=== PATIENT | male | born 1955 | race Caucasian/White ===

== ENCOUNTER 2016-04-07 16:29 | Observation (INO) | payer MEDICARE, OTHER ==
[~2016-04-07] VITALS: Ht 172.7 cm; Wt 78.0 kg
[~2016-04-07 16:29] MED LIST: ASPI1TAB69 PO; BUSP5TAB PO; CARV12.52 PO; FURO1TAB60 PO; LOSA100T PO; METF500T PO; SIMV40TA PO
[2016-04-07 16:32] VITALS: BP 120/88; PULSE 85; RESP 17; TEMP 98.2; O2SAT 98
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
[2016-04-07 19:56] VITALS: BP 135/91; RESP 18; TEMP 98.1; O2SAT 99
[2016-04-07] MEDS ORDERED: SODIUM CHLORIDE 0.9% FLUSH 5 ML FLUSH IVF PRN (20:15)
[2016-04-07] MEDS ORDERED: MORPHINE SULFATE 4 MG/ML INJ IV PUSH ONE (20:15)
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
[2016-04-07 21:33] VITALS: BP 127/73; PULSE 65; RESP 18; O2SAT 97
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
[2016-04-07 22:03] LABS: AUTOMATED NEUTROPHIL # 4.9 TH/MM3 (1.8-7.7); BASOPHIL % 0.5 % (0.0-2.0); EOSINOPHIL # 0.1 TH/MM3 (0-0.4); EOSINOPHIL % 1.4 % (0.0-4.0); HEMATOCRIT 43.4 % (39.0-51.0); HEMO FLAGS DIFF FINAL; LYMPHOCYTE # 1.9 TH/MM3 (1.0-4.8); MEAN CELL VOLUME 90.8 FL (80.0-100.0); MEAN CORPUSCULAR HEMOGLOBIN 31.5 PG (27.0-34.0); MEAN CORPUSCULAR HGB CONC 34.6 % (32.0-36.0); MONO % 6.5 % (0.0-8.0); NEUT % 65.6 % (16.0-70.0); PLATELET COUNT 155 TH/MM3 (150-450); RED BLOOD COUNT 4.78 MIL/MM3 (4.50-5.90); WHITE BLOOD COUNT 7.5 TH/MM3 (4.0-11.0)
[2016-04-07 22:17] LABS: BICARBONATE 27.6 MEQ/L (21.0-32.0); POTASSIUM 3.3 MEQ/L (3.5-5.1)
[2016-04-07 22:18] LABS: APTT (PATIENT) 26.2 SEC (24.3-30.1); INTERNATIONAL NORMALIZED RATIO 1.1 RATIO; PROTHROMBIN TIME - PATIENT 11.7 SEC (9.8-11.6)
[2016-04-07] MEDS ORDERED: POTASSIUM CL 40 MEQ/30 ML LIQ UDC PO ONE (22:30)
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
[2016-04-08] MEDS ORDERED: ACETAMINOPHEN 325 MG TAB PO PRN (01:00)
[2016-04-08] MEDS ORDERED: NALOXONE HCL 0.4 MG/ML AMP IV PRN (01:00)
[2016-04-08] MEDS ORDERED: ONDANSETRON HCL 4 MG/2 ML VIAL IVP PRN (01:00)
[2016-04-08] MEDS ORDERED: SODIUM CHLORIDE 0.9% FLUSH 5 ML FLUSH FLUSH PRN (01:00)
[2016-04-08 01:46] VITALS: BP 117/71; PULSE 61; RESP 18; TEMP 98.2; O2SAT 97
[2016-04-08] MEDS ORDERED: ACETAMINOPHEN/HYDROcodone 325 MG/5 MG TAB PO PRN (04:45)
[2016-04-08] MEDS ORDERED: MORPHINE SULFATE 4 MG/ML INJ IV PUSH PRN (04:45)
[2016-04-08 04:46] VITALS: BP 116/77; PULSE 74; RESP 18; TEMP 98.4; O2SAT 100
[2016-04-08 06:00] VITALS: BP 119/71; PULSE 66; RESP 18; O2SAT 98
[2016-04-08 08:42] VITALS: BP 111/71; PULSE 67; RESP 15; TEMP 97.7; O2SAT 99
[2016-04-08] MEDS ORDERED: FUROSEMIDE 40 MG TAB PO SCH (09:00)
[2016-04-08] MEDS ORDERED: ASPIRIN EC 81 MG TABEC PO SCH (09:00)
[2016-04-08] MEDS: metFORMIN HCL 500 MG TAB PO SCH ×2 (09:00→17:06)
[2016-04-08] MEDS ORDERED: LOSARTAN 50 MG TAB PO SCH (09:00)
[2016-04-08] MEDS ORDERED: CARVEDILOL 12.5 MG TAB PO SCH (09:00)
[2016-04-08] MEDS ORDERED: SODIUM CHLORIDE 0.9% FLUSH 5 ML FLUSH FLUSH SCH (09:00)
[2016-04-08] MEDS ORDERED: busPIRone HCL 5 MG TAB PO SCH (09:00)
[2016-04-08] MEDS ORDERED: DEXTROSE 50% IN WATER 50 ML VIAL(D50) IV PUSH PRN (10:00)
[2016-04-08] MEDS ORDERED: GLUCAGON 1 MG/ML VIAL OTHER PRN (10:00)
[2016-04-08] MEDS ORDERED: MAGNESIUM HYDROXIDE SUSP 30 ML CUP PO PRN (10:00)
[2016-04-08] MEDS ORDERED: NS + KCL 20 MEQ INJ 1,000 ML IV SCH (10:00)
[2016-04-08] MEDS ORDERED: DOCUSATE SODIUM 50 MG/SENNA 8.6 MG TAB PO PRN (10:00)
[2016-04-08] MEDS ORDERED: CALCIUM CARBONATE 500 MG CHEWABLE TAB CHEW PRN (10:00)
[2016-04-08] MEDS ORDERED: DOCUSATE SODIUM 100 MG CAP PO PRN (10:00)
[2016-04-08] MEDS ORDERED: ALUMINUM/MAGNESIUM/SIMETH 30 ML CUP PO PRN (10:00)
[2016-04-08] MEDS: INSULIN ASPART SUPPLEMENTAL SCALE SQ SCH ×2 (11:00→16:47)
[2016-04-08 11:33] LABS: BICARBONATE 29.9 MEQ/L (21.0-32.0); MAGNESIUM 1.7 MG/DL (1.5-2.5); POTASSIUM 3.4 MEQ/L (3.5-5.1)
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
[2016-04-08] MEDS ORDERED: CRUTMIS25 (16:32)
[2016-04-08] MEDS ORDERED: HYDR-3516 PO (16:32)
[2016-04-08] MEDS ORDERED: POTA20TA5 PO (16:32)
[2016-04-08] MEDS ORDERED: POTASSIUM CHLORIDE 10 MEQ CONTROLLED RELEASE TAB PO ONE (17:00)
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
[2016-04-08 17:34] VITALS: BP 122/80; PULSE 65; RESP 18; TEMP 97; O2SAT 96
[2016-04-08] MEDS ORDERED: PRAVASTATIN SOD 40 MG TAB PO SCH (21:00)
--- NOTE | 2016-04-08 22:51 | EKG ---
Date Performed: 04/07/2016 Time Performed: 17:23:42 PTAGE: 60 years EKG: ELECTRONIC VENTRICULAR PACEMAKER ABNORMAL RHYTHM ECG PREVIOUS TRACING : 02/27/2016 02.34 DOCTOR: Erik Urrutia Interpretating Date/Time 04/08/2016 22:46:23
[2016-04-09] MEDS ORDERED: POTASSIUM CHLORIDE 20 MEQ CONTROLLED RELEASE TAB PO SCH (09:00)
== END 2016-04-08 21:12 | disposition short-term general hospital (02) ==
LOC: NEPE 16:29 → NEDA 23:17 → NEDH 04-08 03:39 → NEPFCDU 04-08 14:09
PROVIDERS: ADMIT Internal Medicine; ATTEND Internal Medicine
DX: S82.892A Other fracture of left lower leg, initial encounter for closed fracture (principal); S97.02XA Crushing injury of left ankle, initial encounter; V29.9XXA Motorcycle rider (driver) (passenger) injured in unspecified traffic accident, initial encounter; M25.562 Pain in left knee; M79.672 Pain in left foot; R00.2 Palpitations; E78.00 Pure hypercholesterolemia, unspecified; I50.9 Heart failure, unspecified; I25.10 Atherosclerotic heart disease of native coronary artery without angina pectoris; E11.9 Type 2 diabetes mellitus without complications; I10 Essential (primary) hypertension; I25.2 Old myocardial infarction; F17.200 Nicotine dependence, unspecified, uncomplicated; Z79.84 Long term (current) use of oral hypoglycemic drugs; Z79.899 Other long term (current) drug therapy; M25.472 Effusion, left ankle; E78.5 Hyperlipidemia, unspecified; Z95.0 Presence of cardiac pacemaker; I47.2 Ventricular tachycardia; Z79.82 Long term (current) use of aspirin; E87.6 Hypokalemia; M77.32 Calcaneal spur, left foot; S80.02XA Contusion of left knee, initial encounter
CPT/HCPCS: 29515; 73564; 73590; 73610; 73630; 80048; 82550; 82948; 83735; 85025; 85610; 85730; 93005; 96374; 97162; 99285; G0378; G8987; G8988; J1815; J2270; J3480

== ENCOUNTER 2016-04-16 13:02 | Emergency (ER) | payer MEDICARE ==
[~2016-04-16] VITALS: Ht 172.7 cm; Wt 80.0 kg
[~2016-04-16 13:02] MED LIST changes: +CRUTMIS25; +HYDR-3516 PO; +POTA20TA5 PO
[2016-04-16 13:12] VITALS: BP 154/67; PULSE 75; RESP 16; TEMP 97.7; O2SAT 99
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
[2016-04-16] MEDS ORDERED: CEPH-460 PO (14:20)
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
== END 2016-04-16 14:46 | disposition home or self-care (01) ==
LOC: PHEFT 13:02
DX: S97.02XD Crushing injury of left ankle, subsequent encounter (principal); E78.00 Pure hypercholesterolemia, unspecified; E11.9 Type 2 diabetes mellitus without complications; I10 Essential (primary) hypertension; I25.10 Atherosclerotic heart disease of native coronary artery without angina pectoris; F17.210 Nicotine dependence, cigarettes, uncomplicated; V29.9XXD Motorcycle rider (driver) (passenger) injured in unspecified traffic accident, subsequent encounter
CPT/HCPCS: 29515; 73610

== ENCOUNTER 2016-05-03 06:40 | Observation (INO) | payer MEDICARE ==
[2016-05-03] VITALS (15 sets, daily range): BP systolic 100–147; BP diastolic 62–89; PULSE 62–93; RESP 16–20; TEMP 96.9–98.5; O2SAT 97–100
[~2016-05-03] VITALS: Ht 172.7 cm; Wt 79.6 kg
[~2016-05-03 06:40] MED LIST changes: +CEPH-460 PO
[2016-05-03] MEDS ORDERED: ASPIRIN 325 MG TAB PO ONE (07:15)
[2016-05-03] MEDS ORDERED: SODIUM CHLORIDE 0.9% FLUSH 5 ML FLUSH IVF PRN ×2 (07:15→09:00)
--- NOTE | 2016-05-03 07:22 | PD ---
HPI Chief Complaint: shortness of breath, palpitations Time Seen by Provider: 07:13 Travel History International Travel<30 days: No Contact w/Intl Traveler<30days: No History of Present Illness HPI Patient is a 60-year-old male with history of CHF, cardiomyopathy, hypertension , pacemaker, presents to emergency room with complaints of shortness of breath and palpitations. Patient reports that for the past 3 days, he has been feeling short of breath at rest as well as on exertion. Patient reports that he is concerned that he might be in heart failure. Patient reports that this morning, his shortness of breath has increased, reports that he was taking his pulse and noticed that his pulse with no "high" and then "low." Reports that he is having intermittent palpitations, reports that nothing brings his symptoms on or off, reports that when he has them, they last for a few minutes at a time. Patient denies chest pain at this time, denies fevers or chills, denies cough or congestion. PFSH Past Medical History Blood Disorders: No Heart Rhythm Problems: No Cancer: No Cardiac Catheterization: Yes Cardiovascular Problems: Yes (CAD) High Cholesterol: Yes Chest Pain: Yes Congestive Heart Failure: Yes Coronary Artery Disease: Yes Diabetes: Yes Diminished Hearing: No Endocrine: Yes Genitourinary: No Hypertension: Yes Immune Disorder: No Implanted Vascular Access Dvce: Yes Musculoskeletal: No Neurologic: No Psychiatric: No Reproductive: No Respiratory: No Immunizations Current: Yes Myocardial Infarction: Yes (x1) Radiation Therapy: No Thyroid Disease: No Triglycerides - High: Yes Past Surgical History AICD: Yes ([facility] ) Body Medical Devices: PACEMAKER Coronary Artery Bypass Graft: Yes Oral Surgery: Yes (SINUS) Pacemaker: Yes (pacer and defib - medtronic) Other Surgery: Yes (CYST REMOVED FROM PANCREASE; GALLBLADDER;) Social History Alcohol Use: No Tobacco Use: Yes (1/2 ppd) Substance Use: No Allergies-Medications (Allergen,Severity, Reaction): Coded Allergies: Contrast Media (Verified Allergy, Severe, Swelling, 05/03/16) MRI PRECAUTION (Verified Adverse Reaction, Severe, NON COMPATIBLE MEDTRONIC PACEMAKER 09/24/15 KMD, 05/03/16) VIVA XT AVIATION ENGINEER DEFIB MODEL [id number] IMPLANTED 09/02/13 Reported Meds & Prescriptions Reported Meds & Active Scripts Active Hydrocodone-Acetaminophen 5-325 mg Tab 1 Tab PO Q6HR PRN Losartan (Losartan Potassium) 100 Mg Tab 100 Mg PO DAILY Lasix (Furosemide) 40 Mg Tab 40 Mg PO DAILY Simvastatin 40 Mg Tab 40 Mg PO HS Metformin (Metformin HCl) 500 Mg Tab 500 Mg PO BIDPC With meals Carvedilol 12.5 Mg Tab 12.5 Mg PO BID Reported Aspirin 325 Mg Tab 325 Mg PO DAILY Review of Systems General / Constitutional: No: Fever Eyes: No: Visual changes HENT: No: Headaches Cardiovascular: Positive: Palpitations, No: Chest Pain or Discomfort, Tachycardia, Diaphoresis Respiratory: Positive: Shortness of Breath Gastrointestinal: No: Nausea, Vomiting, Abdominal Pain Genitourinary: No: Dysuria Musculoskeletal: No: Pain Skin: No Rash Neurologic: No: Weakness Psychiatric: No: Depression Endocrine: No: Polydipsia Hematologic/Lymphatic: No: Easy Bruising Physical Exam Narrative GENERAL: nad, nontoxic SKIN: Warm and dry. HEAD: Atraumatic. Normocephalic. EYES: No injection or drainage. ENT: No nasal bleeding or discharge. Mucous membranes pink and moist. NECK: Trachea midline. No JVD. CARDIOVASCULAR: Regular rate and rhythm. No murmur appreciated. RESPIRATORY: No accessory muscle use. Clear to auscultation. Breath sounds equal bilaterally. GASTROINTESTINAL: Abdomen soft, non-tender, nondistended. Hepatic and splenic margins not palpable. MUSCULOSKELETAL: No obvious deformities. No clubbing. No cyanosis. No edema. NEUROLOGICAL: Awake and alert. No obvious cranial nerve deficits. Motor grossly within normal limits. Normal speech. PSYCHIATRIC: Appropriate mood and affect; insight and judgment normal. Data Data Last Documented VS Vital Signs Date Time Temp Pulse Resp B/P Pulse Ox O2 Delivery O2 Flow Rate FiO2 05/03/16 08:00 71 16 108/75 98 Nasal Cannula 2 05/03/16 07:25 98.5 Orders Electrocardiogram (05/03/16 07:13) B-Type Natriuretic Peptide (05/03/16 07:13) Ckmb (Isoenzyme) Profile (05/03/16 07:13) Complete Blood Count With Diff (05/03/16 07:13) Comprehensive Metabolic Panel (05/03/16 07:13) Magnesium (Mg) (05/03/16 07:13) Prothrombin Time / Inr (Pt) (05/03/16 07:13) Act Partial Throm Time (Ptt) (05/03/16 07:13) Troponin I (05/03/16 07:13) Chest, Single Ap (05/03/16 07:13) Ecg Monitoring (05/03/16 07:13) Iv Access Insert/Monitor (05/03/16 07:13) Oximetry (05/03/16 07:13) Aspirin (Aspirin) (05/03/16 07:15) Sodium Chloride 0.9% Flush (Ns Flush) (05/03/16 07:15) Thyroid Stimulating Hormone (05/03/16 07:13) Furosemide Inj (Lasix Inj) (05/03/16 08:00) Nitroglycerin 2% Oint (Nitroglycerin 2% (05/03/16 08:00) Potassium Cl 40 Meq/30 Ml Liq (Kcl 40 Me (05/03/16 08:15) Place In Observation (05/03/16 ) Vital Signs (Adult) Q4H (05/03/16 08:50) Activity Oob Ad Amina (05/03/16 08:50) Travel Ticketing Reviewer / Telemetry (05/03/16 08:50) Intake + Output CARLOS.Q8H (05/03/16 08:50) ^ Restrictions (05/03/16 08:50) Diet 1800 Ada Cons Carb (05/03/16 Breakfast) Troponin I (05/03/16 13:30) Troponin I (05/03/16 19:30) Sodium Chloride 0.9% Flush (Ns Flush) (05/03/16 09:00) Sodium Chloride 0.9% Flush (Ns Flush) (05/03/16 09:00) Furosemide Inj (Lasix Inj) (05/03/16 18:00) Potassium Chloride (Kcl) (05/03/16 09:00) Enoxaparin Inj (Lovenox Inj) (05/03/16 09:00) Aspirin (Aspirin) (05/03/16 09:00) Carvedilol (Coreg) (05/03/16 09:00) Losartan (Cozaar) (05/03/16 09:00) Metformin (Glucophage) (05/03/16 09:00) Pravastatin (Pravachol) (05/03/16 21:00) Acetaminophen (Tylenol) (05/03/16 09:00) Ondansetron Inj (Zofran Inj) (05/03/16 09:00) Docusate Sodium (Colace) (05/03/16 09:00) Magnesium Hydroxide Liq (Milk Of Magnesi (05/03/16 09:00) Temazepam (Restoril) (05/03/16 09:00) Admit Order (Ed Use Only) (05/03/16 09:00) Labs Laboratory Tests Test 05/03/16 07:27 White Blood Count 6.5 TH/MM3 Red Blood Count 4.36 MIL/MM3 Hemoglobin 13.6 GM/DL Hematocrit 40.3 % Mean Corpuscular Volume 92.6 FL Mean Corpuscular Hemoglobin 31.3 PG Mean Corpuscular Hemoglobin 33.8 % Concent Red Cell Distribution Width 13.3 % Platelet Count 176 TH/MM3 Mean Platelet Volume 7.9 FL Neutrophils (%) (Auto) 59.9 % Lymphocytes (%) (Auto) 28.6 % Monocytes (%) (Auto) 7.6 % Eosinophils (%) (Auto) 3.2 % Basophils (%) (Auto) 0.7 % Neutrophils # (Auto) 3.9 TH/MM3 Lymphocytes # (Auto) 1.9 TH/MM3 Monocytes # (Auto) 0.5 TH/MM3 Eosinophils # (Auto) 0.2 TH/MM3 Basophils # (Auto) 0.0 TH/MM3 CBC Comment DIFF FINAL Differential Comment Prothrombin Time 11.6 SEC Prothromb Time International 1.0 RATIO Ratio Activated Partial 26.8 SEC Thromboplast Time Sodium Level 145 MEQ/L Potassium Level 3.0 MEQ/L Chloride Level 105 MEQ/L Carbon Dioxide Level 33.0 MEQ/L Anion Gap 7 MEQ/L Blood Urea Nitrogen 11 MG/DL Creatinine 0.89 MG/DL Estimat Glomerular Filtration 87 ML/MIN Rate Random Glucose 110 MG/DL Calcium Level 8.4 MG/DL Magnesium Level 1.7 MG/DL Total Bilirubin 0.6 MG/DL Aspartate Amino Transf 10 U/L (AST/SGOT) Alanine Aminotransferase 9 U/L (ALT/SGPT) Alkaline Phosphatase 53 U/L Total Creatine Kinase 38 U/L Troponin I 0.13 NG/ML B-Type Natriuretic Peptide 1190 PG/ML Total Protein 7.0 GM/DL Albumin 3.4 GM/DL Thyroid Stimulating Hormone 2.450 uIU/ML 3rd Gen [facility] Medical Decision Making Medical Screen Exam Complete: Yes Emergency Medical Condition: Yes Interpretation(s) EKG at 0657: paced at 80bpm, qt/qtc: 426/461 - ekg similar to previous ekg on Vital Signs Date Time Temp Pulse Resp B/P Pulse Ox O2 Delivery O2 Flow Rate FiO2 05/03/16 06:50 97.6 93 18 120/68 97 Differential Diagnosis ACS, CHF, arrhythmia, pneumonia, hyperthyroidism, PE Narrative Course Patient is a 60-year-old male with history of hypertension, CHF, cardiac myopathy, pacemaker, presents to emergency room with complaints of shortness of breath and palpitations for the past 3 days. Patient reports that he has history of CHF in the past, patient concerned that he "is in CHF." Patient with palpitations, no chest pain at this time. Patient reports that his symptoms are similar to when he was last seen and admitted to the hospital. Vital signs are stable this time. Patient nontoxic on evaluation. Patient was placed on a central office inspector upon arrival to emergency room. EKG as well as labs and x-ray chest ordered for further evaluation of symptoms. Patient with no chest pain at this time. Patient is a smoker, reports that he has smoked for over 40 years and continues to smoke Patient reevaluated, patient is feeling much better at this time after IV lasix given to her. CBC wbc: 6.5 hgb: 13.6 hct: 40.3 platelets: 176 BMP sodium 145 chloride 105 potassium 3.0 bun11 cr 0.89 Top 0.13 BNP: 1190 chest xray: cardiomegaly with interstitial edema I reviewed all labs and studies with patient in detail. Will obvious for CHF exacerbation as well as NSTEMI. Patient reports that he does not have a pulling unit operator or primary care doctor in this area. Patient reports that he last saw cardiologists over a year ago in [place]. Diagnosis Primary Impression: CHF exacerbation Qualified Code: I50.9 - Acute on chronic congestive heart failure, unspecified congestive heart failure type Additional Impression: NSTEMI (non-ST elevated myocardial infarction) Admitting Information Admitting Physician Requests: Observation Marina Almazan DO May 03, 2016 07:22
--- NOTE | 2016-05-03 07:35 | RADHPO ---
EXAM DATE/TIME: 05/03/2016 07:19 [place] COMPARISON: No previous studies available for comparison. INDICATIONS : Short of breath. Heart palpatations. MEDICAL HISTORY : Myocardial infarction. Congestive heart failure. Hypercholesterolemia. Coronary artery disease. Hyper tension. Diabetes SURGICAL HISTORY : Pacemaker.Cholecystectomy. Sinus/oral surgery. Cardiac catheterization.Pancreatic cyst removed. ENCOUNTER: Initial ACUITY: 1 day PAIN SCORE: 0/10 LOCATION: chest FINDINGS: A single view of the chest demonstrates cardiomegaly with interstitial edema. Increased pulmonary vas cularity. Left-sided defibrillator with intact leads. There may be a tiny left-sided pleural effusion . The cardiomediastinal contours are unremarkable. Osseous structures are intact. CONCLUSION: Cardiomegaly with interstitial edema, consistent with CHF. Victor Manuel Gordon MD on May 03, 2016 at 7:33 Board Certified Radiologist. This report was verified electronically.
[2016-05-03 07:41] LABS: AUTOMATED NEUTROPHIL # 3.9 TH/MM3 (1.8-7.7); BASOPHIL % 0.7 % (0.0-2.0); EOSINOPHIL # 0.2 TH/MM3 (0-0.4); EOSINOPHIL % 3.2 % (0.0-4.0); HEMATOCRIT 40.3 % (39.0-51.0); HEMO FLAGS DIFF FINAL; LYMPH % 28.6 % (9.0-44.0); LYMPHOCYTE # 1.9 TH/MM3 (1.0-4.8); MEAN CELL VOLUME 92.6 FL (80.0-100.0); MEAN CORPUSCULAR HEMOGLOBIN 31.3 PG (27.0-34.0); MEAN CORPUSCULAR HGB CONC 33.8 % (32.0-36.0); MONO % 7.6 % (0.0-8.0); NEUT % 59.9 % (16.0-70.0); PLATELET COUNT 176 TH/MM3 (150-450); RED BLOOD COUNT 4.36 MIL/MM3 (4.50-5.90); RED CELL DISTRIBUTION WIDTH 13.3 % (11.6-17.2); WHITE BLOOD COUNT 6.5 TH/MM3 (4.0-11.0)
[2016-05-03] MEDS ORDERED: ASPI325T PO (07:45)
[2016-05-03 07:49] LABS: CHLORIDE 105 MEQ/L (98-107); SODIUM (NA) 145 MEQ/L (136-145)
[2016-05-03 07:53] LABS: ANION GAP 7 MEQ/L (5-15); APTT (PATIENT) 26.8 SEC (24.3-30.1); BLOOD UREA NITROGEN 11 MG/DL (7-18); MAGNESIUM 1.7 MG/DL (1.5-2.5); PROTHROMBIN TIME - PATIENT 11.6 SEC (9.8-11.6)
[2016-05-03 07:56] LABS: ALT (GPT) 9 U/L (12-78); AST (GOT) 10 U/L (15-37); GLOMERULAR FILTRATION RATE 87 ML/MIN (>89)
[2016-05-03 07:58] LABS: TOTAL BILIRUBIN ADULT 0.6 MG/DL (0.2-1.0)
[2016-05-03 07:59] LABS: ALKALINE PHOSPHATASE 53 U/L (45-117)
[2016-05-03] MEDS ORDERED: FUROSEMIDE 40 MG/4 ML VIAL IV PUSH ONE (08:00)
[2016-05-03] MEDS ORDERED: NITROGLYCERIN 2% OINT 1 GM PACKET TOP ONE (08:00)
[2016-05-03 08:14] LABS: CREATINE KINASE 38 U/L (39-308)
[2016-05-03] MEDS ORDERED: POTASSIUM CL 40 MEQ/30 ML LIQ UDC PO ONE (08:15)
[2016-05-03] MEDS ORDERED: ONDANSETRON HCL 4 MG/2 ML VIAL IV PRN (09:00)
[2016-05-03] MEDS: ASPIRIN 325 MG TAB PO SCH (09:00)
[2016-05-03] MEDS ORDERED: TEMAZEPAM 15 MG CAP PO PRN (09:00)
[2016-05-03] MEDS ORDERED: MAGNESIUM HYDROXIDE SUSP 30 ML CUP PO PRN (09:00)
[2016-05-03] MEDS ORDERED: ACETAMINOPHEN 325 MG TAB PO PRN (09:00)
[2016-05-03] MEDS ORDERED: DOCUSATE SODIUM 100 MG CAP PO PRN (09:00)
[2016-05-03] MEDS: POTASSIUM CHLORIDE 20 MEQ CONTROLLED RELEASE TAB PO SCH ×2 (09:24→21:52)
[2016-05-03] MEDS: metFORMIN HCL 500 MG TAB PO SCH ×2 (09:35→18:38)
[2016-05-03] MEDS: CARVEDILOL 12.5 MG TAB PO SCH ×2 (09:36→21:52)
[2016-05-03] MEDS: LOSARTAN 50 MG TAB PO SCH (09:36)
[2016-05-03] MEDS: SODIUM CHLORIDE 0.9% FLUSH 5 ML FLUSH IVF SCH ×2 (09:37→21:52)
[2016-05-03] MEDS: ENOXAPARIN SODIUM 40 MG/0.4 ML SYRINGE SQ SCH (11:02)
--- NOTE | 2016-05-03 16:54 | HHI.HP ---
[facility] Primary Care Physician No Primary Care Physician Admission Diagnosis CHF exacerbation Diagnoses: Travel History International Travel<30 Days: No Contact w/Intl Traveler <30 Da: No Traveled to Known Affected Are: No History of Present Illness This is a 60-year-old male with past medical history of ischemic cardiomyopathy with ejection fraction of 20%, history of AICD and pacer, history of nonsustained V. tach, type 2 diabetes who presents to the hospital with a 2 day history of worsening shortness of breath and cough. He denies pedal edema other than his left ankle which he recently had an injury. Symptoms are similar to previous CHF exacerbations. He states that he has been taking his Lasix. The patient does not have a PCP and recently got his medications filled at an urgent care. The patient states that he has been unable to get established with a PCP since moving to [place] within the past year. This is the patient's second admission for CHF exacerbation within the past several months. The patient states his insurance has changed and he has been difficulty finding a PCP. He states that the office that he is in contact with have pushes appointment out to August. He is unable to tell me the name of that doctor. The patient previously received his care in [place]. The patient denies any recent chest pain or chest pressure. He specifically denies heart palpitations. When I asked him if he fluid restricts he answers "yes, I drink only 1 glass of water a day." Review of Systems Constitutional: DENIES: Fever, Chills Ears, nose, mouth, throat: DENIES: Throat pain, Hoarseness Respiratory: COMPLAINS OF: Cough, Sputum production, Shortness of breath Cardiovascular: COMPLAINS OF: Dyspnea on Exertion, DENIES: Chest pain, Palpitations, Lower Extremity Edema Gastrointestinal: DENIES: Abdominal pain, Nausea, Vomiting Genitourinary: DENIES: Hematuria, Dysuria Musculoskeletal: DENIES: Back pain, Neck pain Integumentary: DENIES: Pruritus, Rash Hematologic/lymphatic: DENIES: Bruising, Lymphadenopathy Neurologic: DENIES: Abnormal gait, Headache Psychiatric: DENIES: Anxiety, Confusion Past Family Social History Past Medical History Ischemic cardiomyopathy with EF 20% based on recent 2-D echocardiogram in March 2015 Type 2 diabetes Coronary artery disease with history of KS Hypertension Hyperlipidemia History of pancreatic pseudocyst resection Past Surgical History Pancreatic pseudocyst resection AICD Left ankle lateral malleolus avulsion fracture in March 2016 which is being managed conservatively Reported Medications Allergies Coded Allergies Type Severity Reaction Last Updated Verified Contrast Media Allergy Severe Swelling 05/03/16 Yes MRI PRECAUTION Adverse Reaction Severe NON COMPATIBLE MEDTRONIC PACEMAKER KMD 05/03/16 Yes Active Scripts Medications Dose Route/Sig Days Date Category Dose Instructions Aspirin 325 Mg Tab 325 Mg PO DAILY 05/03/16 Reported Hydrocodone-Acetaminophen 5-325 mg Tab 1 Tab PO Q6HR PRN 04/08/16 Rx Losartan (Losartan Potassium) 100 Mg Tab 100 Mg PO DAILY 02/28/16 Rx Lasix (Furosemide) 40 Mg Tab 40 Mg PO DAILY 02/28/16 Rx Simvastatin 40 Mg Tab 40 Mg PO HS 02/28/16 Rx Metformin (Metformin HCl) 500 Mg Tab 500 Mg PO BIDPC 02/28/16 Rx With meals Carvedilol 12.5 Mg Tab 12.5 Mg PO BID 02/28/16 Rx Allergies: Coded Allergies: Contrast Media (Verified Allergy, Severe, Swelling, 05/03/16) MRI PRECAUTION (Verified Adverse Reaction, Severe, NON COMPATIBLE MEDTRONIC PACEMAKER 09/24/15 KMD, 05/03/16) VIVA XT GEAR SETTER DEFIB MODEL [id number] IMPLANTED 09/02/13 Family History Negative for coronary artery disease Social History 40 pack year history tobacco, denies alcohol use Physical Exam Vital Signs Vital Signs Date Time Temp Pulse Resp B/P Pulse Ox O2 Delivery O2 Flow Rate FiO2 05/03/16 15:10 72 16 99 Room Air 2 05/03/16 13:00 64 16 100 Room Air 2 05/03/16 13:00 70 16 104/65 98 Nasal Cannula 2 05/03/16 12:00 62 16 107/72 100 Room Air 05/03/16 11:00 67 16 100 Nasal Cannula 2 05/03/16 11:00 80 16 112/73 99 Nasal Cannula 05/03/16 10:00 74 16 111/70 99 Nasal Cannula 2 05/03/16 09:15 68 16 97 Nasal Cannula 2 05/03/16 09:00 92 16 111/70 98 Nasal Cannula 2 05/03/16 08:00 71 16 108/75 98 Nasal Cannula 2 05/03/16 07:25 98.5 81 16 113/81 05/03/16 07:15 16 98 Nasal Cannula 2 05/03/16 06:55 80 18 97 Room Air 05/03/16 06:50 97.6 93 18 120/68 97 Physical Exam GENERAL: Well-nourished, well-developed lean male patient. SKIN: Warm and dry. HEAD: Normocephalic. EYES: No scleral icterus. No injection or drainage. NECK: Supple, trachea midline. No JVD or lymphadenopathy. CARDIOVASCULAR: Regular rate and rhythm without murmurs, gallops, or rubs. RESPIRATORY: Breath sounds equal bilaterally. Some crackles in the left base. No accessory muscle use. GASTROINTESTINAL: Abdomen soft, non-tender, nondistended. EXTREMITIES: Trace edema in the left ankle. NEUROLOGICAL: Awake, alert, and oriented x 3. Non-focal. Laboratory Laboratory Tests Test 05/03/16 05/03/16 07:27 13:35 White Blood Count 6.5 Red Blood Count 4.36 Hemoglobin 13.6 Hematocrit 40.3 Mean Corpuscular Volume 92.6 Mean Corpuscular Hemoglobin 31.3 Mean Corpuscular Hemoglobin 33.8 Concent Red Cell Distribution Width 13.3 Platelet Count 176 Mean Platelet Volume 7.9 Neutrophils (%) (Auto) 59.9 Lymphocytes (%) (Auto) 28.6 Monocytes (%) (Auto) 7.6 Eosinophils (%) (Auto) 3.2 Basophils (%) (Auto) 0.7 Neutrophils # (Auto) 3.9 Lymphocytes # (Auto) 1.9 Monocytes # (Auto) 0.5 Eosinophils # (Auto) 0.2 Basophils # (Auto) 0.0 CBC Comment DIFF FINAL Differential Comment Prothrombin Time 11.6 Prothromb Time International 1.0 Ratio Activated Partial 26.8 Thromboplast Time Sodium Level 145 Potassium Level 3.0 Chloride Level 105 Carbon Dioxide Level 33.0 Anion Gap 7 Blood Urea Nitrogen 11 Creatinine 0.89 Estimat Glomerular Filtration 87 Rate Random Glucose 110 Calcium Level 8.4 Magnesium Level 1.7 Total Bilirubin 0.6 Aspartate Amino Transf 10 (AST/SGOT) Alanine Aminotransferase 9 (ALT/SGPT) Alkaline Phosphatase 53 Total Creatine Kinase 38 Troponin I 0.13 0.12 B-Type Natriuretic Peptide 1190 Total Protein 7.0 Albumin 3.4 Thyroid Stimulating Hormone 2.450 3rd Gen Result Diagram: 05/03/1672605/03/16726 Imaging Last Impressions Chest X-Ray 05/03/16712 Signed Impressions: Service Date/Time: Tuesday, May 03, 2016 07:19 - CONCLUSION: Cardiomegaly with interstitial edema, consistent with CHF. Victor Manuel Gordon MD Assessment and Plan Problem List: (1) CHF exacerbation ICD Code: I50.9 Status: Acute Assessment and Plan Acute systolic congestive heart failure exacerbation, mild. The patient is already feeling better after receiving Lasix IV in the emergency department he is on room air. He does have a history of ischemic cardiomyopathy with EF 20% based on recent 2-D echocardiogram in March 2015. The patient unfortunately does not have a primary care physician and says he has been having trouble getting an appointment. He had to get his medications filled at a local urgent care. I will ask case management to assist with getting PCP. We'll continue with Lasix IV overnight. He is already appropriately on Coreg, losartan. Cannot start an JOSE inhibitor as his blood pressure is borderline low. We'll likely increase his home Lasix dose at discharge. Hypokalemia. Replete. Type 2 diabetes - continue metformin. Coronary artery disease with history of KS - continue aspirin, pravastatin. Hypertension - blood pressure running low. DVT prophylaxis with Lovenox. Problem Qualifiers (1) CHF exacerbation: Qualified Code: I50.23 - Acute on chronic systolic congestive heart failure Isabelle Beckham MD May 03, 2016 16:54
--- NOTE | 2016-05-03 18:07 | EKG ---
Date Performed: 05/03/2016 Time Performed: 06:57:08 PTAGE: 60 years EKG: Normal Sinus rhythm . Left axis deviation LBBB with ventircular premature complex Cannot exclude a possibility of using p otoniel beats as opposed to LBBB, but no pacer spikes are clearly seen. Abnormal ECG PREVIOUS TRACING : 04/07/2016 17.23 DOCTOR: Eliazar Monson Interpretating Date/Time 05/03/2016 18:05:09
[2016-05-03] MEDS: FUROSEMIDE 40 MG/4 ML VIAL IVP SCH (18:25)
[2016-05-03] MEDS ORDERED: PRAVASTATIN SOD 80 MG TAB PO SCH (21:00)
[2016-05-04] VITALS: BP 113/83; PULSE 76; RESP 20; TEMP 96.6; O2SAT 100
[2016-05-04 04:00] VITALS: BP 115/79; PULSE 71; RESP 20; TEMP 98.1; O2SAT 98
[2016-05-04 08:00] VITALS: BP 115/75; PULSE 67; RESP 18; TEMP 98.8; O2SAT 100
[2016-05-04] MEDS: POTASSIUM CHLORIDE 20 MEQ CONTROLLED RELEASE TAB PO SCH (09:23)
[2016-05-04] MEDS: LOSARTAN 50 MG TAB PO SCH (09:23)
[2016-05-04] MEDS: CARVEDILOL 12.5 MG TAB PO SCH (09:23)
[2016-05-04] MEDS: metFORMIN HCL 500 MG TAB PO SCH (09:23)
[2016-05-04] MEDS: FUROSEMIDE 40 MG/4 ML VIAL IVP SCH (09:23)
[2016-05-04] MEDS: ASPIRIN 325 MG TAB PO SCH (09:23)
[2016-05-04] MEDS: ENOXAPARIN SODIUM 40 MG/0.4 ML SYRINGE SQ SCH (09:24)
[2016-05-04] MEDS: SODIUM CHLORIDE 0.9% FLUSH 5 ML FLUSH IVF SCH (09:24)
--- NOTE | 2016-05-04 09:47 | HHI.PR ---
Subjective Remarks Patient seen and examined today with Dr. Beckham. Patient states that he is improved. However he did have some mild shortness of breath this morning that has resolved. Objective Vitals Vital Signs Date Time Temp Pulse Resp B/P Pulse Ox O2 Delivery O2 Flow Rate FiO2 05/04/16 08:00 98.8 67 18 115/75 100 05/04/16 04:00 98.1 71 20 115/79 98 05/04/16 00:00 96.6 76 20 113/83 100 05/03/16 21:00 70 05/03/16 20:00 96.9 68 20 122/82 98 05/03/16 19:10 73 16 100 Room Air 2 05/03/16 19:00 73 16 103/68 100 Nasal Cannula 2 05/03/16 18:00 63 16 111/62 99 Nasal Cannula 2 05/03/16 17:20 67 16 100/68 98 Nasal Cannula 2 05/03/16 17:05 65 16 98 Room Air 2 05/03/16 15:10 72 16 99 Room Air 2 05/03/16 14:20 68 16 147/89 99 Nasal Cannula 2 05/03/16 13:00 64 16 100 Room Air 2 05/03/16 13:00 70 16 104/65 98 Nasal Cannula 2 05/03/16 12:00 62 16 107/72 100 Room Air 05/03/16 11:00 67 16 100 Nasal Cannula 2 05/03/16 11:00 80 16 112/73 99 Nasal Cannula 05/03/16 10:00 74 16 111/70 99 Nasal Cannula 2 I/O 05/03/16 05/03/16 05/03/16 05/04/16 05/04/16 05/04/16 07:00 15:00 23:00 07:00 15:00 23:00 Intake Total 440 ml 120 ml 960 ml Output Total 950 ml 670 ml 0 ml Balance -510 ml -550 ml 960 ml Intake Oral 440 ml 120 ml 960 ml Output Urine Total 950 ml 670 ml 0 ml # Voids 2 3 # Bowel Movements 0 0 Result Diagram: 05/03/1672605/03/16726 Objective Remarks GENERAL: Well-developed, well-nourished, in no acute distress. alert and orientated HEENT: Head is normocephalic without any lesions or masses noted. Facial features are symmetric. Eyes: Extraocular muscles are intact. Conjunctivae were clear. NECK: Supple without any masses. Trachea midline no deviation. No JVD, CARDIAC: Regular rhythm, regular rate. S1/S2 are heard. 2/6 holosystolic murmur. No Gallops or rubs. LUNGS: Clear to auscultation bilaterally. No wheeze, rhonchi or rales. No use of accessory muscles on inspiration or expiration. ABDOMEN: Soft, nontender. Nondistended. Bowel sounds heard in all 4 quadrants. No organomegaly or masses. Negative rebound, negative guarding EXTREMITIES: No edema, pulses are equal bilaterally. No cyanosis or clubbing. Left ankle edema NEUROLOGY: Mood and affect appear appropriate. Cranial nerves II through XII grossly intact. Moving all extremities, speech is clear Urinary Catheter: No Vascular Central Line Catheter: No A/P Assessment and Plan Acute systolic congestive heart failure exacerbation, mild. Improved Status post Lasix IV in the emergency department and continued overnight. History of ischemic cardiomyopathy with EF 20% based on recent 2-D echocardiogram in March 2015. Continue Coreg, losartan. Cannot start an JOSE inhibitor as his blood pressure is borderline low. Increase his home Lasix dose at discharge. PCP APPOINTMENT HAS BEEN ARRANGED FOR HIM TOMORROW WITH DR. JUAREZ Hypokalemia. Replete and continue to monitor Type 2 diabetes continued metformin. Coronary artery disease with history of PR continue aspirin, pravastatin. Hypertension, blood pressure running low. Continued home medications, DVT prophylaxis Subcutaneous Lovenox. Written by Dave Maldonado PA-C, acting as scribe for Dr. Beckham on 05/04/16 at 1100. The documentation accurately reflects the work and decisions performed face-to- face by Dr. Beckham on 05/04/16 at 1100. Discharge Planning Discharge home in stable condition Diet: Healthy heart diet with fluid restriction Activity: Ad jaswinder. Medications per medication reconciliation Follow-up primary medical doctor in one week, case management trying to obtain primary medical doctor for patient. Case management has arranged for patient have an appointment tomorrow at 2:30 PM with Dave Amezcua May 04, 2016 09:47 Isabelle Beckham MD May 04, 2016 12:21
[2016-05-04] MEDS ORDERED: FURO1TAB62 PO (09:52)
[2016-05-04] MEDS ORDERED: POTA10TA2 PO (09:52)
--- NOTE | 2016-05-04 09:53 | HHI.DCPOC ---
Discharge Care Plan Diagnosis: (1) CHF exacerbation Goals to Promote Your Health * To prevent worsening of your condition and complications * To maintain your health at the optimal level Directions to Meet Your Goals Take your medications as prescribed Follow your dietary instruction Follow activity as directed Keep your appointments as scheduled Take your immunizations and boosters as scheduled If your symptoms worsen call your PCP, if no PCP go to Urgent Care Center or Emergency Room Smoking is Dangerous to Your Health. Avoid second hand smoke Call the 24-hour hour crisis hotline for domestic abuse at Dave Maldonado May 04, 2016 09:52
== END 2016-05-04 12:35 | disposition home or self-care (01) ==
LOC: PHED 06:40 → PHEDA 09:01 → PHEDH 13:02 → PH3A 19:52
PROVIDERS: ADMIT Family Medicine; ATTEND Family Medicine
DX: I11.0 Hypertensive heart disease with heart failure (principal); I50.23 Acute on chronic systolic (congestive) heart failure; I21.4 Non-ST elevation (NSTEMI) myocardial infarction; I25.10 Atherosclerotic heart disease of native coronary artery without angina pectoris; I25.2 Old myocardial infarction; I25.5 Ischemic cardiomyopathy; E11.9 Type 2 diabetes mellitus without complications; E87.6 Hypokalemia; F17.200 Nicotine dependence, unspecified, uncomplicated; Z95.1 Presence of aortocoronary bypass graft; Z95.0 Presence of cardiac pacemaker; Z79.899 Other long term (current) drug therapy
CPT/HCPCS: 71010; 80053; 82550; 83735; 83880; 84443; 84484; 85025; 85610; 85730; 93005; 96374; 99285; G0378; J1650; J1940

== ENCOUNTER 2016-05-08 03:03 | Emergency (ER) | payer MEDICARE ==
[~2016-05-08] VITALS: Ht 172.7 cm; Wt 70.0 kg
[~2016-05-08 03:03] MED LIST changes: -ASPI1TAB69 PO; +ASPI325T PO; -BUSP5TAB PO; -CEPH-460 PO; -CRUTMIS25; -FURO1TAB60 PO; +FURO1TAB62 PO; +POTA10TA2 PO; -POTA20TA5 PO
[2016-05-08 03:06] VITALS: BP 123/74; PULSE 89; RESP 21; TEMP 98.5; O2SAT 94
[2016-05-08 03:09] VITALS: O2SAT 96
[2016-05-08] MEDS ORDERED: FUROSEMIDE 100 MG/10 ML VIAL IVP ONE (03:15)
[2016-05-08] MEDS ORDERED: SODIUM CHLORIDE 0.9% FLUSH 5 ML FLUSH IVF PRN (03:15)
--- NOTE | 2016-05-08 03:17 | PD ---
HPI Chief Complaint: Respiratory Distress Time Seen by Provider: 03:08 Travel History International Travel<30 days: No Contact w/Intl Traveler<30days: No Traveled to known affect area: No History of Present Illness HPI 60-year-old male arrives complaining of shortness of breath orthopnea and dyspnea on exertion. He reports strict compliance with Lasix. As well he reports dietary compliance guidelines of been adhered to. He reports a chronic cough. He feels as though he suffers with nasal congestion, typical for a CHF type episode for the patient. He denies fever. He denies chest pain. Duration a day or 2. PFSH Past Medical History Arthritis: No Asthma: No Blood Disorders: No Anxiety: Yes Depression: No Heart Rhythm Problems: Yes Cancer: No Cardiac Catheterization: Yes (angioplasty) Cardiovascular Problems: Yes (CAD) High Cholesterol: Yes Chemotherapy: No Chest Pain: Yes (on admit) Congestive Heart Failure: Yes COPD: No Cerebrovascular Accident: No Coronary Artery Disease: Yes Diabetes: Yes Patient Takes Glucophage: Yes Diminished Hearing: No Endocrine: Yes Gastrointestinal Disorders: Yes GERD: Yes Genitourinary: No Hiatal Hernia: No Hypertension: Yes Immune Disorder: No Implanted Vascular Access Dvce: Yes Musculoskeletal: Yes Neurologic: Yes Psychiatric: No Reproductive: No Respiratory: No Immunizations Current: Yes Migraines: No Myocardial Infarction: Yes (x1) Radiation Therapy: No Seizures: No Sleep Apnea: No Thyroid Disease: No Triglycerides - High: Yes Ulcer: No Influenza Vaccination: No Past Surgical History Abdominal Surgery: Yes (pancrease removed a cyst, cholecystectomy) AICD: Yes ([employer]inic ) Arteriovenous Shunt: No Body Medical Devices: PACEMAKER Cardiac Surgery: Yes (cath and stent) Cholecystectomy: Yes Coronary Artery Bypass Graft: Yes Endocrine Surgery: No Eye Surgery: No Genitourinary Surgery: No Gynecologic Surgery: No Insulin Pump: No Joint Replacement: No Oral Surgery: Yes (SINUS) Pacemaker: Yes (pacer and defib - medtronic) Thoracic Surgery: Yes (pacemaker) Other Surgery: Yes (CYST REMOVED FROM PANCREASE; GALLBLADDER;) Social History Alcohol Use: No Tobacco Use: Yes (3/4 ppd since the age of 13) Substance Use: No Allergies-Medications (Allergen,Severity, Reaction): Coded Allergies: Contrast Media (Verified Allergy, Severe, Swelling, 05/08/16) MRI PRECAUTION (Verified Adverse Reaction, Severe, NON COMPATIBLE MEDTRONIC PACEMAKER 09/24/15 KMD, 05/08/16) VIVA XT PRODUCT DEVELOPMENT ECOLOGIST DEFIB MODEL [id number] IMPLANTED 09/02/13 Reported Meds & Prescriptions Reported Meds & Active Scripts Active Potassium Chloride ER (Potassium Chloride) 10 Meq Tab 30 Meq PO DAILY 30 Days Lasix (Furosemide) 20 Mg Tab 60 Mg PO DAILY 30 Days Hydrocodone-Acetaminophen 5-325 mg Tab 1 Tab PO Q6HR PRN Losartan (Losartan Potassium) 100 Mg Tab 100 Mg PO DAILY Simvastatin 40 Mg Tab 40 Mg PO HS Metformin (Metformin HCl) 500 Mg Tab 500 Mg PO BIDPC With meals Carvedilol 12.5 Mg Tab 12.5 Mg PO BID Reported Aspirin 325 Mg Tab 325 Mg PO DAILY Review of Systems Except as stated in HPI: all other systems reviewed are Neg General / Constitutional: No: Fever Cardiovascular: No: Chest Pain or Discomfort Respiratory: Positive: Cough Physical Exam Narrative GENERAL: 60-year-old male somewhat chronically ill in appearance SKIN: Warm and dry. HEAD: Atraumatic. Normocephalic. EYES: Pupils equal and round. No scleral icterus. No injection or drainage. ENT: No nasal bleeding or discharge. Mucous membranes pink and moist. NECK: Trachea midline. No JVD. CARDIOVASCULAR: Regular rate and rhythm. RESPIRATORY: Trace rales bilaterally. Minimal tachypnea. GASTROINTESTINAL: Abdomen soft, non-tender, nondistended. Hepatic and splenic margins not palpable. MUSCULOSKELETAL: Extremities without clubbing, cyanosis, or edema. 2+ pitting edema bilateral lower extremities. NEUROLOGICAL: Awake and alert. No obvious cranial nerve deficits. Motor grossly within normal limits. Five out of 5 muscle strength in the arms and legs. Normal speech. PSYCHIATRIC: Appropriate mood and affect; insight and judgment normal. Data Data Last Documented VS Vital Signs Date Time Temp Pulse Resp B/P Pulse Ox O2 Delivery O2 Flow Rate FiO2 05/08/16 03:33 98 Nasal Cannula 2 05/08/16 03:06 98.5 89 21 123/74 Orders Complete Blood Count With Diff (05/08/16 03:15) Basic Metabolic Panel (Bmp) (05/08/16 03:15) B-Type Natriuretic Peptide (05/08/16 03:15) Act Partial Throm Time (Ptt) (05/08/16 03:15) Prothrombin Time / Inr (Pt) (05/08/16 03:15) Ckmb (Isoenzyme) Profile (05/08/16 03:15) Troponin I (05/08/16 03:15) Iv Access Insert/Monitor (05/08/16 03:15) Electrocardiogram (05/08/16 03:15) Ecg Monitoring (05/08/16 03:15) Oximetry (05/08/16 03:15) Oxygen Administration (05/08/16 03:15) Chest, Single Ap (05/08/16 03:15) Sodium Chloride 0.9% Flush (Ns Flush) (05/08/16 03:15) Furosemide Inj (Lasix Inj) (05/08/16 03:15) Labs Laboratory Tests Test 05/08/16 03:25 White Blood Count 6.1 TH/MM3 Red Blood Count 4.38 MIL/MM3 Hemoglobin 14.1 GM/DL Hematocrit 40.0 % Mean Corpuscular Volume 91.2 FL Mean Corpuscular Hemoglobin 32.2 PG Mean Corpuscular Hemoglobin 35.3 % Concent Red Cell Distribution Width 14.1 % Platelet Count 182 TH/MM3 Mean Platelet Volume 8.5 FL Neutrophils (%) (Auto) 69.8 % Lymphocytes (%) (Auto) 19.9 % Monocytes (%) (Auto) 6.0 % Eosinophils (%) (Auto) 3.7 % Basophils (%) (Auto) 0.6 % Neutrophils # (Auto) 4.3 TH/MM3 Lymphocytes # (Auto) 1.2 TH/MM3 Monocytes # (Auto) 0.4 TH/MM3 Eosinophils # (Auto) 0.2 TH/MM3 Basophils # (Auto) 0.0 TH/MM3 CBC Comment DIFF FINAL Differential Comment Prothrombin Time 11.4 SEC Prothromb Time International 1.0 RATIO Ratio Activated Partial 26.5 SEC Thromboplast Time Sodium Level 144 MEQ/L Potassium Level 4.2 MEQ/L Chloride Level 109 MEQ/L Carbon Dioxide Level 26.9 MEQ/L Anion Gap 8 MEQ/L Blood Urea Nitrogen 13 MG/DL Creatinine 0.98 MG/DL Estimat Glomerular Filtration 78 ML/MIN Rate Random Glucose 124 MG/DL Calcium Level 8.5 MG/DL Total Creatine Kinase 47 U/L Troponin I 0.07 NG/ML B-Type Natriuretic Peptide 613 PG/ML MDM Medical Decision Making Medical Screen Exam Complete: Yes Emergency Medical Condition: Yes Medical Record Reviewed: Yes Differential Diagnosis NSTEMI, unstable angina, coronary vasospasm, PE, PTX, aortic dissection, pericarditis, myocarditis, endocarditis, PNA, esophageal disease, aneurysm, musculoskeletal etiologies, anxiety, cocaine/sympathomimetic abuse Narrative Course Patient ambulated around the pod and return to the bed with an oxygen saturation 98% heart rate of 71 and a blood pressure 134/81 with a respiratory rate of 16. He has follow-up with Dr. Aguirre. Please received 60 mg of Lasix here and reports feeling much better. The workup reveals the following: CBC & BMP Diagram 05/08/16 03:25 Tn 0.07 BNP 613 CXR: Cardiomegaly, finding c/w CHF Diagnosis Primary Impression: CHF (congestive heart failure) Qualified Code: I50.9 - Congestive heart failure, unspecified congestive heart failure chronicity, unspecified congestive heart failure type Referrals: DR AGUIRRE 2 days Additional Instructions: You have a choice when it comes to health care, and we are glad that you chose [facility]. Hopefully, we have met your expectations on today's visit. You are welcome to return to [facility] at any time, as we are committed to meeting the health care needs of our community. Med/Other Pt SpecificInfo: Prescription(s) given Disposition: DISCHARGE HOME Condition: Giovanni Andrews MD May 08, 2016 03:17
[2016-05-08 03:35] LABS: AUTOMATED NEUTROPHIL # 4.3 TH/MM3 (1.8-7.7); BASOPHIL % 0.6 % (0.0-2.0); EOSINOPHIL # 0.2 TH/MM3 (0-0.4); EOSINOPHIL % 3.7 % (0.0-4.0); HEMO FLAGS DIFF FINAL; LYMPH % 19.9 % (9.0-44.0); LYMPHOCYTE # 1.2 TH/MM3 (1.0-4.8); MEAN CELL VOLUME 91.2 FL (80.0-100.0); MEAN CORPUSCULAR HEMOGLOBIN 32.2 PG (27.0-34.0); MEAN CORPUSCULAR HGB CONC 35.3 % (32.0-36.0); NEUT % 69.8 % (16.0-70.0); PLATELET COUNT 182 TH/MM3 (150-450); RED BLOOD COUNT 4.38 MIL/MM3 (4.50-5.90); RED CELL DISTRIBUTION WIDTH 14.1 % (11.6-17.2); WHITE BLOOD COUNT 6.1 TH/MM3 (4.0-11.0)
[2016-05-08 03:48] LABS: APTT (PATIENT) 26.5 SEC (24.3-30.1); PROTHROMBIN TIME - PATIENT 11.4 SEC (9.8-11.6)
[2016-05-08 04:03] LABS: BICARBONATE 26.9 MEQ/L (21.0-32.0); POTASSIUM 4.2 MEQ/L (3.5-5.1)
--- NOTE | 2016-05-08 04:11 | RADRPT ---
EXAM DATE/TIME: 05/08/2016 03:21 [facility] COMPARISON: CHEST SINGLE AP, May 03, 2016, 7:19. INDICATIONS : Shortness of breath. MEDICAL HISTORY : Myocardial infarction. Congestive heart failure. Hypertension. Coronary artery disease. SURGICAL HISTORY : Pacemaker. Cardiac catheterization. ENCOUNTER: Initial ACUITY: 1 day PAIN SCORE: 0/10 LOCATION: Bilateral chest FINDINGS: Cardiomegaly. No acute pulmonary disease. A defibrillator device is in place via a left sided approac h. There are findings of congestive heart failure with interstitial and alveolar opacity bilaterally. There has been no significant change when compared to the prior exam. A small left sided effusion is present. CONCLUSION: 1. Cardiomegaly and findings of congestive heart failure. There has been no significant change when c ompared to the prior exam. Saulo Lainez MD on May 08, 2016 at 4:09 Board Certified Radiologist. This report was verified electronically.
[2016-05-08 05:05] VITALS: BP 135/80
--- NOTE | 2016-05-08 14:23 | EKG ---
Date Performed: 05/08/2016 Time Performed: 03:09:24 PTAGE: 60 years EKG: ELECTRONIC VENTRICULAR PACEMAKER Compared to previous tracing, the pacer rhythm is new. ABN ORMAL RHYTHM ECG PREVIOUS TRACING : 05/03/2016 06.57 DOCTOR: Pacheco Fontaine Interpretating Date/Time 05/08/2016 14:53:29
== END 2016-05-08 05:44 | disposition home or self-care (01) ==
LOC: NEPE 03:03
DX: I50.9 Heart failure, unspecified (principal); R94.31 Abnormal electrocardiogram [ECG] [EKG]; Z95.0 Presence of cardiac pacemaker; I25.10 Atherosclerotic heart disease of native coronary artery without angina pectoris; E78.00 Pure hypercholesterolemia, unspecified; E11.9 Type 2 diabetes mellitus without complications; I10 Essential (primary) hypertension; F17.210 Nicotine dependence, cigarettes, uncomplicated; I25.2 Old myocardial infarction; K21.9 Gastro-esophageal reflux disease without esophagitis; R06.02 Shortness of breath; R06.01 Orthopnea; R06.09 Other forms of dyspnea
CPT/HCPCS: 71010; 80048; 82550; 83880; 84484; 85025; 85610; 85730; 93005; 96374; 99285; J1940

== ENCOUNTER 2016-07-22 23:34 | Observation (INO) | payer MEDICARE ==
[~2016-07-22] VITALS: Ht 172.7 cm; Wt 76.5 kg
[2016-07-22 23:43] VITALS: BP 120/79; PULSE 88; RESP 18; TEMP 99.8; O2SAT 98
[2016-07-22 23:57] VITALS: BP 120/79; PULSE 77; RESP 16; O2SAT 98
[2016-07-23] VITALS (16 sets, daily range): BP systolic 88–125; BP diastolic 56–71; PULSE 54–77; RESP 16–22; TEMP 97.6–98.5; O2SAT 95–99
[2016-07-23] MEDS ORDERED: ASPIRIN 81 MG CHEW TAB PO ONE
--- NOTE | 2016-07-23 00:08 | PD ---
HPI Chief Complaint: Cardiac Complaint Time Seen by Provider: 23:55 Travel History International Travel<30 days: No Contact w/Intl Traveler<30days: No Traveled to known affect area: No History of Present Illness HPI 60-year-old male presents to the emergency department for complaint of 3 episodes of slow heart rate. Patient reports with each episode of slow heart rate he notices some chest discomfort with discomfort into his arms and some shortness of breath. Patient states episodes last 5-10 minutes and resolved spontaneously. Patient states first episode was around 10 AM and then another episode happened approximately an hour before he came into the emergency room and then approximately a [id number] before he came to the emergency room. Patient states he feels back to normal at this time. Patient denies any pain or discomfort. Patient states that he's had no change in his medications. Patient is followed by primary care provider Dr. Parks; last visit 2 months ago. Patient does not have a primary corporate quality engineer. Patient has history of recurrent congestive heart failure cardiomyopathy AICD pacemaker with ejection fracture of 20-25% hypertension dyslipidemia and diabetes. Patient rates discomfort 0/10 in intensity. Patient has no shortness of breath this time. Patient has not experienced any episodes of near syncope syncope diaphoresis nausea or vomiting. Patient denies any referred neck jaw back or abdominal pain. Patient states with each episode he just lays down and rest and the symptoms passed. Patient reports she is out of all of his medications except for his Lasix. PFSH Past Medical History Narrative Medical Anxiety, CAD, ME, cardiac catheterization with angioplasty and stent, pacemaker defibrillator, cardiomyopathy, congestive heart failure, dyslipidemia, hypertension, diabetes, GERD, pancreatitis, prior pancreatic cyst removal, cholecystectomy, CABG, tobaccoism, nursing notes reviewed Arthritis: No Asthma: No Blood Disorders: No Anxiety: Yes Depression: No Heart Rhythm Problems: Yes Cancer: No Cardiac Catheterization: Yes (angioplasty) Cardiovascular Problems: Yes (CAD; "low refraction") High Cholesterol: Yes Chemotherapy: No Chest Pain: Yes (on admit) Congestive Heart Failure: Yes COPD: No Cerebrovascular Accident: No Coronary Artery Disease: Yes Diabetes: Yes Patient Takes Glucophage: Yes Diminished Hearing: No Endocrine: Yes Gastrointestinal Disorders: Yes GERD: Yes Genitourinary: No Hiatal Hernia: No Hypertension: Yes Immune Disorder: No Implanted Vascular Access Dvce: Yes Musculoskeletal: Yes Neurologic: Yes Psychiatric: No Reproductive: No Respiratory: No Immunizations Current: Yes Migraines: No Myocardial Infarction: Yes (x1) Radiation Therapy: No Seizures: No Sleep Apnea: No Thyroid Disease: No Triglycerides - High: Yes Ulcer: No Tetanus Vaccination: Unknown Influenza Vaccination: No Past Surgical History Abdominal Surgery: Yes (pancrease removed a cyst, cholecystectomy) AICD: Yes (medtronic ) Arteriovenous Shunt: No Body Medical Devices: PACEMAKER Cardiac Surgery: Yes (cath and stent) Cholecystectomy: Yes Coronary Artery Bypass Graft: Yes Endocrine Surgery: No Eye Surgery: No Genitourinary Surgery: No Gynecologic Surgery: No Insulin Pump: No Joint Replacement: No Oral Surgery: Yes (SINUS) Pacemaker: Yes (pacer and defib - medtronic) Thoracic Surgery: Yes (pacemaker; AICD) Other Surgery: Yes (CYST REMOVED FROM PANCREASE; GALLBLADDER) Social History Alcohol Use: No Tobacco Use: Yes (3/4 ppd since the age of 13) Substance Use: No Allergies-Medications (Allergen,Severity, Reaction): Coded Allergies: Contrast Media (Verified Allergy, Severe, Swelling, 07/22/16) MRI PRECAUTION (Verified Adverse Reaction, Severe, NON COMPATIBLE MEDTRONIC PACEMAKER 09/24/15 KMD, 07/22/16) VIVA XT DIRECTOR OF MARKET ANALYSIS DEFIB MODEL [id number] IMPLANTED 09/02/13 Reported Meds & Prescriptions Reported Meds & Active Scripts Active Potassium Chloride ER (Potassium Chloride) 10 Meq Tab 30 Meq PO DAILY 30 Days Lasix (Furosemide) 20 Mg Tab 60 Mg PO DAILY 30 Days Hydrocodone-Acetaminophen 5-325 mg Tab 1 Tab PO Q6HR PRN Losartan (Losartan Potassium) 100 Mg Tab 100 Mg PO DAILY Simvastatin 40 Mg Tab 40 Mg PO HS Metformin (Metformin HCl) 500 Mg Tab 500 Mg PO BIDPC With meals Carvedilol 12.5 Mg Tab 12.5 Mg PO BID Reported Aspirin 325 Mg Tab 325 Mg PO DAILY Review of Systems Except as stated in HPI: all other systems reviewed are Neg General / Constitutional: No: Fever, Chills HENT: No: Congestion Cardiovascular: Positive: Chest Pain or Discomfort (intermittent none now), No : Palpitations, Diaphoresis, Syncope, Dyspnea on exertion, Edema Respiratory: No: Cough, Shortness of Breath Gastrointestinal: No: Nausea, Vomiting, Abdominal Pain Genitourinary: No: Flank Pain Musculoskeletal: No: Myalgias, Arthralgias Skin: No Rash Neurologic: No: Weakness Psychiatric: No: Anxiety Endocrine: No: Heat Intolerance Hematologic/Lymphatic: No: Easy Bruising Physical Exam Narrative GENERAL: Well-developed well-nourished male in no acute distress no respiratory distress; GCS 15; triage vital signs found to be normal range except for temperature 98.8F SKIN: Warm and dry. HEAD: Normocephalic. EYES: No scleral icterus. No injection or drainage. NECK: Supple, trachea midline. No JVD or lymphadenopathy. CARDIOVASCULAR: Regular rate and rhythm without murmurs, gallops, or rubs. RESPIRATORY: Breath sounds equal bilaterally. No accessory muscle use. GASTROINTESTINAL: Abdomen soft, non-tender, nondistended. MUSCULOSKELETAL: No cyanosis, or edema. BACK: Nontender without obvious deformity. No CVA tenderness. Data Data Last Documented VS Vital Signs Date Time Temp Pulse Resp B/P Pulse Ox O2 Delivery O2 Flow Rate FiO2 07/23/16 00:47 69 16 92/61 98 Room Air 101/65 07/22/16 23:43 99.8 Orders Electrocardiogram (07/22/16 23:55) Basic Metabolic Panel (Bmp) (07/22/16 23:55) Ckmb (Isoenzyme) Profile (07/22/16 23:55) Complete Blood Count With Diff (07/22/16 23:55) Magnesium (Mg) (07/22/16 23:55) Prothrombin Time / Inr (Pt) (07/22/16 23:55) Act Partial Throm Time (Ptt) (07/22/16 23:55) Troponin I (07/22/16 23:55) Chest, Single Ap (07/22/16 23:55) Ecg Monitoring (07/22/16 23:55) Bilateral Bp Monitoring (07/22/16 23:55) Iv Access Insert/Monitor (07/22/16 23:55) Oximetry (07/22/16 23:55) Oxygen Administration (07/22/16 23:55) Aspirin Chew (Aspirin Chew) (07/23/16 00:00) Sodium Chloride 0.9% Flush (Ns Flush) (07/23/16 00:00) Place In Observation (07/23/16 ) Vital Signs (Adult) Q4H (07/23/16 00:59) Activity Oob With Assistance (07/23/16 00:59) [place] / Telemetry .CONTINUOUS (07/23/16 00:59) Intake + Output CARLOS.QSHIFT (07/23/16 00:59) Diet 1800 Ada Cons Carb (07/23/16 Breakfast) Sodium Chloride 0.9% Flush (Ns Flush) (07/23/16 01:00) Sodium Chloride 0.9% Flush (Ns Flush) (07/23/16 09:00) Ondansetron Inj (Zofran Inj) (07/23/16 01:00) Bisacodyl Supp (Dulcolax Supp) (07/23/16 01:00) Comprehensive Metabolic Panel (07/24/16 06:00) Complete Blood Count With Diff (07/24/16 06:00) Troponin I (07/23/16 06:00) Troponin I (07/23/16 12:00) Scd Bilateral/Knee High CARLOS.BID (07/23/16 00:59) Franky Bilateral/Knee High CARLOS.QSHIFT (07/23/16 00:59) Acetaminophen (Tylenol) (07/23/16 01:00) Acetamin-Hydrocod 325-5 Mg ([place] 5-325 (07/23/16 01:00) Morphine Inj (Morphine Inj) (07/23/16 01:00) Consult Cardiology (07/23/16 ) Aspirin (Aspirin) (07/23/16 09:00) Carvedilol (Coreg) (07/23/16 09:00) Furosemide (Lasix) (07/23/16 09:00) Losartan (Cozaar) (07/23/16 09:00) Pravastatin (Pravachol) (07/23/16 21:00) B-Type Natriuretic Peptide (07/23/16 06:00) (Hub Use Only)Inp Phy Cons/Ref (07/23/16 ) Admit Order (Ed Use Only) (07/23/16 ) ^ Saline Lock (07/23/16 01:06) Resp Oxygen [place] C Titrat 1-4 L (07/23/16 ) Notify Dr: Other (07/23/16 01:06) Sodium Chloride 0.9% Flush (Ns Flush) (07/23/16 09:00) Sodium Chloride 0.9% Flush (Ns Flush) (07/23/16 01:15) Labs Laboratory Tests Test 07/23/16 00:08 White Blood Count 8.2 TH/MM3 Red Blood Count 5.06 MIL/MM3 Hemoglobin 15.3 GM/DL Hematocrit 46.5 % Mean Corpuscular Volume 91.7 FL Mean Corpuscular Hemoglobin 30.3 PG Mean Corpuscular Hemoglobin 33.0 % Concent Red Cell Distribution Width 13.8 % Platelet Count 180 TH/MM3 Mean Platelet Volume 8.9 FL Neutrophils (%) (Auto) 53.9 % Lymphocytes (%) (Auto) 33.7 % Monocytes (%) (Auto) 8.5 % Eosinophils (%) (Auto) 2.7 % Basophils (%) (Auto) 1.2 % Neutrophils # (Auto) 4.4 TH/MM3 Lymphocytes # (Auto) 2.8 TH/MM3 Monocytes # (Auto) 0.7 TH/MM3 Eosinophils # (Auto) 0.2 TH/MM3 Basophils # (Auto) 0.1 TH/MM3 CBC Comment DIFF FINAL Differential Comment Prothrombin Time 11.1 SEC Prothromb Time International 1.0 RATIO Ratio Activated Partial 26.4 SEC Thromboplast Time Sodium Level 142 MEQ/L Potassium Level 3.3 MEQ/L Chloride Level 101 MEQ/L Carbon Dioxide Level 32.8 MEQ/L Anion Gap 8 MEQ/L Blood Urea Nitrogen 23 MG/DL Creatinine 1.10 MG/DL Estimat Glomerular Filtration 68 ML/MIN Rate Random Glucose 105 MG/DL Calcium Level 10.0 MG/DL Magnesium Level 1.7 MG/DL Total Creatine Kinase 37 U/L Troponin I 0.13 NG/ML [facility] Medical Decision Making Medical Screen Exam Complete: Yes Emergency Medical Condition: Yes Medical Record Reviewed: Yes Interpretation(s) EKG: sinus rhythm rate 80, LBBB, rare ventricular pacer spike noted Last Impressions Chest X-Ray 07/22/16 [id number] Signed Impressions: Service Date/Time: Saturday, July 23, 2016 00:13 - CONCLUSION: No acute disease. Mild cardiomegaly. Victor Manuel Gordon MD CBC & BMP Diagram 07/23/16 00:08 Vital Signs Date Time Temp Pulse Resp B/P Pulse Ox O2 Delivery O2 Flow Rate FiO2 07/23/16 00:47 69 16 92/61 98 Room Air 101/65 5/6/17 00:01 77 16 98 Room Air 07/22/16 23:57 77 16 120/79 98 Room Air 07/22/16 23:43 99.8 88 18 120/79 98 07/22/16 23:40 16 98 Room Air Troponin I: 0.13, elevated; CK: 37 Differential Diagnosis Symptomatic bradycardia, electrolyte disturbance, arrhythmia, tachybradycardia syndrome, chest pain, ACS, myocardial infarction, CHF, pacemaker defibrillator device malfunction Narrative Course Patient placed on diagnostic cardiac sonographer found to be in sinus rhythm with rare PVC; EKG ordered and specimens collected and sent for resulting; patient is a symptomatic at this time administered aspirin 162 mg by mouth. No nitroglycerin administered as patient denies any pain or symptoms at this time. Patient monitored in sinus rhythm and EKG in sinus with rate of 80, LBBB noted rare ventricular pacer spike noted essentially unchanged from prior EKG 05/03/16 during CHF admission and noted at that time to have an elevated troponin I of 0.13 At 12:53 AM labs resulted and electrolytes are found to be in normal range; patient is identified to have elevated troponin I of 0.13. Patient denies any chest discomfort or chest pain, 0/10 in intensity; no shortness of breath no sweats no dizziness no referred neck jaw back shoulder arm or abdominal discomfort no nausea no vomiting. Patient states he feels well. Patient has been monitored during his ER visit and has had no episodes of bradycardia. Plan will be to admit patient for serial cardiac enzymes and cardiology consultation. Patient does not appear to be in congestive heart failure at this time. Patient's case discussed with on-call medicine service will admit for ongoing cardiac monitoring serial enzymes to intermediate care. Patient will be started on heparin in view of 3 intermittent episodes of chest pain prior to arrival with elevated troponin I. Patient given oral potassium replacement. Critical Care Narrative Aggregate critical care time was 35 minutes. Time to perform other separately billable procedures was not included in the critical care time. My time did not include minutes spent treating any other patients simultaneously or on activities that did not directly contribute to the patient's treatment. The services I provided to this patient were to treat and/or prevent clinically significant deterioration that could result in: Myocardial infarction, cardiac arrhythmia/arrest, I provided critical care services requiring my management, as noted below: Chart data review, documentation time, medication orders and management, vital sign assessments/reviewing monitor data, ordering and reviewing lab tests, ordering and interpreting/reviewing x-rays and diagnostic studies, care of the patient and discussion of the patient with the admitting physicians. Physician Communication Physician Communication Case discussed with [facility] MD Dr Munson --admit to [facility] intermediate care Diagnosis Primary Impression: Bradycardia Additional Impressions: Elevated troponin I level Chest pain Hypokalemia Admitting Information Admitting Physician Requests: Admit Patt Cormier MD July 23, 2016 00:08
[2016-07-23 00:17] LABS: AUTOMATED NEUTROPHIL # 4.4 TH/MM3 (1.8-7.7); BASOPHIL # 0.1 TH/MM3 (0-0.2); BASOPHIL % 1.2 % (0.0-2.0); EOSINOPHIL # 0.2 TH/MM3 (0-0.4); EOSINOPHIL % 2.7 % (0.0-4.0); HEMATOCRIT 46.5 % (39.0-51.0); HEMO FLAGS DIFF FINAL; LYMPH % 33.7 % (9.0-44.0); LYMPHOCYTE # 2.8 TH/MM3 (1.0-4.8); MEAN CELL VOLUME 91.7 FL (80.0-100.0); MEAN CORPUSCULAR HEMOGLOBIN 30.3 PG (27.0-34.0); MONO % 8.5 % (0.0-8.0); NEUT % 53.9 % (16.0-70.0); PLATELET COUNT 180 TH/MM3 (150-450); RED BLOOD COUNT 5.06 MIL/MM3 (4.50-5.90); RED CELL DISTRIBUTION WIDTH 13.8 % (11.6-17.2); WHITE BLOOD COUNT 8.2 TH/MM3 (4.0-11.0)
--- NOTE | 2016-07-23 00:24 | RADHPO ---
EXAM DATE/TIME: 07/23/2016 00:13 [facility] COMPARISON: CHEST SINGLE AP, May 08, 2016, 3:21. INDICATIONS : Chest pain. MEDICAL HISTORY : Myocardial infarction. Congestive heart failure. Hypertension. CAD SURGICAL HISTORY : Coronary artery stent. Pacemaker. ENCOUNTER: Initial ACUITY: 1 day PAIN SCORE: 5/10 LOCATION: Bilateral chest FINDINGS: A single view of the chest demonstrates the lungs to be symmetrically aerated without evidence of mas s, infiltrate or effusion. Mild cardiomegaly. Left-sided defibrillator with 3 intact leads. The card iomediastinal contours are unremarkable. Osseous structures are intact. CONCLUSION: No acute disease. Mild cardiomegaly. Victor Manuel Gordon MD on July 23, 2016 at 0:22 Board Certified Radiologist. This report was verified electronically.
[2016-07-23 00:25] LABS: POTASSIUM 3.3 MEQ/L (3.5-5.1)
[2016-07-23 00:29] LABS: BICARBONATE 32.8 MEQ/L (21.0-32.0); MAGNESIUM 1.7 MG/DL (1.5-2.5)
[2016-07-23 00:32] LABS: APTT (PATIENT) 26.4 SEC (24.3-30.1); PROTHROMBIN TIME - PATIENT 11.1 SEC (9.8-11.6)
[2016-07-23] MEDS ORDERED: MORPHINE SULFATE 4 MG/ML INJ IV PRN (01:00)
[2016-07-23] MEDS ORDERED: SODIUM CHLORIDE 0.9% FLUSH 10 ML FLUSH IV FLUSH PRN (01:00)
[2016-07-23] MEDS ORDERED: ACETAMINOPHEN 325 MG TAB PO PRN (01:00)
[2016-07-23] MEDS ORDERED: ACETAMINOPHEN/HYDROcodone 325 MG/5 MG TAB PO PRN (01:00)
[2016-07-23] MEDS ORDERED: ONDANSETRON HCL 4 MG/2 ML VIAL IVP PRN (01:00)
[2016-07-23] MEDS ORDERED: BISACODYL 10 MG SUPP RECTAL PRN (01:00)
[2016-07-23] MEDS ORDERED: POTASSIUM CHLORIDE 20 MEQ CONTROLLED RELEASE TAB PO ONE (01:15)
[2016-07-23] MEDS ORDERED: SODIUM CHLORIDE 0.9% FLUSH 10 ML FLUSH IVF PRN ×2 (01:15)
[2016-07-23] MEDS ORDERED: HEPARIN SODIUM - IV 10,000 UNITS/10 ML VIAL IV ONE (02:00)
[2016-07-23 02:24] LABS: HEMATOCRIT 41.3 % (39.0-51.0); MEAN CELL VOLUME 91.4 FL (80.0-100.0); MEAN CORPUSCULAR HEMOGLOBIN 31.1 PG (27.0-34.0); PLATELET COUNT 158 TH/MM3 (150-450); RED BLOOD COUNT 4.51 MIL/MM3 (4.50-5.90); RED CELL DISTRIBUTION WIDTH 13.4 % (11.6-17.2); REVIEW FLAG FINAL; WHITE BLOOD COUNT 7.1 TH/MM3 (4.0-11.0)
[2016-07-23 02:39] LABS: APTT (PATIENT) 25.5 SEC (24.3-30.1); PROTHROMBIN TIME - PATIENT 11.2 SEC (9.8-11.6)
[2016-07-23] MEDS: HEPARIN-D5W INJ 250 ML IV SCH (02:54)
[2016-07-23] MEDS ORDERED: GLUCAGON 1 MG/ML VIAL OTHER PRN (06:30)
[2016-07-23] MEDS ORDERED: DEXTROSE 50% IN WATER 50 ML VIAL(D50) IV PUSH PRN (06:30)
[2016-07-23] MEDS: INSULIN ASPART SUPPLEMENTAL SCALE SQ SCH ×4 (07:00→21:00)
[2016-07-23] MEDS ORDERED: HEPARIN SODIUM - IV 10,000 UNITS/10 ML VIAL IV PRN ×2 (08:00)
[2016-07-23] MEDS ORDERED: SODIUM CHLORIDE 0.9% FLUSH 10 ML FLUSH IV FLUSH SCH (09:00)
--- NOTE | 2016-07-23 09:34 | HHI.HP ---
[facility] Service [facility] Primary Care Physician Musa Costello MD Admission Diagnosis bradycardia, elevated tropoinin I; intermittent chest pain Diagnoses: Chief Complaint: CP Travel History International Travel<30 Days: No Contact w/Intl Traveler <30 Da: No Traveled to Known Affected Are: No History of Present Illness This is a 60-year-old male who presents to the emergency department because of CP. Yesterday he did not feel well and complained of mild retrosternal pressure scale of 3 out of 10 in pain in his bilateral upper extremities associated with mild shortness of breath lasting for 5-10 minutes resolved with rest. He also noted to have a slow heart rate in the 40s. This episode recurred 2 more times prompting ER evaluation. No fever, chills, cough, palpitations, dizziness, diaphoresis, nausea and vomiting. ER workup shows elevated troponin and was advised admission. He has history of coronary artery disease status post OH, angioplasty, stent, cardiomyopathy status post AICD EF of 20%, hypertension, hyperlipidemia and diabetes mellitus. Currently he is symptom-free. Cardiology has recommended nuclear stress test and AICD interrogation Review of Systems Constitutional: DENIES: Diaphoretic episodes, Fatigue, Fever, Weight gain, Weight loss, Chills, Dizziness, Change in appetite, Night Sweats Endocrine: DENIES: Heat/cold intolerance, Polydipsia, Polyuria, Polyphagia Eyes: DENIES: Blurred vision, Diplopia, Vision loss, Photosensitivity Ears, nose, mouth, throat: DENIES: Tinnitus, Vertigo, Throat pain, Hoarseness, Epistaxis, Odynophagia Respiratory: DENIES: Cough, Wheezing, Hemoptysis, Sputum production, Shortness of breath Cardiovascular: DENIES: Chest pain, Palpitations, Syncope, Dyspnea on Exertion , PND, Lower Extremity Edema, Orthopnea, Claudication Gastrointestinal: DENIES: Abdominal pain, Black stools, Bloody stools, Constipation, Diarrhea, Nausea, Vomiting, Difficulty Swallowing, Anorexia Genitourinary: DENIES: Urinary frequency, Urinary incontinence, Urgency, Hematuria, Dysuria, Nocturia, Penile Discharge Integumentary: DENIES: Rash Neurologic: DENIES: Headache, Localized weakness, Seizures, Tremor, Poor Balance Psychiatric: DENIES: Anxiety, Confusion, Depression, Hallucinations, Agitation , Suicidal Ideation, Homicidal Ideation, Delusions Except as stated in HPI: all other systems reviewed are Neg Past Family Social History Past Medical History As previously mentioned also history of GERD, pancreatitis and tobacco abuse Past Surgical History As previously mentioned. Pancreatic cyst removal, cholecystectomy, sinus surgery Reported Medications Potassium Chloride ER (Potassium Chloride) 10 Meq Tab 30 Meq PO DAILY 30 Days Lasix (Furosemide) 20 Mg Tab 60 Mg PO DAILY 30 Days Hydrocodone-Acetaminophen 5-325 mg Tab 1 Tab PO Q6HR PRN Losartan (Losartan Potassium) 100 Mg Tab 100 Mg PO DAILY Simvastatin 40 Mg Tab 40 Mg PO HS Metformin (Metformin HCl) 500 Mg Tab 500 Mg PO BIDPC With meals Carvedilol 12.5 Mg Tab 12.5 Mg PO BID Reported Aspirin 325 Mg Tab 325 Mg PO DAILY Allergies: Coded Allergies: Contrast Media (Verified Allergy, Severe, Swelling, 07/22/16) MRI PRECAUTION (Verified Adverse Reaction, Severe, NON COMPATIBLE [employer] PACEMAKER 09/24/15 KMD, 07/22/16) 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 XT 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 DEFIB MODEL [id number] IMPLANTED 09/02/13 Family History No CAD Social History Does not drink continues to smoke reports of a pack per day since age 13 doesn' t use drugs Physical Exam Vital Signs Vital Signs Date Time Temp Pulse Resp B/P Pulse Ox O2 Delivery O2 Flow Rate FiO2 07/23/16 04:00 59 07/23/16 03:46 98.5 56 22 115/68 95 07/23/16 03:01 57 16 100/65 97 Room Air 07/23/16 02:55 98 Room Air 07/23/16 02:45 64 16 98 07/23/16 01:52 98 21 07/23/16 01:47 59 16 108/66 98 Room Air 07/23/16 00:47 69 16 92/61 98 Room Air 101/65 07/23/16 00:01 77 16 98 Room Air 07/22/16 23:57 77 16 120/79 98 Room Air 07/22/16 23:43 99.8 88 18 120/79 98 07/22/16 23:40 16 98 Room Air Physical Exam GENERAL: This is a well-nourished, well-developed patient, in no apparent distress. SKIN: No rashes, ecchymoses or lesions. Cool and dry. HEAD: Atraumatic. Normocephalic. No temporal or scalp tenderness. EYES: Pupils equal round and reactive. Extraocular motions intact. No scleral icterus. No injection or drainage. ENT: Nose without bleeding, purulent drainage or septal hematoma. Throat without erythema, tonsillar hypertrophy or exudate. Uvula midline. Airway patent. NECK: Trachea midline. No JVD or lymphadenopathy. Supple, nontender, no meningeal signs. CARDIOVASCULAR: Regular rate and rhythm without gallops, or rubs. Systolic murmur noted RESPIRATORY: Clear to auscultation. Breath sounds equal bilaterally. No wheezes , rales, or rhonchi. GASTROINTESTINAL: Abdomen soft, non-tender, nondistended. No hepato-splenomegaly , or palpable masses. No guarding. MUSCULOSKELETAL: Extremities without clubbing, cyanosis, or edema. No joint tenderness, effusion, or edema noted. No calf tenderness. Negative Homans sign bilaterally. NEUROLOGICAL: Awake and alert. Cranial nerves II through XII intact. Motor and sensory grossly within normal limits. Five out of 5 muscle strength in all muscle groups. Normal speech. Laboratory Laboratory Tests Test 07/23/16 07/23/16 07/23/16 00:08 02:07 06:37 White Blood Count 8.2 7.1 Red Blood Count 5.06 4.51 Hemoglobin 15.3 14.0 Hematocrit 46.5 41.3 Mean Corpuscular Volume 91.7 91.4 Mean Corpuscular Hemoglobin 30.3 31.1 Mean Corpuscular Hemoglobin 33.0 34.0 Concent Red Cell Distribution Width 13.8 13.4 Platelet Count 180 158 Mean Platelet Volume 8.9 8.3 Neutrophils (%) (Auto) 53.9 Lymphocytes (%) (Auto) 33.7 Monocytes (%) (Auto) 8.5 Eosinophils (%) (Auto) 2.7 Basophils (%) (Auto) 1.2 Neutrophils # (Auto) 4.4 Lymphocytes # (Auto) 2.8 Monocytes # (Auto) 0.7 Eosinophils # (Auto) 0.2 Basophils # (Auto) 0.1 CBC Comment DIFF FINAL Differential Comment Prothrombin Time 11.1 11.2 Prothromb Time International 1.0 1.0 Ratio Activated Partial 26.4 25.5 Thromboplast Time Sodium Level 142 Potassium Level 3.3 Chloride Level 101 Carbon Dioxide Level 32.8 Anion Gap 8 Blood Urea Nitrogen 23 Creatinine 1.10 Estimat Glomerular Filtration 68 Rate Random Glucose 105 Calcium Level 10.0 Magnesium Level 1.7 Total Creatine Kinase 37 Troponin I 0.13 0.15 B-Type Natriuretic Peptide 359 Result Diagram: 07/23/16 0207 07/23/16 0008 Imaging EKG tracing interpreted by me with ventricular pacing Chest x-ray image interpreted by me without acute cardiopulmonary disease Last Impressions Chest X-Ray 07/22/16 [id number] Signed Impressions: Service Date/Time: Saturday, July 23, 2016 00:13 - CONCLUSION: No acute disease. Mild cardiomegaly. Victor Manuel Gordon MD Assessment and Plan Problem List: (1) Elevated troponin I level ICD Code: R74.8 Status: Acute (2) Chest pain ICD Code: R07.9 Status: Acute (3) Bradycardia ICD Code: R00.1 Status: Acute Assessment and Plan This is a 60-year-old male who presents to the emergency department because of CP and pain in his bilateral upper extremities associated with mild shortness of breath lasting for 5-10 minutes resolved with rest. He also noted to have a slow heart rate in the 40s. ER workup shows elevated troponin and was advised admission. NSTEMI. He has history of coronary artery disease status post OH, angioplasty, stent and cardiomyopathy status post AICD EF of 20%. Currently he is symptom- free. Cardiology has recommended nuclear stress test and AICD interrogation. Ct heparin drip, asa, BB with hold parameters, ARB and Statin. Elevated BNP but no clinical signs of CHF exacerbation ct lasix. CHF education, I/O and monitor weight Hypokalemia. Replace and monitor Possible Symptomatic bradycardia. Improved. AICD interrogation Chronic medical conditions of hypertension, hyperlipidemia and diabetes mellitus. Stable continue outpatient medications as appropriate. Monitor fingersticks with sliding scale coverage DVT prophylaxis with SCD and heparin Discussed Condition With Patient Physician Certification 2 Midnight Certification Type: Admission for Inpatient Services Order for Inpatient Services The services are ordered in accordance with Medicare regulations or non- Medicare payer requirements, as applicable. In the case of services not specified as inpatient-only, they are appropriately provided as inpatient services in accordance with the 2-midnight benchmark. Estimated LOS (days): 2 days is the estimated time the patient will need to remain in the hospital, assuming treatment plan goals are met and no additional complications. Post-Hospital Plan: Shayne Buckley MD July 23, 2016 09:34 Physician Certification 2 Midnight Certification Type: Admission for Inpatient Services Order for Inpatient Services The services are ordered in accordance with Medicare regulations or non- Medicare payer requirements, as applicable. In the case of services not specified as inpatient-only, they are appropriately provided as inpatient services in accordance with the 2-midnight benchmark. Estimated LOS (days): 2 days is the estimated time the patient will need to remain in the hospital, assuming treatment plan goals are met and no additional complications. Post-Hospital Plan: Shayne Buckley MD July 23, 2016 09:34
[2016-07-23] MEDS: ASPIRIN 325 MG TAB PO SCH (09:37)
[2016-07-23] MEDS: POTASSIUM CHLORIDE 10 MEQ CONTROLLED RELEASE TAB PO SCH (09:38)
[2016-07-23] MEDS: FUROSEMIDE 20 MG TAB PO SCH (09:38)
[2016-07-23] MEDS: SODIUM CHLORIDE 0.9% FLUSH 10 ML FLUSH IV FLUSH SCH ×2 (09:41→21:41)
[2016-07-23] MEDS: LOSARTAN 50 MG TAB PO SCH (09:41)
--- NOTE | 2016-07-23 09:54 | EKG ---
Date Performed: 07/22/2016 Time Performed: 23:35:42 PTAGE: 60 years EKG: Ventricular pacing. Pacemaker rhythm - no further analysis Abnormal ECG PREVIOUS TRACING : 05/08/2016 03.09 DOCTOR: Erik Urrutia Interpretating Date/Time 07/23/2016 09:52:09
[2016-07-23 10:05] LABS: APTT (PATIENT) 45.7 SEC (24.3-30.1)
--- NOTE | 2016-07-23 10:32 | HHI.DCPOC ---
Discharge Care Plan Diagnosis: (1) Chest pain (2) Elevated troponin I level Your Health Problems Are: Difficulty with ADL Chest Pain Exercise Tolerance Goals to Promote Your Health * To prevent worsening of your condition and complications * To maintain your health at the optimal level Directions to Meet Your Goals Take your medications as prescribed Follow your dietary instruction Follow activity as directed Keep your appointments as scheduled Take your immunizations and boosters as scheduled If your symptoms worsen call your PCP, if no PCP go to Urgent Care Center or Emergency Room Smoking is Dangerous to Your Health. Avoid second hand smoke Call the 24-hour hour crisis hotline for domestic abuse at Shayne Ambriz MD July 23, 2016 10:32
--- NOTE | 2016-07-23 12:59 | PD.CARD.PN ---
Assessment and Plan Problem List: (1) Elevated troponin I level (2) CHF (congestive heart failure) Assessment and Plan Addendum to Consult: 1) Called by [employer] rep, patient had 3 episodes of slow ventricular tachycardia around 135-140 bpm, only a detection zone, no treatment delivered 2) ICD changed to ATP only for 135 and above, continue with previous treatment zone (ATP/ICD firing) for normal VT zone 3) Stress test cancelled 4) Will transfer to [facility] for planned cardiac catheterization on Monday 5) Discussed with Dr. Ambriz and the patient over the phone, both in agreement 6) Will continue with heparin drip as possibly ischemic mediated Heriberto Jay DO July 23, 2016 12:59
[2016-07-23 13:31] LABS: POTASSIUM 3.5 MEQ/L (3.5-5.1)
[2016-07-23 13:49] LABS: BICARBONATE 33.4 MEQ/L (21.0-32.0); MAGNESIUM 1.6 MG/DL (1.5-2.5)
--- NOTE | 2016-07-23 14:03 | MB ---
cc: HERIBERTO AVILA DO DATE OF CONSULTATION: 07/23/2016. REASON FOR CONSULTATION: Chest pain, elevated troponin, questionable bradycardia. HISTORY OF PRESENT ILLNESS: Mr. White is a pleasant 60-year-old male who presents to [facility] Emergency Room due to questionable chest pain and bradycardia. He states that he got weird feeling come over him three times the day before in which he felt that he felt an irritation in his chest and something to his arms. It seemed only to last seconds. He did have some shortness of breath which lasted five to ten minutes. He compared his heart rate on his phone which stated his heart rate was in the 40s. On seeing him this, morning he is currently symptom-free without chest pain, shortness of breath or palpitations. He has had multiple admissions for congestive heart failure over the past few months. PAST MEDICAL HISTORY: 1. Coronary artery disease. 2. Cardiomyopathy with ejection fraction of 20%. 3. History of hypertension 4. Hyperlipidemia 5. Diabetes mellitus. PAST SURGICAL HISTORY: 1. Per the patient, he had a catheterization his late 30s where they did atherectomy of a vessel without placing a stent but he is unsure exactly where and how this was done. 2. [employer] AICD implantation due to cardiomyopathy. 3. Pancreatic cyst removal. 4. Cholecystectomy. 5. Sinus surgery. ALLERGIES: CONTRAST. MEDICATIONS: 1. Losartan 100 milligrams daily. 2. Coreg 12.5 milligrams twice a day. 3. Metformin 500 milligrams twice a day. 4. Zocor 40 milligrams every night. 5. Lasix 60 milligrams daily. 6. Aspirin 325 milligrams daily. 7. Hydrocodone / acetaminophen 5 / 325 milligrams every six hours as needed for pain. 8. Potassium 30 milliequivalents daily. FAMILY HISTORY: Denies premature coronary artery disease or sudden cardiac within the family. SOCIAL HISTORY: The patient denies alcohol or drug abuse. He does smoke a pack per day since the age of 13. REVIEW OF SYSTEMS Fourteen systems were reviewed including osteopathic with pertinent positives and negatives as above; otherwise negative. PHYSICAL EXAMINATION VITAL SIGNS: Temperature 98.1, heart rate 60, blood pressure 125/70, respirations 22, pulse oximetry 95% on room air. GENERAL: In general the patient appears well and in no acute distress. Awake, alert and oriented times three. HEENT: Extraocular muscles intact. Mucous membranes moist. NECK: The neck is supple. No JVD at 45 degrees. No carotid bruits heard bilaterally. Carotid upstroke is brisk in nature. HEART: Regular rate and rhythm. Positive first and second heart sounds with no murmurs, gallops or rubs. PMI is difficult to ascertain. It may be slightly displaced laterally. LUNGS: Decreased breath sounds bilaterally, but no overt wheezes, rales or rhonchi. ABDOMEN: The abdomen is soft, nontender and nondistended. No organomegaly noted. EXTREMITIES: No clubbing, cyanosis or edema. Femoral and distal pulses are intact bilaterally. NEUROLOGIC: No focal deficits. SKIN: Warm, dry and intact. OSTEOPATHIC: Osteopathically, no kyphoscoliosis, lordosis or paraspinal tender points. LABORATORY FINDINGS: Hemoglobin 14.0, hematocrit 41.3, platelets 158,000. Potassium 3.3, BUN 23, creatinine 1.1. Troponin 0.15. BNP 359. EKGS: Electrocardiogram (July 22, 2016 at 2335): Ventricular paced IMPRESSIONS: 1. Minimally elevated troponin, possibly due to fluid overload state. 2. Atypical chest pain. 3. Questionable bradycardia on an HELGA on his phone. 4. History of coronary artery disease. 5. History of cardiomyopathy with an ejection fraction of 20%. RECOMMENDATIONS: 1. Mr. White's chest pain is extremely atypical for coronary insufficiency, but he does have a mild elevation of his troponins which he has had multiple times before when he has been in a fluid overload state. This may be type 2 in nature but I feel that because he has had multiple admissions with this, I think that we should further look into possibly ischemic-driven. We will plan for a pharmacologic nuclear stress test today. 2. Will also check an echocardiogram to get a look at his overall left ventricular function, cardiac structure and possible valvulopathies. 3. He was concerned mostly for bradycardia because of an HELGA on his phone. Most likely this is due to him having PVCs and his HELGA not counting appropriately for his heart rate. His pacer is currently set at 60 and while here, his heart rate has been 60. I will have [employer] interrogate his ICD for concern of possible arrhythmogenic events with the sensation that he gets as well as pain to his arms. 4. I spoke to him for greater than 3 minutes about his tobacco use and considering cessation. 5. Further recommendations will be made based on hospital course, pharmacologic nuclear stress testing and ICD anterior gauge. Thank you for allowing me to see Ed White. If there are any questions, please do not hesitate to call. Heriberto Avila DO VGP/JCAubrey /11:36 AM /1:40 PM [place]
[2016-07-23 15:11] LABS: APTT (PATIENT) 41.6 SEC (24.3-30.1)
[2016-07-23] MEDS: CARVEDILOL 12.5 MG TAB PO SCH (21:00)
[2016-07-23] MEDS: PRAVASTATIN SOD 80 MG TAB PO SCH (21:41)
[2016-07-24] VITALS (25 sets, daily range): BP systolic 90–115; BP diastolic 60–82; PULSE 49–75; RESP 16–20; TEMP 97.6–98.4; O2SAT 94–99
[2016-07-24] MEDS: HEPARIN-D5W INJ 250 ML IV SCH (04:30)
[2016-07-24 05:48] LABS: BASOPHIL % 0.5 % (0.0-2.0); EOSINOPHIL # 0.2 TH/MM3 (0-0.4); EOSINOPHIL % 3.5 % (0.0-4.0); HEMATOCRIT 41.1 % (39.0-51.0); HEMO FLAGS DIFF FINAL; LYMPH % 38.2 % (9.0-44.0); LYMPHOCYTE # 2.3 TH/MM3 (1.0-4.8); MEAN CELL VOLUME 90.1 FL (80.0-100.0); MEAN CORPUSCULAR HEMOGLOBIN 30.7 PG (27.0-34.0); NEUT % 50.8 % (16.0-70.0); PLATELET COUNT 131 TH/MM3 (150-450); RED BLOOD COUNT 4.56 MIL/MM3 (4.50-5.90); RED CELL DISTRIBUTION WIDTH 14.1 % (11.6-17.2); WHITE BLOOD COUNT 5.9 TH/MM3 (4.0-11.0)
[2016-07-24 05:50] LABS: APTT (PATIENT) 42.9 SEC (24.3-30.1)
[2016-07-24 05:59] LABS: ALT (GPT) 10 U/L (12-78); ANION GAP 6 MEQ/L (5-15); AST (GOT) 11 U/L (15-37); BLOOD UREA NITROGEN 21 MG/DL (7-18); CHLORIDE 104 MEQ/L (98-107); GLOMERULAR FILTRATION RATE 82 ML/MIN (>89); POTASSIUM 3.5 MEQ/L (3.5-5.1); SODIUM (NA) 140 MEQ/L (136-145)
[2016-07-24 06:01] LABS: ALKALINE PHOSPHATASE 51 U/L (45-117); TOTAL BILIRUBIN ADULT 0.6 MG/DL (0.2-1.0)
[2016-07-24] MEDS: INSULIN ASPART SUPPLEMENTAL SCALE SQ SCH ×4 (06:42→21:00)
--- NOTE | 2016-07-24 09:17 | HHI.PR ---
Subjective Remarks No acute events overnight. AVSS. Patient states he has not had anymore episodes of arm discomfort or CP. Objective Vitals Vital Signs Date Time Temp Pulse Resp B/P Pulse Ox O2 Delivery O2 Flow Rate FiO2 07/24/16 08:37 94 07/24/16 07:30 98.4 49 16 104/65 99 07/24/16 07:30 49 07/24/16 07:30 99 Room Air 07/24/16 06:00 52 07/24/16 05:00 55 07/24/16 04:00 98.1 54 16 111/71 98 07/24/16 04:00 98 Room Air 07/24/16 04:00 50 07/24/16 03:00 56 07/24/16 02:00 58 07/24/16 01:00 55 07/24/16 00:00 97.6 62 16 102/68 99 07/24/16 00:00 99 Room Air 07/24/16 00:00 49 07/23/16 23:00 54 07/23/16 22:00 64 07/23/16 21:00 56 07/23/16 20:00 99 Room Air 07/23/16 20:00 58 07/23/16 20:00 97.6 57 20 110/57 99 07/23/16 19:00 58 07/23/16 18:37 55 18 105/71 99 07/23/16 16:00 98.2 58 20 88/56 98 07/23/16 16:00 58 07/23/16 12:00 60 07/23/16 12:00 98.1 60 21 104/71 97 I/O 07/23/16 07/23/16 07/23/16 07/24/16 07/24/16 07/24/16 07:00 15:00 23:00 07:00 15:00 23:00 Intake Total 149 ml 190 ml 443 ml Output Total 0 ml 400 ml Balance 149 ml -210 ml 443 ml Intake Oral 120 ml 125 ml 240 ml IV Total 29 ml 65 ml 203 ml Output Urine Total 0 ml 400 ml # Voids 2 2 # Bowel Movements 0 0 Result Diagram: 07/24/16 0459 07/24/16 0459 Objective Remarks GENERAL: This is a well-nourished, well-developed patient, in no apparent distress. SKIN: No rashes, ecchymoses or lesions. Cool and dry. HEAD: Atraumatic. Normocephalic. No temporal or scalp tenderness. EYES: Pupils equal round and reactive. Extraocular motions intact. No scleral icterus. No injection or drainage. ENT: Nose without bleeding, purulent drainage or septal hematoma. Throat without erythema, tonsillar hypertrophy or exudate. Uvula midline. Airway patent. NECK: Trachea midline. No JVD or lymphadenopathy. Supple, nontender, no meningeal signs. CARDIOVASCULAR: Regular rate and rhythm without gallops, or rubs. Systolic murmur noted RESPIRATORY: Clear to auscultation. Breath sounds equal bilaterally. No wheezes , rales, or rhonchi. GASTROINTESTINAL: Abdomen soft, non-tender, nondistended. No hepato-splenomegaly , or palpable masses. No guarding. MUSCULOSKELETAL: Extremities without clubbing, cyanosis, or edema. No joint tenderness, effusion, or edema noted. No calf tenderness. Negative Homans sign bilaterally. NEUROLOGICAL: Awake and alert. Cranial nerves II through XII intact. Motor and sensory grossly within normal limits. Five out of 5 muscle strength in all muscle groups. Normal speech. A/P Problem List: (1) Elevated troponin I level ICD Code: R74.8 Status: Acute (2) Chest pain ICD Code: R07.9 Status: Acute (3) Bradycardia ICD Code: R00.1 Status: Acute Assessment and Plan This is a 60-year-old male who presents to the emergency department because of CP and pain in his bilateral upper extremities associated with mild shortness of breath lasting for 5-10 minutes resolved with rest. He also noted to have a slow heart rate in the 40s. ER workup shows elevated troponin and was advised admission. NSTEMI. He has history of coronary artery disease status post RI, angioplasty, stent and cardiomyopathy status post AICD EF of 20%. Currently he is symptom- free. Pacemaker interrogation showed episodes of VT. Cardiology recommends continuing heparin ggt as this may be ischemia related and a heart cath tomorrow. ECHO pending. Continue lasix. Hypokalemia. Replace and monitor Chronic medical conditions of hypertension, hyperlipidemia and diabetes mellitus. Stable continue outpatient medications as appropriate. Monitor fingersticks with sliding scale coverage DVT prophylaxis with SCD and heparin Marina Barnett MD R3 July 24, 2016 09:17
[2016-07-24] MEDS ORDERED: POTASSIUM CHLORIDE 20 MEQ CONTROLLED RELEASE TAB PO ONE (09:30)
[2016-07-24] MEDS: ASPIRIN 325 MG TAB PO SCH (10:06)
[2016-07-24] MEDS: POTASSIUM CHLORIDE 10 MEQ CONTROLLED RELEASE TAB PO SCH (10:06)
[2016-07-24] MEDS: FUROSEMIDE 20 MG TAB PO SCH (10:06)
[2016-07-24] MEDS: LOSARTAN 50 MG TAB PO SCH (10:06)
[2016-07-24] MEDS: CARVEDILOL 12.5 MG TAB PO SCH ×2 (10:07→21:43)
[2016-07-24] MEDS: SODIUM CHLORIDE 0.9% FLUSH 10 ML FLUSH IV FLUSH SCH ×2 (10:07→21:00)
--- NOTE | 2016-07-24 10:34 | PD.CARD.PN ---
Subjective Subjective Remarks No chest pain, no shortness of breath Objective Medications Current Medications Medications (Trade) Dose Ordered Sig/Shannon Route Start Time Stop Time Status Last Admin (Zofran Inj) 4 mg Q6H PRN IVP 07/23/16 01:00 (Dulcolax Supp) 10 mg DAILY PRN RECTAL 07/23/16 01:00 (Tylenol) 650 mg Q6H PRN PO 07/23/16 01:00 ([place] 5-325 Mg) 1 tab Q4H PRN PO 07/23/16 01:00 (Morphine Inj) 2 mg Q3H PRN IV 07/23/16 01:00 (Aspirin) 325 mg DAILY PO 07/23/16 09:00 07/24/16 10:06 (Coreg) 12.5 mg BID PO 07/23/16 09:00 07/24/16 10:07 (Lasix) 60 mg DAILY PO 07/23/16 09:00 07/24/16 10:06 (Cozaar) 100 mg DAILY PO 07/23/16 09:00 07/24/16 10:06 (Pravachol) 80 mg HS PO 07/23/16 21:00 07/23/16 21:41 (NS Flush) 2 ml BID IV FLUSH 07/23/16 09:00 07/24/16 10:07 (NS Flush) 2 ml UNSCH PRN IVF 07/23/16 01:15 (Heparin Inj) 5,000 units UNSCH PRN IV 07/23/16 08:00 Heparin Sodium (Porcine) 2500 units 2,500 units UNSCH PRN IV 07/23/16 08:00 (Heparin-D5W Inj) 250 ml @ 0 mls/hr TITRATE IV 07/23/16 02:00 07/24/16 04:30 (D50w (Vial) Inj) 25 ml UNSCH PRN IV PUSH 07/23/16 06:30 (Glucagon Inj) 1 mg UNSCH PRN OTHER 07/23/16 06:30 (KCl) 30 meq DAILY PO 07/23/16 09:00 07/24/16 10:06 Vital Signs / I&O Vital Signs Date Time Temp Pulse Resp B/P Pulse Ox O2 Delivery O2 Flow Rate FiO2 07/24/16 08:37 94 07/24/16 08:00 49 07/24/16 08:00 98 Room Air 07/24/16 08:00 97.8 49 16 104/65 98 07/24/16 07:30 98.4 49 16 104/65 99 07/24/16 07:30 49 07/24/16 07:30 99 Room Air 07/24/16 06:00 52 07/24/16 05:00 55 07/24/16 04:00 98.1 54 16 111/71 98 07/24/16 04:00 98 Room Air 07/24/16 04:00 50 07/24/16 03:00 56 07/24/16 02:00 58 07/24/16 01:00 55 07/24/16 00:00 97.6 62 16 102/68 99 07/24/16 00:00 99 Room Air 07/24/16 00:00 49 07/23/16 23:00 54 07/23/16 22:00 64 07/23/16 21:00 56 07/23/16 20:00 99 Room Air 07/23/16 20:00 58 07/23/16 20:00 97.6 57 20 110/57 99 07/23/16 19:00 58 07/23/16 18:37 55 18 105/71 99 07/23/16 16:00 98.2 58 20 88/56 98 07/23/16 16:00 58 07/23/16 12:00 60 07/23/16 12:00 98.1 60 21 104/71 97 I/O 07/23/16 07/23/16 07/23/16 07/24/16 07/24/16 07/24/16 07:00 15:00 23:00 07:00 15:00 23:00 Intake Total 149 ml 190 ml 443 ml Output Total 0 ml 400 ml Balance 149 ml -210 ml 443 ml Intake Oral 120 ml 125 ml 240 ml IV Total 29 ml 65 ml 203 ml Output Urine Total 0 ml 400 ml # Voids 2 2 # Bowel Movements 0 0 Physical Exam GENERAL: NAD, AAOx3 SKIN: Warm and dry. HEAD: Atraumatic. Normocephalic. EYES: Pupils equal and round. No scleral icterus. No injection or drainage. ENT: No nasal bleeding or discharge. Mucous membranes pink and moist. NECK: Trachea midline. No JVD. CARDIOVASCULAR: Regular rate and rhythm. RESPIRATORY: No accessory muscle use. Clear to auscultation. Breath sounds equal bilaterally. GASTROINTESTINAL: Abdomen soft, non-tender, nondistended. Hepatic and splenic margins not palpable. MUSCULOSKELETAL: Extremities without clubbing, cyanosis, or edema. No obvious deformities. NEUROLOGICAL: Awake and alert. No obvious cranial nerve deficits. Motor grossly within normal limits. Five out of 5 muscle strength in the arms and legs. Normal speech. PSYCHIATRIC: Appropriate mood and affect; insight and judgment normal. Laboratory Laboratory Tests Test 07/23/16 07/23/16 07/24/16 12:30 12:50 04:59 Sodium Level 142 MEQ/L 140 MEQ/L Potassium Level 3.5 MEQ/L 3.5 MEQ/L Chloride Level 102 MEQ/L 104 MEQ/L Carbon Dioxide Level 33.4 MEQ/L 30.0 MEQ/L Anion Gap 7 MEQ/L 6 MEQ/L Blood Urea Nitrogen 22 MG/DL 21 MG/DL Creatinine 1.00 MG/DL 0.93 MG/DL Estimat Glomerular Filtration 76 ML/MIN 82 ML/MIN Rate Random Glucose 99 MG/DL 113 MG/DL Calcium Level 8.8 MG/DL 8.9 MG/DL Magnesium Level 1.6 MG/DL Troponin I 0.14 NG/ML Thyroid Stimulating Hormone 1.070 uIU/ML 3rd Gen Activated Partial 41.6 SEC 42.9 SEC Thromboplast Time White Blood Count 5.9 TH/MM3 Red Blood Count 4.56 MIL/MM3 Hemoglobin 14.0 GM/DL Hematocrit 41.1 % Mean Corpuscular Volume 90.1 FL Mean Corpuscular Hemoglobin 30.7 PG Mean Corpuscular Hemoglobin 34.0 % Concent Red Cell Distribution Width 14.1 % Platelet Count 131 TH/MM3 Mean Platelet Volume 9.1 FL Neutrophils (%) (Auto) 50.8 % Lymphocytes (%) (Auto) 38.2 % Monocytes (%) (Auto) 7.0 % Eosinophils (%) (Auto) 3.5 % Basophils (%) (Auto) 0.5 % Neutrophils # (Auto) 3.0 TH/MM3 Lymphocytes # (Auto) 2.3 TH/MM3 Monocytes # (Auto) 0.4 TH/MM3 Eosinophils # (Auto) 0.2 TH/MM3 Basophils # (Auto) 0.0 TH/MM3 CBC Comment DIFF FINAL Differential Comment Total Bilirubin 0.6 MG/DL Aspartate Amino Transf 11 U/L (AST/SGOT) Alanine Aminotransferase 10 U/L (ALT/SGPT) Alkaline Phosphatase 51 U/L Total Protein 6.5 GM/DL Albumin 3.1 GM/DL Assessment and Plan Problem List: (1) Elevated troponin I level (2) CHF (congestive heart failure) (3) Ventricular tachycardia Assessment and Plan 1) Slow ventricular tachycardia around 135-140 bpm, only a detection zone, no treatment delivered on ICD interrogation 2) ICD changed to ATP only for 135 and above, continue with previous treatment zone (ATP/ICD firing) for normal VT zone 3) Stress test cancelled, will plan on catheterization in the morning, NPO after midnight 4) Will continue with heparin drip as possibly ischemic mediated 5) Echo pending Heriberto Jay DO July 24, 2016 10:34
[2016-07-24] MEDS: PRAVASTATIN SOD 80 MG TAB PO SCH (21:43)
[2016-07-25] VITALS (24 sets, daily range): BP systolic 92–104; BP diastolic 58–69; PULSE 48–82; RESP 16–20; TEMP 97.5–98.4; O2SAT 95–97
[2016-07-25 06:25] LABS: AUTOMATED NEUTROPHIL # 2.7 TH/MM3 (1.8-7.7); BASOPHIL % 0.3 % (0.0-2.0); EOSINOPHIL # 0.2 TH/MM3 (0-0.4); EOSINOPHIL % 3.6 % (0.0-4.0); HEMATOCRIT 39.8 % (39.0-51.0); HEMO FLAGS DIFF FINAL; LYMPH % 38.3 % (9.0-44.0); MEAN CELL VOLUME 90.7 FL (80.0-100.0); MEAN CORPUSCULAR HEMOGLOBIN 32.1 PG (27.0-34.0); MEAN CORPUSCULAR HGB CONC 35.3 % (32.0-36.0); MONO % 7.1 % (0.0-8.0); NEUT % 50.7 % (16.0-70.0); PLATELET COUNT 132 TH/MM3 (150-450); RED BLOOD COUNT 4.39 MIL/MM3 (4.50-5.90); RED CELL DISTRIBUTION WIDTH 14.3 % (11.6-17.2); WHITE BLOOD COUNT 5.3 TH/MM3 (4.0-11.0)
[2016-07-25 06:26] LABS: APTT (PATIENT) 41.8 SEC (24.3-30.1)
[2016-07-25 06:49] LABS: BICARBONATE 29.9 MEQ/L (21.0-32.0); POTASSIUM 3.9 MEQ/L (3.5-5.1)
[2016-07-25] MEDS: INSULIN ASPART SUPPLEMENTAL SCALE SQ SCH ×4 (07:00→21:45)
[2016-07-25] MEDS: CARVEDILOL 12.5 MG TAB PO SCH ×2 (09:00→21:00)
[2016-07-25] MEDS: SODIUM CHLORIDE 0.9% FLUSH 10 ML FLUSH IV FLUSH SCH ×2 (09:00→21:39)
[2016-07-25] MEDS: LOSARTAN 50 MG TAB PO SCH (09:00)
[2016-07-25] MEDS: ASPIRIN 81 MG CHEW TAB CHEW SCH (09:04)
--- NOTE | 2016-07-25 10:47 | HHI.PR ---
Subjective Remarks Follow up mild retrosternal chest pressure and shortness of breath. Patient seen and examined today. Patient denies any acute complaints. Denies any chest pain, fever, chills, diaphoresis, shortness of breath, nausea or vomiting. Awaiting cath this am by Dr. Jay. On heparin drip. Remarks Discussed with cardiology regarding catheterization findings, moderate CAD. Discharge planning for tomorrow and follow up outpatient with Dr. Jay, and possibly EP for consideration of VT ablation. Objective Vitals Vital Signs Date Time Temp Pulse Resp B/P Pulse Ox O2 Delivery O2 Flow Rate FiO2 07/25/16 06:00 61 07/25/16 05:00 59 07/25/16 04:00 56 07/25/16 03:00 97 Room Air 07/25/16 03:00 52 07/25/16 03:00 97.7 51 16 104/69 97 07/25/16 02:00 52 07/25/16 01:00 61 07/25/16 00:00 60 07/24/16 23:00 59 07/24/16 23:00 98 Room Air 07/24/16 23:00 97.8 58 16 98/63 98 07/24/16 22:00 75 07/24/16 21:00 65 07/24/16 20:00 97.8 66 20 115/82 98 07/24/16 20:00 98 Room Air 07/24/16 20:00 65 07/24/16 19:04 21 07/24/16 19:00 58 07/24/16 18:00 57 07/24/16 16:00 63 07/24/16 15:50 98 Room Air 07/24/16 15:50 98.4 63 18 90/60 98 07/24/16 14:00 58 07/24/16 13:00 64 07/24/16 12:00 58 07/24/16 11:30 99 Room Air 07/24/16 11:30 65 07/24/16 11:30 97.8 65 16 102/70 98 07/24/16 11:00 58 I/O 07/24/16 07/24/16 07/24/16 07/25/16 07/25/16 07/25/16 06:59 14:59 22:59 06:59 14:59 22:59 Intake Total 443 ml 988 ml 708 ml Balance 443 ml 988 ml 708 ml Intake Oral 240 ml 875 ml 600 ml IV Total 203 ml 113 ml 108 ml # Voids 2 4 3 # Bowel Movements 0 1 0 Result Diagram: 07/25/16 0429 07/25/16 0429 Imaging Last Impressions Chest X-Ray 07/22/16 0161 Signed Impressions: Service Date/Time: Saturday, July 23, 2016 00:13 - CONCLUSION: No acute disease. Mild cardiomegaly. Victor Manuel Gordon MD Objective Remarks GENERAL: Well-nourished, well-developed patient in NAD. SKIN: Warm and dry. No rash. HEENT: Normocephalic. Atraumatic. Pupils equal and round. No scleral icterus. No injection or drainage. No nasal bleeding or discharge. Mucous membranes pink and moist. Supple. Trachea midline. CARDIOVASCULAR: Regular rate and rhythm. S1, S2 noted. No murmur appreciated. RESPIRATORY: No accessory muscle use. CTA. Breath sounds equal bilaterally. GASTROINTESTINAL: Abdomen soft, non-tender, nondistended. Normoactive bowel sounds x4. MUSCULOSKELETAL: No obvious deformities. Extremities without clubbing, cyanosis , or edema. NEUROLOGICAL: Awake and alert. No obvious cranial nerve deficits. Motor grossly within normal limits. Normal speech. PSYCHIATRIC: Appropriate mood and affect; insight and judgment normal. Urinary Catheter: No A/P Assessment and Plan Mr. White is a 60-year-old male with a known history of CAD, NH with previous angioplasty, cardiomyopathy with EF of 20%, s/p AICD placement, diabetes mellitus, hypertension, GERD, pancreatitis and ETOH abuse who presented to the ED with complaints of chest pressure and shortness of breath for several days and several different episodes. Non-ST segment elevation NH - Patient asymptomatic at this time. Continue to monitor. On heparin drip. - Awaiting cath this am by Dr. Jay, appreciate input. - s/p AICD placement history with EF of 20%. ECHO ordered, results pending. - Continue aspirin. Bradycardia - Cardiology following. - AICD interrogation performed. - Monitor closely. Hold Coreg sbp < 110 and HR <60. Hold cozaar sbp < 110. Hypokalemia, resolved: s/p replacement. K 3.9 on 07/25. Monitor. Other chronic medical conditions include hypertension, diabetes mellitus and hyperlipidemia and are stable at this time. Continue home medications as indicated. Continue sliding scale as ordered, cover as needed. DVT prophylaxis: SCDs. Heparin drip. Attestation Patient seen and examined with SAEED Johns. The exam, history, and the medical decision-making described in the above note were completed with the assistance of the dictating practitioner. I attest that I had a [id number] encounter with the patient on the same day, and personally performed all of the history, exam, or medical decision making. Discussed case with her thoroughly after seeing the patient, reviewed and agreed with the plan. Please see addendum in History, Physical examination. See below for any errata/additional input: Status post cardiac catheterization, no further chest pain Regular rate and rhythm, positive for murmur Clear breath sounds Possible discharge tomorrow, discussed with cardiology, may need V. tach ablation as outpatient. Ejection fraction about 20%. hSala Downing July 25, 2016 10:47 Tyson Knapp MD July 26, 2016 16:53
[2016-07-25] MEDS ORDERED: MIDAZOLAM HCL 2 MG/2 ML VIAL ONE (11:04)
[2016-07-25] MEDS ORDERED: methylPREDNISolone SOD SUCC 125 MG/2 ML VIAL ONE (11:04)
[2016-07-25] MEDS ORDERED: diphenhydrAMINE HCL 50 MG/ML VIAL ONE (11:04)
[2016-07-25] MEDS ORDERED: HEPARIN-NS/PF INJ 500 ML ONE (11:04)
[2016-07-25] MEDS ORDERED: VERAPAMIL HCL 5 MG/2 ML VIAL ONE (11:18)
[2016-07-25] MEDS ORDERED: HEPARIN SODIUM - IV 10,000 UNITS/10 ML VIAL ONE (11:18)
--- NOTE | 2016-07-25 12:00 | EC ---
Study Study Date:07/25/2016 STUDY CONCLUSIONS SUMMARY - Left ventricle: The cavity size was dilated. Wall thickness was normal. Systolic function was severely reduced. The estimated ejection fraction was 15%. Diffuse hypokinesis. - Aortic valve: Mild regurgitation. Valve area: 2.51cm^2 (Vmax). - Mitral valve: Severe regurgitation. If LV function is below 40, please consider prescribing an ACEI or ARB or document rationale for non-use. PROCEDURE DATA STUDY STATUS: Elective. Procedure: Transthoracic echocardiography. Image quality was good. Scanning was performed from the parasternal, apical, and subcostal acoustic windows. Study completion: The patient tolerated the procedure well. Transthoracic echocardiography. M-mode, complete 2D, complete spectral Doppler, and color Doppler. Height: Height: 68in. Weight: Weight: 168.6lb. Body mass index: BMI: 25.7kg/m^2. Body surface area: BSA: 1.9m^2. Patient status: Inpatient. CARDIAC ANATOMY LEFT VENTRICLE: The cavity size was dilated. Wall thickness was normal. Systolic function was severely reduced. The estimated ejection fraction was 15%. Diffuse hypokinesis. AORTIC VALVE: Trileaflet; normal thickness leaflets. Doppler: Transvalvular velocity was within the normal range. There was no stenosis. Mild regurgitation. Valve area: 2.51cm^2 (Vmax). Indexed valve area: 1.32cm^2/m^2 (Vmax). AORTA: Aortic root: The aortic root was normal in size. MITRAL VALVE: Structurally normal valve. Doppler: Transvalvular velocity was within the normal range. There was no evidence for stenosis. Severe regurgitation. Valve area by pressure half-time: 3.44cm^2. Indexed valve area by pressure half-time: 1.81cm^2/m^2. Mean gradient: 2mm Hg (D). Peak gradient: 3mm Hg (D). LEFT ATRIUM: The atrium was normal in size. RIGHT VENTRICLE: The cavity size was normal. Wall thickness was normal. PULMONIC VALVE: Doppler: Transvalvular velocity was within the normal range. There was no evidence for stenosis. No regurgitation. TRICUSPID VALVE: Structurally normal valve. Doppler: Transvalvular velocity was within the normal range. No regurgitation. Peak gradient: 12mm Hg (D). PULMONARY ARTERY: The main pulmonary artery was normal-sized. Systolic pressure was within the normal range. RIGHT ATRIUM: The atrium was normal in size. PERICARDIUM: There was no pericardial effusion. SYSTEMIC VEINS: Inferior vena cava: The vessel was normal in size. Patient weight: 168.6lb _Ejection fraction:_ 65-75% _Fractional shortening:_ 32% up to 5Kg 5-11.5Kg 11.6-22.9Kg 23-45Kg 45-57Kg Aortic Root 7-13 <17 13-22 17-27 17-27 LA diam 6-13 <23 24-38 33-47 37-40 RVID 10-17 7-15 7-15 7-18 8-17 LVIDd 12-22 <32 24-38 33-47 37-40 LVPW 2-4 3-6 5-7 6-8 7-8 IVS 2-4 3-6 5-7 6-8 7-8 BASIC MEASUREMENTS ADULT NORMAL Left ventricle LV internal dimension, ED, chordal *80.3 mm 43-52 level, PLAX LV internal dimension, ES, chordal *72.6 mm 23-38 level, PLAX Fractional shortening, chordal level, *10 % >29 PLAX LV posterior wall thickness, ED 9.87 mm IVS/LVPW ratio, ED 0.97 <1.3 Volume, ED, MOD, 1-plane 386 ml Volume, ES, MOD, 1-plane 315 ml Ejection fraction, MOD, 1-plane 18 % Stroke volume, MOD, 1-plane 71 ml Volume index, ED, MOD, 1-plane 203 ml/m^2 Volume index, ES, MOD, 1-plane 166 ml/m^2 Stroke index, MOD, 1-plane 37.4 ml/m^2 Ventricular septum Septal thickness, ED 9.57 mm Aortic valve Leaflet separation 22 mm 15-26 Left atrium Anterior-posterior dimension 44 mm Anterior-posterior dimension index *2.32 cm/m^2 <2.2 Right ventricle RV internal dimension, ED, PLAX 24.4 mm 19-38 BASIC MEASUREMENTS ADULT NORMAL Aortic valve Leaflet separation 22 mm 15-26 Aorta Root diameter, ED 30 mm 20-37 DOPPLER MEASUREMENTS ADULT NORMAL Aortic valve Peak velocity, S 144 cm/s VTI, S 41.3 cm Valve area, Vmax 2.51 cm^2 Valve area index, Vmax 1.32 cm^2/m^2 Regurgitant velocity, ED 344 cm/s Regurgitant deceleration 1220 cm/s^2 Regurgitant pressure half-time 842 ms Regurgitant gradient, ED 47 mm Hg Mitral valve Peak E-wave velocity 91.3 cm/s Peak A-wave velocity 83.9 cm/s Mean velocity, D 59.6 cm/s Pressure half-time 64 ms Mean gradient, D 2 mm Hg Peak gradient, D 3 mm Hg Peak E/A ratio 1.1 Valve area, pressure half-time 3.44 cm^2 Valve area index, pressure half-time 1.81 cm^2/m^2 Tricuspid valve Peak gradient, D 12 mm Hg Maximal inflow velocity 174 cm/s Systemic veins Estimated CVP 10 mm Hg Pulmonic valve Peak velocity, S 85.5 cm/s LEGEND: Mean values are shown as u=mean value. Asterisk (*) tamayo values outside specified normal range. Prepared and signed by Pedro Win [id number]
--- NOTE | 2016-07-25 12:55 | CATHPROC ---
Cardiio HIS Report Study Information Study Number Admission Scheduled Start Study Start [id number] 07/23/2016 07/25/2016 Jul 25 2016 10:58AM Referring Institution Admit Source Facility Department 1 Emergency department [facility] - Senior Software Development Engineer Physician and Clinical Staff Initial Heriberto Joaquin Hat Trimmerjohnathan Gutierrez RN, Ramses Hernandez,EVELYNE Recorder Benita Borden,RT(R) (BS) Scrub Geoff Bojorquez,RT(R) TECH2 Procedures Performed Procedure Location (Site) Vessel Name Coronary Angiograms LCA Left Coronary Coronary Angiograms RCA Right Coronary Wire insertion Fem Art (right) Femoral Art Equipment Time Food Safety Manager Description Size Mfg Part Number Used/Scraped TRANSDUCER, TRUWAVE 11:09 RAI CARTER * [id number] Used W/[employer] INTRODUCER SET, [id number]-502-10.0- 11:46 [employer] FR 5 Used MICROPUNCTURE, STIFFENED SC-NT-U-SST MEDICAL CONCEPT DRAPE, RADIAL FEMORAL FULL 11:09 * [id number] Used DEVELOPMENT BODY 11:09 [email or web address] PACK, CCL CUSTOM * [id number] Used 11:09 [email or web address] SUPPORT, ARTERIAL ADULT [id number] Used 12:23 MED[employer]IC/AVE EBU 3.5 Z2 GUIDE CATHETER FR 6 [id number] Used PSI-6F-11- 12:08 [employer] MEDICAL SHEATH, FR6.5 PRELUDE 11CM FR 6.5 Used [id number] 11:09 [employer] MEDICAL WIRE, EXCHANGE 260CM 3MMJ 260CM [id number] Used 11:09 NAMIC MANIFOLD, 4 PORT * [id number] Used 11:09 NYCOMED OMNIPAQUE, 350 MG, 100ML 100ML [id number] Used 11:09 BARRETT MEDICAL BLANKET,WARM AIR CCL * [id number] Used 11:43 TERUMO MEDICAL SHEATH, FR5 TERUMO (10CM) FR 5 [id number] Used SHEATH, FR6 TRANSRADIAL 11:09 TERUMO MEDICAL FR 6 [id number] Used SLENDER 10CM 12:05 VOLCANO PRIME WIRE, VERRATA 185CM 185CM [id number] Used Equipment Model, Serial, Lot Number and Expiration Data Description Model Number Serial Number Lot Number Expiration Date INTRODUCER SET, [id number] 06-08-2019 MICROPUNCTURE, STIFFENED PRIME WIRE, VERRATA 185CM [id number] 06-18-2019 SHEATH, FR6.5 PRELUDE 11CM [id number] 04-19-2019 History: Current Medications Medication Dosage/Unit Route Frequency Last Date/Time Taken ASA Beta Katty Statins (any) History: Allergies Allergy Reaction Contrast Media History: Risk Factors Family History of Hypertension Dyslipidemia Previous [facility] Previous Heart Failure Premature CAD Yes Yes No No Yes Prior Valve Prior PCI Prior CABG Surgery No Yes No Cerebrovascular Peripheral Artery Chronic Lung On Dialysis Diabetes Diabetes Therapy Disease Disease Disease No No No No Yes Oral History: Symptoms/Diagnosis Selection Items Chest pain History: Stress Tests Stress or Imaging Studies Performed No History: Other Current Smoker Method Packs a Day Years Used Pack Years Yes Cigarettes 1 44 44 Labs Hgb (g/dl) Hct (%) WBC (l/cumm) Platelets (thousands) 12.00-18.00 37.00-55.00 4.80-10.80 140.00-450.00 14.1 39.8 5.3 132 Glucose (mg/dl) BUN (mg/dl) Creatinine (mg/dl) BUN:Creatinine (1:x) 60.00-110.00 8.00-20.00 0.10-9.00 10.00-20.00 100 26 0.9 28.9 Na (meq/l) K (meq/l) 138.00-146.00 3.80-5.10 140 3.9 INR (PTT:PT) 0.50-2.00 1 Troponin I (ng/ml) CPK-MB (ng/ML) 0.40-2.30 0.00-7.00 0.14 Not Drawn Medication Medication Total Dose (Bolus/Oral) Medication Total Dosage/Unit 1% XYLOCAINE 22 mL BENADRYL 25 mg FENTANYL 50 mcg HEPARIN 5400 units PEPCID 20 mg SOLU-MEDROL 125 mg VERSED 1 mg Medications (Bolus/Oral) Medication Time Given Dosage/Unit Administered By Reason SOLU-MEDROL 07/25/2016 11:08:35 AM 125 mg Anthony Gutierrez RN 125 mg SOLU-MEDROL given in lab by Anthony Gutierrez RN in Left Wrist via Peripheral IV. BENADRYL 07/25/2016 11:08:37 AM 25 mg Anthony Gutierrez RN 25 mg BENADRYL given in lab by Anthony Gutierrez RN in Left Wrist via Peripheral IV. PEPCID 07/25/2016 11:09:37 AM 20 mg Anthony Gutierrez RN 20 mg PEPCID given in lab by Anthony Gutierrez RN in Left Wrist via Peripheral IV. FENTANYL 07/25/2016 11:33:21 AM 25 mcg Anthony Gutierrez RN 25 mcg FENTANYL given in lab by Anthony Gutierrez RN in Left Wrist via Peripheral IV. VERSED 07/25/2016 11:33:33 AM 0.5 mg Anthony Gutierrez RN 0.5 mg VERSED given in lab by Anthony Gutierrez RN in Left Wrist via Peripheral IV. 1% XYLOCAINE 07/25/2016 11:34:06 AM 1 mL Heriberto Jay 1 mL 1% XYLOCAINE given in lab by Heriberto Jay in Left Radial via Subcutaneous. 1% XYLOCAINE 07/25/2016 11:37:56 AM 1 mL Heriberto Jay 1 mL 1% XYLOCAINE given in lab by Heriberto Jay in Left Radial via Subcutaneous. FENTANYL 07/25/2016 11:46:43 AM 25 mcg Anthony Gutierrez RN 25 mcg FENTANYL given in lab by Anthony Gutierrez RN in Left Wrist via Peripheral IV. 1% XYLOCAINE 07/25/2016 11:47:19 AM 20 mL Heriberto Jay 20 mL 1% XYLOCAINE given in lab by Heriberto Jay in Right Groin via Subcutaneous. VERSED 07/25/2016 11:47:37 AM 0.5 mg Anthony Gutierrez RN 0.5 mg VERSED given in lab by Anthony Gutierrez RN in Left Wrist via Peripheral IV. HEPARIN 07/25/2016 12:07:23 PM 5400 units Ramses Alvarado 5400 units HEPARIN given in lab by Ramses Alvarado RN in Left Wrist via Peripheral IV. Medication (Drip) Medication Time Given Dosage/Unit Concentration/Unit Diluent (ml) Solutio n HEPARIN DRIP STOPPED 07/25/2016 10:50:49 AM 0 units/hr 0 0 units/hr HEPARIN DRIP STOPPED given by Anthony Gutierrez RN. Pump/Drip Flow = 0 ml/hr using [Solution Na me]. IV Solutions 07/25/2016 11:00:11 AM 0 mL (IV) 500 NaCl .9 IV Solutions given in lab by Anthony Gutierrez RN in Left Wrist via Peripheral IV. Pump/Drip Flow = 20 ml/ hr using NaCl .9. Initial Case Assessment Cardiovascular HR Rhythm NIBP Chest Pain 67 reg 123/81 0 Edema Present Skin color Skin None Normal Warm Dry Circulatory - Right Pulses Dorsalis Pedis Femoral 2 2 Scale (0,1,2,3,4,d) Circulatory - Left Pulses Dorsalis Pedis Femoral 2 2 Scale (0,1,2,3,4,d) Circulatory - Lower Extremities Color Lower Right Color Lower Left Normal Normal Neurological State Oriented to time-place- Alert Moves all extremities person Respiration - General Respiration Rate SpO2 (%) (B/min) 13 100 Chronological Log Time Study Chronological Log 10:50:49 0 units/hr HEPARIN DRIP STOPPED given by Anthony Gutierrez RN. Pump/Drip Flow = 0 ml/hr using [S olution Name]. 10:59:53 Patient arrived via Bed. 10:59:54 Patient Name, D.O.B, / Armband Verified By R.N. 10:59:55 Consent signed by the physician and the patient and verified by the Senior Software Development Engineer staff. 10:59:56 Pre-op and post- op instructions given; patient acknowledges understanding of instructions. 10:59:56 Verbal Stimulation=2 Physical Stimulation=2 Airway=2 Respiration=2 TOTAL=8. (0=absent, 1=li mited, 2=present) 10:59:58 Presedation assessment performed by Senior Software Development Engineer RN. 11:00:01 Patient has been NPO for More than 6Hrs. 11:00:01 Skin Breakdown none per pt 11:00:03 Patient Warmer Placed on the Table. 11:00:05 [place] Prominences Protected 11:00:08 A # 20 IV was noted in the Wrist (left). Grade = 0 11:00:11 IV Solutions given in lab by Anthony Gutierrez RN in Left Wrist via Peripheral IV. Pump/Drip Marc w = 20 ml/hr using NaCl .9. 11:00:11 History and physical on the chart or being dictated. Assessment: Initial Case, HR=67 BPM, Rhythm=reg, GDLR=779/81 mmhg, Chest Pain=0, Edema=None, Co emily=Normal, Skin = Warm, Dry Right Pulses: Andre Ped=2, Femoral=2 Left Pulses: Andre Ped=2, Femoral=2, Radial=2 11:00:12 Lower Right Extremities: Color=Normal Lower Left Extremities: Color=Normal Neurological: State=Alert, Ox3, ELLIOTT Respiration: Resp=13 B/min, ZfZ9=743 % 11:04:03 Allens test performed on the left radial and ulnar artery. 11:08:35 125 mg SOLU-MEDROL given in lab by Matt STUBBS, Anthony in Left Wrist via Peripheral IV. 11:08:37 25 mg BENADRYL given in lab by Matt STUBBS, Anthony in Left Wrist via Peripheral IV. 11:09:37 20 mg PEPCID given in lab by Matt STUBBS, Anthony in Left Wrist via Peripheral IV. Vitals capture started with the following parameters, Patient=Adult, Interval=15 min, Initial P aihdfjb=402 mmHg, 11:10:40 Deflation Rate=5 mmHg 11:12:02 HR=70 bpm, XAHF=142/81 mmhg, EgY8=296.0 %, Resp=11 B/min, Pain=0, Jasson=10, Ulloa=2 11:12:57 Right groin and left radial prepped with 2% chlorhexidine, and with a 3 min. waiting time. 11:16:03 Reference ECG taken 11:16:04 HR=73 bpm, MHLJ=512/88 mmhg, LwN9=965.0 %, Resp=8 B/min, Pain=0, Jasson=10, Ulloa=2 11:19:22 MD paged 11:20:23 Pressure channel 1 zeroed. 11:21:09 HR=72 bpm, WGLF=045/85 mmhg, Resp=11 B/min, Pain=0, Jasson=10, Ulloa=2 11:23:34 MD arrived 11:26:12 HR=67 bpm, MUPC=594/81 mmhg, XsB4=513.0 %, Resp=13 B/min, Pain=0, Jasson=10, Ulloa=2 11:31:13 HR=69 bpm, VDBC=232/82 mmhg, SpO2=99.0 %, Resp=13 B/min, Pain=0, Jasson=10, Ulloa=2 Time Out. Correct patient, correct procedure,correct physician, power injector not loaded with contrast with surgical 11:31:36 team present. Time Out Concurred by , individual staff in procedure 11:32:06 Case Start 11:33:21 25 mcg FENTANYL given in lab by Anthony Gutierrez RN in Left Wrist via Peripheral IV. 11:33:33 0.5 mg VERSED given in lab by Anthony Gutierrez RN in Left Wrist via Peripheral IV. 11:34:06 1 mL 1% XYLOCAINE given in lab by Heriberto Jay in Left Radial via Subcutaneous. 11:36:51 HR=69 bpm, EXRJ=192/74 mmhg, SpO2=98.0 %, Resp=11 B/min, Pain=0, Jasson=10, Ulloa=2 11:37:56 1 mL 1% XYLOCAINE given in lab by Heriberto Jay in Left Radial via Subcutaneous. 11:41:13 HR=67 bpm, UCVE=467/80 mmhg, Resp=14 B/min, Pain=0, Jasson=10, Ulloa=2 11:46:14 HR=64 bpm, MTKU=132/78 mmhg, Resp=10 B/min, Pain=0, Jasson=10, Ulloa=2 11:46:43 25 mcg FENTANYL given in lab by Anthony Gutierrez RN in Left Wrist via Peripheral IV. 11:47:19 20 mL 1% XYLOCAINE given in lab by Heriberto Jay in Right Groin via Subcutaneous. 11:47:37 0.5 mg VERSED given in lab by Anthony Gutierrez RN in Left Wrist via Peripheral IV. 11:49:06 Access site was Right Femoral Artery. A INTRODUCER SET, MICROPUNCTURE, STIFFENED FR 5 was advanced into the Fem Art (right) using the 11:49:16 Percutaneous technique. A SHEATH, FR5 TERUMO (10CM) FR 5 was exchanged in the Fem Art (right). This was necessary in or daisha to 11:49:24 accomodate a larger catheter. 11:51:15 HR=63 bpm, ZWBW=019/77 mmhg, Resp=11 B/min, Pain=0, Jasson=10, Ulloa=2 Recorded Pressure: Ao, HR=66, Condition=Condition 1 11:51:26 (Aorta) Ao 114/65/82 11:51:44 An injection in the Fem Art (right) was made through the SHEATH, FR5 TERUMO (10CM) FR 5. A JR 4.0 INFINITI CATHETER FR 5 was advanced over a wire. OMNIPAQUE, 350 MG, 100ML 100ML was us ed for 11:52:39 injections. 11:55:32 The RCA was injected and visualized at various angles. OMNIPAQUE, 350 MG, 100ML 100ML used . 11:56:16 HR=63 bpm, FZIK=367/75 mmhg, SpO2=95.0 %, Resp=16 B/min, Pain=0, Jasson=10, Ulloa=2 After removing the current catheter a JL 4.0 INFINITI CATHETER FR 5 was advanced over a WIRE, E XCHANGE 260CM 11:57:14 3MMJ 260CM. 11:59:38 The LCA was injected and visualized at various angles. OMNIPAQUE, 350 MG, 100ML 100ML used . 12:01:17 HR=55 bpm, RQWT=768/67 mmhg, Resp=10 B/min, Pain=0, Jasson=10, Ulloa=2 12:06:18 HR=61 bpm, XUSW=672/72 mmhg, SpO2=94.0 %, Resp=15 B/min, Pain=0, Jasson=10, Ulloa=2 12:07:23 5400 units HEPARIN given in lab by Ramses Alvarado RN in Left Wrist via Peripheral IV. A SHEATH, FR6.5 PRELUDE 11CM FR 6.5 was exchanged in the Fem Art (right). This was necessary in order to 12:08:00 accomodate a larger catheter. A JR 4.0 GUIDE CATHETER FR 6 was advanced over a wire. OMNIPAQUE, 350 MG, 100ML 100ML was used for 12:09:19 injections. 12:11:17 HR=60 bpm, IYLF=313/63 mmhg, Resp=14 B/min, Pain=0, Jasson=10, Ulloa=2 12:13:51 A PRIME WIRE, VERRATA 185CM 185CM was inserted via Fem Art (right). 12:16:18 HR=53 bpm, SZDB=525/62 mmhg, SpO2=93.0 %, Resp=13 B/min, Pain=0, Jasson=10, Ulloa=2 12:17:27 Pressure channel 1 zeroed. 12:18:42 Flow Wire was was placed in the RCA Prox. The IFR measures 0.98 Percent. 12:21:18 HR=59 bpm, SOXU=151/66 mmhg, SpO2=95.0 %, Resp=14 B/min, Pain=0, Jasson=10, Ulloa=2 12:21:50 The PRIME WIRE, VERRATA 185CM 185CM was removed. After removing the current catheter a EBU 3.5 Z2 GUIDE CATHETER FR 6 was advanced over a WIRE, EXCHANGE 12:23:58 260CM 3MMJ 260CM. 12:26:19 HR=53 bpm, ZZBO=500/63 mmhg, Resp=12 B/min, Pain=0, Jasson=10, Ulloa=2 12:27:14 Flow Wire was was placed in the CIRC Prox. The FFR measures ~FFR~ percent. The IFR measures 1.02 Percent. 12:31:18 HR=64 bpm, MQLE=966/71 mmhg, Resp=12 B/min, Pain=0, Jasson=10, Ulloa=2 12:31:30 Wire removed 12:32:55 A PIGTAIL ANG. INFINITI CATHETER FR 5 was advanced over a wire. contrast was used for injec tions. Recorded Pressure: LV, HR=61, Condition=Condition 1 12:35:08 (Left Ventricle) LV 97/11/18 Recorded Pressure: LV, HR=57, Condition=Condition 1 12:35:21 (Left Ventricle) LV 112/-4/17 Recorded Pressure: LV, Ao, HR=75, Condition=Condition 1 12:35:30 (Left Ventricle) LV 106/7/23, (Aorta) Ao ?/?/? 12:35:30 Recorded Pressure: HR=65, Condition=Condition 1 Recorded Pressure: LV, Ao, HR=69, Condition=Condition 1 12:35:30 (Left Ventricle) LV 106/9/22, (Aorta) Ao 129/23/78 12:36:19 HR=60 bpm, TLHE=014/68 mmhg, SpO2=96.0 %, Resp=11 B/min, Pain=0, Jasson=10, Ulloa=2 12:38:31 Catheter was removed 12:41:18 HR=57 bpm, VGFD=505/68 mmhg, SpO2=96.0 %, Resp=6 B/min, Pain=0, Jasson=10, Ulloa=2 12:41:41 Activated Clotting Time Drawn 12:41:44 ACT (Normal Range 90-180) = 238 12:46:20 Henderson set up to right femoral sheath 12:46:21 HR=59 bpm, TBDS=738/69 mmhg, Resp=20 B/min, Pain=0, Jasson=10, Ulloa=2 12:47:35 Vitals capture stopped. End Study - Contrast Media Used In Study Contrast Total Opened (mL) Total Used (mL) Total Wasted (mL) Omnipaque 100 100 0 End Study - Maximum Contrast Load Max Contrast Load (mL) 427.3 End Study - Radiation Exposure Fluoro Time (minutes) 10.5 End Study - Patient Disposition Complications Transferred To Interventional Outcome No Telemetry Bed No attempt made
[2016-07-25] MEDS ORDERED: ACETAMINOPHEN 325 MG TAB PO PRN (13:00)
--- NOTE | 2016-07-25 15:00 | PD.CARD.PN ---
Subjective Subjective Remarks Doing well post-operative No chest pain, no shortness of breath Objective Medications Current Medications Medications (Trade) Dose Ordered Sig/Shannon Route Start Time Stop Time Status Last Admin (Zofran Inj) 4 mg Q6H PRN IVP 07/23/16 01:00 (Dulcolax Supp) 10 mg DAILY PRN RECTAL 07/23/16 01:00 (Tylenol) 650 mg Q6H PRN PO 07/23/16 01:00 ([place] 5-325 Mg) 1 tab Q4H PRN PO 07/23/16 01:00 (Morphine Inj) 2 mg Q3H PRN IV 07/23/16 01:00 (Coreg) 12.5 mg BID PO 07/23/16 09:00 07/24/16 21:43 (Lasix) 60 mg DAILY PO 07/23/16 09:00 07/24/16 10:06 (Cozaar) 100 mg DAILY PO 07/23/16 09:00 07/24/16 10:06 (Pravachol) 80 mg HS PO 07/23/16 21:00 07/24/16 21:43 (NS Flush) 2 ml BID IV FLUSH 07/23/16 09:00 07/24/16 10:07 (NS Flush) 2 ml UNSCH PRN IVF 07/23/16 01:15 (D50w (Vial) Inj) 25 ml UNSCH PRN IV PUSH 07/23/16 06:30 (Glucagon Inj) 1 mg UNSCH PRN OTHER 07/23/16 06:30 (KCl) 30 meq DAILY PO 07/23/16 09:00 07/24/16 10:06 (Aspirin Chew) 81 mg DAILY CHEW 07/25/16 09:00 07/25/16 09:04 (Tylenol) 325 mg Q4H PRN PO 07/25/16 13:00 (Heparin Inj) 5,000 units Q8H SQ 07/25/16 23:00 Vital Signs / I&O Vital Signs Date Time Temp Pulse Resp B/P Pulse Ox O2 Delivery O2 Flow Rate FiO2 07/25/16 10:00 54 07/25/16 09:00 48 07/25/16 08:00 52 07/25/16 07:00 97.5 55 101/64 95 07/25/16 07:00 54 07/25/16 07:00 95 Room Air 07/25/16 06:00 61 07/25/16 05:00 59 07/25/16 04:00 56 07/25/16 03:00 97 Room Air 07/25/16 03:00 52 07/25/16 03:00 97.7 51 16 104/69 97 07/25/16 02:00 52 07/25/16 01:00 61 07/25/16 00:00 60 07/24/16 23:00 59 07/24/16 23:00 98 Room Air 07/24/16 23:00 97.8 58 16 98/63 98 07/24/16 22:00 75 07/24/16 21:00 65 07/24/16 20:00 97.8 66 20 115/82 98 07/24/16 20:00 98 Room Air 07/24/16 20:00 65 07/24/16 19:04 21 07/24/16 19:00 58 07/24/16 18:00 57 07/24/16 16:00 63 07/24/16 15:50 98 Room Air 07/24/16 15:50 98.4 63 18 90/60 98 I/O 07/24/16 07/24/16 07/24/16 07/25/16 07/25/16 07/25/16 07:00 15:00 23:00 07:00 15:00 23:00 Intake Total 443 ml 988 ml 708 ml Balance 443 ml 988 ml 708 ml Intake Oral 240 ml 875 ml 600 ml IV Total 203 ml 113 ml 108 ml # Voids 2 4 3 # Bowel Movements 0 1 0 Physical Exam GENERAL: NAD, AAOx3 SKIN: Warm and dry. HEAD: Atraumatic. Normocephalic. EYES: Pupils equal and round. No scleral icterus. No injection or drainage. ENT: No nasal bleeding or discharge. Mucous membranes pink and moist. NECK: Trachea midline. No JVD. CARDIOVASCULAR: Regular rate and rhythm. RESPIRATORY: No accessory muscle use. Clear to auscultation. Breath sounds equal bilaterally. GASTROINTESTINAL: Abdomen soft, non-tender, nondistended. Hepatic and splenic margins not palpable. MUSCULOSKELETAL: Extremities without clubbing, cyanosis, or edema. No obvious deformities. NEUROLOGICAL: Awake and alert. No obvious cranial nerve deficits. Motor grossly within normal limits. Five out of 5 muscle strength in the arms and legs. Normal speech. PSYCHIATRIC: Appropriate mood and affect; insight and judgment normal. Laboratory Laboratory Tests Test 07/25/16 04:29 White Blood Count 5.3 TH/MM3 Red Blood Count 4.39 MIL/MM3 Hemoglobin 14.1 GM/DL Hematocrit 39.8 % Mean Corpuscular Volume 90.7 FL Mean Corpuscular Hemoglobin 32.1 PG Mean Corpuscular Hemoglobin 35.3 % Concent Red Cell Distribution Width 14.3 % Platelet Count 132 TH/MM3 Mean Platelet Volume 9.8 FL Neutrophils (%) (Auto) 50.7 % Lymphocytes (%) (Auto) 38.3 % Monocytes (%) (Auto) 7.1 % Eosinophils (%) (Auto) 3.6 % Basophils (%) (Auto) 0.3 % Neutrophils # (Auto) 2.7 TH/MM3 Lymphocytes # (Auto) 2.0 TH/MM3 Monocytes # (Auto) 0.4 TH/MM3 Eosinophils # (Auto) 0.2 TH/MM3 Basophils # (Auto) 0.0 TH/MM3 CBC Comment DIFF FINAL Differential Comment Activated Partial 41.8 SEC Thromboplast Time Sodium Level 140 MEQ/L Potassium Level 3.9 MEQ/L Chloride Level 104 MEQ/L Carbon Dioxide Level 29.9 MEQ/L Anion Gap 6 MEQ/L Blood Urea Nitrogen 26 MG/DL Creatinine 0.92 MG/DL Estimat Glomerular Filtration 83 ML/MIN Rate Random Glucose 109 MG/DL Calcium Level 8.9 MG/DL Assessment and Plan Problem List: (1) Elevated troponin I level (2) CHF (congestive heart failure) (3) Ventricular tachycardia Assessment and Plan 1) Slow ventricular tachycardia around 135-140 bpm, only a detection zone, no treatment delivered on ICD interrogation 2) ICD changed to ATP only for 135 and above, continue with previous treatment zone (ATP/ICD firing) for normal VT zone 3) Catheterization today, moderate CAD no significant lesions 4) Plan discharge in the morning and follow up with me 5) May need to see EP outpatient for consideration of VT ablation Heriberto Jay DO July 25, 2016 15:00
[2016-07-25] MEDS: POTASSIUM CHLORIDE 10 MEQ CONTROLLED RELEASE TAB PO SCH (15:13)
[2016-07-25] MEDS: FUROSEMIDE 20 MG TAB PO SCH (15:13)
[2016-07-25] MEDS ORDERED: IOHEXOL 350 MG/ML 100 ML BTL (for Cath Lab) OTHER ONE (15:30)
[2016-07-25] MEDS: PRAVASTATIN SOD 80 MG TAB PO SCH (21:31)
[2016-07-26] VITALS (12 sets, daily range): BP systolic 91–120; BP diastolic 55–70; PULSE 55–84; RESP 18–19; TEMP 97.8–98.6; O2SAT 97
[2016-07-26] MEDS: HEPARIN SODIUM - SQ 10,000 UNITS/ML VIAL SQ SCH ×2 (00:12→06:46)
[2016-07-26 05:30] LABS: AUTOMATED NEUTROPHIL # 10.7 TH/MM3 (1.8-7.7); BASOPHIL % 0.2 % (0.0-2.0); HEMATOCRIT 39.5 % (39.0-51.0); HEMO FLAGS DIFF FINAL; LYMPH % 7.3 % (9.0-44.0); LYMPHOCYTE # 0.9 TH/MM3 (1.0-4.8); MEAN CORPUSCULAR HEMOGLOBIN 31.4 PG (27.0-34.0); MEAN CORPUSCULAR HGB CONC 34.5 % (32.0-36.0); MONO % 2.4 % (0.0-8.0); NEUT % 90.1 % (16.0-70.0); PLATELET COUNT 152 TH/MM3 (150-450); RED BLOOD COUNT 4.34 MIL/MM3 (4.50-5.90); RED CELL DISTRIBUTION WIDTH 14.1 % (11.6-17.2); WHITE BLOOD COUNT 11.8 TH/MM3 (4.0-11.0)
[2016-07-26 05:53] LABS: BICARBONATE 28.9 MEQ/L (21.0-32.0); POTASSIUM 4.7 MEQ/L (3.5-5.1)
[2016-07-26] MEDS: INSULIN ASPART SUPPLEMENTAL SCALE SQ SCH (06:50)
[2016-07-26] MEDS ORDERED: FURO1TAB62 PO (07:38)
[2016-07-26] MEDS ORDERED: METF500T PO (07:38)
[2016-07-26] MEDS ORDERED: ASPI325T PO (07:38)
[2016-07-26] MEDS ORDERED: LOSA100T PO (07:38)
[2016-07-26] MEDS ORDERED: CARV12.52 PO (07:38)
[2016-07-26] MEDS ORDERED: POTA10TA2 PO (07:38)
[2016-07-26] MEDS ORDERED: SIMV40TA PO (07:38)
[2016-07-26] MEDS: LOSARTAN 50 MG TAB PO SCH (09:00)
[2016-07-26] MEDS: SODIUM CHLORIDE 0.9% FLUSH 10 ML FLUSH IV FLUSH SCH (09:00)
[2016-07-26] MEDS: FUROSEMIDE 20 MG TAB PO SCH (09:16)
[2016-07-26] MEDS: CARVEDILOL 12.5 MG TAB PO SCH (09:16)
[2016-07-26] MEDS: ASPIRIN 81 MG CHEW TAB CHEW SCH (09:16)
[2016-07-26] MEDS: POTASSIUM CHLORIDE 10 MEQ CONTROLLED RELEASE TAB PO SCH (09:16)
--- NOTE | 2016-07-26 10:24 | PD.CARD.PN ---
Subjective Subjective Remarks No events over night No chest pain, no shortness of breath Up and ambulating No arrhythmias on telemetry Objective Medications Current Medications Medications (Trade) Dose Ordered Sig/Shannon Route Start Time Stop Time Status Last Admin (Zofran Inj) 4 mg Q6H PRN IVP 07/23/16 01:00 (Dulcolax Supp) 10 mg DAILY PRN RECTAL 07/23/16 01:00 (Tylenol) 650 mg Q6H PRN PO 07/23/16 01:00 ([place] 5-325 Mg) 1 tab Q4H PRN PO 07/23/16 01:00 (Morphine Inj) 2 mg Q3H PRN IV 07/23/16 01:00 (Coreg) 12.5 mg BID PO 07/23/16 09:00 07/26/16 09:16 (Lasix) 60 mg DAILY PO 07/23/16 09:00 07/26/16 09:16 (Cozaar) 100 mg DAILY PO 07/23/16 09:00 07/24/16 10:06 (Pravachol) 80 mg HS PO 07/23/16 21:00 07/25/16 21:31 (NS Flush) 2 ml BID IV FLUSH 07/23/16 09:00 07/26/16 09:00 (NS Flush) 2 ml UNSCH PRN IVF 07/23/16 01:15 (D50w (Vial) Inj) 25 ml UNSCH PRN IV PUSH 07/23/16 06:30 (Glucagon Inj) 1 mg UNSCH PRN OTHER 07/23/16 06:30 (KCl) 30 meq DAILY PO 07/23/16 09:00 07/26/16 09:16 (Aspirin Chew) 81 mg DAILY CHEW 07/25/16 09:00 07/26/16 09:16 (Tylenol) 325 mg Q4H PRN PO 07/25/16 13:00 (Heparin Inj) 5,000 units Q8H SQ 07/25/16 23:00 07/26/16 06:46 Vital Signs / I&O Vital Signs Date Time Temp Pulse Resp B/P Pulse Ox O2 Delivery O2 Flow Rate FiO2 07/26/16 09:43 97 Room Air 07/26/16 09:00 120/70 07/26/16 09:00 84 07/26/16 08:00 82 07/26/16 07:30 97.9 60 19 106/66 97 07/26/16 07:00 63 07/26/16 06:00 59 07/26/16 05:00 62 07/26/16 04:00 79 07/26/16 04:00 97 Room Air 07/26/16 04:00 97.8 66 18 96/59 97 07/26/16 03:31 97 21 07/26/16 03:00 55 07/26/16 02:00 79 07/26/16 01:00 83 07/26/16 00:00 98.6 68 18 91/55 97 07/26/16 00:00 67 07/26/16 00:00 97 Room Air 07/25/16 23:00 68 07/25/16 22:00 72 07/25/16 21:00 68 07/25/16 20:00 82 07/25/16 20:00 98.3 67 20 92/58 97 07/25/16 20:00 97 Room Air 07/25/16 19:00 68 07/25/16 18:31 95 Room Air 07/25/16 18:00 62 07/25/16 17:00 68 07/25/16 16:00 58 07/25/16 15:15 98.4 55 19 100/67 95 07/25/16 15:00 58 07/25/16 15:00 95 Room Air 07/25/16 14:00 54 07/25/16 13:00 52 07/25/16 12:55 97.6 54 19 103/69 96 I/O 07/25/16 07/25/16 07/25/16 07/26/16 07/26/16 07/26/16 06:59 14:59 22:59 06:59 14:59 22:59 Intake Total 708 ml 740 ml Output Total 400 ml 300 ml Balance 708 ml -400 ml 440 ml Intake Oral 600 ml 240 ml IV Total 108 ml 500 ml Output Urine Total 400 ml 300 ml # Voids 3 2 # Bowel Movements 0 0 Physical Exam GENERAL: NAD, AAOx3 SKIN: Warm and dry. HEAD: Atraumatic. Normocephalic. EYES: Pupils equal and round. No scleral icterus. No injection or drainage. ENT: No nasal bleeding or discharge. Mucous membranes pink and moist. NECK: Trachea midline. No JVD. CARDIOVASCULAR: Regular rate and rhythm. RESPIRATORY: No accessory muscle use. Clear to auscultation. Breath sounds equal bilaterally. GASTROINTESTINAL: Abdomen soft, non-tender, nondistended. Hepatic and splenic margins not palpable. MUSCULOSKELETAL: Extremities without clubbing, cyanosis, or edema. No obvious deformities. Right femoral no hematoma/bruit, pulses intact distally NEUROLOGICAL: Awake and alert. No obvious cranial nerve deficits. Motor grossly within normal limits. Five out of 5 muscle strength in the arms and legs. Normal speech. PSYCHIATRIC: Appropriate mood and affect; insight and judgment normal. Laboratory Laboratory Tests Test 07/26/16 05:13 White Blood Count 11.8 TH/MM3 Red Blood Count 4.34 MIL/MM3 Hemoglobin 13.6 GM/DL Hematocrit 39.5 % Mean Corpuscular Volume 91.0 FL Mean Corpuscular Hemoglobin 31.4 PG Mean Corpuscular Hemoglobin 34.5 % Concent Red Cell Distribution Width 14.1 % Platelet Count 152 TH/MM3 Mean Platelet Volume 8.9 FL Neutrophils (%) (Auto) 90.1 % Lymphocytes (%) (Auto) 7.3 % Monocytes (%) (Auto) 2.4 % Eosinophils (%) (Auto) 0.0 % Basophils (%) (Auto) 0.2 % Neutrophils # (Auto) 10.7 TH/MM3 Lymphocytes # (Auto) 0.9 TH/MM3 Monocytes # (Auto) 0.3 TH/MM3 Eosinophils # (Auto) 0.0 TH/MM3 Basophils # (Auto) 0.0 TH/MM3 CBC Comment DIFF FINAL Differential Comment Activated Partial 26.0 SEC Thromboplast Time Sodium Level 139 MEQ/L Potassium Level 4.7 MEQ/L Chloride Level 103 MEQ/L Carbon Dioxide Level 28.9 MEQ/L Anion Gap 7 MEQ/L Blood Urea Nitrogen 28 MG/DL Creatinine 1.21 MG/DL Estimat Glomerular Filtration 61 ML/MIN Rate Random Glucose 199 MG/DL Calcium Level 9.1 MG/DL Assessment and Plan Problem List: (1) Elevated troponin I level (2) CHF (congestive heart failure) (3) Ventricular tachycardia Assessment and Plan 1) Slow ventricular tachycardia around 135-140 bpm, only a detection zone, no treatment delivered on ICD interrogation 2) ICD changed to ATP only for 135 and above, continue with previous treatment zone (ATP/ICD firing) for normal VT zone 3) Catheterization showing moderate CAD no significant lesions 4) Cardiovascularly stable for discharge, will see in the office 5) May need to see EP outpatient for consideration of VT ablation Heriberto Jay DO July 26, 2016 10:24
--- NOTE | 2016-07-26 10:35 | HHI.DS ---
Discharge Summary Admission Date July 23, 2016 at 01:08 Discharge Date: July 26, 2016 Admitting Diagnosis bradycardia, elevated tropoinin I; intermittent chest pain (1) Elevated troponin I level ICD Code: R74.8 Diagnosis: Principal (2) Chest pain ICD Code: R07.9 Diagnosis: Secondary (3) Bradycardia ICD Code: R00.1 Procedures [employer] 07/25/16 Brief History - From Admission This is a 60-year-old male who presents to the emergency department because of CP. Yesterday he did not feel well and complained of mild retrosternal pressure scale of 3 out of 10 in pain in his bilateral upper extremities associated with mild shortness of breath lasting for 5-10 minutes resolved with rest. He also noted to have a slow heart rate in the 40s. This episode recurred 2 more times prompting ER evaluation. No fever, chills, cough, palpitations, dizziness, diaphoresis, nausea and vomiting. ER workup shows elevated troponin and was advised admission. He has history of coronary artery disease status post ND, angioplasty, stent, cardiomyopathy status post AICD EF of 20%, hypertension, hyperlipidemia and diabetes mellitus. Currently he is symptom-free. Cardiology has recommended nuclear stress test and AICD interrogation CBC/BMP: 07/26/16 0513 07/26/16 0513 Significant Findings Laboratory Tests Test 07/23/16 07/23/16 07/24/16 07/25/16 12:30 12:50 04:59 04:29 Carbon Dioxide Level 33.4 MEQ/L (21.0-32.0) Blood Urea Nitrogen 22 MG/DL (7-18) 21 MG/DL (7-18) 26 MG/DL (7-18) Estimat Glomerular Filtration 76 ML/MIN (>89) 82 ML/MIN (>89) 83 ML/MIN (>89) Rate Troponin I 0.14 NG/ML (0.02-0.05) Activated Partial 41.6 SEC 42.9 SEC 41.8 SEC Thromboplast Time (24.3-30.1) (24.3-30.1) (24.3-30.1) Platelet Count 131 TH/MM3 132 TH/MM3 (150-450) (150-450) Random Glucose 113 MG/DL 109 MG/DL (74-106) (74-106) Aspartate Amino Transf 11 U/L (15-37) (AST/SGOT) Alanine Aminotransferase 10 U/L (12-78) (ALT/SGPT) Albumin 3.1 GM/DL (3.4-5.0) Red Blood Count 4.39 MIL/MM3 (4.50-5.90) Test 07/26/16 05:13 White Blood Count 11.8 TH/MM3 (4.0-11.0) Red Blood Count 4.34 MIL/MM3 (4.50-5.90) Neutrophils (%) (Auto) 90.1 % (16.0-70.0) Lymphocytes (%) (Auto) 7.3 % (9.0-44.0) Neutrophils # (Auto) 10.7 TH/MM3 (1.8-7.7) Lymphocytes # (Auto) 0.9 TH/MM3 (1.0-4.8) Blood Urea Nitrogen 28 MG/DL (7-18) Estimat Glomerular Filtration 61 ML/MIN (>89) Rate Random Glucose 199 MG/DL (74-106) PE at Discharge GENERAL: Well-nourished, well-developed patient in NAD. SKIN: Warm and dry. No rash. HEENT: Normocephalic. Atraumatic. Pupils equal and round. No scleral icterus. No injection or drainage. No nasal bleeding or discharge. Mucous membranes pink and moist. Supple. Trachea midline. CARDIOVASCULAR: Regular rate and rhythm. S1, S2 noted. No murmur appreciated. RESPIRATORY: No accessory muscle use. CTA. Breath sounds equal bilaterally. GASTROINTESTINAL: Abdomen soft, non-tender, nondistended. Normoactive bowel sounds x4. MUSCULOSKELETAL: No obvious deformities. Extremities without clubbing, cyanosis , or edema. NEUROLOGICAL: Awake and alert. No obvious cranial nerve deficits. Motor grossly within normal limits. Normal speech. PSYCHIATRIC: Appropriate mood and affect; insight and judgment normal. Pt update on day of discharge f/u chest pain, VT no chest pain, palpitations or SOB, denies any fever, status post cardiac catheterization yesterday. Hospital Course Mr. White is a 60-year-old male with a known history of CAD, ND with previous angioplasty, cardiomyopathy with EF of 20%, s/p AICD placement, diabetes mellitus, hypertension, GERD, pancreatitis and ETOH abuse who presented to the ED with complaints of chest pressure and shortness of breath for several days and several different episodes. Upon admission, the patient was found to have non-ST elevated myocardial infarction, patient was continued on aspirin and started on heparin drip. The patient was also found to have ventricular tachycardia but did not reach level for cardioversion after AICD interrogation. Cardiology was consulted. Cardiac catheterization was done 11/03 but did not require any intervention. Ejection fraction is 15%. Patient will continue his home medications including beta blockers, statins, aspirin, Lasix and losartan. Case was discussed prior to discharge with cardiology. Patient will likely need a VT ablation in the future. AICD settings were changed. Follow-up with cardiology as outpatient. Pt Condition on Discharge: Good Discharge Disposition: Discharge Home Discharge Time: > 30 minutes Discharge Instructions DIET: Follow Instructions for: Heart Healthy Diet Activities you can perform: Regular-No Restrictions Follow up Referrals: Cardiology - 1 Week with Heriberto Jay PCP Follow-up - 1 Week Continued Medications: Aspirin (Aspirin) 325 Mg Tab 325 MG PO DAILY CAD #30 Ref 0 TAB (This prescription has been renewed) Carvedilol (Carvedilol) 12.5 Mg Tab 12.5 MG PO BID #60 Ref 2 TAB (This prescription has been renewed) Furosemide (Lasix) 20 Mg Tab 60 MG PO DAILY congestive heart failure Days 30 Ref 0 TAB (This prescription has been renewed) Hydrocodone-Acetaminophen (Hydrocodone-Acetaminophen) 5-325 mg Tab 1 TAB PO Q6HR PRN PAIN 1-10 #28 TAB Losartan (Losartan) 100 Mg Tab 100 MG PO DAILY Blood Pressure Management #30 Ref 2 TAB (This prescription has been renewed) Metformin (Metformin) 500 Mg Tab 500 MG PO BIDPC With meals Blood Sugar Management #60 Ref 2 TAB (This prescription has been renewed) Potassium Chloride ER (Potassium Chloride ER) 10 Meq Tab 30 MEQ PO DAILY Electrolyte Replacement Days 30 Ref 0 TAB (This prescription has been renewed) Simvastatin (Simvastatin) 40 Mg Tab 40 MG PO HS Cholesterol Management #30 Ref 2 TAB (This prescription has been renewed) Tyson Knapp MD July 26, 2016 10:35
--- NOTE | 2016-07-29 06:19 | MA ---
cc: HERIBERTO AVILA DO DATE July 25, 2016 PROCEDURE Left heart catheterization, coronary angiogram, IFR RCA, IFR left circumflex. Moderate sedation - 60 minutes PREPROCEDURE DIAGNOSIS Elevated troponin, ventricular tachycardia. POSTPROCEDURE DIAGNOSIS Mild to moderate coronary artery disease, known cardiomyopathy, slow ventricular tachycardia. MEDICATIONS 1. Solu-Medrol 125 mg. 2. Benadryl 25 mg. 3. Pepcid 20 mg. 4. Fentanyl 50 mcg, Versed 1 mg. 5. Nitro 200 mcg. 6. Verapamil 2.5 mg. 7. Heparin 8400 units. CONTRAST 100 cc. FLUOROSCOPY 10.5 minutes MODERATE SEDATION 60 minutes. PROCEDURAL SUMMARY Ed White is a pleasant 60-year-old male who presents to [facility] on July 23, 2016, with chest pain. He was found to have slow ventricular tachycardia on his ICD and it was felt because of this as well as his elevated troponin, he should undergo cardiac catheterization. The risks, benefits and alternatives were explained to him and he consented as such. He was brought to the lab and prepped in the usual sterile fashion. Right radial artery showed no return of flow on reverse Barbeau test. I attempted to access the left radial artery but was unable to. Because of this, right femoral artery access was used. There was a 30% lesion in the common femoral artery at the point where the sheath enters. The sheath was easily aspirated and flushed. A JR-4 was then advanced over a J-wire to the ascending aorta and used for selective angiography of the right coronary system. This was exchanged for a JL-4 catheter which was used for selective angiography of the coronary system. There was felt to moderate lesions and the systems and please see below for further assessment of these lesions. Postprocedure guide catheter was removed over a J-wire. A pigtail was then advanced across the aortic valve into the left ventricle for measurement of left ventricular pressures. This was pulled back across the aortic valve showing no significant gradient of aortic stenosis. The pigtail was then removed. ACTs were then drawn in the sheath will plan to be removed when ACTs were appropriate. The patient left the [place] [employer] [place] cardiovascularly stable. FINDINGS LEFT MAIN: Normal-appearing with a 10% lesion in the midportion. It bifurcates into an LAD and circumflex. LAD: A 30% lesion in the proximal portion with a 30% lesion in the midportion not felt to be significant. LEFT CIRCUMFLEX: A 50% lesion in the midportion. It gives off one major obtuse marginal which has no significant disease. RIGHT CORONARY ARTERY: A 50-60% lesion in the proximal portion. LEFT VENTRICULAR END-DIASTOLIC PRESSURE: 22. LESION ASSESSMENT Because of the moderate lesions in the RCA and the left circumflex, it was felt that these needed to be further assessed. A JR-4 guide was used to engage the right coronary system and a volcano wire was advanced to the midportion of the RCA. IFR of the lesion was 0.98 showing non-significant stenosis. The wire was then removed and the JR-4 guide was exchanged for an EBU 3.5 guide. [place] wire was then advanced to the midportion of the obtuse marginal and IFR of the left circumflex/obtuse marginal lesion was 1.0 showing nonsignificant. [place] wire was then removed. IMPRESSIONS 1. Slow ventricular tachycardia not felt to be due to ischemic lesions. 2. Elevated troponin secondary to ventricular tachycardia. 3. Mild to moderate coronary artery disease. 4. Known cardiomyopathy. RECOMMENDATIONS 1. Mr. White appears to have nonobstructive coronary artery disease and we will continue with medical management of this. 2. He will be watched overnight and plan for discharge in the morning if stable. 3. His ICD has been changed for ATP of ventricular tachycardia at a rate of 140 or greater instead of being in a detection zone. 4. He will follow up with me in the office and, if further events, may need to see Dr. Urrutia for further considerations of his ventricular tachycardia. Thank you for allowing me to see Ed White. If there are any questions, please do not hesitate to call. Heriberto Avila DO VGP/SSB /10:41 PM /6:05 AM
== END 2016-07-26 10:49 | disposition home or self-care (01) ==
LOC: PHED 23:34 → INTOOBSV 07-23 01:08 → PHEDA 07-23 01:08 → PHICU 07-23 03:45 → HCIN 07-23 18:28
PROVIDERS: ADMIT Hospitalist; ATTEND Hospitalist
DX: I25.10 Atherosclerotic heart disease of native coronary artery without angina pectoris (principal); R00.1 Bradycardia, unspecified; I42.9 Cardiomyopathy, unspecified; I25.2 Old myocardial infarction; E78.5 Hyperlipidemia, unspecified; E11.9 Type 2 diabetes mellitus without complications; K21.9 Gastro-esophageal reflux disease without esophagitis; E87.6 Hypokalemia; I11.0 Hypertensive heart disease with heart failure; I50.9 Heart failure, unspecified; E78.00 Pure hypercholesterolemia, unspecified; I47.2 Ventricular tachycardia; F17.200 Nicotine dependence, unspecified, uncomplicated; Z95.1 Presence of aortocoronary bypass graft; Z95.5 Presence of coronary angioplasty implant and graft; Z79.82 Long term (current) use of aspirin; Z95.810 Presence of automatic (implantable) cardiac defibrillator; Z79.84 Long term (current) use of oral hypoglycemic drugs; Z91.041 Radiographic dye allergy status
CPT/HCPCS: 71010; 80048; 80053; 82550; 82948; 83735; 83880; 84443; 84484; 85002; 85025; 85027; 85610; 85730; 93005; 93306; 93454; 93458; 93571; 93572; 99291; C1769; C1887; C1893; G0378; J1200; J1644; J1815; J2250; J2930; J3010; Q9967

== ENCOUNTER 2016-09-18 14:42 | Inpatient (IN) | payer MEDICARE ==
[2016-09-18] VITALS (12 sets, daily range): BP systolic 103–136; BP diastolic 59–82; PULSE 55–73; RESP 16–18; TEMP 97.6–97.8; O2SAT 96–99
[~2016-09-18] VITALS: Ht 172.7 cm; Wt 84.0 kg
--- NOTE | 2016-09-18 15:34 | PD ---
HPI Chief Complaint: Cardiac Complaint Time Seen by Provider: 15:33 Travel History International Travel<30 days: No Contact w/Intl Traveler<30days: No Traveled to known affect area: No History of Present Illness HPI 60-year-old male with history of previous MD, CAD, CABG, AICD placement presents to emergency department for evaluation of an episode of palpitations and lightheadedness this morning. He also had an isolated incident of chest pressure that was substernal in nature and did not radiate anywhere. Patient states approximately 3 weeks ago he was having similar symptoms and he had a complete syncopal episode. He woke up slouched over, but did not seek evaluation following this. In July he was hospitalized for bradycardia and elevated troponin. He had a cardiac catheter at that time with CAD but no significant lesions and instructed to follow-up with Dr. Jay. Patient states he has not followed up. Currently he denies any chest pain. Denies any shortness of breath. No focal masses or weakness. He has no other symptoms to report. PFSH Past Medical History Arthritis: No Asthma: No Autoimmune Disease: No Blood Disorders: No Anxiety: Yes Depression: No Heart Rhythm Problems: Yes Cancer: No Cardiac Catheterization: Yes (angioplasty) Cardiovascular Problems: Yes High Cholesterol: Yes Chemotherapy: No Chest Pain: Yes (on admit) Congestive Heart Failure: Yes COPD: No Cerebrovascular Accident: No Coronary Artery Disease: Yes Diabetes: Yes Patient Takes Glucophage: No Diminished Hearing: No Endocrine: Yes Gastrointestinal Disorders: Yes GERD: Yes Genitourinary: No Hiatal Hernia: No Hypertension: Yes Immune Disorder: No Implanted Vascular Access Dvce: Yes Kidney Stones: No Musculoskeletal: Yes Neurologic: Yes Psychiatric: No Reproductive: No Respiratory: No Immunizations Current: Yes Migraines: No Myocardial Infarction: Yes (x1) Radiation Therapy: No Renal Failure: No Seizures: No Sickle Cell Disease: No Sleep Apnea: No Thyroid Disease: No Triglycerides - High: Yes Ulcer: No Tetanus Vaccination: > 5 Years Influenza Vaccination: No Past Surgical History Abdominal Surgery: Yes (pancrease removed a cyst, cholecystectomy) AICD: Yes (medtronic ) Arteriovenous Shunt: No Body Medical Devices: PACEMAKER Cardiac Surgery: Yes (cath and arthrectomy) Cholecystectomy: Yes Coronary Artery Bypass Graft: Yes Endocrine Surgery: No Eye Surgery: No Genitourinary Surgery: No Gynecologic Surgery: No Insulin Pump: No Joint Replacement: No Oral Surgery: Yes (SINUS) Pacemaker: Yes (pacer and defib - medtronic) Thoracic Surgery: Yes (pacemaker; AICD) Other Surgery: Yes (CYST REMOVED FROM PANCREAS; GALLBLADDER) Social History Alcohol Use: No Tobacco Use: Yes (3/4 ppd since the age of 13) Substance Use: No (PT DENIES ) Allergies-Medications (Allergen,Severity, Reaction): Coded Allergies: Contrast Media (Verified Allergy, Severe, Swelling, 09/18/16) MRI PRECAUTION (Verified Adverse Reaction, Severe, NON COMPATIBLE MEDTRONIC PACEMAKER 09/24/15 KMD, 09/18/16) VIVA XT DETENTION SERGEANT DEFIB MODEL [id number] IMPLANTED 09/02/13 Reported Meds & Prescriptions Reported Meds & Active Scripts Active Potassium Chloride ER (Potassium Chloride) 10 Meq Tab 30 Meq PO DAILY 30 Days Lasix (Furosemide) 20 Mg Tab 60 Mg PO DAILY 30 Days Losartan (Losartan Potassium) 100 Mg Tab 100 Mg PO DAILY Simvastatin 40 Mg Tab 40 Mg PO HS Metformin (Metformin HCl) 500 Mg Tab 500 Mg PO BIDPC With meals Carvedilol 12.5 Mg Tab 12.5 Mg PO BID Review of Systems Except as stated in HPI: all other systems reviewed are Neg Physical Exam Narrative GENERAL: Well-nourished male patient, lying in bed, in no acute distress SKIN: Focused skin assessment warm/dry. HEAD: Atraumatic. Normocephalic. EYES: Pupils equal and round. No scleral icterus. No injection or drainage. ENT: No nasal bleeding or discharge. Mucous membranes pink and moist. NECK: Trachea midline. No JVD. CARDIOVASCULAR: Regular rate and GENERAL: [-] SKIN: Focused skin assessment warm/dry. HEAD: Atraumatic. Normocephalic. EYES: Pupils equal and round. No scleral icterus. No injection or drainage. ENT: No nasal bleeding or discharge. Mucous membranes pink and moist. NECK: Trachea midline. No JVD. CARDIOVASCULAR: Regular rate and paced rhythm. RESPIRATORY: No accessory muscle use. Clear to auscultation. Breath sounds equal bilaterally. GASTROINTESTINAL: Abdomen soft, non-tender, nondistended. Hepatic and splenic margins not palpable. MUSCULOSKELETAL: No obvious deformities. No clubbing. No cyanosis. No edema. NEUROLOGICAL: Awake and alert. No obvious cranial nerve deficits. Motor grossly within normal limits. Normal speech. PSYCHIATRIC: Appropriate mood and affect; insight and judgment normal. Data Data Last Documented VS Vital Signs Date Time Temp Pulse Resp B/P Pulse Ox O2 Delivery O2 Flow Rate FiO2 09/18/16 17:12 65 16 104/60 99 Room Air 09/18/16 15:18 97.8 Orders Electrocardiogram (09/18/16 ) Electrocardiogram (09/18/16 15:37) Basic Metabolic Panel (Bmp) (09/18/16 15:37) Ckmb (Isoenzyme) Profile (09/18/16 15:37) Complete Blood Count With Diff (09/18/16 15:37) Magnesium (Mg) (09/18/16 15:37) Prothrombin Time / Inr (Pt) (09/18/16 15:37) Act Partial Throm Time (Ptt) (09/18/16 15:37) Troponin I (09/18/16 15:37) Chest, Single Ap (09/18/16 15:37) Ecg Monitoring (09/18/16 15:37) Bilateral Bp Monitoring (09/18/16 15:37) Iv Access Insert/Monitor (09/18/16 15:37) Oximetry (09/18/16 15:37) Oxygen Administration (09/18/16 15:37) Sodium Chloride 0.9% Flush (Ns Flush) (09/18/16 15:45) ^ Medication Alert (09/18/16 18:58) ^ Discontinue (09/18/16 18:58) Amiodarone Inj (Cordarone Inj) (09/18/16 19:00) Vital Signs (Adult) CARLOS.Q4H (09/18/16 18:58) Amiodarone Inj (Cordarone Inj) (09/18/16 19:06) Labs Laboratory Tests Test 09/18/16 15:40 White Blood Count 5.7 TH/MM3 Red Blood Count 4.45 MIL/MM3 Hemoglobin 13.9 GM/DL Hematocrit 41.0 % Mean Corpuscular Volume 92.1 FL Mean Corpuscular Hemoglobin 31.3 PG Mean Corpuscular Hemoglobin 33.9 % Concent Red Cell Distribution Width 14.1 % Platelet Count 148 TH/MM3 Mean Platelet Volume 8.7 FL Neutrophils (%) (Auto) 64.3 % Lymphocytes (%) (Auto) 22.4 % Monocytes (%) (Auto) 9.0 % Eosinophils (%) (Auto) 3.6 % Basophils (%) (Auto) 0.7 % Neutrophils # (Auto) 3.6 TH/MM3 Lymphocytes # (Auto) 1.3 TH/MM3 Monocytes # (Auto) 0.5 TH/MM3 Eosinophils # (Auto) 0.2 TH/MM3 Basophils # (Auto) 0.0 TH/MM3 CBC Comment DIFF FINAL Differential Comment Prothrombin Time 11.1 SEC Prothromb Time International 1.0 RATIO Ratio Activated Partial 28.1 SEC Thromboplast Time Sodium Level 141 MEQ/L Potassium Level 3.3 MEQ/L Chloride Level 105 MEQ/L Carbon Dioxide Level 30.1 MEQ/L Anion Gap 6 MEQ/L Blood Urea Nitrogen 15 MG/DL Creatinine 1.13 MG/DL Estimat Glomerular Filtration 66 ML/MIN Rate Random Glucose 113 MG/DL Calcium Level 9.0 MG/DL Magnesium Level 1.7 MG/DL Total Creatine Kinase 49 U/L Troponin I 0.12 NG/ML MDM Medical Decision Making Medical Screen Exam Complete: Yes Emergency Medical Condition: Yes Medical Record Reviewed: Yes Differential Diagnosis syncope versus near syncope versus arrhythmia versus electrolyte abnormality Narrative Course 60-year-old male presents to the emergency department for evaluation of her palpitations, near syncopal episode, and a chest pressure as morning. Patient is asymptomatic at this time. He does have a paced rhythm. His vital signs are stable. CBC is without acute concern. BMP is with mild hypokalemia 3.3. This is repleted here in the emergency department. Troponin is elevated at 0.12. Her review patient's history, he has had elevated troponins in the past. Chest x-ray shows cardiomegaly with mild prominence of the interstitium likely representing pulmonary venous hypertension versus mild edema. [employer] has been contacted for interrogation. [employer] interrogation is reviewed. Since July 23, 2016, patient has had 7 episodes of ventricular tachycardia today, varying in length and rate. With the most recent being this afternoon at 1414 with a 12 second duration of VT at a rate of [address] Cao, chancellor on-call for Dr. Jay. He recommends admission to medicine to the [facility] or ICU, amiodarone drip, and consultation placed for Dr. Jay. A call has been placed to [facility] for admission. Diagnosis Primary Impression: Ventricular tachycardia Additional Impressions: Elevated troponin I level Palpitations Hypokalemia Admitting Information Admitting Physician Requests: Admit Condition: Stable Cynthia Lau Sep 18, 2016 15:33
[2016-09-18] MEDS ORDERED: SODIUM CHLORIDE 0.9% FLUSH 10 ML FLUSH IVF PRN (15:45)
[2016-09-18 16:21] LABS: AUTOMATED NEUTROPHIL # 3.6 TH/MM3 (1.8-7.7); BASOPHIL % 0.7 % (0.0-2.0); EOSINOPHIL # 0.2 TH/MM3 (0-0.4); EOSINOPHIL % 3.6 % (0.0-4.0); HEMO FLAGS DIFF FINAL; LYMPH % 22.4 % (9.0-44.0); LYMPHOCYTE # 1.3 TH/MM3 (1.0-4.8); MEAN CELL VOLUME 92.1 FL (80.0-100.0); MEAN CORPUSCULAR HEMOGLOBIN 31.3 PG (27.0-34.0); MEAN CORPUSCULAR HGB CONC 33.9 % (32.0-36.0); NEUT % 64.3 % (16.0-70.0); PLATELET COUNT 148 TH/MM3 (150-450); RED BLOOD COUNT 4.45 MIL/MM3 (4.50-5.90); RED CELL DISTRIBUTION WIDTH 14.1 % (11.6-17.2); WHITE BLOOD COUNT 5.7 TH/MM3 (4.0-11.0)
[2016-09-18 16:31] LABS: APTT (PATIENT) 28.1 SEC (24.3-30.1); PROTHROMBIN TIME - PATIENT 11.1 SEC (9.8-11.6)
[2016-09-18 16:36] LABS: BICARBONATE 30.1 MEQ/L (21.0-32.0); MAGNESIUM 1.7 MG/DL (1.5-2.5); POTASSIUM 3.3 MEQ/L (3.5-5.1)
--- NOTE | 2016-09-18 16:40 | RADRPT ---
EXAM DATE/TIME: 09/18/2016 16:15 [facility] COMPARISON: CHEST SINGLE AP, July 23, 2016, 0:13. INDICATIONS : Chest pressure earlier in the day but self resolved. MEDICAL HISTORY : Hypertension. Diabetes mellitus type II. SURGICAL HISTORY : Defribillator ENCOUNTER: Initial ACUITY: 1 day PAIN SCORE: 0/10 LOCATION: Bilateral chest FINDINGS: There is a multilead pacing/AICD device in place from the left subclavian approach. The heart size is enlarged. The lungs demonstrate mild prominence of the interstitial markings diffusely. Focal consol idation is not seen. No effusion is seen. Clips are seen in the right upper quadrant. Osseous structu res are intact. CONCLUSION: Cardiomegaly with mild prominence of the interstitium likely representing pulmonary venous hypertensi on versus mild edema. Timmy Resendez MD on September 18, 2016 at 16:36 Board Certified Radiologist. This report was verified electronically.
[2016-09-18] MEDS ORDERED: AMIODARONE INJ 900 MG in D5W 500 ML (EXCEL BAG) 482 ML IV SCH (19:00)
[2016-09-18] MEDS ORDERED: AMIODARONE HCL 150 MG/3 ML VIAL ONE (19:06)
[2016-09-18] MEDS ORDERED: POTASSIUM CHLORIDE 10 MEQ CONTROLLED RELEASE TAB PO ONE (19:30)
--- NOTE | 2016-09-18 19:41 | HHI.HP ---
[facility] Musa Costello MD Admission Diagnosis SVT; near syncope; elevated troponin Diagnoses: (1) V-tach Diagnosis: Principal (2) Elevated troponin Diagnosis: Principal (3) Hypokalemia Diagnosis: Principal (4) Dehydration Diagnosis: Principal (5) Thrombocytopenia Diagnosis: Principal (6) DM (diabetes mellitus) Diagnosis: Principal (7) Tobacco abuse Diagnosis: Principal Travel History International Travel<30 Days: No Contact w/Intl Traveler <30 Da: No Traveled to Known Affected Are: No History of Present Illness This is a 60-year-old male with a PMH of HTN, Hyperlipidemia, Anxiety, CHF ( Echo 07/25/16 w/ EF 15%), CAD, AICD ([employer]tr[employer]), DM and Tobacco Abuse who presented to ER with complaints of dizziness and palpitations starting earlier this morning. States symptoms started approximately 2-3 wks ago, but have gotten more frequent. Notes associated chest pressure/tightness during episodes of palpitations. Previous admit 07/2016 for similar complaints w/ episodes of V. Tach, s/p Cardiac Cath 07/29/[address] Jay w/ nonobstructive disease and recommendation for medical management, V. tach not felt to be secondary to ischemia, AICD settings changed. Was to follow w/ Dr. Jay as outpatient w/ possible referral to Dr. Urrutia if V. Tach recurred, however has not followed up. Returns now w/ above complaints. S/p AICD Interrogation by [employer], noted to have seven episodes of V. Tach or varying length and rate, most recent at 14:14 lasting 12 seconds at rate of 176bpm. Dr. Cao consulted by ER physician, recommended Amiodarone gtt w/ consult for Dr. Jay in am. On arrival, BP 130/77, HR 73, O2 sat 98% on RA, Afebrile. CBC unremarkable except for platelets 148, producing 132 on 07/25/16. K+ 3.3, s/p replacement in ER. Trop 0.12, previously 0.14 on 07/23/16. CXR with cardiomegaly , mild prominence of interstitium likely representing pulmonary venous hypertension versus mild edema. Review of Systems Except as stated in HPI: all other systems reviewed are Neg ROS: 14 point review of systems otherwise negative. 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 No h/o DM or CAD Social History PAST SOCIAL HISTORY: Negative for alcohol. Positive for tobacco. Negative for drugs Physical Exam Vital Signs Vital Signs Date Time Temp Pulse Resp B/P Pulse Ox O2 Delivery O2 Flow Rate FiO2 09/18/16 17:12 65 16 104/60 99 Room Air 09/18/16 15:49 72 16 130/77 99 Room Air 118/68 09/18/16 15:46 16 98 Room Air 09/18/16 15:46 98 Room Air 09/18/16 15:20 71 16 98 Room Air 09/18/16 15:18 97.8 73 16 130/77 98 Physical Exam PE: GENERAL: Middle-aged male in no acute distress. HEENT: PERRLA, EOMI. No scleral icterus or conjunctival pallor. No lid lag or facial droop. CARDIOVASCULAR: Regular rate and rhythm. No obvious murmurs to auscultation. No chest tenderness to palpation. RESPIRATORY: No obvious rhonchi or wheezing. Clear to auscultation. Breath sounds equal bilaterally. GASTROINTESTINAL: Abdomen soft, non-tender, nondistended. BS normal. MUSCULOSKELETAL: Extremities without clubbing, cyanosis, or edema. No obvious deformities. NEUROLOGICAL: Awake, alert and oriented x4. No focal neurologic deficits. Moving both upper and lower extremities spontaneously. Laboratory Laboratory Tests Test 09/18/16 15:40 White Blood Count 5.7 Red Blood Count 4.45 Hemoglobin 13.9 Hematocrit 41.0 Mean Corpuscular Volume 92.1 Mean Corpuscular Hemoglobin 31.3 Mean Corpuscular Hemoglobin 33.9 Concent Red Cell Distribution Width 14.1 Platelet Count 148 Mean Platelet Volume 8.7 Neutrophils (%) (Auto) 64.3 Lymphocytes (%) (Auto) 22.4 Monocytes (%) (Auto) 9.0 Eosinophils (%) (Auto) 3.6 Basophils (%) (Auto) 0.7 Neutrophils # (Auto) 3.6 Lymphocytes # (Auto) 1.3 Monocytes # (Auto) 0.5 Eosinophils # (Auto) 0.2 Basophils # (Auto) 0.0 CBC Comment DIFF FINAL Differential Comment Prothrombin Time 11.1 Prothromb Time International 1.0 Ratio Activated Partial 28.1 Thromboplast Time Sodium Level 141 Potassium Level 3.3 Chloride Level 105 Carbon Dioxide Level 30.1 Anion Gap 6 Blood Urea Nitrogen 15 Creatinine 1.13 Estimat Glomerular Filtration 66 Rate Random Glucose 113 Calcium Level 9.0 Magnesium Level 1.7 Total Creatine Kinase 49 Troponin I 0.12 Result Diagram: 09/18/16 1540 09/18/16 1540 Assessment and Plan Problem List: (1) V-tach ICD Code: I47.2 Status: Acute (2) Elevated troponin ICD Code: R74.8 Status: Acute (3) Hypokalemia ICD Code: E87.6 Status: Acute (4) Dehydration ICD Code: E86.0 Status: Acute (5) Thrombocytopenia ICD Code: D69.6 Status: Acute (6) DM (diabetes mellitus) ICD Code: E11.9 Status: Chronic (7) Tobacco abuse ICD Code: Z72.0 Status: Acute Assessment and Plan A/P: 1. V. Tach: c/o palpitations/dizziness, s/p AICD Interrogation by [employer], noted to have 7 episodes of V. Tach w/ varying length and rate, most recent at 14:14 lasting 12 seconds at a rate of 176bpm. Dr. Cao consulted by ER physician, recommendation for Amio gtt and consult for Dr. Jay in am. Admit to [facility]IC, telemetry, continue Amio gtt. Mg 1.7, will replace to keep >2. K + 3.3, replace and recheck. 2. Elevated Trop: Trop 0.12, previously 0.14 on 07/23/16. Cardiac Cath 07/29/[address] Jay w/ nonobstructive coronary disease, elevated trop unlikely secondary to ischemia. Will check serial enzymes for trend. Resume Statin, B- jose, start ASA. 3. Hypokalemia: K+ 3.3, s/p replacement in ER, will recheck and replace as needed. 4. Dehydration: GFR 66, BUN/Creatinine normal, IVF for hydration-caution w/ CHF, Echo 07/23/16 w/ EF 15%. 5. Thrombocytopenia: Platelets 148, previously 132 on 07/25/16. No active bleeding noted, will monitor, repeat labs in am. 6. DM: Sliding scale w/ Accu-Cheks. Hold Metformin for now for possible cardiac intervention. 7. Tobacco Abuse: Counselled. Ativan prn if needed. No NicoDerm to avoid vasoconstriction. 8. DVT Prophylaxis: SCD/Teds. 9. Social work for d/c planning as needed. 10. Case discussed w/ ER physician at length. Physician Certification 2 Midnight Certification Type: Admission for Inpatient Services Order for Inpatient Services The services are ordered in accordance with Medicare regulations or non- Medicare payer requirements, as applicable. In the case of services not specified as inpatient-only, they are appropriately provided as inpatient services in accordance with the 2-midnight benchmark. Estimated LOS (days): 2 days is the estimated time the patient will need to remain in the hospital, assuming treatment plan goals are met and no additional complications. Post-Hospital Plan: Not yet determined Radha Munson MD Sep 18, 2016 19:41
[2016-09-18] MEDS ORDERED: ACETAMINOPHEN 325 MG TAB PO PRN (19:45)
[2016-09-18] MEDS ORDERED: MAGNESIUM HYDROXIDE SUSP 30 ML CUP PO PRN (19:45)
[2016-09-18] MEDS ORDERED: SODIUM CHLORIDE 0.9% FLUSH 10 ML FLUSH IV FLUSH PRN (19:45)
[2016-09-18] MEDS ORDERED: MORPHINE SULFATE 4 MG/ML INJ IV PRN (19:45)
[2016-09-18] MEDS ORDERED: SENNOSIDES 8.6 MG TAB PO PRN (19:45)
[2016-09-18] MEDS ORDERED: LACTULOSE SYRUP 20 GM/30 ML CUP PO PRN (19:45)
[2016-09-18] MEDS ORDERED: ONDANSETRON HCL 4 MG/2 ML VIAL IVP PRN (19:45)
[2016-09-18] MEDS ORDERED: ACETAMINOPHEN/HYDROcodone 325 MG/5 MG TAB PO PRN (19:45)
[2016-09-18] MEDS ORDERED: BISACODYL 10 MG SUPP RECTAL PRN (19:45)
[2016-09-18] MEDS: AMIODARONE INJ 450 MG in DEXTROSE 5% IN WATE(EXCEL) INJ 241 ML IV SCH ×2 (19:50)
[2016-09-18] MEDS ORDERED: MAGNESIUM SULFATE 1 GM PREMIX 100 ML IV ONE (20:15)
[2016-09-18] MEDS: SODIUM CHLORIDE 0.9% FLUSH 10 ML FLUSH IV FLUSH SCH (21:00)
[2016-09-18] MEDS: DOCUSATE SODIUM 50 MG/SENNA 8.6 MG TAB PO SCH (21:00)
[2016-09-18] MEDS: CARVEDILOL 12.5 MG TAB PO SCH (22:16)
[2016-09-18] MEDS: PRAVASTATIN SOD 80 MG TAB PO SCH (22:16)
[2016-09-18] MEDS: SODIUM CHLOR 0.9% 1000 ML INJ 1,000 ML IV SCH (22:39)
[2016-09-19] VITALS (25 sets, daily range): BP systolic 100–112; BP diastolic 60–65; PULSE 50–65; RESP 16–20; TEMP 97.8–98.9; O2SAT 97–99
[2016-09-19] MEDS: AMIODARONE INJ 450 MG in DEXTROSE 5% IN WATE(EXCEL) INJ 241 ML IV SCH ×2 (03:17)
[2016-09-19 06:00] LABS: AUTOMATED NEUTROPHIL # 3.3 TH/MM3 (1.8-7.7); BASOPHIL % 0.5 % (0.0-2.0); EOSINOPHIL # 0.2 TH/MM3 (0-0.4); EOSINOPHIL % 3.6 % (0.0-4.0); HEMATOCRIT 39.1 % (39.0-51.0); HEMO FLAGS DIFF FINAL; LYMPH % 31.3 % (9.0-44.0); LYMPHOCYTE # 1.9 TH/MM3 (1.0-4.8); MEAN CORPUSCULAR HEMOGLOBIN 31.2 PG (27.0-34.0); MEAN CORPUSCULAR HGB CONC 33.9 % (32.0-36.0); MONO % 10.8 % (0.0-8.0); NEUT % 53.8 % (16.0-70.0); PLATELET COUNT 133 TH/MM3 (150-450); RED BLOOD COUNT 4.25 MIL/MM3 (4.50-5.90); RED CELL DISTRIBUTION WIDTH 14.2 % (11.6-17.2); WHITE BLOOD COUNT 6.1 TH/MM3 (4.0-11.0)
[2016-09-19] MEDS: SODIUM CHLOR 0.9% 1000 ML INJ 1,000 ML IV SCH ×2 (06:00→15:42)
[2016-09-19 06:21] LABS: ANION GAP 7 MEQ/L (5-15); AST (GOT) 9 U/L (15-37); BICARBONATE 27.9 MEQ/L (21.0-32.0); BLOOD UREA NITROGEN 17 MG/DL (7-18); CHLORIDE 107 MEQ/L (98-107); GLOMERULAR FILTRATION RATE 84 ML/MIN (>89); MAGNESIUM 2.1 MG/DL (1.5-2.5); POTASSIUM 3.2 MEQ/L (3.5-5.1); SODIUM (NA) 142 MEQ/L (136-145)
[2016-09-19 06:22] LABS: ALT (GPT) 10 U/L (12-78)
[2016-09-19 06:26] LABS: ALKALINE PHOSPHATASE 51 U/L (45-117); TOTAL BILIRUBIN ADULT 0.7 MG/DL (0.2-1.0)
--- NOTE | 2016-09-19 08:15 | HHI.PR ---
Subjective Remarks Patient in bed. Denies having any chest pain, sob. Doesn't feel palpitations. No diaphoresis or nausea. No lightheadedness. No cough. No fever or chills. Objective Vitals Vital Signs Date Time Temp Pulse Resp B/P Pulse Ox O2 Delivery O2 Flow Rate FiO2 09/19/16 07:00 97.8 57 20 101/62 99 09/19/16 07:00 57 09/19/16 06:00 50 09/19/16 05:00 58 09/19/16 04:58 53 16 100/60 99 09/19/16 04:00 50 09/19/16 03:00 54 09/19/16 02:00 52 09/19/16 01:00 58 09/19/16 00:00 58 09/18/16 23:46 66 16 115/71 97 09/18/16 23:00 66 09/18/16 22:00 63 09/18/16 21:38 97.6 61 16 136/69 96 09/18/16 20:45 64 118/59 09/18/16 20:30 62 106/62 09/18/16 20:15 55 103/63 09/18/16 19:48 66 18 113/82 98 Room Air 09/18/16 17:12 65 16 104/60 99 Room Air 09/18/16 15:49 72 16 130/77 99 Room Air 118/68 09/18/16 15:46 16 98 Room Air 09/18/16 15:46 98 Room Air 09/18/16 15:20 71 16 98 Room Air 09/18/16 15:18 97.8 73 16 130/77 98 I/O 09/18/16 09/18/16 09/18/16 09/19/16 09/19/16 09/19/16 07:00 15:00 23:00 07:00 15:00 23:00 Intake Total 1200 ml Output Total 400 ml Balance 800 ml Intake Oral 400 ml IV Total 800 ml Output Urine Total 400 ml # Bowel Movements 0 Result Diagram: 09/19/16 0549 09/19/16 0549 Imaging Last Impressions Chest X-Ray 09/18/16 1537 Signed Impressions: Service Date/Time: Sunday, September 18, 2016 16:15 - CONCLUSION: Cardiomegaly with mild prominence of the interstitium likely representing pulmonary venous hypertension versus mild edema. Timmy Resendez MD Objective Remarks GENERAL: Middle-aged male in no acute distress. HEENT: PERRLA, EOMI. No scleral icterus or conjunctival pallor. No lid lag or facial droop. CARDIOVASCULAR: Regular rate and rhythm. No obvious murmurs to auscultation. No chest tenderness to palpation. RESPIRATORY: No obvious rhonchi or wheezing. Clear to auscultation. Breath sounds equal bilaterally. GASTROINTESTINAL: Abdomen soft, non-tender, nondistended. BS normal. MUSCULOSKELETAL: Extremities without clubbing, cyanosis, or edema. No obvious deformities. NEUROLOGICAL: Awake, alert and oriented x4. No focal neurologic deficits. Moving both upper and lower extremities spontaneously. A/P Problem List: (1) V-tach ICD Code: I47.2 Status: Acute (2) Elevated troponin ICD Code: R74.8 Status: Acute (3) Hypokalemia ICD Code: E87.6 Status: Acute (4) Dehydration ICD Code: E86.0 Status: Acute (5) Thrombocytopenia ICD Code: D69.6 Status: Acute (6) DM (diabetes mellitus) ICD Code: E11.9 Status: Chronic (7) Tobacco abuse ICD Code: Z72.0 Status: Acute Assessment and Plan V. Tach: c/o palpitations/dizziness, s/p AICD Interrogation by [employer], noted to have 7 episodes of V. Tach w/ varying length and rate, most recent at 14:14 lasting 12 seconds at a rate of 176bpm. Cardiology, Dr. Cao consulted by ER physician, recommendation for Amio gtt and consult for Dr. Jay. Continue Amio gtt. Hypokalemia: K+ 3.3, s/p replacement in ER, will recheck and replace as needed. Hypomagnesemia: Mag 1.7, will replace to keep >2. K+ 3.3, replace and recheck. Keep Mag > 2 and K more than 4. Elevated Trop: Trop 0.12, previously 0.14 on 07/23/16. Cardiac Cath 07/29/[address] Jay w/ nonobstructive coronary disease, elevated trop unlikely secondary to ischemia. Serial enzymes for trend. Continue Statin, B-jose, started ASA. Dehydration: GFR 66, BUN/Creatinine normal Received IVF for hydration-caution w/ CHF, Echo 07/23/16 w/ EF 15%. Thrombocytopenia: Platelets 148, previously 132 on 07/25/16. No active bleeding noted, will monitor, repeat labs in am. DM2: Sliding scale w/ Accu-Cheks. Hold Metformin for now for possible cardiac intervention. Tobacco Abuse: Counselled. Ativan prn if needed. No NicoDerm to avoid vasoconstriction. DVT Prophylaxis: SCD/Teds. Case management for d/c planning as needed. Discussed with the patient, nurse. Citlaly Bah MD Sep 19, 2016 08:15
[2016-09-19] MEDS: SODIUM CHLORIDE 0.9% FLUSH 10 ML FLUSH IV FLUSH SCH ×2 (08:43→20:45)
[2016-09-19] MEDS: CARVEDILOL 12.5 MG TAB PO SCH ×2 (08:43→20:44)
[2016-09-19] MEDS: ASPIRIN EC 81 MG TABEC PO SCH (08:43)
[2016-09-19] MEDS: DOCUSATE SODIUM 50 MG/SENNA 8.6 MG TAB PO SCH ×2 (08:43→20:45)
--- NOTE | 2016-09-19 12:08 | MB ---
cc: TITUS MARTINEZ DATE OF 1955 DATE OF CONSULTATION September 19, 2016 REASON FOR CONSULTATION Elevated troponins. HISTORY OF PRESENT ILLNESS 60-year-old male with past medical history significant for nonischemic cardiomyopathy with ejection fraction of 20% status post AICD [employer], hypertension, hyperlipidemia, diabetes, smoker who presented to the emergency department with complaints of dizziness and palpitations that had been getting worse since yesterday in the morning. He reports that he has been having for the last 2-3 weeks episodes of dizziness and palpitations. He denies any associated chest pain, tightness, shortness of breath, medications noncompliance , fevers, chills, nausea, vomiting, diarrhea. The patient got concerned for which he presented to the emergency department for evaluation. AICD interrogation in the ER noted to have some V-tach episodes of varying rate. He was started on amiodarone drip and he was admitted to the [facility]. Cardiology has been consulted for further management and evaluation. He has an appointment with Dr. Jay later this month. REVIEW OF SYSTEMS Negative except for what is mentioned in the HPI. PAST MEDICAL HISTORY 1. Nonischemic cardiomyopathy with ejection fraction of 20% status post AICD. 2. Hypertension. 3. Hyperlipidemia. 4. Diabetes. PAST SURGICAL HISTORY 1. AICD placement. 2. Pancrease cyst removal. 3. Cholecystectomy. 4. Sinus surgery. ALLERGIES CONTRAST. CARDIAC HOME MEDICATIONS 1. Losartan 100 mg p.o. daily. 2. Coreg 12.5 mg p.o. b.i.d. 3. Zocor 40 mg p.o. daily. 4. Aspirin 325 mg daily. 5. Lasix 60 mg p.o. daily. 6. Potassium 30 mEq p.o. daily FAMILY HISTORY Unremarkable. SOCIAL HISTORY He denies alcohol abuse. He does report being an active smoker. He denies illicit drug use. PHYSICAL EXAMINATION VITAL SIGNS: Temperature 97, respiratory rate 20, heart rate 57, blood pressure 101/62, O2 sat 99% on room air. GENERAL: Awake, alert, oriented x 3, in no acute distress. NECK: No JVD, no carotid bruits. HEART: Regular rate and rhythm. No murmurs, rubs or gallops. LUNGS: Clear to auscultation bilaterally. No rhonchi, no wheezes, no rales. ABDOMEN: Soft, nontender, nondistended. Positive bowel sounds. EXTREMITIES: There is no cyanosis or edema. Pulses throughout. DATA CBC - Hemoglobin 13, hematocrit 39, platelet count 133. INR is 1. Chemistries: Sodium 142, potassium 3.2, BUN 17, creatinine 0.91. Troponin 0.12 , 0.12 and 0.14. CHEST X-RAY Prominent interstitium likely representing pulmonary venous hypertension versus mild edema. EKG Ventricular paced rhythm. Left heart cath done in July2016 by Dr. Urban which showed some nonobstructive coronary artery disease with negative iFR to right coronary artery and the left circumflex artery. ASSESSMENT AND PLAN 60-year-old man with nonischemic cardiomyopathy, EF of 20% status post AICD placement, presenting with vague symptoms of dizziness and palpitations, found to have some nonsustained episodes of ventricular tachycardia on the AICD interrogation and mildly elevated troponin. He remains hemodynamically stable with no cardiovascular complaints. No more episodes of VT here on the monitor. He has been started on amiodarone drip and he has been tolerating the medication so far. Regarding his troponin they seem to be chronically elevated likely from cardiomyopathy. Recent ischemic work up negative. RECOMMENDATIONS 1. Continue amiodarone drip per protocol (a total of 24-hour period), then start on amiodarone 200 mg p.o. b.i.d. 2. Continue home Coreg and Losartan, 3. Start Lasix. 3. Follow up with Dr. Jay upon discharge Thank you for the opportunity to participate in the care of this patient. Further management to be determined. MD ARNOLD Garcia/SSB /11:21 AM /11:41 AM [place]
[2016-09-19] MEDS ORDERED: AMIODARONE INJ 450 MG in DEXTROSE 5% IN WATE(EXCEL) INJ 241 ML IV SCH ×2 (12:15)
--- NOTE | 2016-09-19 15:12 | EKG ---
Date Performed: 09/18/2016 Time Performed: 15:31:13 PTAGE: 60 years EKG: ELECTRONIC VENTRICULAR PACEMAKER Since previous tracing, no significant change noted ABNORM AL RHYTHM ECG PREVIOUS TRACING : 07/22/2016 23.35 DOCTOR: Travis Villalpando Interpretating Date/Time 09/19/2016 15:12:03
[2016-09-19] MEDS: PRAVASTATIN SOD 80 MG TAB PO SCH (20:44)
[2016-09-19] MEDS: AMIODARONE 200 MG TAB PO SCH (20:44)
[2016-09-20] VITALS (15 sets, daily range): BP systolic 103–111; BP diastolic 60–66; PULSE 50–60; RESP 20–22; TEMP 97.4–98.8; O2SAT 97–98
[2016-09-20] MEDS: SODIUM CHLOR 0.9% 1000 ML INJ 1,000 ML IV SCH ×2 (02:00→12:00)
[2016-09-20] MEDS: DOCUSATE SODIUM 50 MG/SENNA 8.6 MG TAB PO SCH (08:46)
[2016-09-20] MEDS: CARVEDILOL 12.5 MG TAB PO SCH (08:46)
[2016-09-20] MEDS: ASPIRIN EC 81 MG TABEC PO SCH (08:46)
[2016-09-20] MEDS: SODIUM CHLORIDE 0.9% FLUSH 10 ML FLUSH IV FLUSH SCH (08:46)
[2016-09-20] MEDS: AMIODARONE 200 MG TAB PO SCH (08:46)
[2016-09-20] MEDS ORDERED: AMIO200T PO (10:39)
--- NOTE | 2016-09-20 10:40 | HHI.DS ---
Discharge Summary Admission Date Sep 18, 2016 at 19:33 Discharge Date: Sep 20, 2016 Admitting Diagnosis SVT; near syncope; elevated troponin (1) V-tach ICD Code: I47.2 Diagnosis: Principal (2) Elevated troponin ICD Code: R74.8 Diagnosis: Principal (3) Hypokalemia ICD Code: E87.6 Diagnosis: Principal (4) Dehydration ICD Code: E86.0 Diagnosis: Secondary (5) Thrombocytopenia ICD Code: D69.6 Diagnosis: Secondary (6) DM (diabetes mellitus) ICD Code: E11.9 Diagnosis: Secondary (7) Tobacco abuse ICD Code: Z72.0 Diagnosis: Secondary Procedures none Brief History - From Admission This is a 60-year-old male with a PMH of HTN, Hyperlipidemia, Anxiety, CHF ( Echo 07/25/16 w/ EF 15%), CAD, AICD ([employer]), DM and Tobacco Abuse who presented to ER with complaints of dizziness and palpitations starting earlier this morning. States symptoms started approximately 2-3 wks ago, but have gotten more frequent. Notes associated chest pressure/tightness during episodes of palpitations. Previous admit 07/2016 for similar complaints w/ episodes of V. Tach, s/p Cardiac Cath 07/29/[address] Jay w/ nonobstructive disease and recommendation for medical management, V. tach not felt to be secondary to ischemia, AICD settings changed. Was to follow w/ Dr. Jay as outpatient w/ possible referral to Dr. Urrutia if V. Tach recurred, however has not followed up. Returns now w/ above complaints. S/p AICD Interrogation by [employer], noted to have seven episodes of V. Tach or varying length and rate, most recent at 14:14 lasting 12 seconds at rate of 176bpm. Dr. Cao consulted by ER physician, recommended Amiodarone gtt w/ consult for Dr. Jay in am. On arrival, BP 130/77, HR 73, O2 sat 98% on RA, Afebrile. CBC unremarkable except for platelets 148, producing 132 on 07/25/16. K+ 3.3, s/p replacement in ER. Trop 0.12, previously 0.14 on 07/23/16. CXR with cardiomegaly , mild prominence of interstitium likely representing pulmonary venous hypertension versus mild edema. CBC/BMP: 09/19/16 0549 09/19/16 0549 Significant Findings Laboratory Tests Test 09/18/16 09/19/16 09/19/16 15:40 00:04 05:49 Red Blood Count 4.45 MIL/MM3 4.25 MIL/MM3 (4.50-5.90) (4.50-5.90) Platelet Count 148 TH/MM3 133 TH/MM3 (150-450) (150-450) Monocytes (%) (Auto) 9.0 % (0.0-8.0) 10.8 % (0.0-8.0) Potassium Level 3.3 MEQ/L 3.2 MEQ/L (3.5-5.1) (3.5-5.1) Estimat Glomerular Filtration 66 ML/MIN (>89) 84 ML/MIN (>89) Rate Random Glucose 113 MG/DL 114 MG/DL (74-106) (74-106) Troponin I 0.12 NG/ML 0.12 NG/ML 0.14 NG/ML (0.02-0.05) (0.02-0.05) (0.02-0.05) Aspartate Amino Transf 9 U/L (15-37) (AST/SGOT) Alanine Aminotransferase 10 U/L (12-78) (ALT/SGPT) Albumin 3.1 GM/DL (3.4-5.0) Imaging Last Impressions Chest X-Ray 09/18/16 1537 Signed Impressions: Service Date/Time: Sunday, September 18, 2016 16:15 - CONCLUSION: Cardiomegaly with mild prominence of the interstitium likely representing pulmonary venous hypertension versus mild edema. Timmy Resendez MD PE at Discharge GENERAL: Middle-aged male in no acute distress. HEENT: PERRLA, EOMI. No scleral icterus or conjunctival pallor. No lid lag or facial droop. CARDIOVASCULAR: Regular rate and rhythm. No obvious murmurs to auscultation. No chest tenderness to palpation. RESPIRATORY: No obvious rhonchi or wheezing. Clear to auscultation. Breath sounds equal bilaterally. GASTROINTESTINAL: Abdomen soft, non-tender, nondistended. BS normal. MUSCULOSKELETAL: Extremities without clubbing, cyanosis, or edema. No obvious deformities. NEUROLOGICAL: Awake, alert and oriented x4. No focal neurologic deficits. Moving both upper and lower extremities spontaneously. Pt update on day of discharge Feels improved. Says he does need his lasix. No chest pain. Some sob however did not received lasix yet. Restart lasix. Patient denies any lightheadedness, palpitations, nausea, vomiting. Feels comfortable to go home today. Says she does need refill of his prescription meds. Refills given. To follow up as OP with PCP and cardiology Dr Bolivar. Hospital Course V. Tach: c/o palpitations/dizziness, s/p AICD Interrogation by [employer], noted to have 7 episodes of V. Tach w/ varying length and rate, most recent at 14:14 lasting 12 seconds at a rate of 176bpm. Cardiology, Dr. Cao consulted by ER physician, recommendation for Amio gtt and consult for Dr. Jay. Received Amio gtt. Switch to PO amipodarone 200 mg po bid. Cleared by cardio for DC to follow up as oP with his cardiology Dr Bolivar. Hypokalemia: K+ 3.3, s/p replacement, will recheck and replace as needed. Monitor and replace as need. Also restarted lasix . Hypomagnesemia: Mag 1.7, will replace to keep >2. K+ 3.3, replace and recheck. Keep Mag > 2 and K more than 4. Elevated Trop: Trop 0.12, previously 0.14 on 07/23/16. Cardiac Cath 07/29/[address] Jay w/ nonobstructive coronary disease, elevated trop unlikely secondary to ischemia. Serial enzymes for trend. Continue Statin, B-jose, started ASA. Dehydration: GFR 66, BUN/Creatinine normal Received IVF for hydration-caution w/ CHF, Echo 07/23/16 w/ EF 15%. Thrombocytopenia: Platelets 148, previously 132 on 07/25/16. No active bleeding noted, will monitor, repeat labs in am. DM2: Sliding scale w/ Accu-Cheks. Hold Metformin for now for possible cardiac intervention. Tobacco Abuse: Counselled. Ativan prn if needed. No NicoDerm to avoid vasoconstriction. DVT Prophylaxis: SCD/Teds. Case management for d/c planning as needed. Discussed with the patient, nurse. Feels comfortable to go home today. Says she does need refill of his prescription meds. Refills given. To follow up as OP with PCP and cardiology Dr Osmel chadwick Patient improved, discharged in stable condition . Pt Condition on Discharge: Stable Discharge Disposition: Discharge Home Discharge Time: > 30 minutes Discharge Instructions DIET: Follow Instructions for: Heart Healthy Diet Activities you can perform: Regular-No Restrictions Follow up Referrals: Cardiology - 1 Week with Heriberto Jay DO PCP Follow-up - 1 Week New Medications: Amiodarone (Amiodarone) 200 Mg Tab 200 MG PO Q12H afib #60 TAB Continued Medications: Carvedilol (Carvedilol) 12.5 Mg Tab 12.5 MG PO BID #60 Ref 2 TAB (This prescription has been renewed) Furosemide (Lasix) 20 Mg Tab 60 MG PO DAILY congestive heart failure Days 30 Ref 0 TAB (This prescription has been renewed) Losartan (Losartan) 100 Mg Tab 100 MG PO DAILY Blood Pressure Management #30 Ref 2 TAB (This prescription has been renewed) Metformin (Metformin) 500 Mg Tab 500 MG PO BIDPC With meals Blood Sugar Management #60 Ref 2 TAB (This prescription has been renewed) Potassium Chloride ER (Potassium Chloride ER) 10 Meq Tab 30 MEQ PO DAILY Electrolyte Replacement Days 30 Ref 0 TAB (This prescription has been renewed) Simvastatin (Simvastatin) 40 Mg Tab 40 MG PO HS Cholesterol Management #30 Ref 2 TAB (This prescription has been renewed) Citlaly Bah MD Sep 20, 2016 10:40
[2016-09-20] MEDS ORDERED: POTA10TA2 PO (12:25)
[2016-09-20] MEDS ORDERED: SIMV40TA PO (12:25)
[2016-09-20] MEDS ORDERED: LOSA100T PO (12:25)
[2016-09-20] MEDS ORDERED: CARV12.52 PO (12:25)
[2016-09-20] MEDS ORDERED: METF500T PO (12:25)
[2016-09-20] MEDS ORDERED: FURO1TAB62 PO (12:25)
[2016-09-20] MEDS ORDERED: POTASSIUM CHLORIDE 10 MEQ CONTROLLED RELEASE TAB PO ONE (12:30)
[2016-09-20] MEDS ORDERED: FUROSEMIDE 40 MG/4 ML VIAL IV PUSH ONE (12:30)
== END 2016-09-20 14:03 | disposition home or self-care (01) | DRG 309 ==
LOC: NEPC 14:42 → NEDA 19:33 → HCIS 21:40
PROVIDERS: ADMIT Hospitalist; ATTEND Hospitalist
DX: I47.2 Ventricular tachycardia (principal); I42.9 Cardiomyopathy, unspecified; D69.6 Thrombocytopenia, unspecified; I11.0 Hypertensive heart disease with heart failure; I50.9 Heart failure, unspecified; E83.42 Hypomagnesemia; E86.0 Dehydration; E87.6 Hypokalemia; R74.8 Abnormal levels of other serum enzymes; E11.9 Type 2 diabetes mellitus without complications; F17.200 Nicotine dependence, unspecified, uncomplicated; E78.5 Hyperlipidemia, unspecified; I25.10 Atherosclerotic heart disease of native coronary artery without angina pectoris; Z95.1 Presence of aortocoronary bypass graft; Z95.810 Presence of automatic (implantable) cardiac defibrillator; I25.2 Old myocardial infarction; K21.9 Gastro-esophageal reflux disease without esophagitis
CPT/HCPCS: 71010; 80048; 80053; 82550; 83735; 84484; 85025; 85610; 85730; 93005; J0282; J1940; J3475; J7030; J7060

== ENCOUNTER 2016-10-26 19:05 | Emergency (ER) | payer MEDICARE ==
[~2016-10-26] VITALS: Ht 172.7 cm; Wt 57.5 kg
[~2016-10-26 19:05] MED LIST changes: +AMIO200T PO; -ASPI325T PO; -HYDR-3516 PO
[2016-10-26 19:24] VITALS: BP 158/82; PULSE 80; RESP 16; TEMP 98.8; O2SAT 97
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
--- NOTE | 2016-10-26 19:39 | PD ---
HPI . elevated HR/felt "woozy" Chief Complaint: Syncope/Near-Syncope Time Seen by Provider: 19:39 Travel History International Travel<30 days: No Contact w/Intl Traveler<30days: No Traveled to known affect area: No History of Present Illness HPI 61-year-old male with history of previous VA, CAD, CABG, AICD, recent Echo with EF 15% here with c/o feeling "woozy" after noticing he had a heart rate of 104 on his phone boby. Patient says he just happened to check his heart rate and noticed it was 104, became woozy and came to the ED because he was concerned about his heart rate going up higher. He denies any chest pain, nausea, vomiting, diaphoresis or shortness of breath. PFSH Past Medical History Arthritis: No Asthma: No Autoimmune Disease: No Blood Disorders: No Anxiety: Yes Depression: No Heart Rhythm Problems: Yes Cancer: No Cardiac Catheterization: Yes Cardiovascular Problems: Yes High Cholesterol: Yes Chemotherapy: No Chest Pain: Yes Congestive Heart Failure: Yes COPD: No Cerebrovascular Accident: No Coronary Artery Disease: Yes Diabetes: Yes Patient Takes Glucophage: Yes Diminished Hearing: No Endocrine: Yes Gastrointestinal Disorders: Yes GERD: Yes Genitourinary: No Hiatal Hernia: No Hypertension: Yes Immune Disorder: No Implanted Vascular Access Dvce: Yes Kidney Stones: No Musculoskeletal: No Neurologic: No Psychiatric: No Reproductive: No Respiratory: No Immunizations Current: Yes Migraines: No Myocardial Infarction: Yes (x1) Radiation Therapy: No Renal Failure: No Seizures: No Sickle Cell Disease: No Sleep Apnea: No Thyroid Disease: No Triglycerides - High: Yes Ulcer: No Past Surgical History Abdominal Surgery: Yes (pancrease removed a cyst,) AICD: Yes Arteriovenous Shunt: No Body Medical Devices: PACEMAKER Cardiac Surgery: Yes (ARTHEROECTOMY) Cholecystectomy: Yes Coronary Artery Bypass Graft: Yes Endocrine Surgery: No Eye Surgery: No Genitourinary Surgery: No Gynecologic Surgery: No Insulin Pump: No Joint Replacement: No Oral Surgery: Yes (SINUS) Pacemaker: Yes (PACE MAKER AICD) Thoracic Surgery: Yes (pacemaker; AICD) Other Surgery: Yes (CYST REMOVED FROM PANCREAS; GALLBLADDER) Social History Alcohol Use: No Tobacco Use: Yes (1PPD) Substance Use: No (PT DENIES ) Allergies-Medications (Allergen,Severity, Reaction): Coded Allergies: Contrast Media (Verified Allergy, Severe, Swelling, 10/26/16) MRI PRECAUTION (Verified Adverse Reaction, Severe, NON COMPATIBLE [employer] PACEMAKER 09/24/15 KMD, 10/26/16) 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 IMPLANTED 09/02/13 Reported Meds & Prescriptions Reported Meds & Active Scripts Active Potassium Chloride ER (Potassium Chloride) 10 Meq Tab 30 Meq PO DAILY 30 Days Lasix (Furosemide) 20 Mg Tab 60 Mg PO DAILY 30 Days Losartan (Losartan Potassium) 100 Mg Tab 100 Mg PO DAILY Simvastatin 40 Mg Tab 40 Mg PO HS Metformin (Metformin HCl) 500 Mg Tab 500 Mg PO BIDPC With meals Carvedilol 12.5 Mg Tab 12.5 Mg PO BID Amiodarone (Amiodarone HCl) 200 Mg Tab 200 Mg PO Q12H Review of Systems General / Constitutional: No: Fever Eyes: No: Visual changes HENT: No: Headaches Cardiovascular: Positive: Tachycardia (104), No: Chest Pain or Discomfort, Irregular Rhythm Respiratory: No: Shortness of Breath Gastrointestinal: No: Abdominal Pain Genitourinary: No: Dysuria Musculoskeletal: No: Pain Skin: No Rash Neurologic: No: Weakness Psychiatric: No: Depression Endocrine: No: Polydipsia Hematologic/Lymphatic: No: Easy Bruising Physical Exam Narrative GENERAL: AAO x 3, no acute distress, Well-nourished, well-developed patient. SKIN: Warm and dry. No visible rashes or bruising. HEAD: Normocephalic and atraumatic. EYES: No scleral icterus. No injection or drainage. EOM intact, PERRLA ENT: No nasal drainage noted. Mucous membranes pink. Airway patent. NECK: Supple, trachea midline. No JVD. CARDIOVASCULAR: Regular rate and rhythm without murmurs, gallops, or rubs. RESPIRATORY: Breath sounds equal bilaterally. No accessory muscle use. No rhonchi or rales. GASTROINTESTINAL: Abdomen soft, non-tender, nondistended. no rebound or guarding EXTREMITIES: No cyanosis or edema. BACK: No obvious deformity. No CVA tenderness. NEURO: CN II-12 intact, material planning analyst strength normal b/l, PSYCH: AAO x 3, normal affect. Data Data Last Documented VS Vital Signs Date Time Temp Pulse Resp B/P Pulse Ox O2 Delivery O2 Flow Rate FiO2 10/26/16 20:04 69 18 126/74 98 Room Air 119/71 10/26/16 19:24 98.8 Orders Electrocardiogram (10/26/16 19:43) Basic Metabolic Panel (Bmp) (10/26/16 19:43) Complete Blood Count With Diff (10/26/16 19:43) Magnesium (Mg) (10/26/16 19:43) Ecg Monitoring (10/26/16 19:43) Bilateral Bp Monitoring (10/26/16 19:43) Iv Access Insert/Monitor (10/26/16 19:43) Oximetry (10/26/16 19:43) Oxygen Administration (10/26/16 19:43) Sodium Chloride 0.9% Flush (Ns Flush) (10/26/16 19:45) Labs Laboratory Tests Test 10/26/16 19:49 White Blood Count 7.8 TH/MM3 Red Blood Count 4.94 MIL/MM3 Hemoglobin 15.5 GM/DL Hematocrit 46.3 % Mean Corpuscular Volume 93.8 FL Mean Corpuscular Hemoglobin 31.5 PG Mean Corpuscular Hemoglobin 33.5 % Concent Red Cell Distribution Width 14.2 % Platelet Count 166 TH/MM3 Mean Platelet Volume 7.8 FL Neutrophils (%) (Auto) 59.1 % Lymphocytes (%) (Auto) 27.6 % Monocytes (%) (Auto) 9.3 % Eosinophils (%) (Auto) 3.4 % Basophils (%) (Auto) 0.6 % Neutrophils # (Auto) 4.6 TH/MM3 Lymphocytes # (Auto) 2.1 TH/MM3 Monocytes # (Auto) 0.7 TH/MM3 Eosinophils # (Auto) 0.3 TH/MM3 Basophils # (Auto) 0.0 TH/MM3 CBC Comment DIFF FINAL Differential Comment Sodium Level 139 MEQ/L Potassium Level 4.2 MEQ/L Chloride Level 105 MEQ/L Carbon Dioxide Level 26.6 MEQ/L Anion Gap 7 MEQ/L Blood Urea Nitrogen 27 MG/DL Creatinine 1.56 MG/DL Estimat Glomerular Filtration 45 ML/MIN Rate Random Glucose 135 MG/DL Calcium Level 9.3 MG/DL Magnesium Level 2.3 MG/DL MDM Medical Decision Making Medical Screen Exam Complete: Yes Emergency Medical Condition: Yes Medical Record Reviewed: Yes Differential Diagnosis arrhythmia, V tach, Narrative Course 61 yr old male here with reports of feeling "woozy" after seeing a hr of 104. Case discussed with Dr. Colby. We contracted [employer] to have AICD interrogated. Laboratory Tests Test 10/26/16 19:49 White Blood Count 7.8 TH/MM3 Red Blood Count 4.94 MIL/MM3 Hemoglobin 15.5 GM/DL Hematocrit 46.3 % Mean Corpuscular Volume 93.8 FL Mean Corpuscular Hemoglobin 31.5 PG Mean Corpuscular Hemoglobin 33.5 % Concent Red Cell Distribution Width 14.2 % Platelet Count 166 TH/MM3 Mean Platelet Volume 7.8 FL Neutrophils (%) (Auto) 59.1 % Lymphocytes (%) (Auto) 27.6 % Monocytes (%) (Auto) 9.3 % Eosinophils (%) (Auto) 3.4 % Basophils (%) (Auto) 0.6 % Neutrophils # (Auto) 4.6 TH/MM3 Lymphocytes # (Auto) 2.1 TH/MM3 Monocytes # (Auto) 0.7 TH/MM3 Eosinophils # (Auto) 0.3 TH/MM3 Basophils # (Auto) 0.0 TH/MM3 CBC Comment DIFF FINAL Differential Comment Sodium Level 139 MEQ/L Potassium Level 4.2 MEQ/L Chloride Level 105 MEQ/L Carbon Dioxide Level 26.6 MEQ/L Anion Gap 7 MEQ/L Blood Urea Nitrogen 27 MG/DL Creatinine 1.56 MG/DL Estimat Glomerular Filtration 45 ML/MIN Rate Random Glucose 135 MG/DL Calcium Level 9.3 MG/DL Magnesium Level 2.3 MG/DL [employer]: interrogation with one sinus tach at 104. Apparently the [employer] employment representative spoke with the patient and he feels better knowing that 104 is not really a rapid heart rate. I think his "woozy" feeling may be related to some anxiety. Dr. Colby spoke with Dr. Jay, who recommends outpatient f/u. I discussed this with the patient. Advised him to continue his home meds. Patient verbalized understanding of instructions, questions were answered, and thanked me for their care. I advised them if their condition worsens, please return to the nearest emergency room for further care. Diagnosis Primary Impression: Tachycardia, unspecified Patient Instructions: General Instructions Additional Instructions: Follow-up with Dr. Jay in his office. Continue taking your daily medications. Med/Other Pt SpecificInfo: No Change to Meds Disposition: 01 DISCHARGE HOME Condition: Stable Mangali,Shawanda PA Oct 26, 2016 19:39
[2016-10-26] MEDS ORDERED: SODIUM CHLORIDE 0.9% FLUSH 10 ML FLUSH IVF PRN (19:45)
[2016-10-26 19:52] VITALS: RESP 18; O2SAT 98
[2016-10-26 20:04] VITALS: BP_SYST 119; BP_SYST 126; BP_DIAS 71; BP_DIAS 74; PULSE 69; RESP 18; O2SAT 98
[2016-10-26 20:10] LABS: AUTOMATED NEUTROPHIL # 4.6 TH/MM3 (1.8-7.7); BASOPHIL % 0.6 % (0.0-2.0); EOSINOPHIL # 0.3 TH/MM3 (0-0.4); EOSINOPHIL % 3.4 % (0.0-4.0); HEMATOCRIT 46.3 % (39.0-51.0); HEMO FLAGS DIFF FINAL; LYMPH % 27.6 % (9.0-44.0); LYMPHOCYTE # 2.1 TH/MM3 (1.0-4.8); MEAN CELL VOLUME 93.8 FL (80.0-100.0); MEAN CORPUSCULAR HEMOGLOBIN 31.5 PG (27.0-34.0); MEAN CORPUSCULAR HGB CONC 33.5 % (32.0-36.0); MONO % 9.3 % (0.0-8.0); NEUT % 59.1 % (16.0-70.0); PLATELET COUNT 166 TH/MM3 (150-450); RED BLOOD COUNT 4.94 MIL/MM3 (4.50-5.90); RED CELL DISTRIBUTION WIDTH 14.2 % (11.6-17.2); WHITE BLOOD COUNT 7.8 TH/MM3 (4.0-11.0)
[2016-10-26 20:49] LABS: BICARBONATE 26.6 MEQ/L (21.0-32.0); MAGNESIUM 2.3 MG/DL (1.5-2.5); POTASSIUM 4.2 MEQ/L (3.5-5.1)
--- NOTE | 2016-10-27 11:31 | EKG ---
Date Performed: 10/26/2016 Time Performed: 20:01:39 PTAGE: 61 years EKG: ELECTRONIC VENTRICULAR PACEMAKER ABNORMAL RHYTHM ECG Sinus rhythm with P-wave synchronous ventricular pacing. PREVIOUS TRACING : 09/18/2016 15.31 DOCTOR: Eliazar Monson Interpretating Date/Time 10/27/2016 11:29:18
== END 2016-10-26 22:05 | disposition home or self-care (01) ==
LOC: NEPE 19:05
DX: R00.0 Tachycardia, unspecified (principal); E11.9 Type 2 diabetes mellitus without complications; E78.00 Pure hypercholesterolemia, unspecified; I11.0 Hypertensive heart disease with heart failure; I25.10 Atherosclerotic heart disease of native coronary artery without angina pectoris; I25.2 Old myocardial infarction; I50.9 Heart failure, unspecified; K21.9 Gastro-esophageal reflux disease without esophagitis; Z79.899 Other long term (current) drug therapy; Z95.0 Presence of cardiac pacemaker; Z95.1 Presence of aortocoronary bypass graft; Z95.810 Presence of automatic (implantable) cardiac defibrillator; Z87.891 Personal history of nicotine dependence
CPT/HCPCS: 80048; 83735; 85025; 93005

== ENCOUNTER 2017-03-18 12:59 | Inpatient (IN) | payer MEDICARE ==
[~2017-03-18] VITALS: Ht 172.7 cm; Wt 83.8 kg
[2017-03-18 13:13] VITALS: BP 127/76; PULSE 93; RESP 12; TEMP 98.6; O2SAT 97
[2017-03-18] MEDS ORDERED: FURO1TAB61 PO (13:22)
[2017-03-18 13:26] VITALS: BP 134/56
[2017-03-18] MEDS ORDERED: SODIUM CHLORIDE 0.9% FLUSH 10 ML FLUSH IVF PRN (13:30)
[2017-03-18 13:58] LABS: AUTOMATED NEUTROPHIL # 5.2 TH/MM3 (1.8-7.7); BASOPHIL % 0.3 % (0.0-2.0); EOSINOPHIL # 0.1 TH/MM3 (0-0.4); HEMATOCRIT 42.6 % (39.0-51.0); HEMOGLOBIN 14.8 GM/DL (13.0-17.0); LYMPH % 17.6 % (9.0-44.0); LYMPHOCYTE # 1.3 TH/MM3 (1.0-4.8); MEAN CELL VOLUME 92.1 FL (80.0-100.0); MEAN CORPUSCULAR HGB CONC 34.7 % (32.0-36.0); MEAN PLATELET VOLUME 8.8 FL (7.0-11.0); MONO % 8.3 % (0.0-8.0); MONOCYTE # 0.6 TH/MM3 (0-0.9); NEUT % 71.8 % (16.0-70.0); PLATELET COUNT 163 TH/MM3 (150-450); RED BLOOD COUNT 4.63 MIL/MM3 (4.50-5.90); RED CELL DISTRIBUTION WIDTH 13.2 % (11.6-17.2); WHITE BLOOD COUNT 7.2 TH/MM3 (4.0-11.0)
[2017-03-18 14:06] LABS: INTERNATIONAL NORMALIZED RATIO 1.2 RATIO; PROTHROMBIN TIME - PATIENT 11.7 SEC (9.8-11.6)
--- NOTE | 2017-03-18 14:07 | RADRPT ---
EXAM DATE/TIME: 03/18/2017 13:33 [facility] COMPARISON: CHEST SINGLE AP, September 18, 2016, 16:15. INDICATIONS : Chest pain. Patients Defribillator went off. MEDICAL HISTORY : Hypertension. Diabetes mellitus type II. SURGICAL HISTORY : Defribillator. ENCOUNTER: Initial ACUITY: 1 day PAIN SCORE: 0/10 LOCATION: Bilateral chest FINDINGS: There is a multi-lead biventricular pacing sinus a CT device in place from the left subclavian approa ch. The heart size is borderline enlarged. The lungs are clear. No effusion is seen. CONCLUSION: No acute abnormality seen. Timmy Resendez MD on March 18, 2017 at 14:05 Board Certified Radiologist. This report was verified electronically.
[2017-03-18 14:14] LABS: BICARBONATE 29.7 MEQ/L (21.0-32.0); CALCIUM 8.8 MG/DL (8.5-10.1); CREATININE 1.44 MG/DL (0.60-1.30); MAGNESIUM 1.8 MG/DL (1.5-2.5)
[2017-03-18 14:18] LABS: TROPONIN I 0.57 NG/ML (0.02-0.05)
[2017-03-18] MEDS ORDERED: POTASSIUM CHLORIDE 25 MEQ EFFERVESCENT TAB PO ONE (15:45)
--- NOTE | 2017-03-18 15:50 | PD ---
HPI Chief Complaint: Cardiac Complaint Time Seen by Provider: 13:16 Travel History International Travel<30 days: No Contact w/Intl Traveler<30days: No Traveled to known affect area: No History of Present Illness HPI This is a 61-year-old male with a history of coronary artery disease, hypertension, CHF, tobacco use, V. tach, who presents today stating his defibrillator fired 3 times today. The patient denied any preceding symptoms. He states that he was at the store when all of a sudden he felt the first discharge. He states between the first and second he Very dizzy and almost passed out. He reports the third was not as bad as the second or the first. He denies any chest pain or chest pressure. He denies any nausea or dizziness at this time. There are no other complaints time my examination. PFSH Past Medical History Arthritis: No Asthma: No Autoimmune Disease: No Blood Disorders: No Anxiety: Yes Depression: No Heart Rhythm Problems: Yes Cancer: No Cardiac Catheterization: Yes Cardiovascular Problems: Yes High Cholesterol: Yes Chemotherapy: No Chest Pain: Yes Congestive Heart Failure: Yes COPD: No Cerebrovascular Accident: No Coronary Artery Disease: Yes Diabetes: Yes Patient Takes Glucophage: Yes Diminished Hearing: No Endocrine: Yes Gastrointestinal Disorders: Yes GERD: Yes Genitourinary: No Hiatal Hernia: No Hypertension: Yes Immune Disorder: No Implanted Vascular Access Dvce: Yes Kidney Stones: No Musculoskeletal: No Neurologic: No Psychiatric: No Reproductive: No Respiratory: No Immunizations Current: Yes Migraines: No Myocardial Infarction: Yes (x1) Radiation Therapy: No Renal Failure: No Seizures: No Sickle Cell Disease: No Sleep Apnea: No Thyroid Disease: No Triglycerides - High: Yes Ulcer: No Past Surgical History Abdominal Surgery: Yes (pancrease removed a cyst,) AICD: Yes Arteriovenous Shunt: No Body Medical Devices: PACEMAKER Cardiac Surgery: Yes (ARTHEROECTOMY) Cholecystectomy: Yes Coronary Artery Bypass Graft: Yes Endocrine Surgery: No Eye Surgery: No Genitourinary Surgery: No Gynecologic Surgery: No Insulin Pump: No Joint Replacement: No Oral Surgery: Yes (SINUS) Pacemaker: Yes (PACE MAKER AICD) Thoracic Surgery: Yes (pacemaker; AICD) Other Surgery: Yes (CYST REMOVED FROM PANCREAS; GALLBLADDER) Social History Alcohol Use: No Tobacco Use: Yes (1PPD) Substance Use: No (PT DENIES ) Allergies-Medications (Allergen,Severity, Reaction): Coded Allergies: diatrizoate meglumine (Unverified Allergy, Severe, Swelling, 11/01/16) gadobenic acid (Unverified Allergy, Severe, Swelling, 11/01/16) gadodiamide (Unverified Allergy, Severe, Swelling, 11/01/16) gadoteridol (Unverified Allergy, Severe, Swelling, 11/01/16) iodixanol (Unverified Allergy, Severe, Swelling, 11/01/16) iohexol (Unverified Allergy, Severe, Swelling, 11/01/16) MRI PRECAUTION (Verified Adverse Reaction, Severe, NON COMPATIBLE [employer] PACEMAKER 09/24/15 KMD, 10/26/16) 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 [id number] IMPLANTED 09/02/13 Reported Meds & Prescriptions Reported Meds & Active Scripts Active Reported Potassium Chloride ER (Potassium Chloride) 10 Meq Cap 30 Meq PO DAILY Metformin (Metformin HCl) 500 Mg Tab 500 Mg PO BIDPC Losartan (Losartan Potassium) 100 Mg Tab 100 Mg PO DAILY Furosemide 80 Mg Tab 80 Mg PO DAILY Carvedilol 12.5 Mg Tab 12.5 Mg PO BID Amiodarone (Amiodarone HCl) 200 Mg Tab 200 Mg PO BID Simvastatin 40 Mg Tab 40 Mg PO HS Review of Systems Except as stated in HPI: all other systems reviewed are Neg General / Constitutional: No: Fever HENT: Positive: Lightheadedness (between the first and third defibrillation, none now), No: Headaches, Neck Pain Cardiovascular: No: Chest Pain or Discomfort, Palpitations, Tachycardia ( patient denied any sensation), Syncope Respiratory: No: Cough, Shortness of Breath Gastrointestinal: No: Nausea, Vomiting, Abdominal Pain Genitourinary: No: Dysuria, Incontinence Musculoskeletal: No: Weakness, Pain Neurologic: No: Weakness, Dizziness, Syncope, Headache Physical Exam Narrative GENERAL: Well-developed well-nourished male in no acute rest her distress SKIN: Focused skin assessment warm/dry. HEAD: Atraumatic. Normocephalic. EYES: Pupils equal and round. No scleral icterus. No injection or drainage. ENT: No nasal bleeding or discharge. Mucous membranes pink and moist. NECK: Trachea midline. Supple. CARDIOVASCULAR: Paced rhythm in the 80s. No murmur appreciated. RESPIRATORY: No accessory muscle use. Clear to auscultation. Breath sounds equal bilaterally. GASTROINTESTINAL: Abdomen soft, non-tender, nondistended. MUSCULOSKELETAL: No obvious deformities. No clubbing. No cyanosis. No edema. NEUROLOGICAL: Awake and alert. No obvious cranial nerve deficits. Motor grossly within normal limits. Normal speech. PSYCHIATRIC: Appropriate mood and affect; insight and judgment normal. Data Data Last Documented VS Vital Signs Date Time Temp Pulse Resp B/P (MAP) Pulse Ox O2 Delivery O2 Flow Rate FiO2 03/18/17 13:26 134/56 (82) 03/18/17 13:13 98.6 93 12 97 Room Air Orders Orders Electrocardiogram (03/18/17 13:17) Basic Metabolic Panel (Bmp) (03/18/17 13:17) Ckmb (Isoenzyme) Profile (03/18/17 13:17) Complete Blood Count With Diff (03/18/17 13:17) Magnesium (Mg) (03/18/17 13:17) Prothrombin Time / Inr (Pt) (03/18/17 13:17) Act Partial Throm Time (Ptt) (03/18/17 13:17) Troponin I (03/18/17 13:17) Chest, Single Ap (03/18/17 13:17) Ecg Monitoring (03/18/17 13:17) Bilateral Bp Monitoring (03/18/17 13:17) Iv Access Insert/Monitor (03/18/17 13:17) Oximetry (03/18/17 13:17) Oxygen Administration (03/18/17 13:17) Sodium Chloride 0.9% Flush (Ns Flush) (03/18/17 13:30) Potassium Chloride Eff (K-Lyte Cl Eff) (03/18/17 15:45) Admit To Inpatient (03/18/17 ) Troponin I (03/18/17 16:00) Troponin I (03/18/17 22:00) Troponin I (03/19/17 04:00) Basic Metabolic Panel (Bmp) (03/19/17 06:00) Complete Blood Count With Diff (03/19/17 06:00) ^ Notify Of These Side Effects (03/18/17 16:00) ^ Smoking Cessation Counseling (03/18/17 16:00) Sodium Chloride 0.9% Flush (Ns Flush) (03/18/17 21:00) Sodium Chloride 0.9% Flush (Ns Flush) (03/18/17 16:00) Consult Cardiology (03/18/17 ) Attending Radiologist / Telemetry CARLOS.Q8H (03/18/17 16:00) Enoxaparin Inj (Lovenox Inj) (03/18/17 16:00) Scd Bilateral/Knee High CARLOS.BID (03/18/17 16:00) Inpatient Certification (03/18/17 ) Amiodarone (Cordarone) (03/18/17 17:00) Carvedilol (Coreg) (03/18/17 21:00) Furosemide (Lasix) (03/19/17 09:00) Losartan (Cozaar) (03/19/17 09:00) Potassium Chloride (Kcl) (03/19/17 09:00) Pravastatin (Pravachol) (03/18/17 21:00) (Hub Use Only)Inp Phy Cons/Ref (03/18/17 ) Amiodarone (Cordarone) (03/18/17 16:30) Insulin Aspart Supplemtl Scale (Novolog (03/18/17 17:00) Code Status (03/18/17 16:25) Electrocardiogram (03/18/17 22:00) Dextrose 50% In Laci (Vial) Inj (D50w (Vi (03/18/17 16:45) Glucagon Inj (Glucagon Inj) (03/18/17 16:45) Admit Order (Ed Use Only) (03/18/17 16:40) Labs Laboratory Tests Test 03/18/17 13:26 White Blood Count 7.2 TH/MM3 Red Blood Count 4.63 MIL/MM3 Hemoglobin 14.8 GM/DL Hematocrit 42.6 % Mean Corpuscular Volume 92.1 FL Mean Corpuscular Hemoglobin 32.0 PG Mean Corpuscular Hemoglobin Concent 34.7 % Red Cell Distribution Width 13.2 % Platelet Count 163 TH/MM3 Mean Platelet Volume 8.8 FL Neutrophils (%) (Auto) 71.8 % Lymphocytes (%) (Auto) 17.6 % Monocytes (%) (Auto) 8.3 % Eosinophils (%) (Auto) 2.0 % Basophils (%) (Auto) 0.3 % Neutrophils # (Auto) 5.2 TH/MM3 Lymphocytes # (Auto) 1.3 TH/MM3 Monocytes # (Auto) 0.6 TH/MM3 Eosinophils # (Auto) 0.1 TH/MM3 Basophils # (Auto) 0.0 TH/MM3 CBC Comment DIFF FINAL Differential Comment Prothrombin Time 11.7 SEC Prothromb Time International Ratio 1.2 RATIO Activated Partial Thromboplast Time 26.4 SEC Blood Urea Nitrogen 16 MG/DL Creatinine 1.44 MG/DL Random Glucose 113 MG/DL Calcium Level 8.8 MG/DL Magnesium Level 1.8 MG/DL Sodium Level 143 MEQ/L Potassium Level 3.1 MEQ/L Chloride Level 107 MEQ/L Carbon Dioxide Level 29.7 MEQ/L Anion Gap 6 MEQ/L Estimat Glomerular Filtration Rate 50 ML/MIN Total Creatine Kinase 79 U/L Troponin I 0.57 NG/ML MDM Medical Decision Making Medical Screen Exam Complete: Yes Emergency Medical Condition: Yes Differential Diagnosis V. tach versus SVT versus malfunctioned defibrillator versus metabolic arrangement Narrative Course 51-year-old male presents after having his defibrillator fired 3 times. The patient had no preceding symptoms. The patient has no complaints at this time other than the firing of his defibrillator. He states that between the first and second discharge, he became very dizzy normal past out. The patient reports being compliant with medications. He does still smoke cigarettes. The pacemaker/defibrillator rep has come in to interrogate his defibrillator/pacer and found that he actually had 5 discharges within a 20 minute period and had V. tach ranging from the 150s to 250. Patient's troponin is elevated likely secondary to the discharge of his defibrillator. Given his V. tach and discharge of his defibrillator, he'll be admitted to the hospital. He will be a full admit at this time. Diagnosis Primary Impression: Ventricular tachycardia Additional Impressions: defibrillator discharge 5 episodes. History of coronary artery disease History of CHF (congestive heart failure) Elevated troponin DM (diabetes mellitus) Admitting Information Admitting Physician Requests: Admit Ronal Ruffin MD Mar 18, 2017 15:50
[2017-03-18] MEDS ORDERED: ENOXAPARIN SODIUM 40 MG/0.4 ML SYRINGE SQ SCH (16:00)
[2017-03-18] MEDS ORDERED: SODIUM CHLORIDE 0.9% FLUSH 10 ML FLUSH IV FLUSH PRN (16:00)
--- NOTE | 2017-03-18 16:12 | HHI.HP ---
[facility] Musa Costello MD Admission Diagnosis Diagnoses: Travel History International Travel<30 Days: No Contact w/Intl Traveler <30 Da: No Traveled to Known Affected Are: No History of Present Illness This is a 61-year-old male to medical history significant for coronary artery disease, hypertension, CHF, tobacco abuse, V. tach with pacemaker/defibrillator who presents to the ER after defibrillator fired. Patient reported defibrillator firing 3 times today. 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 He states he did not take his medication today. At that time he felt dizzy and felt presyncopal. Pacemaker was interrogated in the ER and noted that the deferred to later had gone off 5 times. Persistent V. tach was noted in the ER with heart rate up to the 150s. He denied any chest pain, chest pressure, dizziness, or shortness of breath. Elevated troponin was noted on admission. Reports he feels well, believes his symptoms are stress related. Review of Systems Constitutional: DENIES: Fever, Chills Eyes: DENIES: Blurred vision, Diplopia Respiratory: DENIES: Cough, Shortness of breath Cardiovascular: COMPLAINS OF: Palpitations, Syncope, DENIES: Chest pain Gastrointestinal: DENIES: Abdominal pain, Diarrhea, Nausea, Vomiting Musculoskeletal: DENIES: Joint pain, Joint Swelling Neurologic: DENIES: Abnormal gait, Localized weakness Psychiatric: DENIES: Mood changes Past Family Social History Past Medical History HTN HLD V-Tach Tobacco abuse DM Past Surgical History cholecystectomy Allergies: Coded Allergies: diatrizoate meglumine (Unverified Allergy, Severe, Swelling, 11/01/16) gadobenic acid (Unverified Allergy, Severe, Swelling, 11/01/16) gadodiamide (Unverified Allergy, Severe, Swelling, 11/01/16) gadoteridol (Unverified Allergy, Severe, Swelling, 11/01/16) iodixanol (Unverified Allergy, Severe, Swelling, 11/01/16) iohexol (Unverified Allergy, Severe, Swelling, 11/01/16) MRI PRECAUTION (Verified Adverse Reaction, Severe, NON COMPATIBLE MEDTRONIC PACEMAKER 09/24/15 KMD, 10/26/16) VIVA XT PRODUCTION COOK DEFIB MODEL [id number] IMPLANTED 09/02/13 Active Ordered Medications Potassium Chloride ER (Potassium Chloride) 10 Meq Tab 30 Meq PO DAILY 30 Days Losartan (Losartan Potassium) 100 Mg Tab 100 Mg PO DAILY Simvastatin 40 Mg Tab 40 Mg PO HS Metformin (Metformin HCl) 500 Mg Tab 500 Mg PO BIDPC With meals Carvedilol 12.5 Mg Tab 12.5 Mg PO BID Amiodarone (Amiodarone HCl) 200 Mg Tab 200 Mg PO Q12H Reported Lasix (Furosemide) 80 Mg Tab 80 Mg PO DAILY Social History +tobacco use Physical Exam Vital Signs Vital Signs Date Time Temp Pulse Resp B/P (MAP) Pulse Ox O2 Delivery O2 Flow Rate FiO2 03/18/17 13:26 134/56 (82) 03/18/17 13:13 98.6 93 12 127/76 (93) 97 Room Air Physical Exam GENERAL: This is a well-nourished, well-developed patient, in no apparent distress. SKIN: No rashes, ecchymoses or lesions. Cool and dry. HEAD: Atraumatic. Normocephalic. No temporal or scalp tenderness. EYES: Pupils equal round and reactive. Extraocular motions intact. No scleral icterus. No injection or drainage. ENT: Nose without bleeding, purulent drainage or septal hematoma. Throat without erythema, tonsillar hypertrophy or exudate. Uvula midline. Airway patent. NECK: Trachea midline. No JVD or lymphadenopathy. Supple, nontender, no meningeal signs. CARDIOVASCULAR: Regular rate and rhythm with systolic murmur, gallops, or rubs. RESPIRATORY: Clear to auscultation. Breath sounds equal bilaterally. No wheezes , rales, or rhonchi. GASTROINTESTINAL: Abdomen soft, non-tender, nondistended. No hepato-splenomegaly , or palpable masses. No guarding. MUSCULOSKELETAL: Extremities without clubbing, cyanosis, or edema. No joint tenderness, effusion, or edema noted. No calf tenderness. NEUROLOGICAL: Awake and alert. Motor and sensory grossly within normal limits. Normal speech. Laboratory Laboratory Tests Test 03/18/17 13:26 White Blood Count 7.2 Red Blood Count 4.63 Hemoglobin 14.8 Hematocrit 42.6 Mean Corpuscular Volume 92.1 Mean Corpuscular Hemoglobin 32.0 Mean Corpuscular Hemoglobin Concent 34.7 Red Cell Distribution Width 13.2 Platelet Count 163 Mean Platelet Volume 8.8 Neutrophils (%) (Auto) 71.8 Lymphocytes (%) (Auto) 17.6 Monocytes (%) (Auto) 8.3 Eosinophils (%) (Auto) 2.0 Basophils (%) (Auto) 0.3 Neutrophils # (Auto) 5.2 Lymphocytes # (Auto) 1.3 Monocytes # (Auto) 0.6 Eosinophils # (Auto) 0.1 Basophils # (Auto) 0.0 CBC Comment DIFF FINAL Differential Comment Prothrombin Time 11.7 Prothromb Time International Ratio 1.2 Activated Partial Thromboplast Time 26.4 Blood Urea Nitrogen 16 Creatinine 1.44 Random Glucose 113 Calcium Level 8.8 Magnesium Level 1.8 Sodium Level 143 Potassium Level 3.1 Chloride Level 107 Carbon Dioxide Level 29.7 Anion Gap 6 Estimat Glomerular Filtration Rate 50 Total Creatine Kinase 79 Troponin I 0.57 Result Diagram: 03/18/17 1326 03/18/17 1326 Imaging Last Impressions Chest X-Ray 03/18/17 1317 Signed Impressions: Service Date/Time: Saturday, March 18, 2017 13:33 - CONCLUSION: No acute abnormality seen. MD Ifrah Escalonai VTE Risk Assessment Ifrahi VTE Risk Assessment: No/Low Risk (score <= 1) Caprini Risk Assessment Model Point Value = 1 Point Value = 2 Point Value = 3 Point Value = 5 Age 41-60 Minor surgery BMI > 25 kg/m2 Swollen legs Varicose veins or History of unexplained or recurrent spontaneous Oral contraceptives or hormone replacement Sepsis (< 1 month) Serious lung disease, including pneumonia (< 1 month) Abnormal pulmonary function Acute myocardial infarction Congestive heart failure (< 1 month) History of inflammatory bowel disease Medical patient at bed rest Age 61-74 Arthroscopic surgery Major open surgery (> 45 min) Laparoscopic surgery (> 45 min) Malignancy Confined to bed (> 72 hours) Immobilizing plaster cast Central venous access Age >= 75 History of VTE Family history of VTE Factor V Leiden Prothrombin [id number] Lupus anticoagulant Anticardiolipin antibodies Elevated serum homocysteine Heparin-induced thrombocytopenia Other congenital or acquired thrombophilia Stroke (< 1 month) Elective arthroplasty Hip, pelvis, or leg fracture Acute spinal cord injury (< 1 month) Prophylaxis Regimen Total Risk Factor Score Risk Level Prophylaxis Regimen 0-1 Low Early ambulation 2 Moderate Order ONE of the following: *Sequential Compression Device (SCD) *Heparin 5000 units SQ BID 3-4 Higher Order ONE of the following medications: *Heparin 5000 units SQ TID *Enoxaparin/Lovenox 40 mg SQ daily (WT < 150 kg, CrCl > 30 mL/min) *Enoxaparin/Lovenox 30 mg SQ daily (WT < 150 kg, CrCl > 10-29 mL/min) *Enoxaparin/Lovenox 30 mg SQ BID (WT < 150 kg, CrCl > 30 mL/min) AND/OR *Sequential Compression Device (SCD) 5 or more Highest Order ONE of the following medications: *Heparin 5000 units SQ TID (Preferred with Epidurals) *Enoxaparin/Lovenox 40 mg SQ daily (WT < 150 kg, CrCl > 30 mL/min) *Enoxaparin/Lovenox 30 mg SQ daily (WT < 150 kg, CrCl > 10-29 mL/min) *Enoxaparin/Lovenox 30 mg SQ BID (WT < 150 kg, CrCl > 30 mL/min) AND *Sequential Compression Device (SCD) Assessment and Plan Problem List: (1) Congestive heart failure ICD Code: I50.9 - Heart failure, unspecified Status: Acute (2) HLD (hyperlipidemia) ICD Code: E78.5 - Hyperlipidemia, unspecified Status: Chronic (3) CAD (coronary artery disease) ICD Code: I25.10 - Atherosclerotic heart disease of [place] coronary artery without angina pectoris Status: Chronic (4) Tobacco dependence ICD Code: F17.200 - Nicotine dependence, unspecified, uncomplicated Status: Chronic (5) HTN (hypertension) ICD Code: I10 - Essential (primary) hypertension Status: Chronic (6) DM (diabetes mellitus) ICD Code: E11.9 - Type 2 diabetes mellitus without complications Status: Chronic (7) Elevated troponin I level ICD Code: R74.8 - Abnormal levels of other serum enzymes Status: Acute (8) V-tach ICD Code: I47.2 - Ventricular tachycardia Status: Acute Assessment and Plan V-tach w/pacemaker & defibrillator placed - has been interrogated, concern that patient is not compliant with his medications (reports not taking them today) - supposed to establish with Dr. Jay, will consult - continue home amiodarone - monitor on telemetry Elevated troponin - 0.57, will trend and follow with EKGs Cardiomyopathy - hold home lasix due to KELLY - continue carvedilol - ECHO July 2016 with EF 15%, mitral and aortic regurg HLD - continue statin HTN - continue losartan DM - hold home metformin - start patient on sliding scale Hypokalemia - replace, continue home KCl 30 meq daily Renal Insufficiency - hold lasix - Cr 1.44 on admission, in September <1 DVT prophy: SCDs, encourage ambulation Smoking cessation Code Status Full Discussed Condition With Dr. Ruffin Physician Certification 2 Midnight Certification Type: Admission for Inpatient Services Order for Inpatient Services The services are ordered in accordance with Medicare regulations or non- Medicare payer requirements, as applicable. In the case of services not specified as inpatient-only, they are appropriately provided as inpatient services in accordance with the 2-midnight benchmark. Estimated LOS (days): 3 days is the estimated time the patient will need to remain in the hospital, assuming treatment plan goals are met and no additional complications. Post-Hospital Plan: Not yet determined Sanjuana Martinez MD Mar 18, 2017 16:12
[2017-03-18] MEDS ORDERED: ATEN50TA PO (16:35)
[2017-03-18] MEDS ORDERED: BENA25CA4 (16:35)
[2017-03-18] MEDS ORDERED: ASPI1TAB57 PO (16:35)
[2017-03-18] MEDS ORDERED: FENO160T PO (16:35)
[2017-03-18] MEDS ORDERED: LOSA50TA PO (16:35)
[2017-03-18] MEDS ORDERED: MS C15TA7 PO (16:35)
[2017-03-18] MEDS ORDERED: LOVA40TA PO (16:35)
[2017-03-18] MEDS ORDERED: SERT-129 PO (16:35)
[2017-03-18] MEDS ORDERED: VITA2000 PO (16:35)
[2017-03-18] MEDS ORDERED: OMEP20TA93 PO (16:35)
[2017-03-18] MEDS ORDERED: MONT10TA4 PO (16:35)
[2017-03-18] MEDS ORDERED: MS C30TA5 PO (16:35)
[2017-03-18] MEDS ORDERED: MELO15TA20 PO (16:35)
[2017-03-18] MEDS ORDERED: BACL20TA PO (16:35)
[2017-03-18] MEDS ORDERED: CLON1 PO (16:35)
[2017-03-18] MEDS ORDERED: METF500T PO (16:38)
[2017-03-18] MEDS ORDERED: CARV12.52 PO (16:38)
[2017-03-18] MEDS ORDERED: POTA10CA PO (16:38)
[2017-03-18] MEDS ORDERED: LOSA100T PO (16:38)
[2017-03-18] MEDS ORDERED: AMIO200T PO (16:38)
[2017-03-18] MEDS ORDERED: FURO80TA PO (16:38)
[2017-03-18] MEDS ORDERED: SIMV40TA PO (16:38)
[2017-03-18] MEDS ORDERED: DEXTROSE 50% IN WATER 50 ML VIAL(D50) IV PUSH PRN (16:45)
[2017-03-18] MEDS ORDERED: GLUCAGON 1 MG/ML VIAL OTHER PRN (16:45)
[2017-03-18] MEDS ORDERED: AMIODARONE 200 MG TAB PO SCH (17:00)
[2017-03-18] MEDS: AMIODARONE 200 MG TAB PO SCH (17:15)
[2017-03-18 17:33] VITALS: BP 119/71; PULSE 63; RESP 20; TEMP 97.6; O2SAT 99
[2017-03-18 17:45] VITALS: BP 123/76; PULSE 66; RESP 18; O2SAT 97
[2017-03-18] MEDS: METOPROLOL TARTRATE 50 MG TAB PO SCH (18:17)
--- NOTE | 2017-03-18 18:28 | MB ---
cc: NISHA MERCADO M.D. DATE OF CONSULTATION: 03/18/2017. REASON FOR CONSULTATION: Evaluation of multiple AICD shocks. HISTORY OF PRESENT ILLNESS: Ed White is a 61-year-old "frequent flyer" patient with known noncompliance. He has a cardiomyopathy and coronary artery disease and does not take his medications properly and continues to smoke. He has been under stress lately. He was rising his bicycle. His device has been interrogated. He has had multiple episodes of what looks like sinus tachycardia or supraventricular tachycardia for which his device tried to convert him but obviously was not successful because it was not ventricular tachycardia. He also had two shocks for what looks like to be very fast ventricular tachycardia. The device documents a total of five shocks that have been administered and he came to the emergency room and was admitted. He says he did not take his medications this morning. This is not the first time this has happened to him. He had heart rates up into the 150s. He denies any angina. He has known coronary artery disease. He had a catheterization July 25, 2016. At that time, he had 50% circumflex and right coronary artery disease but flow reserves were normal and no revascularization was needed. He continues to smoke despite having been counselled on too numerous to count occasions in the past. The patient does not seem too concerned about that. I did sales counselor him about the importance of taking medications and the importance of quitting smoking. PAST MEDICAL HISTORY: His past medical history includes: 1. Hypertension. 2. Hyperlipidemia. 3. Ventricular arrhythmias. 4. Medtronic defibrillator. 5. Ongoing tobacco abuse. 6. Diabetes. PAST SURGICAL HISTORY: 1. Cholecystectomy. ALLERGIES: His allergies are extensive. See list in the chart. MEDICATIONS PRIOR TO ADMISSION: 1. Losartan 100 milligrams daily. 2. Simvastatin 40 milligrams. 3. Metformin. 4. Carvedilol 12.5 twice a day. 5. Amiodarone 200 daily. SOCIAL HISTORY: Notable for ongoing tobacco use. PHYSICAL EXAMINATION: GENERAL: The exam shows a well-developed, well-nourished man in no acute distress. VITAL SIGNS: Charted. HEAD, EYES, EARS, NOSE, THROAT: Unremarkable. NECK: No jugular venous distention or bruits. CHEST: Clear to auscultation. CARDIAC: Nonpalpable PMI. There is a defibrillator present in the left infraclavicular region. Normal S1 and S2. Regular rate and rhythm. I think there may be a soft S3. I could not hear a murmur. ABDOMEN: Soft. EXTREMITIES: No cyanosis, clubbing or edema. LABORATORY DATA: Laboratories are charted. His troponin is slightly elevated but not surprising in view of the multiple shocks. He does not have any anginal symptoms as described above. IMPRESSION: Known cardiomyopathy most of which is nonischemic. His coronary artery disease does not sound unstable. Much of this is brought on by not taking his medications. The exercise of riding his bicycle and his device misinterpreting sinus tachycardia as arrhythmias, however, he did have two legitimate shocks that were ventricular arrhythmias. RECOMMENDATIONS: I think he would benefit from more beta-1 blockade so I am going to change his carvedilol to metoprolol 50 milligrams p.o. twice a day will be continued. Dr. Jay will follow up tomorrow but hopefully he can be targeted for early discharge. Compliance was reinforced but as mentioned, this patient has been counselled multiple times to no avail. Thank you for asking me to see this pleasant gentleman. MD HARRISON Brink/GOSIA /5:47 PM /6:01 PM
[2017-03-18] MEDS: INSULIN ASPART SUPPLEMENTAL SCALE SQ SCH ×2 (18:29→20:41)
[2017-03-18 19:33] VITALS: BP 122/56; PULSE 62; RESP 18; TEMP 98; O2SAT 97
[2017-03-18 19:50] VITALS: PULSE 57
[2017-03-18] MEDS: PRAVASTATIN SOD 80 MG TAB PO SCH (20:40)
[2017-03-18] MEDS: SODIUM CHLORIDE 0.9% FLUSH 10 ML FLUSH IV FLUSH SCH (20:41)
[2017-03-18] MEDS ORDERED: CARVEDILOL 12.5 MG TAB PO SCH (21:00)
--- NOTE | 2017-03-18 22:12 | EKG ---
Date Performed: 03/18/2017 Time Performed: 13:09:09 PTAGE: 61 years EKG: ELECTRONIC VENTRICULAR PACEMAKER ABNORMAL RHYTHM ECG PREVIOUS TRACING : 10/26/2016 20.01 Compared to prior tracing no significant change DOCTOR: Heriberto Jay Interpretating Date/Time 03/18/2017 22:11:08
[2017-03-19] VITALS (9 sets, daily range): BP systolic 100–111; BP diastolic 57–64; PULSE 50–56; RESP 16–20; TEMP 97.4–98.4; O2SAT 96–98
[2017-03-19] MEDS: AMIODARONE 200 MG TAB PO SCH ×2 (03:59→16:44)
[2017-03-19] MEDS: METOPROLOL TARTRATE 50 MG TAB PO SCH ×2 (05:53→18:14)
[2017-03-19 06:00] LABS: AUTOMATED NEUTROPHIL # 3.4 TH/MM3 (1.8-7.7); BASOPHIL % 0.5 % (0.0-2.0); EOSINOPHIL # 0.1 TH/MM3 (0-0.4); EOSINOPHIL % 2.2 % (0.0-4.0); HEMATOCRIT 38.9 % (39.0-51.0); HEMOGLOBIN 13.7 GM/DL (13.0-17.0); LYMPH % 34.1 % (9.0-44.0); LYMPHOCYTE # 2.2 TH/MM3 (1.0-4.8); MEAN CELL VOLUME 92.4 FL (80.0-100.0); MEAN CORPUSCULAR HEMOGLOBIN 32.6 PG (27.0-34.0); MEAN CORPUSCULAR HGB CONC 35.3 % (32.0-36.0); MEAN PLATELET VOLUME 8.6 FL (7.0-11.0); MONO % 9.3 % (0.0-8.0); MONOCYTE # 0.6 TH/MM3 (0-0.9); NEUT % 53.9 % (16.0-70.0); PLATELET COUNT 142 TH/MM3 (150-450); RED BLOOD COUNT 4.22 MIL/MM3 (4.50-5.90); RED CELL DISTRIBUTION WIDTH 13.7 % (11.6-17.2); WHITE BLOOD COUNT 6.4 TH/MM3 (4.0-11.0)
[2017-03-19 06:21] LABS: BICARBONATE 26.2 MEQ/L (21.0-32.0); CALCIUM 8.6 MG/DL (8.5-10.1); CREATININE 0.99 MG/DL (0.60-1.30)
[2017-03-19] MEDS: INSULIN ASPART SUPPLEMENTAL SCALE SQ SCH ×4 (08:00→20:58)
[2017-03-19] MEDS ORDERED: POTASSIUM CHLORIDE 10 MEQ CONTROLLED RELEASE TAB PO SCH (09:00)
[2017-03-19] MEDS ORDERED: FUROSEMIDE 80 MG TAB PO SCH (09:00)
[2017-03-19] MEDS: SODIUM CHLORIDE 0.9% FLUSH 10 ML FLUSH IV FLUSH SCH ×2 (09:29→20:57)
[2017-03-19] MEDS: LOSARTAN 50 MG TAB PO SCH (09:30)
--- NOTE | 2017-03-19 12:21 | PD.CARD.PN ---
Subjective Subjective Remarks No events overnight Telemetry with paced rhythm, no further arrhythmias No chest pain/SOB Objective Medications Current Medications Medications (Trade) Dose Ordered Sig/Shannon Route Start Time Stop Time Status Last Admin (NS Flush) 2 ml BID IV FLUSH 03/18/17 21:00 03/19/17 09:29 (NS Flush) 2 ml UNSCH PRN IV FLUSH 03/18/17 16:00 (Lasix) 80 mg DAILY PO 03/19/17 09:00 Future Hold (Cozaar) 100 mg DAILY PO 03/19/17 09:00 03/19/17 09:30 (KCl) 30 meq DAILY PO 03/19/17 09:00 Future Hold (Pravachol) 80 mg HS PO 03/18/17 21:00 03/18/17 20:40 (Cordarone) 200 mg Q12H PO 03/18/17 16:30 03/19/17 03:59 (NovoLOG SUPPLEMENTAL SCALE) 1 ACHS SLIDING SCALE SQ 03/18/17 17:00 03/18/17 20:41 (D50w (Vial) Inj) 50 ml UNSCH PRN IV PUSH 03/18/17 16:45 (Glucagon Inj) 1 mg UNSCH PRN OTHER 03/18/17 16:45 (Lopressor) 50 mg Q12H PO 03/18/17 18:00 03/19/17 05:53 Vital Signs / I&O Vital Signs Date Time Temp Pulse Resp B/P (MAP) Pulse Ox O2 Delivery O2 Flow Rate FiO2 03/19/17 09:30 53 03/19/17 08:00 97.4 53 18 108/64 (79) 97 03/19/17 04:00 56 03/19/17 04:00 98.2 56 18 104/63 (77) 97 03/19/17 00:00 98.0 54 20 111/62 (78) 97 03/19/17 00:00 55 03/18/17 19:50 57 03/18/17 19:33 98.0 62 18 122/56 (78) 97 03/18/17 17:46 03/18/17 17:45 66 18 123/76 (92) 97 Room Air 03/18/17 17:33 97.6 63 20 119/71 (87) 99 03/18/17 13:26 134/56 (82) 03/18/17 13:13 98.6 93 12 127/76 (93) 97 Room Air I/O 03/18/17 03/18/17 03/18/17 03/19/17 03/19/17 03/19/17 07:00 15:00 23:00 07:00 15:00 23:00 Intake Total 720 ml Balance 720 ml Intake Oral 720 ml # Voids 2 # Bowel Movements 0 Physical Exam GENERAL: NAD, AAOx3 SKIN: Warm and dry. HEAD: Atraumatic. Normocephalic. EYES: Pupils equal and round. No scleral icterus. No injection or drainage. ENT: No nasal bleeding or discharge. Mucous membranes pink and moist. NECK: Trachea midline. No JVD. CARDIOVASCULAR: Regular rate and rhythm. RESPIRATORY: No accessory muscle use. Clear to auscultation. Breath sounds equal bilaterally. GASTROINTESTINAL: Abdomen soft, non-tender, nondistended. Hepatic and splenic margins not palpable. MUSCULOSKELETAL: Extremities without clubbing, cyanosis, or edema. No obvious deformities. NEUROLOGICAL: Awake and alert. No obvious cranial nerve deficits. Motor grossly within normal limits. Five out of 5 muscle strength in the arms and legs. Normal speech. PSYCHIATRIC: Appropriate mood and affect; insight and judgment normal. Laboratory Laboratory Tests Test 03/18/17 13:26 03/18/17 19:03 03/19/17 01:00 03/19/17 05:10 White Blood Count 7.2 TH/MM3 6.4 TH/MM3 Red Blood Count 4.63 MIL/MM3 4.22 MIL/MM3 Hemoglobin 14.8 GM/DL 13.7 GM/DL Hematocrit 42.6 % 38.9 % Mean Corpuscular Volume 92.1 FL 92.4 FL Mean Corpuscular Hemoglobin 32.0 PG 32.6 PG Mean Corpuscular Hemoglobin Concent 34.7 % 35.3 % Red Cell Distribution Width 13.2 % 13.7 % Platelet Count 163 TH/MM3 142 TH/MM3 Mean Platelet Volume 8.8 FL 8.6 FL Neutrophils (%) (Auto) 71.8 % 53.9 % Lymphocytes (%) (Auto) 17.6 % 34.1 % Monocytes (%) (Auto) 8.3 % 9.3 % Eosinophils (%) (Auto) 2.0 % 2.2 % Basophils (%) (Auto) 0.3 % 0.5 % Neutrophils # (Auto) 5.2 TH/MM3 3.4 TH/MM3 Lymphocytes # (Auto) 1.3 TH/MM3 2.2 TH/MM3 Monocytes # (Auto) 0.6 TH/MM3 0.6 TH/MM3 Eosinophils # (Auto) 0.1 TH/MM3 0.1 TH/MM3 Basophils # (Auto) 0.0 TH/MM3 0.0 TH/MM3 CBC Comment DIFF FINAL DIFF FINAL Differential Comment Prothrombin Time 11.7 SEC Prothromb Time International Ratio 1.2 RATIO Activated Partial Thromboplast Time 26.4 SEC Blood Urea Nitrogen 16 MG/DL 16 MG/DL Creatinine 1.44 MG/DL 0.99 MG/DL Random Glucose 113 MG/DL 103 MG/DL Calcium Level 8.8 MG/DL 8.6 MG/DL Magnesium Level 1.8 MG/DL Sodium Level 143 MEQ/L 141 MEQ/L Potassium Level 3.1 MEQ/L 3.1 MEQ/L Chloride Level 107 MEQ/L 109 MEQ/L Carbon Dioxide Level 29.7 MEQ/L 26.2 MEQ/L Anion Gap 6 MEQ/L 6 MEQ/L Estimat Glomerular Filtration Rate 50 ML/MIN 76 ML/MIN Total Creatine Kinase 79 U/L Troponin I 0.57 NG/ML 7.08 NG/ML 10.80 NG/ML 11.00 NG/ML Imaging Last 24 hours Impressions Chest X-Ray 03/18/17 1317 Signed Impressions: Service Date/Time: Saturday, March 18, 2017 13:33 - CONCLUSION: No acute abnormality seen. Timmy Resendez MD Assessment and Plan Problem List: (1) Automatic implantable cardioverter-defibrillator in situ ICD Codes: Z95.810 - Presence of automatic (implantable) cardiac defibrillator (2) Elevated troponin ICD Codes: R74.8 - Abnormal levels of other serum enzymes Status: Acute (3) Ventricular tachycardia ICD Codes: I47.2 - Ventricular tachycardia Status: Acute (4) DM (diabetes mellitus) ICD Codes: E11.9 - Type 2 diabetes mellitus without complications Status: Chronic (5) History of CHF (congestive heart failure) ICD Codes: Z86.79 - Personal history of other diseases of the circulatory system Status: Acute (6) History of coronary artery disease ICD Codes: Z86.79 - Personal history of other diseases of the circulatory system Status: Acute Assessment and Plan 1) AICD firing 5 times Some for SVT, 2 for VT History of VT 2) NSTEMI Elevated trop Unsure if due to progression of CAD or from VT/ICD firing Cathed in July, but concern with trop as high as it is Plan for cardiac cath on Monday Will place on heparin drip 3) Non-compliance with medications and outpatient follow up Discussed stopping tobacco abuse 4) Agree with placing on metoprolol over coreg 5) Con't Amiodarone Heriberto Jay DO Mar 19, 2017 12:21
[2017-03-19] MEDS ORDERED: HEPARIN SODIUM - IV 10,000 UNITS/10 ML VIAL IV PUSH ONE (12:45)
[2017-03-19] MEDS: HEPARIN-D5W 25,000 U/250 ML 250 ML IV PRN (13:20)
[2017-03-19 15:46] LABS: HEMATOCRIT 38.7 % (39.0-51.0); HEMOGLOBIN 13.5 GM/DL (13.0-17.0); MEAN CELL VOLUME 91.4 FL (80.0-100.0); MEAN CORPUSCULAR HEMOGLOBIN 31.9 PG (27.0-34.0); MEAN CORPUSCULAR HGB CONC 34.9 % (32.0-36.0); MEAN PLATELET VOLUME 9.6 FL (7.0-11.0); PLATELET COUNT 132 TH/MM3 (150-450); RED BLOOD COUNT 4.23 MIL/MM3 (4.50-5.90); RED CELL DISTRIBUTION WIDTH 13.7 % (11.6-17.2); WHITE BLOOD COUNT 5.7 TH/MM3 (4.0-11.0)
[2017-03-19 15:58] LABS: INTERNATIONAL NORMALIZED RATIO 1.2 RATIO
[2017-03-19] MEDS ORDERED: POTASSIUM CHLORIDE 10 MEQ CONTROLLED RELEASE TAB PO ONE (16:30)
--- NOTE | 2017-03-19 16:35 | HHI.PR ---
Subjective Remarks Denies cp/sob. bradycardic. Objective Vitals Vital Signs Date Time Temp Pulse Resp B/P (MAP) Pulse Ox O2 Delivery O2 Flow Rate FiO2 03/19/17 12:29 50 03/19/17 12:00 98.0 51 18 107/60 (76) 96 03/19/17 09:30 53 03/19/17 08:00 97.4 53 18 108/64 (79) 97 03/19/17 04:00 56 03/19/17 04:00 98.2 56 18 104/63 (77) 97 03/19/17 00:00 98.0 54 20 111/62 (78) 97 03/19/17 00:00 55 03/18/17 19:50 57 03/18/17 19:33 98.0 62 18 122/56 (78) 97 03/18/17 17:46 03/18/17 17:45 66 18 123/76 (92) 97 Room Air 03/18/17 17:33 97.6 63 20 119/71 (87) 99 I/O 03/18/17 03/18/17 03/18/17 03/19/17 03/19/17 03/19/17 07:00 15:00 23:00 07:00 15:00 23:00 Intake Total 720 ml 600 ml Balance 720 ml 600 ml Intake Oral 720 ml 600 ml # Voids 2 3 # Bowel Movements 0 0 Result Diagram: 03/19/17 1436 03/19/17 0510 Imaging Last Impressions Chest X-Ray 03/18/17 1317 Signed Impressions: Service Date/Time: Saturday, March 18, 2017 13:33 - CONCLUSION: No acute abnormality seen. Timmy Resendez MD Objective Remarks AAox3 NAD Clear lungs BL S1S2 RRR Abdomen soft, nt, nd no edema in lower extremities Medications and IVs Current Medications Medications (Trade) Dose Ordered Sig/Shannon Route Start Time Stop Time Status Last Admin (NS Flush) 2 ml BID IV FLUSH 03/18/17 21:00 03/19/17 09:29 (NS Flush) 2 ml UNSCH PRN IV FLUSH 03/18/17 16:00 (Lasix) 80 mg DAILY PO 03/19/17 09:00 Future Hold (Cozaar) 100 mg DAILY PO 03/19/17 09:00 03/19/17 09:30 (KCl) 30 meq DAILY PO 03/19/17 09:00 Future Hold (Pravachol) 80 mg HS PO 03/18/17 21:00 03/18/17 20:40 (Cordarone) 200 mg Q12H PO 03/18/17 16:30 03/19/17 03:59 (NovoLOG SUPPLEMENTAL SCALE) 1 ACHS SLIDING SCALE SQ 03/18/17 17:00 03/18/17 20:41 (D50w (Vial) Inj) 50 ml UNSCH PRN IV PUSH 03/18/17 16:45 (Glucagon Inj) 1 mg UNSCH PRN OTHER 03/18/17 16:45 (Lopressor) 50 mg Q12H PO 03/18/17 18:00 03/19/17 05:53 (Heparin Inj) 5,000 units UNSCH PRN IV PUSH 03/19/17 18:45 (Heparin Inj) 2,500 units UNSCH PRN IV PUSH 03/19/17 18:45 Heparin Sodium/ Dextrose 250 ml @ 10 mls/hr TITRATE PRN IV 03/19/17 12:45 03/19/17 13:20 (KCl) 40 meq ONCE ONCE PO 03/19/17 16:30 03/19/17 16:31 UNV A/P Problem List: (1) Congestive heart failure ICD Code: I50.9 - Heart failure, unspecified Status: Acute (2) HLD (hyperlipidemia) ICD Code: E78.5 - Hyperlipidemia, unspecified Status: Chronic (3) CAD (coronary artery disease) ICD Code: I25.10 - Atherosclerotic heart disease of [place] coronary artery without angina pectoris Status: Chronic (4) Tobacco dependence ICD Code: F17.200 - Nicotine dependence, unspecified, uncomplicated Status: Chronic (5) HTN (hypertension) ICD Code: I10 - Essential (primary) hypertension Status: Chronic (6) DM (diabetes mellitus) ICD Code: E11.9 - Type 2 diabetes mellitus without complications Status: Chronic (7) Elevated troponin I level ICD Code: R74.8 - Abnormal levels of other serum enzymes Status: Acute (8) V-tach ICD Code: I47.2 - Ventricular tachycardia Status: Acute Assessment and Plan V-tach w/pacemaker & defibrillator placed - has been interrogated, concern that patient is not compliant with his medications - supposed to establish with Dr. Jay, will consult - continue home amiodarone - monitor on telemetry - 03/19 radiology consulted. Discussed the case with Dr. Jay. The patient will go for cardiac On to say. Elevated troponin - 0.57, will trend and follow with EKGs -03/19 troponins trended up to a peak troponin of 11. Continue to monitor cardiac enzymes. Agree with heparin drip started by cardiology. Cardiomyopathy - Home Lasix held due to acute kidney injury. - continue carvedilol - ECHO July 2016 with EF 15%, mitral and aortic regurg HLD - continue statin HTN - continue losartan DM - hold home metformin - start patient on sliding scale 03/19 blood sugar stable. Continue to monitor Accu-Cheks and continue SSI with insulin NovoLog. Hypokalemia - replace, continue home KCl 30 meq daily 03/19 potassium still low at 2.1. Replace orally and continue to monitor BMP. Acute kidney injury -Lasix held. Creatinine 1.44 on admission in September it was less than 1. 03/19 acute kidney injury resolved. Creatinine down to 0.99. DVT prophy: SCDs, encourage ambulation Smoking cessation Code Status Full Discharge Planning Continue to monitor on the medical floor on telemetry. Patient for cardiac catheterization on Monday. German Best MD Mar 19, 2017 16:35
[2017-03-19] MEDS: FUROSEMIDE 40 MG TAB PO SCH (18:14)
[2017-03-19] MEDS ORDERED: HEPARIN SODIUM - IV 10,000 UNITS/10 ML VIAL IV PUSH PRN ×2 (18:45)
[2017-03-19] MEDS: PRAVASTATIN SOD 80 MG TAB PO SCH (20:57)
[2017-03-20] VITALS (7 sets, daily range): BP systolic 85–113; BP diastolic 50–61; PULSE 49–64; RESP 16–20; TEMP 98–98.8; O2SAT 93–99
[2017-03-20 02:06] LABS: AUTOMATED NEUTROPHIL # 3.3 TH/MM3 (1.8-7.7); BASOPHIL % 0.6 % (0.0-2.0); EOSINOPHIL # 0.2 TH/MM3 (0-0.4); EOSINOPHIL % 2.6 % (0.0-4.0); HEMATOCRIT 41.6 % (39.0-51.0); HEMOGLOBIN 14.6 GM/DL (13.0-17.0); LYMPH % 36.7 % (9.0-44.0); LYMPHOCYTE # 2.4 TH/MM3 (1.0-4.8); MEAN CORPUSCULAR HEMOGLOBIN 32.6 PG (27.0-34.0); MEAN PLATELET VOLUME 9.2 FL (7.0-11.0); MONOCYTE # 0.6 TH/MM3 (0-0.9); NEUT % 51.1 % (16.0-70.0); PLATELET COUNT 158 TH/MM3 (150-450); RED BLOOD COUNT 4.47 MIL/MM3 (4.50-5.90); RED CELL DISTRIBUTION WIDTH 13.6 % (11.6-17.2); WHITE BLOOD COUNT 6.5 TH/MM3 (4.0-11.0)
[2017-03-20 02:17] LABS: MAGNESIUM 1.8 MG/DL (1.5-2.5); PHOSPHORUS 2.8 MG/DL (2.5-4.9)
[2017-03-20 02:27] LABS: TROPONIN I 8.76 NG/ML (0.02-0.05)
[2017-03-20] MEDS: AMIODARONE 200 MG TAB PO SCH ×2 (05:07→16:03)
[2017-03-20] MEDS: METOPROLOL TARTRATE 50 MG TAB PO SCH ×2 (05:07→17:56)
[2017-03-20] MEDS: INSULIN ASPART SUPPLEMENTAL SCALE SQ SCH ×4 (07:44→21:01)
[2017-03-20] MEDS: LOSARTAN 50 MG TAB PO SCH (09:00)
[2017-03-20] MEDS: FUROSEMIDE 40 MG TAB PO SCH (09:00)
[2017-03-20] MEDS ORDERED: SODIUM CHLORID 0.9% 500 ML INJ 500 ML IV ONE (09:15)
[2017-03-20] MEDS: SODIUM CHLORIDE 0.9% FLUSH 10 ML FLUSH IV FLUSH SCH ×2 (09:46→20:55)
--- NOTE | 2017-03-20 11:16 | PD.CARD.PN ---
Subjective Subjective Remarks No events overnight Telemetry with paced rhythm, no further arrhythmias No chest pain/SOB Objective Medications Current Medications Medications (Trade) Dose Ordered Sig/Shannon Route Start Time Stop Time Status Last Admin (NS Flush) 2 ml BID IV FLUSH 03/18/17 21:00 03/20/17 09:46 (NS Flush) 2 ml UNSCH PRN IV FLUSH 03/18/17 16:00 (Lasix) 80 mg DAILY PO 03/19/17 09:00 Future Hold (Cozaar) 100 mg DAILY PO 03/19/17 09:00 Future Hold 03/19/17 09:30 (KCl) 30 meq DAILY PO 03/19/17 09:00 Future Hold (Pravachol) 80 mg HS PO 03/18/17 21:00 03/19/17 20:57 (Cordarone) 200 mg Q12H PO 03/18/17 16:30 03/20/17 05:07 (NovoLOG SUPPLEMENTAL SCALE) 1 ACHS SLIDING SCALE SQ 03/18/17 17:00 03/18/17 20:41 (D50w (Vial) Inj) 50 ml UNSCH PRN IV PUSH 03/18/17 16:45 (Glucagon Inj) 1 mg UNSCH PRN OTHER 03/18/17 16:45 (Lopressor) 50 mg Q12H PO 03/18/17 18:00 Future Hold 03/20/17 05:07 (Heparin Inj) 5,000 units UNSCH PRN IV PUSH 03/19/17 18:45 (Heparin Inj) 2,500 units UNSCH PRN IV PUSH 03/19/17 18:45 Heparin Sodium/ Dextrose 250 ml @ 10 mls/hr TITRATE PRN IV 03/19/17 12:45 03/19/17 13:20 (Lasix) 40 mg DAILY PO 03/19/17 17:00 Future Hold 03/19/17 18:14 Vital Signs / I&O Vital Signs Date Time Temp Pulse Resp B/P (MAP) Pulse Ox O2 Delivery O2 Flow Rate FiO2 03/20/17 08:45 Room Air 03/20/17 04:00 98.5 51 18 99/57 (71) 93 03/20/17 04:00 49 03/20/17 04:00 Room Air 03/20/17 00:00 Room Air 03/20/17 00:00 54 03/20/17 00:00 98.8 53 18 105/55 (72) 98 03/19/17 20:00 Room Air 03/19/17 20:00 98.4 54 16 110/57 (74) 98 03/19/17 20:00 56 03/19/17 18:41 51 03/19/17 16:00 98.4 53 18 100/57 (71) 96 03/19/17 12:29 50 03/19/17 12:00 98.0 51 18 107/60 (76) 96 I/O 03/19/17 03/19/17 03/19/17 03/20/17 03/20/17 03/20/17 07:00 15:00 23:00 07:00 15:00 23:00 Intake Total 720 ml 600 ml 338 ml Output Total 200 ml Balance 720 ml 600 ml 138 ml Intake Oral 720 ml 600 ml 180 ml IV Total 158 ml Output Urine Total 200 ml # Voids 2 3 # Bowel Movements 0 0 0 Physical Exam GENERAL: NAD, AAOx3 SKIN: Warm and dry. HEAD: Atraumatic. Normocephalic. EYES: Pupils equal and round. No scleral icterus. No injection or drainage. ENT: No nasal bleeding or discharge. Mucous membranes pink and moist. NECK: Trachea midline. No JVD. CARDIOVASCULAR: Regular rate and rhythm. RESPIRATORY: No accessory muscle use. Clear to auscultation. Breath sounds equal bilaterally. GASTROINTESTINAL: Abdomen soft, non-tender, nondistended. Hepatic and splenic margins not palpable. MUSCULOSKELETAL: Extremities without clubbing, cyanosis, or edema. No obvious deformities. NEUROLOGICAL: Awake and alert. No obvious cranial nerve deficits. Motor grossly within normal limits. Five out of 5 muscle strength in the arms and legs. Normal speech. PSYCHIATRIC: Appropriate mood and affect; insight and judgment normal. Laboratory Laboratory Tests Test 03/19/17 14:26 03/19/17 14:36 03/19/17 19:19 03/20/17 01:34 Prothrombin Time 12.0 SEC Prothromb Time International Ratio 1.2 RATIO Activated Partial Thromboplast Time 55.4 SEC 42.8 SEC 42.4 SEC White Blood Count 5.7 TH/MM3 6.5 TH/MM3 Red Blood Count 4.23 MIL/MM3 4.47 MIL/MM3 Hemoglobin 13.5 GM/DL 14.6 GM/DL Hematocrit 38.7 % 41.6 % Mean Corpuscular Volume 91.4 FL 93.0 FL Mean Corpuscular Hemoglobin 31.9 PG 32.6 PG Mean Corpuscular Hemoglobin Concent 34.9 % 35.0 % Red Cell Distribution Width 13.7 % 13.6 % Platelet Count 132 TH/MM3 158 TH/MM3 Mean Platelet Volume 9.6 FL 9.2 FL Neutrophils (%) (Auto) 51.1 % Lymphocytes (%) (Auto) 36.7 % Monocytes (%) (Auto) 9.0 % Eosinophils (%) (Auto) 2.6 % Basophils (%) (Auto) 0.6 % Neutrophils # (Auto) 3.3 TH/MM3 Lymphocytes # (Auto) 2.4 TH/MM3 Monocytes # (Auto) 0.6 TH/MM3 Eosinophils # (Auto) 0.2 TH/MM3 Basophils # (Auto) 0.0 TH/MM3 CBC Comment DIFF FINAL Differential Comment Phosphorus Level 2.8 MG/DL Magnesium Level 1.8 MG/DL Troponin I 8.76 NG/ML Assessment and Plan Problem List: (1) Automatic implantable cardioverter-defibrillator in situ ICD Codes: Z95.810 - Presence of automatic (implantable) cardiac defibrillator (2) Elevated troponin ICD Codes: R74.8 - Abnormal levels of other serum enzymes Status: Acute (3) Ventricular tachycardia ICD Codes: I47.2 - Ventricular tachycardia Status: Acute (4) DM (diabetes mellitus) ICD Codes: E11.9 - Type 2 diabetes mellitus without complications Status: Chronic (5) History of CHF (congestive heart failure) ICD Codes: Z86.79 - Personal history of other diseases of the circulatory system Status: Acute (6) History of coronary artery disease ICD Codes: Z86.79 - Personal history of other diseases of the circulatory system Status: Acute Assessment and Plan 1) AICD firing 5 times Some for SVT, 2 for VT History of VT 2) NSTEMI Elevated trop Unsure if due to progression of CAD or from VT/ICD firing Cathed in July, but concern with trop as high as it is Plan for cardiac cath tomorrow Will place on heparin drip 3) Non-compliance with medications and outpatient follow up Discussed stopping tobacco abuse 4) Agree with placing on metoprolol over coreg 5) Con't Amiodarone Heriberto Jay DO Mar 20, 2017 11:16
[2017-03-20] MEDS ORDERED: SODIUM CHLOR 0.9% 1000 ML INJ 1,000 ML IV ONE (14:45)
--- NOTE | 2017-03-20 15:01 | HHI.PR ---
Subjective Remarks Patient hypotensive today. Denies cp, sob, dizziness. Other vitals stable. Objective Vitals Vital Signs Date Time Temp Pulse Resp B/P (MAP) Pulse Ox O2 Delivery O2 Flow Rate FiO2 03/20/17 12:00 98.0 53 16 88/50 (63) 99 03/20/17 08:45 Room Air 03/20/17 08:00 98.6 50 18 85/52 (63) 97 03/20/17 08:00 53 03/20/17 04:00 98.5 51 18 99/57 (71) 93 03/20/17 04:00 49 03/20/17 04:00 Room Air 03/20/17 00:00 Room Air 03/20/17 00:00 54 03/20/17 00:00 98.8 53 18 105/55 (72) 98 03/19/17 20:00 Room Air 03/19/17 20:00 98.4 54 16 110/57 (74) 98 03/19/17 20:00 56 03/19/17 18:41 51 03/19/17 16:00 98.4 53 18 100/57 (71) 96 I/O 03/19/17 03/19/17 03/19/17 03/20/17 03/20/17 03/20/17 07:00 15:00 23:00 07:00 15:00 23:00 Intake Total 720 ml 600 ml 338 ml Output Total 200 ml Balance 720 ml 600 ml 138 ml Intake Oral 720 ml 600 ml 180 ml IV Total 158 ml Output Urine Total 200 ml # Voids 2 3 # Bowel Movements 0 0 0 Result Diagram: 03/20/17 0134 03/19/17 0510 Imaging Last Impressions Chest X-Ray 03/18/17 1317 Signed Impressions: Service Date/Time: Saturday, March 18, 2017 13:33 - CONCLUSION: No acute abnormality seen. Timmy Resendez MD Objective Remarks AAox3 NAD Clear lungs BL S1S2 RRR Abdomen soft, nt, nd no edema in lower extremities Medications and IVs Current Medications Medications (Trade) Dose Ordered Sig/Shannon Route Start Time Stop Time Status Last Admin (NS Flush) 2 ml BID IV FLUSH 03/18/17 21:00 03/20/17 09:46 (NS Flush) 2 ml UNSCH PRN IV FLUSH 03/18/17 16:00 (Lasix) 80 mg DAILY PO 03/19/17 09:00 Future Hold (Cozaar) 100 mg DAILY PO 03/19/17 09:00 Future Hold 03/19/17 09:30 (KCl) 30 meq DAILY PO 03/19/17 09:00 Future Hold (Pravachol) 80 mg HS PO 03/18/17 21:00 03/19/17 20:57 (Cordarone) 200 mg Q12H PO 03/18/17 16:30 03/20/17 05:07 (NovoLOG SUPPLEMENTAL SCALE) 1 ACHS SLIDING SCALE SQ 03/18/17 17:00 03/18/17 20:41 (D50w (Vial) Inj) 50 ml UNSCH PRN IV PUSH 03/18/17 16:45 (Glucagon Inj) 1 mg UNSCH PRN OTHER 03/18/17 16:45 (Lopressor) 50 mg Q12H PO 03/18/17 18:00 Future hold 03/20/17 05:07 (Heparin Inj) 5,000 units UNSCH PRN IV PUSH 03/19/17 18:45 (Heparin Inj) 2,500 units UNSCH PRN IV PUSH 03/19/17 18:45 Heparin Sodium/ Dextrose 250 ml @ 10 mls/hr TITRATE PRN IV 03/19/17 12:45 03/19/17 13:20 (Lasix) 40 mg DAILY PO 03/19/17 17:00 Future Hold 03/19/17 18:14 Sodium Chloride 1,000 ml @ 999 mls/hr BOLUS ONCE IV 03/20/17 14:45 03/20/17 15:45 A/P Problem List: (1) Congestive heart failure ICD Code: I50.9 - Heart failure, unspecified Status: Acute (2) HLD (hyperlipidemia) ICD Code: E78.5 - Hyperlipidemia, unspecified Status: Chronic (3) CAD (coronary artery disease) ICD Code: I25.10 - Atherosclerotic heart disease of tribal coronary artery without angina pectoris Status: Chronic (4) Tobacco dependence ICD Code: F17.200 - Nicotine dependence, unspecified, uncomplicated Status: Chronic (5) HTN (hypertension) ICD Code: I10 - Essential (primary) hypertension Status: Chronic (6) DM (diabetes mellitus) ICD Code: E11.9 - Type 2 diabetes mellitus without complications Status: Chronic (7) Elevated troponin I level ICD Code: R74.8 - Abnormal levels of other serum enzymes Status: Acute (8) V-tach ICD Code: I47.2 - Ventricular tachycardia Status: Acute Assessment and Plan V-tach w/pacemaker & defibrillator placed - has been interrogated, concern that patient is not compliant with his medications - supposed to establish with Dr. Jay, will consult - continue home amiodarone - monitor on telemetry - 03/19 radiology consulted. Discussed the case with Dr. Jay. The patient will go for cardiac On to say. Elevated troponin - 0.57, will trend and follow with EKGs -03/19 troponins trended up to a peak troponin of 11. Continue to monitor cardiac enzymes. Agree with heparin drip started by cardiology. - 03/20/17 Troponin trending down. No chest pain. Cardiomyopathy - Home Lasix held due to acute kidney injury. - continue carvedilol - ECHO July 2016 with EF 15%, mitral and aortic regurg 03/20/17 Continue to hold lasix - patient hypotensive. HLD - continue statin HTN 03/20/17 Patient hypotensive today. Hold bp meds except beta jose since patient had episode of V tach. This was discussed with Dr Jay. DM Metformin held. Blood sugars stable. Continue to monitor Accu-Cheks and continue SSI with insulin NovoLog. Hypokalemia - replace, continue home KCl 30 meq daily 03/19 potassium still low at 3.1. Replace orally and continue to monitor BMP. 03/20/17 BMP ordered stat. Replace K if low. Acute kidney injury -Lasix held. Creatinine 1.44 on admission in September it was less than 1. 03/19 acute kidney injury resolved. Creatinine down to 0.99. Hypotension Unclear etiology. Likely medication induced. Will hold Losartan. Ordered 500 ml normal saline IV bolus earlier DVT prophy: SCDs, encourage ambulation Smoking cessation Code Status Full Discharge Planning Continue to monitor on the medical floor on telemetry. Patient for cardiac catheterization on Monday. German Best MD Mar 20, 2017 15:01
[2017-03-20] MEDS: HEPARIN-D5W 25,000 U/250 ML 250 ML IV PRN (16:03)
[2017-03-20] MEDS: PRAVASTATIN SOD 80 MG TAB PO SCH (20:55)
[2017-03-20 22:08] LABS: BICARBONATE 28.6 MEQ/L (21.0-32.0); CALCIUM 8.3 MG/DL (8.5-10.1); CREATININE 1.16 MG/DL (0.60-1.30)
[2017-03-21] VITALS (16 sets, daily range): BP systolic 92–115; BP diastolic 57–71; PULSE 48–63; RESP 16–20; TEMP 97.8–98.6; O2SAT 95–98
[2017-03-21] MEDS: METOPROLOL TARTRATE 50 MG TAB PO SCH ×2 (04:24→18:00)
[2017-03-21] MEDS: AMIODARONE 200 MG TAB PO SCH ×2 (04:24→16:15)
[2017-03-21 07:10] LABS: ALBUMIN 2.9 GM/DL (3.4-5.0); AST (GOT) 13 U/L (15-37); AUTOMATED NEUTROPHIL # 3.5 TH/MM3 (1.8-7.7); BASOPHIL % 0.5 % (0.0-2.0); BICARBONATE 23.9 MEQ/L (21.0-32.0); BLOOD UREA NITROGEN 21 MG/DL (7-18); CALCIUM 8.2 MG/DL (8.5-10.1); CHLORIDE 112 MEQ/L (98-107); EOSINOPHIL # 0.1 TH/MM3 (0-0.4); EOSINOPHIL % 2.3 % (0.0-4.0); GLOMERULAR FILTRATION RATE 68 ML/MIN (>89); GLUCOSE,RANDOM 113 MG/DL (74-106); HEMATOCRIT 37.4 % (39.0-51.0); HEMOGLOBIN 12.8 GM/DL (13.0-17.0); LYMPH % 34.7 % (9.0-44.0); LYMPHOCYTE # 2.2 TH/MM3 (1.0-4.8); MAGNESIUM 1.7 MG/DL (1.5-2.5); MEAN CELL VOLUME 93.5 FL (80.0-100.0); MEAN CORPUSCULAR HGB CONC 34.2 % (32.0-36.0); MEAN PLATELET VOLUME 8.7 FL (7.0-11.0); MONO % 7.3 % (0.0-8.0); MONOCYTE # 0.5 TH/MM3 (0-0.9); NEUT % 55.2 % (16.0-70.0); PLATELET COUNT 125 TH/MM3 (150-450); RED CELL DISTRIBUTION WIDTH 13.9 % (11.6-17.2); SODIUM (NA) 143 MEQ/L (136-145); WHITE BLOOD COUNT 6.4 TH/MM3 (4.0-11.0)
[2017-03-21 07:12] LABS: ALT (GPT) 11 U/L (12-78); PHOSPHORUS 2.4 MG/DL (2.5-4.9)
[2017-03-21 07:14] LABS: ALKALINE PHOSPHATASE 49 U/L (45-117); TOTAL BILIRUBIN ADULT 0.4 MG/DL (0.2-1.0)
[2017-03-21] MEDS: INSULIN ASPART SUPPLEMENTAL SCALE SQ SCH ×4 (08:00→21:00)
[2017-03-21] MEDS: SODIUM CHLORIDE 0.9% FLUSH 10 ML FLUSH IV FLUSH SCH ×2 (08:43→21:00)
[2017-03-21] MEDS ORDERED: SODIUM CHLORID 0.9% 500 ML INJ 500 ML IV ONE (10:00)
[2017-03-21] MEDS ORDERED: HEPARIN-NS/PF INJ 1,000 ML ONE (10:30)
[2017-03-21] MEDS ORDERED: VERAPAMIL HCL 5 MG/2 ML VIAL ONE (10:31)
[2017-03-21] MEDS ORDERED: diphenhydrAMINE HCL 50 MG/ML VIAL ONE (10:31)
[2017-03-21] MEDS ORDERED: HEPARIN SODIUM - IV 10,000 UNITS/10 ML VIAL ONE (10:31)
[2017-03-21] MEDS ORDERED: HYDROCORTISONE SOD SUCCINATE 100 MG VIAL ONE (10:31)
[2017-03-21] MEDS ORDERED: MIDAZOLAM HCL 2 MG/2 ML VIAL ONE (10:31)
[2017-03-21] MEDS ORDERED: FAMOTIDINE 20 MG/2 ML VIAL ONE (10:31)
[2017-03-21] MEDS ORDERED: NITROGLYCERIN INJ 5 ML ONE (10:31)
--- NOTE | 2017-03-21 11:51 | CATHPROC ---
[employer] HIS Report Study Information Study Number Admission Scheduled Start Study Start [id number] Mar 18 2017 4:44PM 03/20/2017 Mar 21 2017 9:33AM [place] [facility] Cardiac Catheterization Admit Source Facility Department Emergency department [facility] Physician and Clinical Staff Initial Heriberto Joaquin [employer] Apprentice Yessica Link RN Recorder Itzel Bray,RT(R) Scrub Doni Gupta,RT(R) Procedures Performed Procedure Location (Site) Vessel Name Coronary Angiograms LCA Left Coronary Coronary Angiograms RCA Right Coronary L Heart Cath Equipment Time Technology Infusion Specialist Description Size Mfg Part Number Used/Scraped TRANSDUCER, TRUWAVE [id number] 09:37 RAI CARTER * Used W/STOCKCOCK *[id number] INTRODUCER SET, 11:04 [employer] FR 5 [id number] *[id number] Used MICROPUNCTURE, STIFFENED [phone] *[id number] *[id number] 09:37 [employer] PACK, CCL CUSTOM * Used *[id number] 09:37 [employer] SUPPORT, ARTERIAL ADULT 69907 *[id number] Used [id number] 11:05 MED[employer]ON[employer] JL 4.0 DXTERITY CATHETER FR 5 Used *[id number] 11:43 [place] MEDICAL PACK, ANGIOPLASTY * [id number] Used [id number] 09:37 [place] MEDICAL WIRE, EXCHANGE 260CM 3MMJ 260CM Used *[id number] 09:37 NAMIC MANIFOLD, 4 PORT * Used *[id number] 09:37 [place] OMNIPAQUE, 350 MG, 150ML 150ML [id number] Used [id number] 09:37 [place] MEDICAL BLANKET,WARM AIR CCL * Used *[id number] 11:04 [employer] MEDICAL SHEATH, FR5 TERUMO (10CM) FR 5 Used *[id number] 11:15 [employer] MEDICAL SHEATH, FR6 TERUMO (10CM) FR 6 Used *[id number] 11:17 [place] PRIME WIRE, VERRATA 185CM 185CM [id number] *[id number] Used Scrap: SHEATH, FR6 TRANSRADIAL RM*[id number] 09:37 TERUMO MEDICAL FR 6 Procedure SLENDER 10CM *[id number] Aborted Equipment Model, Serial, Lot Number and Expiration Data Description Model Number Serial Number Lot Number Expiration Date INTRODUCER SET, [id number] 02-03-2020 MICROPUNCTURE, STIFFENED JL 4.0 DXTERITY CATHETER [id number] 10-20-2019 History: Current Medications Medication Dosage/Unit Route Frequency Last Date/Time Taken Beta Katty Statins (any) COZAAR History: Allergies Allergy Reaction Contrast Media History: Risk Factors Family History of Hypertension Dyslipidemia Previous MO Previous Heart Failure Premature CAD Yes Yes No No Yes Prior Valve Prior PCI Prior CABG Surgery No Yes No Cerebrovascular Peripheral Artery Chronic Lung On Dialysis Diabetes Diabetes Therapy Disease Disease Disease No No No No Yes Oral History: Symptoms/Diagnosis Selection Items Chest pain History: Stress Tests Stress or Imaging Studies Performed No History: Other Disease Selection Items CHF HTN History: Other Current Smoker Method Packs a Day Years Used Pack Years Yes Cigarettes 1 44 44 Labs Hgb (g/dl) Hct (%) WBC (l/cumm) Platelets (thousands) 11.60-17.00 35.00-51.00 4.00-11.00 150.00-450.00 12.8 37.4 6.4 125 Glucose (mg/dl) BUN (mg/dl) Creatinine (mg/dl) BUN:Creatinine (1:x) 74.00-106.00 7.00-18.00 0.50-1.30 10.00-20.00 113 21 1.1 19.1 Na (meq/l) K (meq/l) 136.00-145.00 3.50-5.10 143 4 INR (PTT:PT) 0.90-1.10 1.2 Troponin I (ng/ml) CPK-MB (ng/ML) 0.02-0.05 0.50-3.60 8.76 Not Drawn Medication Medication Total Dose (Bolus/Oral) Medication Total Dosage/Unit 1% XYLOCAINE 40 mL BENADRYL 50 mg FENTANYL 25 mcg HEPARIN 5800 units PEPCID 20 mg SOLU-CORTEF 100 mg VERSED 0.5 mg Medications (Bolus/Oral) Medication Time Given Dosage/Unit Administered By Reason SOLU-CORTEF 03/21/2017 10:38:49 AM 100 mg Yessica Link 100 mg SOLU-CORTEF given in lab by Yessica Link, RN in Left Forearm via Peripheral IV. Ordered by Heriberto Jay PEPCID 03/21/2017 10:41:34 AM 20 mg Yessica Link 20 mg PEPCID given in lab by Yessica Link RN in Left Forearm via Peripheral IV. Ordered by Heriberto Manley BENADRYL 03/21/2017 10:43:05 AM 50 mg Yessica Link 50 mg BENADRYL given in lab by Yessica Link RN in Left Forearm via Peripheral IV. Ordered by Heriberto Brooks 1% XYLOCAINE 03/21/2017 10:56:03 AM 20 mL Heriberto Jay 20 mL 1% XYLOCAINE given in lab by Heriberto Jay in Right Radial via Subcutaneous. VERSED 03/21/2017 10:56:08 AM 0.5 mg Yessica Link 0.5 mg VERSED given in lab by Yessica Link RN in Left Forearm via Peripheral IV. Ordered by Heriberto Lombardi. FENTANYL 03/21/2017 10:57:07 AM 25 mcg Yessica Link 25 mcg FENTANYL given in lab by Yessica Link RN in Left Forearm via Peripheral IV. Ordered by Heriberto Patel 1% XYLOCAINE 03/21/2017 11:05:11 AM 20 mL Heriberto Jay 20 mL 1% XYLOCAINE given in lab by Heriberto Jay in Right Groin via Subcutaneous. HEPARIN 03/21/2017 11:21:09 AM 5800 units Yessica Link 5800 units HEPARIN given in lab by Yessica Link RN in Left Forearm via Peripheral IV. Ordered by Heriberto Jay Medication (Drip) Medication Time Given Dosage/Unit Concentration/Unit Diluent (ml) Solution IV Solutions 03/21/2017 10:24:51 AM 50 mL (IV) NaCl .9 IV Solutions given in lab by Yessica Link RN in Left Forearm via Peripheral IV. Pump/Drip Flow us ing NaCl .9. Initial Case Assessment Cardiovascular HR Rhythm NIBP Chest Pain 67 paced 135/79 0 Edema Present Skin color Skin None Normal Warm Dry Circulatory - Right Pulses Dorsalis Pedis Femoral Radial 2 2 2 Scale (0,1,2,3,4,d) Scale (0,1,2,3,4,d) Neurological State Oriented to time-place- Alert Moves all extremities person Respiration - General Respiration Rate SpO2 (%) (B/min) 14 96 Final Case Assessment Cardiovascular HR Rhythm NIBP Chest Pain 63 paced 120/71 0 Edema Present Skin color Skin None Normal Warm Dry Circulatory - Right Pulses Dorsalis Pedis Femoral Radial 2 2 2 Scale (0,1,2,3,4,d) Scale (0,1,2,3,4,d) Neurological State Oriented to time-place- Alert Moves all extremities person Respiration - General Respiration Rate SpO2 (%) (B/min) 14 93 Chronological Log Time Study Chronological Log 10:24:24 Patient arrived via Bed. 10:24:27 Patient Name, D.O.B, / Armband Verified By R.N. 10:24:28 Consent signed by the physician and the patient and verified by the [facility] staff. 10:24:28 Pre-op and post- op instructions given; patient acknowledges understanding of instructions. 10:24:32 Verbal Stimulation=2 Physical Stimulation=2 Airway=2 Respiration=2 TOTAL=8. (0=absent, 1=li mited, 2=present) 10:24:41 Allens test performed on the right radial and ulnar artery. 10:24:43 Patient has been NPO for More than 6Hrs. 10:24:44 Skin Breakdown- none per pt 10:24:44 Patient Warmer Placed on the Table. 10:24:45 [place] [employer]ences Protected 10:24:49 A # 20 IV was noted in the Forearm (left). Grade = 0 10:24:51 IV Solutions given in lab by Yessica Link, EVELYNE in Left Forearm via Peripheral IV. Pump/Dr ip Flow using NaCl .9. 10:24:52 History and physical on the chart or being dictated. Assessment: Initial Case, HR=67 BPM, Rhythm=paced, HSGO=936/79 mmhg, Chest Pain=0, Edema=None, Color=Normal, Skin = Warm, Dry 10:24:53 Right Pulses: Andre Ped=2, Femoral=2, Radial=2 Neurological: State=Alert, Ox3, ELLIOTT Respiration: Resp=14 B/min, SpO2=96 % Vitals capture started with the following parameters, Patient=Adult, Interval=5 min, Initial Pr utksxv=037 mmHg, 10:34:52 Deflation Rate=5 mmHg, Cuff placed on Left Arm 10:34:54 Reference ECG taken 10:35:30 HR=70 bpm, TAHC=609/79 mmhg, SpO2=96.0 %, Resp=13 B/min 10:35:46 Right Radial and groin(s) prepped with 2% chlorhexidine, and draped after a 3 min. waiting time. 10:38:08 paged 100 mg SOLU-CORTEF given in lab by Yessica Link, EVELYNE in Left Forearm via Peripheral IV. Order ed by Pierre, 10:38:49 Heriberto Rajput. 10:40:29 HR=73 bpm, IWLA=363/85 mmhg, SpO2=96.0 %, Resp=13 B/min 10:41:34 20 mg PEPCID given in lab by Yessica Link RN in Left Forearm via Peripheral IV. Ordered by Heriberto Jay 50 mg BENADRYL given in lab by Yessica Link RN in Left Forearm via Peripheral IV. Ordered Heriberto An 10:43:05 G. 10:44:06 MD responded 10:44:59 Pressure channel 1 zeroed. 10:45:30 HR=76 bpm, JDAL=739/83 mmhg, SpO2=95 %, Resp=13 B/min 10:47:07 MD arrived. 10:50:29 HR=66 bpm, TKJQ=631/79 mmhg, SpO2=95 %, Resp=8 B/min Time Out. Correct patient, correct procedure, correct physician, power injector loaded, or not loaded with contrast with 10:54:52 surgical team present. Time Out Concurred by MD and individual staff in procedure. 10:55:28 HR=75 bpm, DBPX=248/81 mmhg, SpO2=96.0 %, Resp=16 B/min 10:56:00 Case Start 10:56:03 20 mL 1% XYLOCAINE given in lab by Heriberto Jay in Right Radial via Subcutaneous. 10:56:08 0.5 mg VERSED given in lab by Yessica Link, EVELYNE in Left Forearm via Peripheral IV. Ordere d by Heriberto Jay. 25 mcg FENTANYL given in lab by Yessica Link, EVELYNE in Left Forearm via Peripheral IV. Ordered by Heriberto Jay 10:57:07 G. 10:59:00 Ultrasound brought in to assist in radial access. 11:00:29 HR=73 bpm, DGZC=134/81 mmhg, SpO2=95 %, Resp=15 B/min 11:03:27 Radial access aborted. 11:05:11 20 mL 1% XYLOCAINE given in lab by Heriberto Jay in Right Groin via Subcutaneous. 11:05:26 HR=73 bpm, RBZX=179/90 mmhg, SpO2=94 %, Resp=13 B/min 11:06:26 Access site was Right Femoral Artery with micropuncture. 11:06:44 A SHEATH, FR5 TERUMO (10CM) FR 5 was advanced into the Fem Art (right) using the Percutaneo us technique. Recorded Pressure: Ao, HR=72, Condition=Condition 1 11:08:08 (Aorta) Ao 134/77/97 11:08:16 An injection in the Fem Art (right) was made through the SHEATH, FR5 TERUMO (10CM) FR 5. A JL 4.0 DXTERITY CATHETER FR 5 was advanced over a wire. OMNIPAQUE, 350 MG, 150ML 150ML was us ed for 11:09:09 injections. 11:10:32 HR=73 bpm, ULQX=653/77 mmhg, SpO2=93 %, Resp=14 B/min 11:12:45 The LCA was injected and visualized at various angles. OMNIPAQUE, 350 MG, 150ML 150ML used . After removing the current catheter a JR 4.0 INFINITI CATHETER FR 5 was advanced over a WIRE, E XCHANGE 260CM 11:15:05 3MMJ 260CM. 11:15:31 HR=66 bpm, TZXA=938/76 mmhg, SpO2=93.0 %, Resp=14 B/min Recorded Pressure: LV, HR=69, Condition=Condition 1 11:16:28 (Left Ventricle) LV 121/15/34 Recorded Pressure: LV, Ao, HR=66, Condition=Condition 1 11:16:59 (Left Ventricle) LV 118/14/34, (Aorta) Ao 120/56/86 11:18:10 The RCA was injected and visualized at various angles. OMNIPAQUE, 350 MG, 150ML 150ML used . 11:18:59 Catheter was removed A SHEATH, FR6 TERUMO (10CM) FR 6 was exchanged in the Fem Art (right). This was necessary in or daisha to 11:19:40 accomodate a larger catheter. 11:20:30 HR=68 bpm, OWEI=065/74 mmhg, SpO2=93 %, Resp=13 B/min 5800 units HEPARIN given in lab by Yessica Link, EVELYNE in Left Forearm via Peripheral IV. Order ed by Heriberto Jay 11:21:09 G. A JL 4.0 GUIDE CATHETER FR 6 was advanced over a wire. OMNIPAQUE, 350 MG, 150ML 150ML was used for 11:22:31 injections. 11:24:49 Flow Wire was was placed in the LAD Mid. The IFR measures 0.95 Percent. 11:25:31 HR=62 bpm, BLSS=353/71 mmhg, SpO2=93.0 %, Resp=16 B/min 11:30:30 HR=61 bpm, JZRS=463/69 mmhg, SpO2=95.0 %, Resp=12 B/min 11:30:38 The PRIME WIRE, VERRATA 185CM 185CM was removed. 11:32:32 Catheter was removed 11:34:01 Activated Clotting Time Drawn 11:34:11 Case End 11:34:22 In the Fem Art (right) the SHEATH, FR6 TERUMO (10CM) FR [address] by Doni Gupta, RT(R). 11:34:30 Sterile dressing applied to site 11:34:31 No case complications noted. 11:34:34 Bedside Report will be given. 11:34:43 A Left Heart Cath was performed. Assessment: Final Case, HR=63 BPM, Rhythm=paced, NAEI=415/71 mmhg, Chest Pain=0, Edema=None, Color=Normal, Skin = Warm, Dry 11:35:06 Right Pulses: Andre Ped=2, Femoral=2, Radial=2 Neurological: State=Alert, Ox3, ELLIOTT Respiration: Resp=14 B/min, SpO2=93 % 11:35:31 HR=65 bpm, GWXZ=523/71 mmhg, SpO2=93 %, Resp=16 B/min 11:40:32 HR=63 bpm, NXJW=332/70 mmhg, SpO2=92 %, Resp=14 B/min 11:41:29 ACT (Normal Range 90-180) = 254 11:45:09 Vitals capture stopped. 11:46:00 Patient moved to [facility] End Study - Contrast Media Used In Study Contrast Total Opened (mL) Total Used (mL) Total Wasted (mL) Omnipaque 85 85 0 End Study - Maximum Contrast Load Max Contrast Load (mL) 378.1 End Study - Radiation Exposure Fluoro Time (minutes) 6.5 End Study - Patient Disposition Complications Transferred To Telemetry Bed
[2017-03-21] MEDS ORDERED: FUROSEMIDE 40 MG/4 ML VIAL IV PUSH ONE (12:00)
[2017-03-21] MEDS ORDERED: MISC INFORMATION XX ONE (12:00)
[2017-03-21] MEDS ORDERED: ATROPINE SULFATE 1 MG/ML VIAL IV PUSH PRN (12:00)
[2017-03-21] MEDS ORDERED: ONDANSETRON HCL 4 MG/2 ML VIAL IV PUSH PRN (12:00)
--- NOTE | 2017-03-21 12:26 | PQ ---
Physician Query Response Document PATIENT: CHERRY SON : 1955 ADMIT DATE: 03/18/2017 4:44 PM DISCH DATE: RESPONDING PROVIDER #: [email or web address] QUERY TEXT: CHF Acuity and Type Congestive Heart Failure is documented in the Medical Record. Please document the type and acuity (in cludes probable or suspected) Such as: Type: -- Systolic -- Diastolic -- Combined -- Other, please specify Acuity: -- Acute -- Chronic -- Acute on chronic -- Other, please specify Also please document the underlying cause of the CHF (includes probable or suspected) The patient's Clinical Indicators include: Your progress note dated 03/19 list the diagnosis of CONGESTIVE HEART FAILURE in your problem list. As well, the medical record states, "- ECHO July 2016 with EF 15%, mitral and aortic regurg." Query created by: Teresita Perkins on 03/21/2017 11:29 AM RESPONSE TEXT: Acute on chronic systolic heart failure QUERY TEXT: Conflicting Documentation Clarification A single mention or documentation of multiple diagnoses for the same clinical presentation appears in the record. Please clarify the diagnosis/diagnoses. Please also document if the condition is: -- Confirmed and current -- Confirmed, treated and resolved -- Ruled out -- Other, please specify The patient's Clinical Indicators include: Cardiology progress notes for 03/19/17 notes: 2) NSTEMI Elevated trop Unsure if due to progression of CAD or from VT/ICD firing Cathed 3 months ago, but concern with trop as high as it is Query created by: Teresita Perkins on 03/21/2017 11:37 AM RESPONSE TEXT: Confirmed and current Electronically signed by: German Perez MD 03/21/2017 12:22 PM
--- NOTE | 2017-03-21 12:26 | MA ---
cc: HERBIERTO AVILA DO DATE: March 21, 2017 PROCEDURE Left heart catheterization, coronary angiogram, IFR LAD, moderate sedation 40 minutes. PREPROCEDURE DIAGNOSIS N-STEMI VT requiring AICD firing x5 POSTPROCEDURE DIAGNOSIS Moderate coronary artery disease. MEDICATIONS 1. Versed 0.5 mg. 2. Fentanyl 25 mcg. 3. Heparin 5800 units. 4. Benadryl 50 mg. 5. Pepcid 20 mg 6. Solu-Cortef 100 mg. CONTRAST 85 mL. FLUOROSCOPY: 6.5 minutes SEDATION: Moderate sedation 40 minutes ESTIMATED BLOOD LOSS 10 CC PROCEDURAL SUMMARY: Ed White is a 61-year-old male who presented to [facility] emergency room due to his AICD firing five times. The patient has known slow VT before but had episodes recently requiring his AICD to fire. He was found to have an elevated troponin. Because this he was recommended cardiac catheterization to rule out further progression of his coronary artery disease. Risks, benefits and alternatives were explained to him and he consented as such. He was brought to lab and prepped in the usual sterile fashion. I attempted to get right radial artery access but was unable to. Right femoral artery was accessed using a modified Seldinger technique and placement of a 5-Mongolian sheath. This was easily aspirated and flushed. A JL-4 was advanced over a J-wire engaged in the left main for angiogram of the left coronary artery system. This was exchanged out for a JR-4 which was used across the aortic valve for measurement of left ventricular pressure. This was pulled back across the aortic valve showing no significant gradient of aortic stenosis. JR-4 was used for selective angiography of the right coronary artery system. He does not appear to be progression of the disease in the Right coronary artery and the left circumflex but the lesion in the LAD does look mildly worse and so I felt that this needed to be further investigated. 5-Mongolian sheath was exchanged for a 6-Mongolian sheath. Heparin was given as an anticoagulant. A JL-4 guide was used to engage the left main. A Quotefisho wire was placed into the mid distal portion of the LAD and I IFR was 0.95 showing non physiologic coronary stenosis. The wire was removed. Final angiogram shows no disruption of the coronary arteries. Guide was removed over a J-wire. Sheath was sutured in place with a plan to remove once ACTs were appropriate. 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 FINDINGS Left main normal size vessel with 10% disease in the midportion. It bifurcates into an LAD and circumflex. Left anterior descending normal-size vessel with a 40-50% lesion in the proximal to midportion and diffuse 30% disease distally. IFR 0.95 showing nonsignificant coronary artery disease. He does have three small diagonals which are all around 1 mm in size. Left circumflex normal size vessel. The midportion has a 40% lesion. It gives off one major obtuse marginal with no significant disease. Right coronary artery is a normal-size vessel with a 50% lesion in the proximal portion and no significant disease distally. Left ventricular end-diastolic pressure 30. IMPRESSION 1. Moderate coronary artery disease, nonobstructive in nature. 2. VT requiring AICD firing x5. RECOMMENDATIONS 1. Mr. White appears to have similar coronary artery disease of last cardiac catheterization which showed previously nonobstructive stenosis of the RCA and left circumflex. Because of that I felt that we should also IFR the left anterior descending which today showed nonphysiologic stenosis. 2. He will continue on medical management. 3. He previously was placed on amiodarone and I will have Dr. Urrutia see him from an EP standpoint for further considerations for his ventricular tachycardia. 4. Further recommendations will be made based on the hospital course. Thank you for allowing me to see Ed White if you have any questions please do not hesitate to call. Heriberto Avila DO NAFISA/angel /11:44 AM 11:57 AM
[2017-03-21] MEDS ORDERED: IOHEXOL 350 MG/ML 100 ML BTL (for Cath Lab) OTHER ONE (13:44)
--- NOTE | 2017-03-21 13:50 | PD.CARD.PN ---
Subjective Subjective Remarks No events overnight, post-cath today Telemetry with paced rhythm, no further arrhythmias No chest pain Mild SOB, but given fluids yesterday and LVEDP high Objective Medications Current Medications Medications (Trade) Dose Ordered Sig/Shannon Route Start Time Stop Time Status Last Admin (NS Flush) 2 ml BID IV FLUSH 03/18/17 21:00 03/20/17 20:55 (NS Flush) 2 ml UNSCH PRN IV FLUSH 03/18/17 16:00 (Lasix) 80 mg DAILY PO 03/19/17 09:00 Future Hold (Cozaar) 100 mg DAILY PO 03/19/17 09:00 Future Hold 03/19/17 09:30 (KCl) 30 meq DAILY PO 03/19/17 09:00 Future Hold (Pravachol) 80 mg HS PO 03/18/17 21:00 03/20/17 20:55 (Cordarone) 200 mg Q12H PO 03/18/17 16:30 03/21/17 04:24 (NovoLOG SUPPLEMENTAL SCALE) 1 ACHS SLIDING SCALE SQ 03/18/17 17:00 03/20/17 21:01 (D50w (Vial) Inj) 50 ml UNSCH PRN IV PUSH 03/18/17 16:45 (Glucagon Inj) 1 mg UNSCH PRN OTHER 03/18/17 16:45 (Lopressor) 50 mg Q12H PO 03/18/17 18:00 Future hold 03/20/17 05:07 (Lasix) 40 mg DAILY PO 03/19/17 17:00 Future hold 03/19/17 18:14 (Atropine Inj) 0.5 mg UNSCH PRN IV PUSH 03/21/17 12:00 (Zofran Inj) 4 mg Q4H PRN IV PUSH 03/21/17 12:00 Vital Signs / I&O Vital Signs Date Time Temp Pulse Resp B/P (MAP) Pulse Ox O2 Delivery O2 Flow Rate FiO2 03/21/17 08:00 58 03/21/17 08:00 98.0 63 20 92/57 (69) 97 03/21/17 07:15 97 Room Air 03/21/17 04:00 98.2 55 19 109/63 (78) 97 03/21/17 04:00 61 03/21/17 00:00 55 03/21/17 00:00 97.8 58 19 101/66 (78) 95 03/21/17 00:00 Room Air 03/20/17 21:00 Room Air 03/20/17 20:00 98.4 55 20 113/56 (75) 97 03/20/17 20:00 64 03/20/17 16:00 98.3 55 16 106/61 (76) 97 03/20/17 16:00 56 I/O 03/20/17 03/20/17 03/20/17 03/21/17 03/21/17 03/21/17 07:00 15:00 23:00 07:00 15:00 23:00 Intake Total 338 ml 960 ml 0 ml Output Total 200 ml 500 ml Balance 138 ml 460 ml 0 ml Intake Oral 180 ml 960 ml 0 ml IV Total 158 ml Output Urine Total 200 ml 500 ml # Voids 2 # Bowel Movements 0 1 0 Physical Exam GENERAL: NAD, AAOx3 SKIN: Warm and dry. HEAD: Atraumatic. Normocephalic. EYES: Pupils equal and round. No scleral icterus. No injection or drainage. ENT: No nasal bleeding or discharge. Mucous membranes pink and moist. NECK: Trachea midline. No JVD. CARDIOVASCULAR: Regular rate and rhythm. RESPIRATORY: No accessory muscle use. Clear to auscultation. Breath sounds equal bilaterally. GASTROINTESTINAL: Abdomen soft, non-tender, nondistended. Hepatic and splenic margins not palpable. MUSCULOSKELETAL: Extremities without clubbing, cyanosis, or edema. No obvious deformities. Right femoral sheath in place. NEUROLOGICAL: Awake and alert. No obvious cranial nerve deficits. Motor grossly within normal limits. Five out of 5 muscle strength in the arms and legs. Normal speech. PSYCHIATRIC: Appropriate mood and affect; insight and judgment normal. Laboratory Laboratory Tests Test 03/20/17 21:35 03/21/17 06:00 Blood Urea Nitrogen 20 MG/DL 21 MG/DL Creatinine 1.16 MG/DL 1.10 MG/DL Random Glucose 137 MG/DL 113 MG/DL Calcium Level 8.3 MG/DL 8.2 MG/DL Sodium Level 143 MEQ/L 143 MEQ/L Potassium Level 4.1 MEQ/L 4.0 MEQ/L Chloride Level 111 MEQ/L 112 MEQ/L Carbon Dioxide Level 28.6 MEQ/L 23.9 MEQ/L Anion Gap 3 MEQ/L 7 MEQ/L Estimat Glomerular Filtration Rate 64 ML/MIN 68 ML/MIN White Blood Count 6.4 TH/MM3 Red Blood Count 4.00 MIL/MM3 Hemoglobin 12.8 GM/DL Hematocrit 37.4 % Mean Corpuscular Volume 93.5 FL Mean Corpuscular Hemoglobin 32.0 PG Mean Corpuscular Hemoglobin Concent 34.2 % Red Cell Distribution Width 13.9 % Platelet Count 125 TH/MM3 Mean Platelet Volume 8.7 FL Neutrophils (%) (Auto) 55.2 % Lymphocytes (%) (Auto) 34.7 % Monocytes (%) (Auto) 7.3 % Eosinophils (%) (Auto) 2.3 % Basophils (%) (Auto) 0.5 % Neutrophils # (Auto) 3.5 TH/MM3 Lymphocytes # (Auto) 2.2 TH/MM3 Monocytes # (Auto) 0.5 TH/MM3 Eosinophils # (Auto) 0.1 TH/MM3 Basophils # (Auto) 0.0 TH/MM3 CBC Comment DIFF FINAL Differential Comment Activated Partial Thromboplast Time 41.5 SEC Total Protein 6.0 GM/DL Albumin 2.9 GM/DL Phosphorus Level 2.4 MG/DL Magnesium Level 1.7 MG/DL Alkaline Phosphatase 49 U/L Aspartate Amino Transf (AST/SGOT) 13 U/L Alanine Aminotransferase (ALT/SGPT) 11 U/L Total Bilirubin 0.4 MG/DL Assessment and Plan Problem List: (1) Automatic implantable cardioverter-defibrillator in situ ICD Codes: Z95.810 - Presence of automatic (implantable) cardiac defibrillator (2) Elevated troponin ICD Codes: R74.8 - Abnormal levels of other serum enzymes Status: Acute (3) Ventricular tachycardia ICD Codes: I47.2 - Ventricular tachycardia Status: Acute (4) DM (diabetes mellitus) ICD Codes: E11.9 - Type 2 diabetes mellitus without complications Status: Chronic (5) History of CHF (congestive heart failure) ICD Codes: Z86.79 - Personal history of other diseases of the circulatory system Status: Acute (6) History of coronary artery disease ICD Codes: Z86.79 - Personal history of other diseases of the circulatory system Status: Acute Assessment and Plan 1) AICD firing 5 times VT noted on ICD History of slow VT, started on Amiodarone before 2) NSTEMI Elevated trop No progression of CAD 3) Non-compliance with medications and outpatient follow up Discussed stopping tobacco abuse 4) Agree with placing on metoprolol over coreg 5) Con't Amiodarone 6) Will have Dr. Urrutia see the patient for further considerations of VT Heriberto Jay DO Mar 21, 2017 13:50
--- NOTE | 2017-03-21 14:07 | HHI.PR ---
Subjective Remarks Deferred entry - patient seen at 9:45 am Patient denies cp/sob. Denies dizziness, nausea or vomiting. Objective Vitals Vital Signs Date Time Temp Pulse Resp B/P (MAP) Pulse Ox O2 Delivery O2 Flow Rate FiO2 03/21/17 12:30 98.6 53 18 115/69 (84) 97 03/21/17 12:30 97 Room Air 03/21/17 08:00 58 03/21/17 08:00 98.0 63 20 92/57 (69) 97 03/21/17 07:15 97 Room Air 03/21/17 04:00 98.2 55 19 109/63 (78) 97 03/21/17 04:00 61 03/21/17 00:00 55 03/21/17 00:00 97.8 58 19 101/66 (78) 95 03/21/17 00:00 Room Air 03/20/17 21:00 Room Air 03/20/17 20:00 98.4 55 20 113/56 (75) 97 03/20/17 20:00 64 03/20/17 16:00 98.3 55 16 106/61 (76) 97 03/20/17 16:00 56 I/O 03/20/17 03/20/17 03/20/17 03/21/17 03/21/17 03/21/17 07:00 15:00 23:00 07:00 15:00 23:00 Intake Total 338 ml 960 ml 0 ml Output Total 200 ml 500 ml Balance 138 ml 460 ml 0 ml Intake Oral 180 ml 960 ml 0 ml IV Total 158 ml Output Urine Total 200 ml 500 ml # Voids 2 # Bowel Movements 0 1 0 Result Diagram: 03/21/17 0600 03/21/17 0600 Imaging Last Impressions Chest X-Ray 03/18/17 1317 Signed Impressions: Service Date/Time: Saturday, March 18, 2017 13:33 - CONCLUSION: No acute abnormality seen. Timmy Resendez MD Objective Remarks AAox3 NAD Clear lungs BL S1S2 RRR Abdomen soft, nt, nd no edema in lower extremities Medications and IVs Current Medications Medications (Trade) Dose Ordered Sig/Shannon Route Start Time Stop Time Status Last Admin (NS Flush) 2 ml BID IV FLUSH 03/18/17 21:00 03/20/17 20:55 (NS Flush) 2 ml UNSCH PRN IV FLUSH 03/18/17 16:00 (Lasix) 80 mg DAILY PO 03/19/17 09:00 Future Hold (Cozaar) 100 mg DAILY PO 03/19/17 09:00 Future Hold 03/19/17 09:30 (KCl) 30 meq DAILY PO 03/19/17 09:00 Future Hold (Pravachol) 80 mg HS PO 03/18/17 21:00 03/20/17 20:55 (Cordarone) 200 mg Q12H PO 03/18/17 16:30 03/21/17 04:24 (NovoLOG SUPPLEMENTAL SCALE) 1 ACHS SLIDING SCALE SQ 03/18/17 17:00 03/20/17 21:01 (D50w (Vial) Inj) 50 ml UNSCH PRN IV PUSH 03/18/17 16:45 (Glucagon Inj) 1 mg UNSCH PRN OTHER 03/18/17 16:45 (Lopressor) 50 mg Q12H PO 03/18/17 18:00 Future hold 03/20/17 05:07 (Lasix) 40 mg DAILY PO 03/19/17 17:00 Future hold 03/19/17 18:14 (Atropine Inj) 0.5 mg UNSCH PRN IV PUSH 03/21/17 12:00 (Zofran Inj) 4 mg Q4H PRN IV PUSH 03/21/17 12:00 A/P Problem List: (1) Congestive heart failure ICD Code: I50.9 - Heart failure, unspecified Status: Acute (2) HLD (hyperlipidemia) ICD Code: E78.5 - Hyperlipidemia, unspecified Status: Chronic (3) CAD (coronary artery disease) ICD Code: I25.10 - Atherosclerotic heart disease of [place] coronary artery without angina pectoris Status: Chronic (4) Tobacco dependence ICD Code: F17.200 - Nicotine dependence, unspecified, uncomplicated Status: Chronic (5) HTN (hypertension) ICD Code: I10 - Essential (primary) hypertension Status: Chronic (6) DM (diabetes mellitus) ICD Code: E11.9 - Type 2 diabetes mellitus without complications Status: Chronic (7) Elevated troponin I level ICD Code: R74.8 - Abnormal levels of other serum enzymes Status: Acute (8) V-tach ICD Code: I47.2 - Ventricular tachycardia Status: Acute Assessment and Plan V-tach w/pacemaker & defibrillator placed - has been interrogated, concern that patient is not compliant with his medications - supposed to establish with Dr. Jay, will consult - continue home amiodarone - monitor on telemetry - 03/19 cardiology consulted. Discussed the case with Dr. Jay. The patient will go for cardiac cath Monday. - 03/21 for cardiac cath today. Keep potassium around 4 and magnesium around more or equal to 2 to minimize the risk of arrhythmia. Elevated troponin - 0.57, will trend and follow with EKGs -03/19 troponins trended up to a peak troponin of 11. Continue to monitor cardiac enzymes. Agree with heparin drip started by cardiology. - 03/20/17 Troponin trending down. No chest pain. Cardiomyopathy - Home Lasix held due to acute kidney injury. - continue carvedilol - ECHO July 2016 with EF 15%, mitral and aortic regurg 03/21/17 Continue to hold lasix - patient hypotensive. HLD - continue statin HTN 03/20/17 Patient hypotensive today. Hold bp meds except beta jose since patient had episode of V tach. This was discussed with Dr Jay. 03/21 Patient still with low bp 92/57 ---> ordered 500 ml normal saline bolus. DM Metformin held. Blood sugars stable. Continue to monitor Accu-Cheks and continue SSI with insulin NovoLog. Hypokalemia - replace, continue home KCl 30 meq daily 03/19 potassium still low at 3.1. Replace orally and continue to monitor BMP. 2 Resolved. continue to monitor BMP. Acute kidney injury -Lasix held. Creatinine 1.44 on admission in September it was less than 1. 03/19 acute kidney injury resolved. Creatinine down to 0.99. Hypotension Unclear etiology. Likely medication induced. Continue to hold bp medications and lasix. Will order NS bolus. Continue to monitor vital signs. Blus prn. DVT prophy: SCDs, encourage ambulation Smoking cessation Code Status Full Discharge Planning Continue to monitor on the medical floor on telemetry. Patient for cardiac catheterization on Monday. German Best MD Mar 21, 2017 14:07
[2017-03-21] MEDS: POTASSIUM PHOSPHATE/SODIUM PHOSPHATE 250 MG TAB PO SCH ×2 (14:15→22:04)
[2017-03-21] MEDS: MAGNESIUM SULFATE 1 GM PREMIX 100 ML IV SCH ×2 (16:00→16:15)
[2017-03-21] MEDS: PRAVASTATIN SOD 80 MG TAB PO SCH (22:04)
[2017-03-22] VITALS (27 sets, daily range): BP systolic 100–117; BP diastolic 51–79; PULSE 52–75; RESP 16–18; TEMP 97.6–99.3; O2SAT 93–98
[2017-03-22] MEDS: POTASSIUM PHOSPHATE/SODIUM PHOSPHATE 250 MG TAB PO SCH ×3 (05:41→21:18)
[2017-03-22] MEDS: METOPROLOL TARTRATE 50 MG TAB PO SCH ×2 (05:41→16:58)
[2017-03-22] MEDS: AMIODARONE 200 MG TAB PO SCH ×2 (05:41→15:34)
[2017-03-22 07:08] LABS: BASOPHIL % 0.2 % (0.0-2.0); EOSINOPHIL # 0.1 TH/MM3 (0-0.4); EOSINOPHIL % 1.4 % (0.0-4.0); HEMATOCRIT 36.9 % (39.0-51.0); HEMOGLOBIN 12.8 GM/DL (13.0-17.0); LYMPH % 25.4 % (9.0-44.0); LYMPHOCYTE # 1.9 TH/MM3 (1.0-4.8); MEAN CELL VOLUME 92.6 FL (80.0-100.0); MEAN CORPUSCULAR HEMOGLOBIN 32.1 PG (27.0-34.0); MEAN CORPUSCULAR HGB CONC 34.7 % (32.0-36.0); MEAN PLATELET VOLUME 9.6 FL (7.0-11.0); MONO % 5.5 % (0.0-8.0); MONOCYTE # 0.4 TH/MM3 (0-0.9); NEUT % 67.5 % (16.0-70.0); PLATELET COUNT 136 TH/MM3 (150-450); RED BLOOD COUNT 3.98 MIL/MM3 (4.50-5.90); RED CELL DISTRIBUTION WIDTH 13.7 % (11.6-17.2); WHITE BLOOD COUNT 7.4 TH/MM3 (4.0-11.0)
[2017-03-22 07:35] LABS: BICARBONATE 27.1 MEQ/L (21.0-32.0); CALCIUM 8.6 MG/DL (8.5-10.1); CREATININE 0.97 MG/DL (0.60-1.30)
[2017-03-22] MEDS: INSULIN ASPART SUPPLEMENTAL SCALE SQ SCH ×4 (08:00→21:00)
[2017-03-22] MEDS: FUROSEMIDE 40 MG TAB PO SCH (09:00)
[2017-03-22] MEDS: SODIUM CHLORIDE 0.9% FLUSH 10 ML FLUSH IV FLUSH SCH ×2 (09:00→21:17)
--- NOTE | 2017-03-22 14:43 | PD.CARD.PN ---
Subjective Subjective Remarks No events overnight, post-cath today No chest pain/SOB Objective Medications Current Medications Medications (Trade) Dose Ordered Sig/Shannon Route Start Time Stop Time Status Last Admin (NS Flush) 2 ml BID IV FLUSH 03/18/17 21:00 03/22/17 09:00 (NS Flush) 2 ml UNSCH PRN IV FLUSH 03/18/17 16:00 (Lasix) 80 mg DAILY PO 03/19/17 09:00 Future Hold (Cozaar) 100 mg DAILY PO 03/19/17 09:00 Future Hold 03/19/17 09:30 (KCl) 30 meq DAILY PO 03/19/17 09:00 Future Hold (Pravachol) 80 mg HS PO 03/18/17 21:00 03/21/17 22:04 (Cordarone) 200 mg Q12H PO 03/18/17 16:30 03/22/17 05:41 (NovoLOG SUPPLEMENTAL SCALE) 1 ACHS SLIDING SCALE SQ 03/18/17 17:00 03/22/17 12:28 (D50w (Vial) Inj) 50 ml UNSCH PRN IV PUSH 03/18/17 16:45 (Glucagon Inj) 1 mg UNSCH PRN OTHER 03/18/17 16:45 (Lopressor) 50 mg Q12H PO 03/18/17 18:00 Future hold 03/22/17 05:41 (Lasix) 40 mg DAILY PO 03/19/17 17:00 Future hold 03/22/17 09:00 (Atropine Inj) 0.5 mg UNSCH PRN IV PUSH 03/21/17 12:00 (Zofran Inj) 4 mg Q4H PRN IV PUSH 03/21/17 12:00 (K-Phos Neutral) 250 mg Q8HR PO 03/21/17 14:15 03/22/17 13:21 Vital Signs / I&O Vital Signs Date Time Temp Pulse Resp B/P (MAP) Pulse Ox O2 Delivery O2 Flow Rate FiO2 03/22/17 14:16 68 03/22/17 13:26 68 03/22/17 12:00 70 03/22/17 11:47 99.3 71 18 100/51 (67) 95 03/22/17 11:00 66 03/22/17 10:00 70 03/22/17 09:00 60 03/22/17 08:00 58 03/22/17 07:46 98.3 55 18 115/76 (89) 97 03/22/17 07:46 97 Room Air 03/22/17 07:00 52 03/22/17 06:00 73 03/22/17 05:00 72 03/22/17 04:00 58 03/22/17 03:00 66 03/22/17 03:00 98.5 58 16 117/79 (92) 98 03/22/17 02:00 63 03/22/17 01:00 54 03/22/17 00:00 97.6 53 16 101/59 (73) 98 03/22/17 00:00 54 03/22/17 00:00 98 Room Air 03/21/17 23:00 58 03/21/17 22:00 62 03/21/17 21:00 56 03/21/17 20:00 54 03/21/17 20:00 98 Room Air 03/21/17 20:00 97.8 56 16 105/71 (82) 98 03/21/17 19:00 50 03/21/17 18:01 53 03/21/17 17:01 48 03/21/17 16:00 48 03/21/17 15:01 99 Room Air 03/21/17 15:01 98.6 50 18 114/63 (80) 97 03/21/17 15:00 50 I/O 03/21/17 03/21/17 03/21/17 03/22/17 03/22/17 03/22/17 07:00 15:00 23:00 07:00 15:00 23:00 Intake Total 0 ml 580 ml 480 ml Output Total 300 ml Balance 0 ml 580 ml 180 ml Intake Oral 0 ml 480 ml 480 ml IV Total 100 ml Output Urine Total 300 ml # Voids 2 0 2 # Bowel Movements 0 0 Physical Exam GENERAL: NAD, AAOx3 SKIN: Warm and dry. HEAD: Atraumatic. Normocephalic. EYES: Pupils equal and round. No scleral icterus. No injection or drainage. ENT: No nasal bleeding or discharge. Mucous membranes pink and moist. NECK: Trachea midline. No JVD. CARDIOVASCULAR: Regular rate and rhythm. RESPIRATORY: No accessory muscle use. Clear to auscultation. Breath sounds equal bilaterally. GASTROINTESTINAL: Abdomen soft, non-tender, nondistended. Hepatic and splenic margins not palpable. MUSCULOSKELETAL: Extremities without clubbing, cyanosis, or edema. No obvious deformities. Right femoral sheath in place. NEUROLOGICAL: Awake and alert. No obvious cranial nerve deficits. Motor grossly within normal limits. Five out of 5 muscle strength in the arms and legs. Normal speech. PSYCHIATRIC: Appropriate mood and affect; insight and judgment normal. Laboratory Laboratory Tests Test 03/22/17 05:30 03/22/17 14:18 White Blood Count 7.4 TH/MM3 Red Blood Count 3.98 MIL/MM3 Hemoglobin 12.8 GM/DL Hematocrit 36.9 % Mean Corpuscular Volume 92.6 FL Mean Corpuscular Hemoglobin 32.1 PG Mean Corpuscular Hemoglobin Concent 34.7 % Red Cell Distribution Width 13.7 % Platelet Count 136 TH/MM3 Mean Platelet Volume 9.6 FL Neutrophils (%) (Auto) 67.5 % Lymphocytes (%) (Auto) 25.4 % Monocytes (%) (Auto) 5.5 % Eosinophils (%) (Auto) 1.4 % Basophils (%) (Auto) 0.2 % Neutrophils # (Auto) 5.0 TH/MM3 Lymphocytes # (Auto) 1.9 TH/MM3 Monocytes # (Auto) 0.4 TH/MM3 Eosinophils # (Auto) 0.1 TH/MM3 Basophils # (Auto) 0.0 TH/MM3 CBC Comment DIFF FINAL Differential Comment Activated Partial Thromboplast Time 25.2 SEC Blood Urea Nitrogen 18 MG/DL Creatinine 0.97 MG/DL Random Glucose 121 MG/DL Calcium Level 8.6 MG/DL Sodium Level 143 MEQ/L Potassium Level 3.6 MEQ/L Chloride Level 110 MEQ/L Carbon Dioxide Level 27.1 MEQ/L Anion Gap 6 MEQ/L Estimat Glomerular Filtration Rate 78 ML/MIN Assessment and Plan Problem List: (1) Automatic implantable cardioverter-defibrillator in situ ICD Codes: Z95.810 - Presence of automatic (implantable) cardiac defibrillator (2) Elevated troponin ICD Codes: R74.8 - Abnormal levels of other serum enzymes Status: Acute (3) Ventricular tachycardia ICD Codes: I47.2 - Ventricular tachycardia Status: Acute (4) DM (diabetes mellitus) ICD Codes: E11.9 - Type 2 diabetes mellitus without complications Status: Chronic (5) History of CHF (congestive heart failure) ICD Codes: Z86.79 - Personal history of other diseases of the circulatory system Status: Acute (6) History of coronary artery disease ICD Codes: Z86.79 - Personal history of other diseases of the circulatory system Status: Acute Assessment and Plan 1) AICD firing 5 times VT noted on ICD History of slow VT, started on Amiodarone previously 2) NSTEMI Elevated trop No progression of CAD 3) Non-compliance with medications and outpatient follow up Discussed stopping tobacco abuse 4) Agree with placing on metoprolol over coreg 5) Con't Amiodarone 6) Will have Dr. Urrutia see the patient for further considerations of VT Heriberto Jay DO Mar 22, 2017 14:43
[2017-03-22 14:45] LABS: MAGNESIUM 1.8 MG/DL (1.5-2.5)
--- NOTE | 2017-03-22 18:33 | HHI.PR ---
Subjective Remarks Pt is feeling well today, eager to go home, but he understands that his condition deserves further work up while he is here. Objective Vitals Vital Signs Date Time Temp Pulse Resp B/P (MAP) Pulse Ox O2 Delivery O2 Flow Rate FiO2 03/22/17 18:00 62 03/22/17 17:00 68 03/22/17 16:07 64 03/22/17 15:31 99.2 68 18 105/59 (74) 93 03/22/17 15:03 75 03/22/17 14:16 68 03/22/17 13:26 68 03/22/17 12:00 70 03/22/17 11:47 99.3 71 18 100/51 (67) 95 03/22/17 11:00 66 03/22/17 10:00 70 03/22/17 09:00 60 03/22/17 08:00 58 03/22/17 07:46 98.3 55 18 115/76 (89) 97 03/22/17 07:46 97 Room Air 03/22/17 07:00 52 03/22/17 06:00 73 03/22/17 05:00 72 03/22/17 04:00 58 03/22/17 03:00 66 03/22/17 03:00 98.5 58 16 117/79 (92) 98 03/22/17 02:00 63 03/22/17 01:00 54 03/22/17 00:00 97.6 53 16 101/59 (73) 98 03/22/17 00:00 54 03/22/17 00:00 98 Room Air 03/21/17 23:00 58 03/21/17 22:00 62 03/21/17 21:00 56 03/21/17 20:00 54 03/21/17 20:00 98 Room Air 03/21/17 20:00 97.8 56 16 105/71 (82) 98 03/21/17 19:00 50 I/O 03/21/17 03/21/17 03/21/17 03/22/17 03/22/17 03/22/17 07:00 15:00 23:00 07:00 15:00 23:00 Intake Total 0 ml 580 ml 480 ml 620 ml Output Total 300 ml 600 ml Balance 0 ml 580 ml 180 ml 20 ml Intake Oral 0 ml 480 ml 480 ml 620 ml IV Total 100 ml Output Urine Total 300 ml 600 ml # Voids 2 0 2 1 # Bowel Movements 0 0 0 Result Diagram: 03/22/17 0530 03/22/17 1418 Objective Remarks GENERAL: Well-nourished, well-developed patient. SKIN: Warm and dry. HEAD: Normocephalic. EYES: No scleral icterus. No injection or drainage. NECK: Supple, trachea midline. No JVD or lymphadenopathy. CARDIOVASCULAR: Regular rate and rhythm without murmurs, gallops, or rubs. RESPIRATORY: Breath sounds equal bilaterally. No accessory muscle use. GASTROINTESTINAL: Abdomen soft, non-tender, nondistended. MUSCULOSKELETAL: No cyanosis, or edema. BACK: Nontender without obvious deformity. No CVA tenderness. EXTREMITIES: No edema A/P Problem List: (1) Congestive heart failure ICD Code: I50.9 - Heart failure, unspecified Status: Acute (2) HLD (hyperlipidemia) ICD Code: E78.5 - Hyperlipidemia, unspecified Status: Chronic (3) CAD (coronary artery disease) ICD Code: I25.10 - Atherosclerotic heart disease of [place] coronary artery without angina pectoris Status: Chronic (4) Tobacco dependence ICD Code: F17.200 - Nicotine dependence, unspecified, uncomplicated Status: Chronic (5) HTN (hypertension) ICD Code: I10 - Essential (primary) hypertension Status: Chronic (6) DM (diabetes mellitus) ICD Code: E11.9 - Type 2 diabetes mellitus without complications Status: Chronic (7) Elevated troponin I level ICD Code: R74.8 - Abnormal levels of other serum enzymes Status: Acute (8) V-tach ICD Code: I47.2 - Ventricular tachycardia Status: Acute Assessment and Plan V-tach w/pacemaker & defibrillator placed Appreciate Dr. Jay and Dr. Urrutia consulting No symptomatic episodes today Awaiting electrocardiologist review of condition Elevated troponin Secondary to arrhythmia (V Tach), no stent was needed during catheterization Downward trend is encouraging Patient remains asymptomatic Cardiomyopathy ECHO July 2016 with EF 15%, mitral and aortic regurg Pt hypotensive on Lasix, which is currently held Continue carvedilol for rate control Type 2 Diabetes Sliding scale insulin and routine accuchecks Diabetic Diet Metformin held Hypokalemia, Hypomagnesemia Continue home KCl 30 meq daily Both potassium and magnesium are normal today Follow Trend DVT Prophylaxis SCD hose, encourage ambulation Discharge Planning To follow cardiology and electrocardiology recommendations Will obtain respiratory walk test off of oxygen Lionel Beckman MD Mar 22, 2017 6:33 pm
[2017-03-22] MEDS: PRAVASTATIN SOD 80 MG TAB PO SCH (21:00)
[2017-03-23] VITALS (15 sets, daily range): BP systolic 103–119; BP diastolic 55–70; PULSE 52–65; RESP 16; TEMP 98.3–98.4; O2SAT 95–98
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
[2017-03-23] MEDS: METOPROLOL TARTRATE 50 MG TAB PO SCH (05:45)
[2017-03-23] MEDS: POTASSIUM PHOSPHATE/SODIUM PHOSPHATE 250 MG TAB PO SCH ×2 (05:45→13:19)
--- NOTE | 2017-03-23 07:50 | PD.CARD.PN ---
Subjective Subjective Remarks Feeling better. Objective Medications Current Medications Medications (Trade) Dose Ordered Sig/Shannon Route Start Time Stop Time Status Last Admin (NS Flush) 2 ml BID IV FLUSH 03/18/17 21:00 03/22/17 21:17 (NS Flush) 2 ml UNSCH PRN IV FLUSH 03/18/17 16:00 (Lasix) 80 mg DAILY PO 03/19/17 09:00 Future Hold (Cozaar) 100 mg DAILY PO 03/19/17 09:00 Future Hold 03/19/17 09:30 (KCl) 30 meq DAILY PO 03/19/17 09:00 Future Hold (Pravachol) 80 mg HS PO 03/18/17 21:00 03/22/17 21:00 (NovoLOG SUPPLEMENTAL SCALE) 1 ACHS SLIDING SCALE SQ 03/18/17 17:00 03/22/17 12:28 (D50w (Vial) Inj) 50 ml UNSCH PRN IV PUSH 03/18/17 16:45 (Glucagon Inj) 1 mg UNSCH PRN OTHER 03/18/17 16:45 (Lopressor) 50 mg Q12H PO 03/18/17 18:00 Future hold 03/23/17 05:45 (Lasix) 40 mg DAILY PO 03/19/17 17:00 Future hold 03/22/17 09:00 (Atropine Inj) 0.5 mg UNSCH PRN IV PUSH 03/21/17 12:00 (Zofran Inj) 4 mg Q4H PRN IV PUSH 03/21/17 12:00 (K-Phos Neutral) 250 mg Q8HR PO 03/21/17 14:15 03/23/17 05:45 (Cordarone) 200 mg DAILY PO 03/23/17 09:00 Vital Signs / I&O Vital Signs Date Time Temp Pulse Resp B/P (MAP) Pulse Ox O2 Delivery O2 Flow Rate FiO2 03/23/17 06:00 62 03/23/17 05:00 56 03/23/17 04:00 60 03/23/17 04:00 98.3 58 16 119/62 (81) 97 03/23/17 03:00 62 03/23/17 02:00 62 03/23/17 01:00 53 03/23/17 00:00 58 03/23/17 00:00 98.4 58 16 104/60 (75) 97 03/22/17 23:00 54 03/22/17 22:00 54 03/22/17 21:00 54 03/22/17 20:00 54 03/22/17 20:00 99.0 52 16 102/63 (76) 95 03/22/17 20:00 95 Room Air 03/22/17 19:00 58 03/22/17 18:00 62 03/22/17 17:00 68 03/22/17 16:07 64 03/22/17 15:31 99.2 68 18 105/59 (74) 93 03/22/17 15:03 75 03/22/17 14:16 68 03/22/17 13:26 68 03/22/17 12:00 70 03/22/17 11:47 99.3 71 18 100/51 (67) 95 03/22/17 11:00 66 03/22/17 10:00 70 03/22/17 09:00 60 03/22/17 08:00 58 I/O 03/22/17 03/22/17 03/22/17 03/23/17 03/23/17 03/23/17 07:00 15:00 23:00 07:00 15:00 23:00 Intake Total 480 ml 620 ml 360 ml Output Total 300 ml 600 ml Balance 180 ml 20 ml 360 ml Intake Oral 480 ml 620 ml 360 ml Output Urine Total 300 ml 600 ml # Voids 2 1 2 # Bowel Movements 0 0 0 Physical Exam GENERAL: Well-nourished, well-developed patient. SKIN: Warm and dry. HEAD: Normocephalic. EYES: No scleral icterus. No injection or drainage. NECK: Supple, trachea midline. No JVD or lymphadenopathy. CARDIOVASCULAR: Regular rate and rhythm without murmurs, gallops, or rubs. RESPIRATORY: Breath sounds equal bilaterally. No accessory muscle use. GASTROINTESTINAL: Abdomen soft, non-tender, nondistended. EXTREMITIES: No cyanosis, or edema. NEUROLOGICAL: Awake, alert, and oriented x 3. Non-focal. Laboratory Laboratory Tests Test 03/22/17 14:18 03/23/17 04:07 Potassium Level 3.7 MEQ/L Magnesium Level 1.8 MG/DL Activated Partial Thromboplast Time 27.1 SEC Imaging Last Impressions Chest X-Ray 03/18/17 1317 Signed Impressions: Service Date/Time: Saturday, March 18, 2017 13:33 - CONCLUSION: No acute abnormality seen. Timmy Resendez MD Assessment and Plan Problem List: (1) Ventricular tachycardia ICD Codes: I47.2 - Ventricular tachycardia Status: Acute Plan: No recurrent ICD shocks overnight. (2) History of CHF (congestive heart failure) ICD Codes: Z86.79 - Personal history of other diseases of the circulatory system Status: Acute Plan: EF 15%. History of medical noncompliance with therapy. Discussed need for medication compliance. (3) History of coronary artery disease ICD Codes: Z86.79 - Personal history of other diseases of the circulatory system Status: Acute Plan: No significant occlusion seen on cardiac catheterization by Dr. Jay. Assessment and Plan Stable from electrophysiology standpoint. Can be discharged home at the discretion of the managing team per my discussion with Dr. garcia. Ольга Cook Mar 23, 2017 07:50
[2017-03-23] MEDS: INSULIN ASPART SUPPLEMENTAL SCALE SQ SCH ×2 (08:00→12:38)
[2017-03-23] MEDS ORDERED: AMIODARONE 200 MG TAB PO SCH (09:00)
[2017-03-23] MEDS ORDERED: AMIO200T PO (10:23)
[2017-03-23] MEDS ORDERED: METO-309 PO (10:23)
[2017-03-23] MEDS ORDERED: FURO40TA PO (10:26)
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
[2017-03-23] MEDS: FUROSEMIDE 40 MG TAB PO SCH (10:41)
[2017-03-23] MEDS: SODIUM CHLORIDE 0.9% FLUSH 10 ML FLUSH IV FLUSH SCH (10:41)
--- NOTE | 2017-03-23 12:45 | PD.CARD.PN ---
Subjective Subjective Remarks No events overnight, post-cath today No chest pain/SOB Objective Medications Current Medications Medications (Trade) Dose Ordered Sig/Shannon Route Start Time Stop Time Status Last Admin (NS Flush) 2 ml BID IV FLUSH 03/18/17 21:00 03/23/17 10:41 (NS Flush) 2 ml UNSCH PRN IV FLUSH 03/18/17 16:00 (Lasix) 80 mg DAILY PO 03/19/17 09:00 Future Hold (Cozaar) 100 mg DAILY PO 03/19/17 09:00 Future Hold 03/19/17 09:30 (KCl) 30 meq DAILY PO 03/19/17 09:00 Future Hold (Pravachol) 80 mg HS PO 03/18/17 21:00 03/22/17 21:00 (NovoLOG SUPPLEMENTAL SCALE) 1 ACHS SLIDING SCALE SQ 03/18/17 17:00 03/23/17 12:38 (D50w (Vial) Inj) 50 ml UNSCH PRN IV PUSH 03/18/17 16:45 (Glucagon Inj) 1 mg UNSCH PRN OTHER 03/18/17 16:45 (Lopressor) 50 mg Q12H PO 03/18/17 18:00 Future hold 03/23/17 05:45 (Lasix) 40 mg DAILY PO 03/19/17 17:00 Future hold 03/23/17 10:41 (Atropine Inj) 0.5 mg UNSCH PRN IV PUSH 03/21/17 12:00 (Zofran Inj) 4 mg Q4H PRN IV PUSH 03/21/17 12:00 (K-Phos Neutral) 250 mg Q8HR PO 03/21/17 14:15 03/23/17 05:45 (Cordarone) 200 mg DAILY PO 03/23/17 09:00 03/23/17 10:40 Vital Signs / I&O Vital Signs Date Time Temp Pulse Resp B/P (MAP) Pulse Ox O2 Delivery O2 Flow Rate FiO2 03/23/17 11:00 55 16 103/55 (71) 95 03/23/17 11:00 52 03/23/17 10:00 52 03/23/17 09:00 52 03/23/17 08:00 65 03/23/17 07:00 98.3 53 16 118/70 (86) 98 03/23/17 07:00 98 Room Air 03/23/17 07:00 55 03/23/17 06:00 62 03/23/17 05:00 56 03/23/17 04:00 60 03/23/17 04:00 98.3 58 16 119/62 (81) 97 03/23/17 03:00 62 03/23/17 02:00 62 03/23/17 01:00 53 03/23/17 00:00 58 03/23/17 00:00 98.4 58 16 104/60 (75) 97 03/22/17 23:00 54 03/22/17 22:00 54 03/22/17 21:00 54 03/22/17 20:00 54 03/22/17 20:00 99.0 52 16 102/63 (76) 95 03/22/17 20:00 95 Room Air 03/22/17 19:00 58 03/22/17 18:00 62 03/22/17 17:00 68 03/22/17 16:07 64 03/22/17 15:31 99.2 68 18 105/59 (74) 93 03/22/17 15:03 75 03/22/17 14:16 68 03/22/17 13:26 68 I/O 03/22/17 03/22/17 03/22/17 03/23/17 03/23/17 03/23/17 07:00 15:00 23:00 07:00 15:00 23:00 Intake Total 480 ml 620 ml 360 ml Output Total 300 ml 600 ml Balance 180 ml 20 ml 360 ml Intake Oral 480 ml 620 ml 360 ml Output Urine Total 300 ml 600 ml # Voids 2 1 2 # Bowel Movements 0 0 0 Physical Exam GENERAL: NAD, AAOx3 SKIN: Warm and dry. HEAD: Atraumatic. Normocephalic. EYES: Pupils equal and round. No scleral icterus. No injection or drainage. ENT: No nasal bleeding or discharge. Mucous membranes pink and moist. NECK: Trachea midline. No JVD. CARDIOVASCULAR: Regular rate and rhythm. RESPIRATORY: No accessory muscle use. Clear to auscultation. Breath sounds equal bilaterally. GASTROINTESTINAL: Abdomen soft, non-tender, nondistended. Hepatic and splenic margins not palpable. MUSCULOSKELETAL: Extremities without clubbing, cyanosis, or edema. No obvious deformities. Right femoral sheath in place. NEUROLOGICAL: Awake and alert. No obvious cranial nerve deficits. Motor grossly within normal limits. Five out of 5 muscle strength in the arms and legs. Normal speech. PSYCHIATRIC: Appropriate mood and affect; insight and judgment normal. Laboratory Laboratory Tests Test 03/22/17 14:18 03/23/17 04:07 Potassium Level 3.7 MEQ/L Magnesium Level 1.8 MG/DL Activated Partial Thromboplast Time 27.1 SEC Assessment and Plan Problem List: (1) Ventricular tachycardia ICD Codes: I47.2 - Ventricular tachycardia Status: Acute (2) History of CHF (congestive heart failure) ICD Codes: Z86.79 - Personal history of other diseases of the circulatory system Status: Acute (3) History of coronary artery disease ICD Codes: Z86.79 - Personal history of other diseases of the circulatory system Status: Acute Assessment and Plan 1) AICD firing 5 times VT noted on ICD History of slow VT, started on Amiodarone previously Decreased Amio per Dr. Urrutia 2) NSTEMI Elevated trop No progression of CAD 3) Non-compliance with medications and outpatient follow up Discussed stopping tobacco abuse 4) Agree with placing on metoprolol over coreg 5) Cardiovascularly stable for discharge Heriberto Jay DO Mar 23, 2017 12:45
== END 2017-03-23 15:33 | disposition home or self-care (01) | DRG 280 ==
LOC: NEPC 12:59 → NEDA 16:44 → N04B 17:36 → HCIS 03-21 11:43
PROVIDERS: ADMIT Family Medicine; ATTEND Hospitalist
PROC: 4B02XTZ Measurement of Cardiac Defibrillator, External Approach (ICD-10-PCS; 2017-03-18)
PROC: B2111ZZ Fluoroscopy of Multiple Coronary Arteries using Low Osmolar Contrast (ICD-10-PCS; 2017-03-21)
PROC: 4A033BC Measurement of Arterial Pressure, Coronary, Percutaneous Approach (ICD-10-PCS; 2017-03-21)
PROC: 4A023N7 Measurement of Cardiac Sampling and Pressure, Left Heart, Percutaneous Approach (ICD-10-PCS; principal; 2017-03-21 11:15)
DX: I21.4 Non-ST elevation (NSTEMI) myocardial infarction (principal); I50.23 Acute on chronic systolic (congestive) heart failure; I47.2 Ventricular tachycardia; N17.9 Acute kidney failure, unspecified; I42.9 Cardiomyopathy, unspecified; E83.42 Hypomagnesemia; I11.0 Hypertensive heart disease with heart failure; E78.5 Hyperlipidemia, unspecified; I25.10 Atherosclerotic heart disease of native coronary artery without angina pectoris; Z91.14 Patient's other noncompliance with medication regimen; F17.210 Nicotine dependence, cigarettes, uncomplicated; E87.6 Hypokalemia; I95.2 Hypotension due to drugs; T46.5X5A Adverse effect of other antihypertensive drugs, initial encounter; Z95.810 Presence of automatic (implantable) cardiac defibrillator; Z79.84 Long term (current) use of oral hypoglycemic drugs; Z91.041 Radiographic dye allergy status
CPT/HCPCS: 71010; 80048; 80053; 82550; 82948; 83735; 84100; 84132; 84484; 85002; 85025; 85027; 85610; 85730; 93005; 93458; 93571; 94618; 96372; 99152; 99153; C1769; C1887; C1893; J1200; J1644; J1650; J1720; J1815; J2250; J3010; J3475; J7030; J7040; Q9967

== ENCOUNTER 2017-05-13 17:43 | Inpatient (IN) | payer MEDICARE ==
[2017-05-13] VITALS (13 sets, daily range): BP systolic 111–164; BP diastolic 70–103; PULSE 50–91; RESP 18–22; TEMP 95.6–98.6; O2SAT 88–100
[~2017-05-13] VITALS: Ht 172.7 cm; Wt 83.3 kg
[~2017-05-13 17:43] MED LIST changes: -CARV12.52 PO; -FURO1TAB62 PO; +FURO40TA PO; +METO-309 PO; +POTA10CA PO; -POTA10TA2 PO
[2017-05-13] MEDS ORDERED: RESP: ALBUTEROL 2.5 MG/IPRATROPIUM 0.5 MG NEB (SCH) INH (18:15)
[2017-05-13] MEDS ORDERED: FUROSEMIDE 40 MG/4 ML VIAL IV PUSH ONE ×2 (18:15→19:30)
[2017-05-13] MEDS ORDERED: NITROGLYCERIN 2% OINT 1 GM PACKET TOPICAL ONE (18:15)
[2017-05-13] MEDS ORDERED: MORPHINE SULFATE 4 MG/ML INJ IV ONE (18:15)
[2017-05-13] MEDS ORDERED: SUCCINYLCHOLINE CHLORIDE 100 MG/5 ML SYRINGE IV PUSH ONE (18:15)
[2017-05-13] MEDS ORDERED: ETOMIDATE 20 MG/10 ML VIAL IV PUSH ONE (18:15)
[2017-05-13] MEDS ORDERED: SODIUM CHLORIDE 0.9% FLUSH 10 ML FLUSH IVF PRN (18:15)
[2017-05-13] MEDS ORDERED: ETOMIDATE 20 MG/10 ML VIAL ONE (18:17)
[2017-05-13] MEDS ORDERED: SUCCINYLCHOLINE CHLORIDE 200 MG/10 ML VIAL ONE (18:18)
[2017-05-13] MEDS ORDERED: LIDOCAINE HCL 2% 100 MG/5 ML SYRINGE ONE (18:18)
[2017-05-13] MEDS ORDERED: ROCURONIUM INJ 50 MG/5 ML VIAL ONE (18:18)
[2017-05-13] MEDS ORDERED: PROPOFOL 1000 MG/100 ML INJ 100 ML ONE (18:18)
[2017-05-13 18:34] LABS: AUTOMATED NEUTROPHIL # 4.9 TH/MM3 (1.8-7.7); BASOPHIL # 0.1 TH/MM3 (0-0.2); BASOPHIL % 1.6 % (0.0-2.0); EOSINOPHIL # 0.2 TH/MM3 (0-0.4); EOSINOPHIL % 2.8 % (0.0-4.0); HEMATOCRIT 45.9 % (39.0-51.0); HEMOGLOBIN 15.8 GM/DL (13.0-17.0); LYMPH % 28.7 % (9.0-44.0); LYMPHOCYTE # 2.4 TH/MM3 (1.0-4.8); MEAN CELL VOLUME 92.3 FL (80.0-100.0); MEAN CORPUSCULAR HEMOGLOBIN 31.9 PG (27.0-34.0); MEAN CORPUSCULAR HGB CONC 34.5 % (32.0-36.0); MEAN PLATELET VOLUME 8.4 FL (7.0-11.0); MONOCYTE # 0.7 TH/MM3 (0-0.9); NEUT % 58.9 % (16.0-70.0); PLATELET COUNT 201 TH/MM3 (150-450); RED BLOOD COUNT 4.97 MIL/MM3 (4.50-5.90); RED CELL DISTRIBUTION WIDTH 13.9 % (11.6-17.2); WHITE BLOOD COUNT 8.3 TH/MM3 (4.0-11.0)
--- NOTE | 2017-05-13 18:38 | PD ---
HPI . Respiratory distress Chief Complaint: Respiratory Symptoms Time Seen by Provider: 17:55 Travel History International Travel<30 days: No Contact w/Intl Traveler<30days: No Traveled to known affect area: No History of Present Illness HPI This patient presents in acute respiratory distress. I am unable to get much of a history from him because of his respiratory distress. The nurse A history of shortness of breath starting a couple days ago. She states that he actually decompensated about the time he got here. She states that he was originally able to speak without respiratory distress. However, he suddenly became tachypneic and hypoxic. This patient had a non-STEMI around the first of the year. Other medical history includes hypertension, hyperlipidemia, diabetes, tobacco abuse, CHF and poor medication compliance. He had an ejection fraction previously of 15%. He had a cardiac catheterization done on 03/21/17 which showed diffuse moderate coronary artery disease PFSH Past Medical History Arthritis: No Asthma: No Autoimmune Disease: No Blood Disorders: No Anxiety: No Depression: No Heart Rhythm Problems: Yes Cancer: No Cardiac Catheterization: Yes Cardiovascular Problems: Yes High Cholesterol: Yes Chemotherapy: No Chest Pain: Yes Congestive Heart Failure: Yes COPD: No Cerebrovascular Accident: No Coronary Artery Disease: Yes Diabetes: Yes Patient Takes Glucophage: Yes (05-13-17) Diminished Hearing: No Endocrine: Yes Gastrointestinal Disorders: Yes GERD: Yes Genitourinary: No Hiatal Hernia: No Hypertension: Yes Immune Disorder: No Implanted Vascular Access Dvce: Yes Kidney Stones: No Musculoskeletal: No Neurologic: No Psychiatric: No Reproductive: No Respiratory: No Immunizations Current: Yes Migraines: No Myocardial Infarction: Yes (x1) Radiation Therapy: No Renal Failure: No Seizures: No Sickle Cell Disease: No Sleep Apnea: No Thyroid Disease: No Triglycerides - High: Yes Ulcer: No Tetanus Vaccination: Unknown Influenza Vaccination: No Past Surgical History Abdominal Surgery: Yes (pancreas removed a cyst) AICD: Yes Arteriovenous Shunt: No Body Medical Devices: PACEMAKER Cardiac Surgery: Yes (ARTHERECTOMY) Cholecystectomy: Yes Coronary Artery Bypass Graft: Yes Endocrine Surgery: No Eye Surgery: No Genitourinary Surgery: No Gynecologic Surgery: No Insulin Pump: No Joint Replacement: No Oral Surgery: Yes (SINUS) Pacemaker: Yes (PACEMAKER AICD) Thoracic Surgery: Yes (pacemaker; AICD) Other Surgery: Yes (CYST REMOVED FROM PANCREAS; GALLBLADDER) Social History Alcohol Use: No Tobacco Use: Yes (1PPD) Substance Use: No (PT DENIES ) Allergies-Medications (Allergen,Severity, Reaction): Coded Allergies: diatrizoate meglumine (Unverified Allergy, Severe, Swelling, 05/13/17) gadobenic acid (Unverified Allergy, Severe, Swelling, 05/13/17) gadodiamide (Unverified Allergy, Severe, Swelling, 05/13/17) gadoteridol (Unverified Allergy, Severe, Swelling, 05/13/17) iodixanol (Unverified Allergy, Severe, Swelling, 05/13/17) iohexol (Unverified Allergy, Severe, Swelling, 05/13/17) Iodinated Contrast- Oral and IV Dye (Verified Allergy, Unknown, 05/13/17) MRI PRECAUTION (Verified Adverse Reaction, Severe, NON COMPATIBLE [employer] PACEMAKER 09/24/15 KMD, 05/13/17) VIVA XT [employer]UAL [employer] DEFIB MODEL [id number] IMPLANTED 09/02/13 Reported Meds & Prescriptions Reported Meds & Active Scripts Active Furosemide 40 Mg Tab 40 Mg PO DAILY Lopressor (Metoprolol Tartrate) 50 Mg Tab 50 Mg PO Q12H Amiodarone (Amiodarone HCl) 200 Mg Tab 200 Mg PO BID Reported Simvastatin 40 Mg Tab 40 Mg PO HS Potassium Chloride ER (Potassium Chloride) 10 Meq Cap 30 Meq PO DAILY Metformin (Metformin HCl) 500 Mg Tab 500 Mg PO BIDPC Losartan (Losartan Potassium) 100 Mg Tab 100 Mg PO DAILY Review of Systems ROS Limitations: Clinical Condition, Intubated Physical Exam Narrative GENERAL: Patient is lucid initially. He looks frightened. He is obviously struggling to breathe. SKIN: warm/dry. Pale. HEAD: Normocephalic. Atraumatic. EYES: Pupils equal and round. No scleral icterus. No injection or drainage. ENT: No nasal bleeding or discharge. Mucous membranes pink and moist. NECK: Trachea midline. Full range of motion without pain.. CARDIOVASCULAR: Regular rate and rhythm. RESPIRATORY: Diffuse rales and wheezing. [place] frothy sputum. He is in respiratory distress with use of accessory muscles and retractions. GASTROINTESTINAL: Abdomen soft. Nontender. Bowel sounds present. Nondistended. MUSCULOSKELETAL: No obvious deformities. NEUROLOGICAL: Awake and alert. No obvious cranial nerve deficits. Motor grossly within normal limits. Normal speech. PSYCHIATRIC: Appropriate mood and affect; insight and judgment normal. Data Data Last Documented VS Vital Signs Date Time Temp Pulse Resp B/P (MAP) Pulse Ox O2 Delivery O2 Flow Rate FiO2 05/13/17 18:40 88 18 160/100 (120) 94 Ventilator 100 05/13/17 18:10 15.00 05/13/17 17:52 97.9 Orders Orders Complete Blood Count With Diff (05/13/17 18:09) Comprehensive Metabolic Panel (05/13/17 18:09) B-Type Natriuretic Peptide (05/13/17 18:09) D-Dimer (05/13/17 18:09) Act Partial Throm Time (Ptt) (05/13/17 18:09) Prothrombin Time / Inr (Pt) (05/13/17 18:09) Magnesium (Mg) (05/13/17 18:09) Troponin I (05/13/17 18:09) Arterial Blood Gas (Abg) (05/13/17 18:09) Iv Access Insert/Monitor (05/13/17 18:09) Ecg Monitoring (05/13/17 18:09) Oximetry (05/13/17 18:09) Oxygen Administration (05/13/17 18:09) Chest, Single Ap (05/13/17 18:09) Sodium Chloride 0.9% Flush (Ns Flush) (05/13/17 18:15) Albuterol-Ipratropium Neb (Duoneb Neb) (05/13/17 18:15) Resp Bipap / Cpap Non Invas Vt (05/13/17 18:09) Furosemide Inj (Lasix Inj) (05/13/17 18:15) Nitroglycerin 2% Oint (Nitroglycerin 2% (05/13/17 18:15) Morphine Inj (Morphine Inj) (05/13/17 18:15) Etomidate Inj (Amidate Inj) (05/13/17 18:15) Succinylcholine Inj (Quelicin Inj) (05/13/17 18:15) Etomidate Inj (Amidate Inj) (05/13/17 18:17) Propofol 1000 Mg/100 Ml Inj (Diprivan 10 (05/13/17 18:18) Lidocaine 2% Inj (Xylocaine 2% Inj) (05/13/17 18:18) Rocuronium Inj (Zemuron Inj) (05/13/17 18:18) Succinylcholine Inj (Quelicin Inj) (05/13/17 18:18) Propofol 1000 Mg/100 Ml Inj (Diprivan 10 (05/13/17 18:45) ^ Infusion (05/13/17 18:38) Admit Order (Ed Use Only) (05/13/17 ) Vp Data / Telemetry CARLOS.Q8H (05/13/17 18:52) Vital Signs (Adult) Q4H (05/13/17 18:52) Diet Npo (05/13/17 Dinner) Activity Bed Rest (05/13/17 18:52) Notify Dr: Other (05/13/17 18:52) Labs Laboratory Tests Test 05/13/17 18:00 White Blood Count 8.3 TH/MM3 Red Blood Count 4.97 MIL/MM3 Hemoglobin 15.8 GM/DL Hematocrit 45.9 % Mean Corpuscular Volume 92.3 FL Mean Corpuscular Hemoglobin 31.9 PG Mean Corpuscular Hemoglobin Concent 34.5 % Red Cell Distribution Width 13.9 % Platelet Count 201 TH/MM3 Mean Platelet Volume 8.4 FL Neutrophils (%) (Auto) 58.9 % Lymphocytes (%) (Auto) 28.7 % Monocytes (%) (Auto) 8.0 % Eosinophils (%) (Auto) 2.8 % Basophils (%) (Auto) 1.6 % Neutrophils # (Auto) 4.9 TH/MM3 Lymphocytes # (Auto) 2.4 TH/MM3 Monocytes # (Auto) 0.7 TH/MM3 Eosinophils # (Auto) 0.2 TH/MM3 Basophils # (Auto) 0.1 TH/MM3 CBC Comment DIFF FINAL Differential Comment Prothrombin Time 11.5 SEC Prothromb Time International Ratio 1.1 RATIO Activated Partial Thromboplast Time 26.5 SEC D-Dimer Quantitative (PE/DVT) 1.73 MG/L FEU B-Type Natriuretic Peptide 1201 PG/ML MDM Medical Decision Making Medical Screen Exam Complete: Yes Emergency Medical Condition: Yes Medical Record Reviewed: Yes (Please see HPI for pertinent review of records) Interpretation(s) This EKG shows a paced rhythm. It is unchanged from previous. Differential Diagnosis Differential diagnosis of dyspnea includes but is not limited to congestive heart failure, pneumonia, wheezing, pneumothorax, pulmonary embolism Narrative Course This patient presents with shortness of breath. His respiratory status decompensated shortly after arrival here. He was in respiratory distress. Clinically, he has pulmonary edema. He was initially placed on BiPAP and orders were given for Lasix and Nitropaste. However, it was almost immediately clear that this patient needed to be intubated. His sats transiently improved to 95% on BiPAP but then fell back down into the upper 80s. The patient was lucid at that time and was able to give me verbal consent for intubation. Following intubation, the lathe sander was consulted to make arrangements for [place] [facility] [place] [facility] [place]. I have not seen any of his lab studies yet. Nor have I seen his chest x-ray. Last Impressions Chest X-Ray 05/13/171808 Signed Impressions: Service Date/Time: Saturday, May 13, 2017 18:40 - CONCLUSION: 1. Endotracheal tube distal to an appropriate position measuring 3.7 cm from the ad. No NG tube is visualized. 2. Moderate to severe bilateral diffuse airspace consolidation, right slightly greater than left. This pattern is nonspecific but could represent severe pulmonary edema. Infection should also be a consideration. Timmy Gupta MD BNP 1200 ABG Test 05/13/17 19:08 Arterial Blood Carboxyhemoglobin 1.8 % Arterial Blood Methemoglobin 1.0 % Arterial Blood Oxygen Content 21.0 Vol % H Arterial Blood Partial Pressure CO2 56 mmHG *H Arterial Blood Partial Pressure O2 82 mmHG Arterial Blood pH 7.24 *L Blood Gas Base Excess -3.5 mmol/L L Blood Gas HCO3 23 mmol/L Blood Gas Hemoglobin 16.4 G/DL H Blood Gas Inspired Oxygen 100 % Blood Gas Oxygen Saturation 91 % Blood Gas Ventilator Setting PRVC/AC Oxygen Delivery Device VENTILATOR CBC Diagram 05/13/17 18:00 Coags are normal. D-dimer is 1.73. trop 0.20 The patient remains lucid. He is able to tell me that he is breathing easier. His sats are about 98% now. Critical Care Narrative Aggregate critical care time was 75 minutes. Time to perform other separately billable procedures was not included in the critical care time. My time did not include minutes spent treating any other patients simultaneously or on activities that did not directly contribute to the patient's treatment. The services I provided to this patient were to treat and/or prevent clinically significant deterioration due to respiratory failure, acute pulmonary edema I provided critical care services requiring my management, as noted below: Chart data review, documentation time, medication orders and management, vital sign assessments/reviewing monitor data, ordering and reviewing lab tests, ordering and interpreting/reviewing x-rays and diagnostic studies, care of the patient and discussion of the patient with the admitting physicians Procedures Procedure Narrative After the risks and benefits were discussed the following procedure was performed: INTUBATION: The patient was put in optimal position for the procedure. Rapid sequence intubation was initiated by me using 20 milligrams of etomidate IV and 100 milligrams of succinylcholine IV. The patient was intubated with a 8.0 cuffed endotracheal tube. Tube placement was confirmed by visualization of the tube and balloon passing through the cords, capnometry and subsequent chest x-ray. Breath sounds were equal and well aerated bilaterally postintubation. No breath sounds over stomach. Patient tolerated procedure well. Physician Communication Physician Communication Dr. Hobbs Diagnosis Primary Impression: Respiratory failure Qualified Codes: J96.01 - Acute respiratory failure with hypoxia Admitting Information Admitting Physician Requests: Admit Condition: Serious Caren Robles MD May 13, 2017 18:38
[2017-05-13] MEDS ORDERED: PROPOFOL 1000 MG/100 ML INJ 100 ML IV PRN (18:45)
[2017-05-13 19:01] LABS: INTERNATIONAL NORMALIZED RATIO 1.1 RATIO; PROTHROMBIN TIME - PATIENT 11.5 SEC (9.8-11.6)
--- NOTE | 2017-05-13 19:10 | RADRPT ---
EXAM DATE/TIME: 05/13/2017 18:40 [facility] COMPARISON: CHEST SINGLE AP, March 18, 2017, 13:33. INDICATIONS : Post intubation and NG tube. MEDICAL HISTORY : Hypertension. Diabetes mellitus type II. SURGICAL HISTORY : Defribillator. ENCOUNTER: Initial ACUITY: 1 day PAIN SCORE: Non-responsive. LOCATION: Bilateral chest FINDINGS: Portable supine AP view of the chest demonstrates cardiac silhouette size at the upper limits for nor mal with mild calcification of the aorta. Left chest wall cardiac pacing device lies AICD remains pre sent with biventricular leads. There is diffuse airspace consolidation bilaterally, right greater itzel n left involving both the upper and lower lung zones. No pneumothorax or pleural effusion is identifi ed. The bones and soft tissues demonstrate no acute finding. Endotracheal tube distal tip is at the a ortic knob level approximately 3.7 cm from the ad. CONCLUSION: 1. Endotracheal tube distal to an appropriate position measuring 3.7 cm from the ad. No NG tube i s visualized. 2. Moderate to severe bilateral diffuse airspace consolidation, right slightly greater than left. Thi s pattern is nonspecific but could represent severe pulmonary edema. Infection should also be a consi deration. Timmy Gutpa MD on May 13, 2017 at 19:07 Board Certified Radiologist. This report was verified electronically.
[2017-05-13 19:16] LABS: D-DIMER 1.73 MG/L FEU (0.00-0.50)
[2017-05-13 19:44] LABS: CHLORIDE 106 MEQ/L (98-107); SODIUM (NA) 145 MEQ/L (136-145)
[2017-05-13 19:47] LABS: CALCIUM 8.3 MG/DL (8.5-10.1)
[2017-05-13 19:48] LABS: ALBUMIN 3.3 GM/DL (3.4-5.0); BICARBONATE 26.1 MEQ/L (21.0-32.0); BLOOD UREA NITROGEN 23 MG/DL (7-18); GLUCOSE,RANDOM 251 MG/DL (74-106)
[2017-05-13 19:51] LABS: ALT (GPT) 15 U/L (12-78); AST (GOT) 20 U/L (15-37); GLOMERULAR FILTRATION RATE 41 ML/MIN (>89)
[2017-05-13 19:53] LABS: TOTAL BILIRUBIN ADULT 0.9 MG/DL (0.2-1.0)
[2017-05-13 19:54] LABS: ALKALINE PHOSPHATASE 76 U/L (45-117)
--- NOTE | 2017-05-13 21:08 | EKG ---
Date Performed: 05/13/2017 Time Performed: 18:01:45 PTAGE: 61 years EKG: ATRIAL SENSED, VENTRICULAR PACED RHYTHM PREVIOUS TRACING : 03/18/2017 13.09 No significant change from previous tracing noted. DOCTOR: Chadwick Bonner Interpretating Date/Time 05/13/2017 21:07:25
[2017-05-13] MEDS ORDERED: POTASSIUM CHLOR 20 MEQ PREMIX 100 ML IV PRN (21:45)
[2017-05-13] MEDS ORDERED: POTASSIUM PHOSPHATE MONOBASIC 500 MG TAB PO/TUBE PRN (21:45)
[2017-05-13] MEDS ORDERED: SODIUM PHOSPHATE INJ 30 MMOL in SODIUM CHLOR 0.9% 250 ML INJ 240 ML IV PRN (21:45)
[2017-05-13] MEDS ORDERED: MAGNESIUM SULFATE INJ 4 GM in SODIUM CHLORIDE 0.9% INJ 92 ML IV PRN (21:45)
[2017-05-13] MEDS ORDERED: MAGNESIUM OXIDE 400 MG TAB PO PRN (21:45)
[2017-05-13] MEDS ORDERED: POTASSIUM PHOSPHATE MONOBASIC 500 MG TAB PO PRN (21:45)
[2017-05-13] MEDS ORDERED: MAGNESIUM SULFATE INJ 2 GM in SODIUM CHLORIDE 0.9% INJ 96 ML IV PRN (21:45)
[2017-05-13] MEDS ORDERED: POTASSIUM CHLOR 40 MEQ PREMIX 100 ML IV PRN ×2 (21:45)
[2017-05-13] MEDS ORDERED: POTASSIUM PHOSPHATE INJ 30 MMOL in SODIUM CHLOR 0.9% 250 ML INJ 250 ML IV PRN (21:45)
[2017-05-13] MEDS ORDERED: POTASSIUM CHLORIDE 25 MEQ EFFERVESCENT TAB PO PRN (21:45)
--- NOTE | 2017-05-13 21:55 | HHI.HP ---
HPI Service Critical Care Medicine Primary Care Physician Musa Costello MD Admission Diagnosis resp failure, pulm edema Diagnosis: Travel History International Travel<30 Days: No Contact w/Intl Traveler <30 Da: No Traveled to Known Affected Are: No History of Present Illness 61-year-old gentleman with history of CHF, ventricular fibrillation, diabetes mellitus, hypertension now presents with acute respiratory distress. Per chart documentation there was a history of shortness of breath starting a couple days ago. This patient had a non-STEMI around the first of the year. He had an ejection fraction previously of 15%. He had a cardiac catheterization done on which showed diffuse moderate coronary artery disease. Due to severe hypoxemia and respiratory failure he was intubated by emergency department attending and transferred to [facility] ICU for high level of care. Review of Systems ROS Unable to obtain patient sedated and intubated Past Family Social History Allergies: Coded Allergies: diatrizoate meglumine (Unverified Allergy, Severe, Swelling, 05/13/17) gadobenic acid (Unverified Allergy, Severe, Swelling, 05/13/17) gadodiamide (Unverified Allergy, Severe, Swelling, 05/13/17) gadoteridol (Unverified Allergy, Severe, Swelling, 05/13/17) iodixanol (Unverified Allergy, Severe, Swelling, 05/13/17) iohexol (Unverified Allergy, Severe, Swelling, 05/13/17) Iodinated Contrast- Oral and IV Dye (Verified Allergy, Unknown, 05/13/17) MRI PRECAUTION (Verified Adverse Reaction, Severe, NON COMPATIBLE [employer] PACEMAKER 09/24/15 KMD, 05/13/17) 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 09/02/13 Past Medical History Coronary artery disease - non-STEMI March 2017 Hypertension Dyslipidemia History of V-Tach Tobacco use disorder Diabetes mellitus Past Surgical History Cholecystectomy Reported Medications Reported Meds & Active Scripts Active Furosemide 40 Mg Tab 40 Mg PO DAILY Lopressor (Metoprolol Tartrate) 50 Mg Tab 50 Mg PO Q12H Amiodarone (Amiodarone HCl) 200 Mg Tab 200 Mg PO BID Reported Simvastatin 40 Mg Tab 40 Mg PO HS Potassium Chloride ER (Potassium Chloride) 10 Meq Cap 30 Meq PO DAILY Metformin (Metformin HCl) 500 Mg Tab 500 Mg PO BIDPC Losartan (Losartan Potassium) 100 Mg Tab 100 Mg PO DAILY Active Ordered Medications Current Medications Medications (Trade) Dose Ordered Sig/Shannon Route PRN Reason Start Time Stop Time Status Last Admin Dose Admin Amiodarone HCl (Cordarone) 200 mg BID PO 05/14/17 09:00 Losartan Potassium (Cozaar) 100 mg DAILY PO 05/14/17 09:00 Metoprolol Tartrate (Lopressor) 50 mg Q12HR PO 05/13/17 22:00 Pravastatin Sodium (Pravachol) 80 mg HS PO 05/14/17 21:00 Potassium Chloride 100 ml @ 50 mls/hr Q2H PRN IV For Potassium 2.8 - 3.2 mEq/L 05/13/17 21:45 Potassium Chloride 100 ml @ 50 mls/hr Q2H PRN IV For Potassium 2.8 - 3.2 mEq/L 05/13/17 21:45 Potassium Bicarb/ Potassium Chloride (K-Lyte Cl Eff) 50 meq UNSCH PRN PO For Potassium 3.3 - 3.5 mEq/L 05/13/17 21:45 Potassium Chloride 100 ml @ 25 mls/hr UNSCH PRN IV For Potassium 3.3 - 3.5 mEq/L 05/13/17 21:45 Potassium Chloride 100 ml @ 50 mls/hr Q2H PRN IV For Potassium 3.3 - 3.5 mEq/L 05/13/17 21:45 05/13/17 23:13 Magnesium Sulfate 4 gm/Sodium Chloride 100 ml @ 50 mls/hr UNSCH PRN IV For Magnesium 0.9 - 1.1 mg/dL 05/13/17 21:45 Magnesium Oxide (Mag-Ox) 800 mg UNSCH PRN PO For Magnesium 1.2 - 1.6 mg/dL 05/13/17 21:45 Magnesium Sulfate 2 gm/Sodium Chloride 100 ml @ 50 mls/hr UNSCH PRN IV For Magnesium 1.2 - 1.6 mg/dL 05/13/17 21:45 Potassium Phosphate (K-Phos) 2,000 mg Q4H PRN PO For Phosphorus < 2.5 mg/dL 05/13/17 21:45 Sodium Phosphate 30 mmol/Sodium Chloride 250 ml @ 42 mls/hr UNSCH PRN IV For Phosphorus < 2.5 mg/dL 05/13/17 21:45 Potassium Phosphate (K-Phos) 2,000 mg UNSCH PRN PO/TUBE SEE LABEL COMMENTS 05/13/17 21:45 Potassium Phosphate 30 mmol/ Sodium Chloride 260 ml @ 42 mls/hr UNSCH PRN IV SEE LABEL COMMENTS 05/13/17 21:45 Sodium Chloride (NS Flush) 2 ml UNSCH PRN IV FLUSH FLUSH AFTER USING IV ACCESS 05/13/17 22:00 Sodium Chloride (NS Flush) 2 ml BID IV FLUSH 05/14/17 09:00 Acetaminophen (Tylenol) 650 mg Q6H PRN PO PAIN 1-10 AND/OR FEVER >101F 05/13/17 22:00 Famotidine (Pepcid Inj) 10 mg Q12HR IV PUSH 05/14/17 09:00 Midazolam HCl (Versed Inj) 2 mg Q1H PRN IV PUSH SEDATION 05/13/17 22:00 Ondansetron HCl (Zofran Inj) 4 mg Q6H PRN IV PUSH NAUSEA OR VOMITING 05/13/17 22:00 Albuterol/ Ipratropium (Duoneb Neb) 1 ampule Q2HR NEB PRN INH WHEEZING 05/13/17 22:00 Heparin Sodium (Porcine) (Heparin Inj) 5,000 units Q8H SQ 05/13/17 22:00 05/13/17 23:11 Miscellaneous Information 1 [id number] XX 05/13/17 22:00 Chlorhexidine Gluconate (Chlorhexidine 2% Cloth) 3 pack Taper DAILY@04 TOP 05/14/17 04:00 05/10/18 03:59 Chlorhexidine Gluconate (Chlorhexidine 2% Cloth) 3 pack UNSCH PRN TOP HYGIENIC CARE 05/13/17 22:00 Senna/Docusate Sodium (Nazia-Colace) 1 tab BID PO 05/14/17 09:00 Magnesium Hydroxide (Milk Of Magnesia Liq) 30 ml Q12H PRN PO Mild constipation 05/13/17 22:00 Sennosides (Senokot) 17.2 mg Q12H PRN PO Moderate constipation 05/13/17 22:00 Bisacodyl (Dulcolax Supp) 10 mg DAILY PRN RECTAL SEVERE CONSITIPATION 05/13/17 22:00 Lactulose (Lactulose Liq) 30 ml DAILY PRN PO SEVERE CONSITIPATION 05/13/17 22:00 Chlorhexidine Gluconate (Peridex 0.12% Liq) 15 ml BID@08,20 MT 05/14/17 08:00 Propofol 100 ml @ 2.64 mls/hr TITRATE PRN IV SEDATION 05/13/17 22:00 Dextrose (D50w (Vial) Inj) 50 ml UNSCH PRN IV PUSH HYPOGLYCEMIA-SEE COMMENTS 05/13/17 22:00 Glucagon (Glucagon Inj) 1 mg UNSCH PRN OTHER HYPOGLYCEMIA-SEE COMMENTS 05/13/17 22:00 Insulin Human Regular (NovoLIN R SUPPLEMENTAL SCALE) 1 ACHS SLIDING SCALE SQ 05/14/17 08:00 Furosemide (Lasix Inj) 40 mg Q6H IV PUSH 05/13/17 22:00 05/14/17 16:01 05/13/17 23:11 Family History No family history significant of malignancy Social History Positive for tobacco use disorder, negative for alcohol or illicit drug abuse Physical Exam Vital Signs Vital Signs Date Time Temp Pulse Resp B/P (MAP) Pulse Ox O2 Delivery O2 Flow Rate FiO2 05/13/17 21:08 100 100 05/13/17 20:17 56 18 152/83 (106) 98 Ventilator 100 05/13/17 20:16 58 18 152/92 (112) 98 100 05/13/17 20:03 55 18 149/87 (107) 98 Ventilator 100 05/13/17 19:49 95.6 56 18 153/94 (113) 99 Ventilator 100 05/13/17 19:36 61 18 157/103 (121) 98 Ventilator 100 05/13/17 19:13 74 20 164/101 (122) 98 Ventilator 100 05/13/17 18:58 91 22 148/78 (101) 96 Ventilator 100 05/13/17 18:55 61 05/13/17 18:40 88 18 160/100 (120) 94 Ventilator 100 05/13/17 18:30 97 100 05/13/17 18:25 100 05/13/17 18:10 89 28 85 Non-Rebreather 15.00 05/13/17 17:59 73 22 85 Nasal Cannula 3.00 05/13/17 17:59 88 Nasal Cannula 3.00 05/13/17 17:59 88 Nasal Cannula 3.00 05/13/17 17:52 97.9 71 18 161/79 (106) 93 Physical Exam GENERAL: Well-nourished, well-developed patient. Sedated and intubated SKIN: Warm and dry. HEAD: Normocephalic. EYES: No scleral icterus. No injection or drainage. NECK: Supple, trachea midline. No JVD or lymphadenopathy. CARDIOVASCULAR: Regular rate and rhythm without murmurs, gallops, or rubs. RESPIRATORY: Breath sounds equal bilaterally. No accessory muscle use. GASTROINTESTINAL: Abdomen soft, non-tender, nondistended. MUSCULOSKELETAL: No cyanosis, or edema. BACK: Nontender without obvious deformity. NEURO EXAM: Mental Status: The patient is sedated and intubated Laboratory Laboratory Tests Test 05/13/17 18:00 05/13/17 19:08 05/13/17 19:15 White Blood Count 8.3 Red Blood Count 4.97 Hemoglobin 15.8 Hematocrit 45.9 Mean Corpuscular Volume 92.3 Mean Corpuscular Hemoglobin 31.9 Mean Corpuscular Hemoglobin Concent 34.5 Red Cell Distribution Width 13.9 Platelet Count 201 Mean Platelet Volume 8.4 Neutrophils (%) (Auto) 58.9 Lymphocytes (%) (Auto) 28.7 Monocytes (%) (Auto) 8.0 Eosinophils (%) (Auto) 2.8 Basophils (%) (Auto) 1.6 Neutrophils # (Auto) 4.9 Lymphocytes # (Auto) 2.4 Monocytes # (Auto) 0.7 Eosinophils # (Auto) 0.2 Basophils # (Auto) 0.1 CBC Comment DIFF FINAL Differential Comment Prothrombin Time 11.5 Prothromb Time International Ratio 1.1 Activated Partial Thromboplast Time 26.5 D-Dimer Quantitative (PE/DVT) 1.73 B-Type Natriuretic Peptide 1201 Blood Gas Puncture Site LT RADIAL Blood Gas Patient Temperature 98.6 Blood Gas HCO3 23 Blood Gas Base Excess -3.5 Blood Gas Oxygen Saturation 91 Arterial Blood pH 7.24 Arterial Blood Partial Pressure CO2 56 Arterial Blood Partial Pressure O2 82 Arterial Blood Oxygen Content 21.0 Arterial Blood Carboxyhemoglobin 1.8 Arterial Blood Methemoglobin 1.0 Blood Gas Hemoglobin 16.4 Oxygen Delivery Device VENTILATOR Blood Gas Ventilator Setting PRVC/AC Blood Gas Inspired Oxygen 100 Blood Urea Nitrogen 23 Creatinine 1.70 Random Glucose 251 Total Protein 8.0 Albumin 3.3 Calcium Level 8.3 Magnesium Level 2.0 Alkaline Phosphatase 76 Aspartate Amino Transf (AST/SGOT) 20 Alanine Aminotransferase (ALT/SGPT) 15 Total Bilirubin 0.9 Sodium Level 145 Potassium Level 3.3 Chloride Level 106 Carbon Dioxide Level 26.1 Anion Gap 13 Estimat Glomerular Filtration Rate 41 Troponin I 0.20 Result Diagram: 05/13/17 1800 05/13/171914 Imaging Last 24 hours Impressions Chest X-Ray 05/13/17 1809 Signed Impressions: Service Date/Time: Saturday, May 13, 2017 18:40 - CONCLUSION: 1. Endotracheal tube distal to an appropriate position measuring 3.7 cm from the ad. No NG tube is visualized. 2. Moderate to severe bilateral diffuse airspace consolidation, right slightly greater than left. This pattern is nonspecific but could represent severe pulmonary edema. Infection should also be a consideration. Timmy Gupta MD Septic Shock Reassessment Septic shock perfusion: reassessment completed Caprini VTE Risk Assessment Caprini VTE Risk Assessment: Mod/High Risk (score >= 2) Caprini Risk Assessment Model Point Value = 1 Point Value = 2 Point Value = 3 Point Value = 5 Age 41-60 Minor surgery BMI > 25 kg/m2 Swollen legs Varicose veins or History of unexplained or recurrent spontaneous Oral contraceptives or hormone replacement Sepsis (< 1 month) Serious lung disease, including pneumonia (< 1 month) Abnormal pulmonary function Acute myocardial infarction Congestive heart failure (< 1 month) History of inflammatory bowel disease Medical patient at bed rest Age 61-74 Arthroscopic surgery Major open surgery (> 45 min) Laparoscopic surgery (> 45 min) Malignancy Confined to bed (> 72 hours) Immobilizing plaster cast Central venous access Age >= 75 History of VTE Family history of VTE Factor V Leiden Prothrombin [id number] Lupus anticoagulant Anticardiolipin antibodies Elevated serum homocysteine Heparin-induced thrombocytopenia Other congenital or acquired thrombophilia Stroke (< 1 month) Elective arthroplasty Hip, pelvis, or leg fracture Acute spinal cord injury (< 1 month) Prophylaxis Regimen Total Risk Factor Score Risk Level Prophylaxis Regimen 0-1 Low Early ambulation 2 Moderate Order ONE of the following: *Sequential Compression Device (SCD) *Heparin 5000 units SQ BID 3-4 Higher Order ONE of the following medications: *Heparin 5000 units SQ TID *Enoxaparin/Lovenox 40 mg SQ daily (WT < 150 kg, CrCl > 30 mL/min) *Enoxaparin/Lovenox 30 mg SQ daily (WT < 150 kg, CrCl > 10-29 mL/min) *Enoxaparin/Lovenox 30 mg SQ BID (WT < 150 kg, CrCl > 30 mL/min) AND/OR *Sequential Compression Device (SCD) 5 or more Highest Order ONE of the following medications: *Heparin 5000 units SQ TID (Preferred with Epidurals) *Enoxaparin/Lovenox 40 mg SQ daily (WT < 150 kg, CrCl > 30 mL/min) *Enoxaparin/Lovenox 30 mg SQ daily (WT < 150 kg, CrCl > 10-29 mL/min) *Enoxaparin/Lovenox 30 mg SQ BID (WT < 150 kg, CrCl > 30 mL/min) AND *Sequential Compression Device (SCD) Assessment and Plan Assessment and Plan Respiratory failure - Continue mechanical ventilation - Diuresis - CXR and ABG daily - Vent bundle CHF - acute on chronic - Aggressive IV diuresis - Monitor I's and O's - Continue lisinopril and beta jose - Repeat 2-D echo - Monitor troponins and EKG for changes Diabetes mellitus - Hold metformin while in the ICU - Insulin sliding scale Chronic kidney disease - Strict I's and O's - Monitor electrolytes and creatinine level - Avoid nephrotoxins History of V. fib with low EF - Amiodarone DVT GI prophylaxis - Teds SCDs - Subcutaneous heparin - Pepcid Critical Care: The total critical care time was 35 minutes. Time to perform other separately billable procedures was not included in the critical care time. Mathieu Hobbs MD May 13, 2017 9:55 pm
[2017-05-13] MEDS ORDERED: METOPROLOL TARTRATE 50 MG TAB PO SCH (22:00)
[2017-05-13] MEDS ORDERED: ACETAMINOPHEN 325 MG TAB PO PRN (22:00)
[2017-05-13] MEDS ORDERED: LACTULOSE SYRUP 20 GM/30 ML CUP PO PRN (22:00)
[2017-05-13] MEDS ORDERED: CHLORHEXIDINE GLUCONATE 2 % 1 PACK (2 CLOTHS) TOP PRN (22:00)
[2017-05-13] MEDS ORDERED: MAGNESIUM HYDROXIDE SUSP 30 ML CUP PO PRN (22:00)
[2017-05-13] MEDS ORDERED: SODIUM CHLORIDE 0.9% FLUSH 10 ML FLUSH IV FLUSH PRN (22:00)
[2017-05-13] MEDS ORDERED: BISACODYL 10 MG SUPP RECTAL PRN (22:00)
[2017-05-13] MEDS ORDERED: MISCELLANEOUS NURSING INFORMATION XX SCH (22:00)
[2017-05-13] MEDS ORDERED: ONDANSETRON HCL 4 MG/2 ML VIAL IV PUSH PRN (22:00)
[2017-05-13] MEDS ORDERED: MIDAZOLAM HCL 2 MG/2 ML VIAL IV PUSH PRN (22:00)
[2017-05-13] MEDS ORDERED: SENNOSIDES 8.6 MG TAB PO PRN (22:00)
[2017-05-13] MEDS ORDERED: GLUCAGON 1 MG/ML VIAL OTHER PRN (22:00)
[2017-05-13] MEDS ORDERED: DEXTROSE 50% IN WATER 50 ML VIAL(D50) IV PUSH PRN (22:00)
[2017-05-13] MEDS ORDERED: RESP: ALBUTEROL 2.5 MG/IPRATROPIUM 0.5 MG NEB (PRN) INH (22:00)
[2017-05-13 22:49] LABS: PHOSPHORUS 5.4 MG/DL (2.5-4.9)
[2017-05-13] MEDS: FUROSEMIDE 40 MG/4 ML VIAL IV PUSH SCH (23:11)
[2017-05-13] MEDS: HEPARIN SODIUM - SQ 10,000 UNITS/ML VIAL SQ SCH (23:11)
[2017-05-13] MEDS: POTASSIUM CHLOR 20 MEQ PREMIX 100 ML IV PRN (23:13)
[2017-05-14] VITALS (21 sets, daily range): BP systolic 98–128; BP diastolic 56–70; PULSE 49–58; RESP 16–18; TEMP 97.8–99.1; O2SAT 97–100
[2017-05-14] MEDS: PROPOFOL 1000 MG/100 ML INJ 100 ML IV PRN ×3 (00:10→16:30)
[2017-05-14 02:29] LABS: AUTOMATED NEUTROPHIL # 8.6 TH/MM3 (1.8-7.7); BASOPHIL % 0.3 % (0.0-2.0); EOSINOPHIL % 0.1 % (0.0-4.0); HEMATOCRIT 43.8 % (39.0-51.0); HEMOGLOBIN 15.4 GM/DL (13.0-17.0); LYMPH % 9.7 % (9.0-44.0); MEAN CORPUSCULAR HEMOGLOBIN 32.3 PG (27.0-34.0); MEAN CORPUSCULAR HGB CONC 35.1 % (32.0-36.0); MEAN PLATELET VOLUME 7.9 FL (7.0-11.0); MONO % 8.9 % (0.0-8.0); PLATELET COUNT 160 TH/MM3 (150-450); RED BLOOD COUNT 4.76 MIL/MM3 (4.50-5.90); RED CELL DISTRIBUTION WIDTH 14.4 % (11.6-17.2); WHITE BLOOD COUNT 10.6 TH/MM3 (4.0-11.0)
[2017-05-14 02:39] LABS: INTERNATIONAL NORMALIZED RATIO 1.2 RATIO
[2017-05-14] MEDS: CHLORHEXIDINE GLUCONATE 2 % 1 PACK (2 CLOTHS) TOP SCH (04:00)
[2017-05-14] MEDS: FUROSEMIDE 40 MG/4 ML VIAL IV PUSH SCH ×3 (04:20→16:03)
[2017-05-14 04:44] LABS: ALKALINE PHOSPHATASE 62 U/L (45-117); ALT (GPT) 18 U/L (12-78); GLUCOSE,RANDOM 144 MG/DL (74-106); PHOSPHORUS 3.2 MG/DL (2.5-4.9); TOTAL BILIRUBIN ADULT 0.8 MG/DL (0.2-1.0); TOTAL PROTEIN 7.2 GM/DL (6.4-8.2)
[2017-05-14] MEDS: HEPARIN SODIUM - SQ 10,000 UNITS/ML VIAL SQ SCH ×3 (05:07→21:14)
--- NOTE | 2017-05-14 05:37 | RADRPT ---
EXAM DATE/TIME: 05/14/2017 04:07 [facility] COMPARISON: CHEST SINGLE AP, May 13, 2017, 18:40. INDICATIONS : Respiratory failure. MEDICAL HISTORY : Hypertension. Diabetes mellitus type II. SURGICAL HISTORY : Defribillator. ENCOUNTER: Subsequent ACUITY: 2 days PAIN SCORE: Non-responsive. LOCATION: Bilateral chest FINDINGS: Decreased airspace disease on the right, now mild and essentially resolved on the left. Small bilater al pleural effusions present. No pneumothorax. Mild cardiomegaly is stable. Cardiac pacer/defibrillator again noted. Endotracheal tube tip is approximately 3 cm above the ad. Nasogastric tube courses into the stoma ch. CONCLUSION: Airspace disease improved on the right and resolved on the left. Small bilateral pleural effusions. Timmy Tenorio MD on May 14, 2017 at 5:34 Board Certified Radiologist. This report was verified electronically.
[2017-05-14 05:46] LABS: ALBUMIN 3.2 GM/DL (3.4-5.0); AST (GOT) 23 U/L (15-37); BICARBONATE 25.1 MEQ/L (21.0-32.0); BLOOD UREA NITROGEN 26 MG/DL (7-18); CALCIUM 8.8 MG/DL (8.5-10.1); CHLORIDE 108 MEQ/L (98-107); CREATININE 1.69 MG/DL (0.60-1.30); GLOMERULAR FILTRATION RATE 41 ML/MIN (>89); MAGNESIUM 1.9 MG/DL (1.5-2.5); SODIUM (NA) 143 MEQ/L (136-145)
[2017-05-14] MEDS: CHLORHEXIDINE 0.12% (ORAL KIT) 15 ML CUP MT SCH ×2 (07:34→20:18)
[2017-05-14] MEDS: INSULIN NovoLIN REGULAR SUPPLEMENTAL SCALE SQ SCH ×4 (07:59→20:19)
[2017-05-14] MEDS: LOSARTAN 50 MG TAB PO SCH ×2 (08:35→09:00)
[2017-05-14] MEDS: DOCUSATE SODIUM 50 MG/SENNA 8.6 MG TAB PO SCH ×2 (08:35→20:18)
[2017-05-14] MEDS: AMIODARONE 200 MG TAB PO SCH ×2 (08:36→20:17)
[2017-05-14] MEDS: SODIUM CHLORIDE 0.9% FLUSH 10 ML FLUSH IV FLUSH SCH ×2 (08:36→20:19)
[2017-05-14] MEDS: FAMOTIDINE 20 MG/2 ML VIAL IV PUSH SCH ×2 (08:36→20:17)
--- NOTE | 2017-05-14 08:49 | HHI.CCPN ---
Subjective Remarks/Hospital Course 05/13: 61-year-old gentleman with history of CHF, ventricular fibrillation, diabetes mellitus, hypertension now presents with acute respiratory distress. Per chart documentation there was a history of shortness of breath starting a couple days ago. This patient had a non-STEMI around the first of the year. He had an ejection fraction previously of 15%. He had a cardiac catheterization done on 03/21/17 which showed diffuse moderate coronary artery disease. Due to severe hypoxemia and respiratory failure he was intubated by emergency department attending and transferred to [facility] ICU for high level of care. 05/14: No events over the night. Patient diuresed around 800 amounts of urine after 40 mg of IV Lasix. Remains on a PEEP of 10 and 0.6 FiO2. He is intubated and sedated with propofol, easily arousable, with a RASS of -1. Morning chest x-ray reviewed, ET tube 2 cm above ad, AICD in place, improved pulmonary vascular congestion, worse over the right side. ROS -unobtainable, patient is intubated Objective Vital Signs Date Time Temp Pulse Resp B/P (MAP) Pulse Ox O2 Delivery O2 Flow Rate FiO2 05/14/17 08:00 99.1 51 16 127/63 (84) 99 05/14/17 08:00 50 05/14/17 07:00 Mechanical Ventilator 05/13/17 18:10 15.00 Intake and Output 05/14/17 05/14/17 05/15/17 08:00 16:00 00:00 Intake Total 200 ml Output Total 800 ml Balance -600 ml Result Diagram: 05/14/17 0128 05/14/17 0345 Other Results Laboratory Tests Test 05/13/17 19:08 05/14/17 05:25 Blood Gas Puncture Site LT RADIAL LT RADIAL Blood Gas Patient Temperature 98.6 98.6 Blood Gas HCO3 23 mmol/L (22-26) 25 mmol/L (22-26) Blood Gas Base Excess -3.5 mmol/L (-2-2) 1.4 mmol/L (-2-2) Blood Gas Oxygen Saturation 91 % (90-100) 96 % (90-100) Arterial Blood pH 7.24 (7.380-7.420) 7.46 (7.380-7.420) Arterial Blood Partial Pressure CO2 56 mmHG (38-42) 36 mmHg (38-42) Arterial Blood Partial Pressure O2 82 mmHG (61-120) 102 mmHg (61-120) Arterial Blood Oxygen Content 21.0 Vol % (12.0-20.0) 20.1 Vol % (12.0-20.0) Arterial Blood Carboxyhemoglobin 1.8 % (0-4) 1.2 % (0-4) Arterial Blood Methemoglobin 1.0 % (0-2) 0.8 % (0-2) Blood Gas Hemoglobin 16.4 G/DL (12.0-16.0) 14.8 G/DL (12.0-16.0) Oxygen Delivery Device VENTILATOR VENT Blood Gas Ventilator Setting PRVC/AC SEE COMMENTS Blood Gas Inspired Oxygen 100 % 60 % Imaging Last 24 hours Impressions Chest X-Ray 05/14/17 0000 Signed Impressions: Service Date/Time: Sunday, May 14, 2017 04:07 - CONCLUSION: Airspace disease improved on the right and resolved on the left. Small bilateral pleural effusions. Timmy Tenorio MD Chest X-Ray 05/13/171808 Signed Impressions: Service Date/Time: Saturday, May 13, 2017 18:40 - CONCLUSION: 1. Endotracheal tube distal to an appropriate position measuring 3.7 cm from the ad. No NG tube is visualized. 2. Moderate to severe bilateral diffuse airspace consolidation, right slightly greater than left. This pattern is nonspecific but could represent severe pulmonary edema. Infection should also be a consideration. Timmy Gupta MD Last 24 hours Impressions Chest X-Ray 05/13/171808 Signed Impressions: Service Date/Time: Saturday, May 13, 2017 18:40 - CONCLUSION: 1. Endotracheal tube distal to an appropriate position measuring 3.7 cm from the ad. No NG tube is visualized. 2. Moderate to severe bilateral diffuse airspace consolidation, right slightly greater than left. This pattern is nonspecific but could represent severe pulmonary edema. Infection should also be a consideration. Timmy Gupta MD Objective Remarks General -middle-aged gentleman, intubated and sedated, easily arousable, ill- appearing HEENT - pupils equal, reactive, sclerae anicteric, neck supple, no nuchal rigidity, neck veins distended, no carotid bruit, + ETT, + OGT CV - regular S1, S2, no murmurs, bradycardic Chest -bibasilar crackles, good air entry, no wheezes; AICD present over the left side of the chest Abdomen - soft, non-tender, non-distended, BS present, no hepatomegaly, no splenomegaly Skin - no rashes, no cyanosis Extremities - warm and well perfused, no edema, + peripheral pulses, no clubbing Neuro -intubated and sedated, opens eyes to voice stimuli, moves all 4 extremities A/P Assessment and Plan 1. Acute hypoxic respiratory failure -improved FiO2 requirements currently at 0.5, however he remains on high PEEP 2. Acute systolic CHF exacerbation 3. Nonischemic cardiomyopathy with ejection fraction of 15% 4. Some degree of CAD 5. Previous history of VT status post AICD 6. Hypertension 7. Diabetes 8. CKD 1. Continue PRVC at the current vent settings. PIP is 28, patient is synchronized with the vent, no auto PEEP. We will try to gradually decrease PEEP when FiO2 is at 0.4 or below 2. Vent bundle and bronchodilators 3. Continue Lasix but increase dose 4. 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 On amiodarone 7. Serial cardiac enzymes and echocardiogram 8. Continue to hold metformin. Glycemic control with insulin sliding scale 9. Monitor creatinine and urine output 10. No evidence of infection so far 11. DVT and GI prophylaxis 12. Start trickle feeds today No family present at bedside. Domenico Juarez MD May 14, 2017 08:49
--- NOTE | 2017-05-14 09:19 | EKG ---
Date Performed: 05/13/2017 Time Performed: 22:09:47 PTAGE: 61 years EKG: ELECTRONIC ATRIAL PACEMAKER ELECTRONIC VENTRICULAR PACEMAKER ABNORMAL RHYTHM ECG PREVIOUS TRACING : 05/13/2017 18.01 Compared to previous tracing, atrial pacing is now evident, heart rate has slowed. DOCTOR: Chadwick Bonner Interpretating Date/Time 05/14/2017 09:18:46
[2017-05-14 10:01] LABS: ALBUMIN 3.4 GM/DL (3.4-5.0); ALKALINE PHOSPHATASE 68 U/L (45-117); ALT (GPT) 15 U/L (12-78); AST (GOT) 29 U/L (15-37); BICARBONATE 27.3 MEQ/L (21.0-32.0); BLOOD UREA NITROGEN 29 MG/DL (7-18); CALCIUM 8.8 MG/DL (8.5-10.1); CHLORIDE 107 MEQ/L (98-107); CREATININE 1.71 MG/DL (0.60-1.30); GLOMERULAR FILTRATION RATE 41 ML/MIN (>89); GLUCOSE,RANDOM 116 MG/DL (74-106); MAGNESIUM 1.6 MG/DL (1.5-2.5); PHOSPHORUS 3.6 MG/DL (2.5-4.9); SODIUM (NA) 144 MEQ/L (136-145); TOTAL BILIRUBIN ADULT 0.9 MG/DL (0.2-1.0); TOTAL PROTEIN 7.2 GM/DL (6.4-8.2); TROPONIN I 0.22 NG/ML (0.02-0.05)
[2017-05-14] MEDS: POTASSIUM CHLOR 20 MEQ PREMIX 100 ML IV PRN (10:51)
[2017-05-14] MEDS: FREE WATER TUBE SCH ×2 (13:47→21:14)
[2017-05-14] MEDS: PRAVASTATIN SOD 80 MG TAB PO SCH (20:17)
[2017-05-15] VITALS (21 sets, daily range): BP systolic 93–123; BP diastolic 50–69; PULSE 56–89; RESP 12–19; TEMP 98–100.9; O2SAT 94–100
[2017-05-15] MEDS: PROPOFOL 1000 MG/100 ML INJ 100 ML IV PRN ×2 (00:07→09:59)
[2017-05-15] MEDS: CHLORHEXIDINE GLUCONATE 2 % 1 PACK (2 CLOTHS) TOP SCH (04:00)
[2017-05-15 05:19] LABS: HEMATOCRIT 40.9 % (39.0-51.0); HEMOGLOBIN 14.3 GM/DL (13.0-17.0); MEAN CELL VOLUME 91.4 FL (80.0-100.0); MEAN PLATELET VOLUME 8.3 FL (7.0-11.0); PLATELET COUNT 142 TH/MM3 (150-450); RED BLOOD COUNT 4.47 MIL/MM3 (4.50-5.90); RED CELL DISTRIBUTION WIDTH 14.6 % (11.6-17.2); WHITE BLOOD COUNT 10.1 TH/MM3 (4.0-11.0)
[2017-05-15 05:48] LABS: ALBUMIN 3.1 GM/DL (3.4-5.0); ALKALINE PHOSPHATASE 58 U/L (45-117); ALT (GPT) 9 U/L (12-78); AST (GOT) 27 U/L (15-37); BICARBONATE 28.5 MEQ/L (21.0-32.0); BLOOD UREA NITROGEN 39 MG/DL (7-18); CALCIUM 8.4 MG/DL (8.5-10.1); CHLORIDE 109 MEQ/L (98-107); CREATININE 1.63 MG/DL (0.60-1.30); GLOMERULAR FILTRATION RATE 43 ML/MIN (>89); GLUCOSE,RANDOM 143 MG/DL (74-106); MAGNESIUM 2.6 MG/DL (1.5-2.5); PHOSPHORUS 2.4 MG/DL (2.5-4.9); SODIUM (NA) 144 MEQ/L (136-145); TOTAL BILIRUBIN ADULT 1.5 MG/DL (0.2-1.0); TOTAL PROTEIN 6.9 GM/DL (6.4-8.2)
--- NOTE | 2017-05-15 05:53 | RADRPT ---
EXAM DATE/TIME: 05/15/2017 04:59 [facility] COMPARISON: CHEST SINGLE AP, May 14, 2017, 4:07. INDICATIONS : Short of breath. MEDICAL HISTORY : Hypertension. Diabetes mellitus type II. SURGICAL HISTORY : Defribillator. ENCOUNTER: Subsequent ACUITY: 2 weeks PAIN SCORE: 0/10 LOCATION: Bilateral chest FINDINGS: There is a stable ETT and NGT coursing beyond the GE junction. Improved right lower lung zone airspac e consolidation. Cardiac silhouette remains enlarged. Remainder of the exam is unchanged. CONCLUSION: 1. Stable tubes. 2. Improving right lower lung zone airspace consolidation. Lai Martinez MD on May 15, 2017 at 5:51 Board Certified Radiologist. This report was verified electronically.
[2017-05-15] MEDS: HEPARIN SODIUM - SQ 10,000 UNITS/ML VIAL SQ SCH ×3 (05:56→21:20)
[2017-05-15] MEDS: FREE WATER TUBE SCH (05:57)
[2017-05-15] MEDS: POTASSIUM CHLOR 20 MEQ PREMIX 100 ML IV PRN ×2 (06:01→11:46)
[2017-05-15] MEDS: INSULIN NovoLIN REGULAR SUPPLEMENTAL SCALE SQ SCH ×4 (08:00→21:19)
[2017-05-15] MEDS: CHLORHEXIDINE 0.12% (ORAL KIT) 15 ML CUP MT SCH ×2 (08:10→20:00)
--- NOTE | 2017-05-15 09:03 | HHI.CCPN ---
Subjective Remarks/Hospital Course 05/13: 61-year-old gentleman with history of CHF, ventricular fibrillation, diabetes mellitus, hypertension now presents with acute respiratory distress. Per chart documentation there was a history of shortness of breath starting a couple days ago. This patient had a non-STEMI around the first of the year. He had an ejection fraction previously of 15%. He had a cardiac catheterization done on 03/21/17 which showed diffuse moderate coronary artery disease. Due to severe hypoxemia and respiratory failure he was intubated by emergency department attending and transferred to [facility] ICU for high level of care. 05/14: No events over the night. Patient diuresed around 800 amounts of urine after 40 mg of IV Lasix. Remains on a PEEP of 10 and 0.6 FiO2. He is intubated and sedated with propofol, easily arousable, with a RASS of -1. Morning chest x-ray reviewed, ET tube 2 cm above ad, AICD in place, improved pulmonary vascular congestion, worse over the right side. 05/15: no acute events. diuresed well. awake and alert this AM. hypoxemia improving. CXR improving. ROS -unobtainable, patient is intubated Objective Vital Signs Date Time Temp Pulse Resp B/P (MAP) Pulse Ox O2 Delivery O2 Flow Rate FiO2 05/15/17 07:36 100 40 05/15/17 06:00 66 05/15/17 04:00 99.0 16 95/53 (67) 05/14/17 19:00 Mechanical Ventilator 05/13/17 18:10 15.00 Intake and Output 05/15/17 05/15/17 05/16/17 08:00 16:00 00:00 Intake Total 522 ml Output Total 1000 ml Balance -478 ml Result Diagram: 05/15/17 0447 05/15/17 0447 Other Results Laboratory Tests Test 05/15/17 04:44 Blood Gas Puncture Site LT RADIAL Blood Gas Patient Temperature 98.6 Blood Gas HCO3 28 mmol/L (22-26) Blood Gas Base Excess 4.1 mmol/L (-2-2) Blood Gas Oxygen Saturation 95 % (90-100) Arterial Blood pH 7.49 (7.380-7.420) Arterial Blood Partial Pressure CO2 36 mmHg (38-42) Arterial Blood Partial Pressure O2 88 mmHg (61-120) Arterial Blood Oxygen Content 19.1 Vol % (12.0-20.0) Arterial Blood Carboxyhemoglobin 1.6 % (0-4) Arterial Blood Methemoglobin 0.9 % (0-2) Blood Gas Hemoglobin 14.2 G/DL (12.0-16.0) Oxygen Delivery Device VENT Blood Gas Ventilator Setting Blood Gas Inspired Oxygen 40 % Objective Remarks General -middle-aged gentleman, intubated and sedated, easily arousable, ill- appearing HEENT - pupils equal, reactive, sclerae anicteric, neck supple, no nuchal rigidity, neck veins distended, no carotid bruit, + ETT, + OGT CV - normal rate, regular rhythm. Chest -prvc, fio2 40%, peep 5. spo2 100%. equal air entry. equal chest rise. AICD present over the left side of the chest Abdomen - soft, non-tender, non-distended, no guarding. Skin - no rashes, no cyanosis Extremities - warm and well perfused, no edema, + peripheral pulses, no clubbing Neuro -intubated and sedated, opens eyes to voice stimuli, moves all 4 extremities. follows commands. RASS -2. A/P Assessment and Plan 1. Acute hypoxic respiratory failure -improved FiO2 requirements and PEEP. 2. Acute systolic CHF exacerbation 3. Nonischemic cardiomyopathy with ejection fraction of 15% 4. Some degree of CAD 5. Previous history of VT status post AICD 6. Hypertension 7. Diabetes 8. CKD 1. start SBTs daily. wean to extubate if possible. 2. Vent bundle and bronchodilators 3. Continue Lasix, 60mg iv q12h. 4. diamox 250mg iv x 1 for developing alkalosis as we attempt to extubate today , do not want compensatory hypoventilation. 4. 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 trops stable at 0.2, likely poor renal clearance. will stop trending. 8. 2d echo pending. 9. Continue to hold metformin. Glycemic control with insulin sliding scale 10. Monitor creatinine and urine output. keep brown for now given aggressive forced diuresis. 11. No evidence of infection so far 12. DVT and GI prophylaxis 13. hold tube feeds for possible extubation. No family present at bedside. Omar Gay MD May 15, 2017 09:03
[2017-05-15] MEDS: SODIUM CHLORIDE 0.9% FLUSH 10 ML FLUSH IV FLUSH SCH ×2 (11:47→21:00)
[2017-05-15] MEDS: LOSARTAN 50 MG TAB PO SCH (11:48)
[2017-05-15] MEDS: DOCUSATE SODIUM 50 MG/SENNA 8.6 MG TAB PO SCH ×2 (11:49→21:19)
[2017-05-15] MEDS: AMIODARONE 200 MG TAB PO SCH ×2 (11:50→21:19)
[2017-05-15] MEDS: FUROSEMIDE 40 MG/4 ML VIAL IV PUSH SCH ×2 (12:16→17:17)
[2017-05-15] MEDS ORDERED: FREE WATER TUBE SCH (14:00)
--- NOTE | 2017-05-15 15:37 | ECHRPT ---
Indication: HEART FAILURE CONCLUSIONS Technically difficult study Severely dilated left ventricle. The left ventricular systolic function is severely reduced with an estimated ejection fraction less than 20%. There is global left ventricular dysfunction. Severe mitral valve regurgitation. Mild aortic valve regurgitation. Left pleural effusion noted BP: 95 / 53 HR: 64 Rhythm: Sinus MEASUREMENTS (Male / Female) Normal Values Technical Quality:Technically difficult study 2D ECHO LV Diastolic Diameter PLAX 8.3 cm 4.2 - 5.9 / 3.9 - 5.3 cm LV Systolic Diameter PLAX 7.8 cm IVS Diastolic Thickness 1.1 cm 0.6 - 1.0 / 0.6 - 0.9 cm LVPW Diastolic Thickness 1.2 cm 0.6 - 1.0 / 0.6 - 0.9 cm LV Relative Wall Thickness 0.3 LVOT Diameter 2.3 cm Aortic Root Diameter 3.5 cm DOPPLER AV Peak Velocity 200.0 cm/s AV Peak Gradient 16.0 mmHg AV Mean Gradient 8.0 mmHg AV Velocity Time Integral 32.6 cm AI Peak Velocity 432.0 cm/s AI Peak Gradient 74.6 mmHg AI Pressure Half Time 682.0 ms LVOT Peak Velocity 99.3 cm/s LVOT Peak Gradient 3.9 mmHg LVOT Velocity Time Integral 13.9 cm AV Area Cont Eq vti 1.8 cm AV Area Cont Eq pk 2.1 cm Mitral E Point Velocity 80.9 cm/s Mitral A Point Velocity 102.0 cm/s Mitral E to A Ratio 0.8 LV E' Lateral Velocity 8.9 cm/s Mitral E to LV E' Lateral Ratio 9.1 LV E' Septal Velocity 4.0 cm/s Mitral E to LV E' Septal Ratio 20.2 PV Peak Velocity 118.0 cm/s PV Peak Gradient 5.6 mmHg FINDINGS LEFT VENTRICLE Severely dilated left ventricle. Mild concentric left ventricular hypertrophy. The left ventricular systolic function is severely reduced with an estimated ejection fraction less than 20%. There is global left ventricular dysfunction. RIGHT VENTRICLE The right ventricle was not well visualized. LEFT ATRIUM The left atrial size is moderately dilated. RIGHT ATRIUM The right atrial size is normal. ATRIAL SEPTUM The interatrial septum not well visualized. AORTA The aortic root and proximal ascending aorta are not well visualized. MITRAL VALVE Grossly normal mitral valve. Severe mitral valve regurgitation. AORTIC VALVE Grossly normal aortic valve Mild aortic valve regurgitation. TRICUSPID VALVE Structurally normal tricuspid valve. There is trace tricuspid valve regurgitation. No tricuspid valve stenosis. PULMONARY VALVE No pulmonary valve regurgitation or stenosis. VESSELS The inferior vena cava is normal in size. PERICARDIUM No pericardial effusion. Left pleural effusion noted Heriberto Jay DO (Electronically Signed) Final Date:15 May 2017 15:36
[2017-05-15] MEDS: FAMOTIDINE 20 MG TAB PO SCH (21:19)
[2017-05-15] MEDS: PRAVASTATIN SOD 80 MG TAB PO SCH (21:19)
[2017-05-16] VITALS (10 sets, daily range): BP systolic 99–125; BP diastolic 54–67; PULSE 56–69; RESP 14–20; TEMP 97.4–98.6; O2SAT 94–99
[2017-05-16] MEDS: CHLORHEXIDINE GLUCONATE 2 % 1 PACK (2 CLOTHS) TOP SCH (03:32)
[2017-05-16] MEDS: HEPARIN SODIUM - SQ 10,000 UNITS/ML VIAL SQ SCH ×3 (05:05→21:14)
[2017-05-16 07:37] LABS: HEMATOCRIT 39.5 % (39.0-51.0); HEMOGLOBIN 13.8 GM/DL (13.0-17.0); MEAN CELL VOLUME 92.1 FL (80.0-100.0); MEAN CORPUSCULAR HEMOGLOBIN 32.2 PG (27.0-34.0); MEAN CORPUSCULAR HGB CONC 34.9 % (32.0-36.0); PLATELET COUNT 130 TH/MM3 (150-450); RED BLOOD COUNT 4.29 MIL/MM3 (4.50-5.90); WHITE BLOOD COUNT 8.8 TH/MM3 (4.0-11.0)
[2017-05-16 07:50] LABS: AST (GOT) 19 U/L (15-37); BICARBONATE 29.9 MEQ/L (21.0-32.0); BLOOD UREA NITROGEN 39 MG/DL (7-18); CHLORIDE 107 MEQ/L (98-107); CREATININE 1.52 MG/DL (0.60-1.30); GLOMERULAR FILTRATION RATE 47 ML/MIN (>89); GLUCOSE,RANDOM 101 MG/DL (74-106); MAGNESIUM 2.4 MG/DL (1.5-2.5); SODIUM (NA) 142 MEQ/L (136-145)
[2017-05-16 07:51] LABS: ALT (GPT) 9 U/L (12-78)
[2017-05-16 07:53] LABS: ALKALINE PHOSPHATASE 59 U/L (45-117); TOTAL BILIRUBIN ADULT 1.5 MG/DL (0.2-1.0); TOTAL PROTEIN 7.1 GM/DL (6.4-8.2)
[2017-05-16] MEDS: CHLORHEXIDINE 0.12% (ORAL KIT) 15 ML CUP MT SCH (08:00)
[2017-05-16] MEDS: INSULIN NovoLIN REGULAR SUPPLEMENTAL SCALE SQ SCH (08:00)
[2017-05-16] MEDS: SODIUM CHLORIDE 0.9% FLUSH 10 ML FLUSH IV FLUSH SCH ×2 (08:14→21:18)
[2017-05-16] MEDS: FUROSEMIDE 40 MG/4 ML VIAL IV PUSH SCH (08:15)
[2017-05-16] MEDS: LOSARTAN 50 MG TAB PO SCH (08:15)
[2017-05-16] MEDS: FAMOTIDINE 20 MG TAB PO SCH ×2 (08:15→21:13)
[2017-05-16] MEDS: DOCUSATE SODIUM 50 MG/SENNA 8.6 MG TAB PO SCH ×2 (08:16→21:00)
[2017-05-16] MEDS: AMIODARONE 200 MG TAB PO SCH ×2 (08:16→21:14)
[2017-05-16] MEDS: TORSEMIDE 5 MG TAB PO SCH (18:17)
--- NOTE | 2017-05-16 19:09 | HHI.PR ---
Subjective Remarks Follow-up for acute respiratory failure, congestive heart failure exacerbation. Patient is currently doing well on nasal cannula. He is walking to the bathroom without any difficulty. No chest pain, shortness of breath, fever or chills. Objective Vitals Vital Signs Date Time Temp Pulse Resp B/P (MAP) Pulse Ox O2 Delivery O2 Flow Rate FiO2 05/16/17 16:00 97.7 63 15 116/64 (81) 94 05/16/17 12:07 94 21 05/16/17 12:00 98.1 69 16 109/63 (78) 96 05/16/17 08:46 99 Nasal Cannula 1.00 05/16/17 08:00 97.4 58 14 118/67 (84) 97 05/16/17 07:15 97 Nasal Cannula 3.00 05/16/17 04:07 56 05/16/17 04:00 Nasal Cannula 3.00 05/16/17 04:00 97.5 56 20 125/58 (80) 95 05/16/17 00:00 Nasal Cannula 3.00 05/16/17 00:00 98.0 68 19 120/62 (81) 97 05/15/17 23:53 56 05/15/17 22:40 98.0 60 19 113/57 (75) 99 05/15/17 22:37 59 05/15/17 22:30 Nasal Cannula 3.00 05/15/17 22:00 64 05/15/17 20:56 98 Nasal Cannula 3.00 05/15/17 20:00 98.9 64 16 93/53 (66) 97 05/15/17 20:00 64 05/15/17 19:00 99 Nasal Cannula 3.00 I/O 05/15/17 05/15/17 05/15/17 05/16/17 05/16/17 05/16/17 07:00 15:00 23:00 07:00 15:00 23:00 Intake Total 622 ml 1511 ml 450 ml 200 ml 600 ml Output Total 1000 ml 2125 ml 900 ml 600 ml Balance -378 ml 1511 ml -1675 ml -700 ml 0 ml Intake Oral 920 ml 450 ml 200 ml 600 ml IV Total 100 ml 508 ml Tube Feeding 322 ml 83 ml Other 200 ml Output Urine Total 1000 ml 2125 ml 900 ml 600 ml # Voids 1 # Bowel Movements 0 0 0 0 Result Diagram: 05/16/17 0620 05/16/17 0620 Imaging Last Impressions Chest X-Ray 05/15/17 0600 Signed Impressions: Service Date/Time: Monday, May 15, 2017 04:59 - CONCLUSION: 1. Stable tubes. 2. Improving right lower lung zone airspace consolidation. Lai Martinez MD Objective Remarks GENERAL: Alert, oriented 3, NAD. SKIN: Warm and dry. HEAD: Normocephalic. EYES: No scleral icterus. No injection or drainage. NECK: Supple, trachea midline. No JVD or lymphadenopathy. CARDIOVASCULAR: Regular rate and rhythm without murmurs, gallops, or rubs. Bibasilar crackles appreciated. RESPIRATORY: Breath sounds equal bilaterally. No accessory muscle use. GASTROINTESTINAL: Abdomen soft, non-tender, nondistended. MUSCULOSKELETAL: No cyanosis, or edema. BACK: Nontender without obvious deformity. No CVA tenderness. Procedures Echocardiogram 05/15/2017 Technically difficult study Severely dilated left ventricle. The left ventricular systolic function is severely reduced with an estimated ejection fraction less than 20%. There is global left ventricular dysfunction. Severe mitral valve regurgitation. Mild aortic valve regurgitation. Left pleural effusion noted A/P Problem List: (1) NICM (nonischemic cardiomyopathy) ICD Code: I42.8 - Other cardiomyopathies (2) Congestive heart failure ICD Code: I50.9 - Heart failure, unspecified Status: Acute (3) HTN (hypertension) ICD Code: I10 - Essential (primary) hypertension Status: Chronic (4) DM (diabetes mellitus) ICD Code: E11.9 - Type 2 diabetes mellitus without complications Status: Chronic Assessment and Plan Mr. White is a pleasant 61-year-old male with a history of CHF, ventricular fibrillation, diabetes mellitus, hypertension who was admitted to the hospital on 05/13/2017 due to acute respiratory failure. This patient had a non-STEMI around the first of the year. He had an ejection fraction previously of 15%. He had a cardiac catheterization done on 03/21/17 which showed diffuse moderate coronary artery disease. Due to severe hypoxemia and respiratory failure he was intubated. He was extubated on 05/15/2017. -Acute hypoxic respiratory failure -Patient extubated on 05/15/2017. -Continue DuoNeb as needed, supplemental oxygen to keep O2 saturation above 90%. -Acute congestive heart failure exacerbation, systolic -Coronary artery disease -Ischemic and nonischemic cardiomyopathy -History of ventricular fibrillation status post AICD placement. -Patient is currently on amiodarone 200 mg p.o. twice daily, losartan 100 mg p.o. daily -Continue pravastatin 80 mg nightly -We will switch Lasix 60 mg IV twice daily to torsemide 10 mg twice daily. -Will consider increasing torsemide if blood pressure tolerates. -Start potassium chloride 10 mEq every 12 hours. Full code. Heparin SQ. Discharge plan: Depending on clinical improvement, likely discharge on 2017. Malini Bueno DO May 16, 2017 7:09 pm
[2017-05-16] MEDS: PRAVASTATIN SOD 80 MG TAB PO SCH (21:13)
[2017-05-16] MEDS: POTASSIUM CHLORIDE 10 MEQ CONTROLLED RELEASE TAB PO SCH (21:14)
[2017-05-17] VITALS (12 sets, daily range): BP systolic 108–126; BP diastolic 55–70; PULSE 55–70; RESP 17–20; TEMP 97.8–98.9; O2SAT 93–97
[2017-05-17] MEDS: HEPARIN SODIUM - SQ 10,000 UNITS/ML VIAL SQ SCH ×3 (06:20→21:16)
[2017-05-17 07:48] LABS: HEMATOCRIT 40.6 % (39.0-51.0); HEMOGLOBIN 13.9 GM/DL (13.0-17.0); MEAN CELL VOLUME 92.6 FL (80.0-100.0); MEAN CORPUSCULAR HEMOGLOBIN 31.7 PG (27.0-34.0); MEAN CORPUSCULAR HGB CONC 34.2 % (32.0-36.0); MEAN PLATELET VOLUME 8.6 FL (7.0-11.0); PLATELET COUNT 148 TH/MM3 (150-450); RED BLOOD COUNT 4.38 MIL/MM3 (4.50-5.90); WHITE BLOOD COUNT 6.4 TH/MM3 (4.0-11.0)
[2017-05-17 08:11] LABS: AST (GOT) 15 U/L (15-37); BICARBONATE 27.7 MEQ/L (21.0-32.0); BLOOD UREA NITROGEN 38 MG/DL (7-18); CALCIUM 9.2 MG/DL (8.5-10.1); CHLORIDE 104 MEQ/L (98-107); CREATININE 1.54 MG/DL (0.60-1.30); GLOMERULAR FILTRATION RATE 46 ML/MIN (>89); GLUCOSE,RANDOM 104 MG/DL (74-106); MAGNESIUM 2.1 MG/DL (1.5-2.5); SODIUM (NA) 138 MEQ/L (136-145)
[2017-05-17 08:14] LABS: ALKALINE PHOSPHATASE 60 U/L (45-117); ALT (GPT) 9 U/L (12-78); PHOSPHORUS 2.6 MG/DL (2.5-4.9); TOTAL BILIRUBIN ADULT 0.9 MG/DL (0.2-1.0); TOTAL PROTEIN 7.3 GM/DL (6.4-8.2)
[2017-05-17] MEDS: TORSEMIDE 5 MG TAB PO SCH (09:03)
[2017-05-17] MEDS: SODIUM CHLORIDE 0.9% FLUSH 10 ML FLUSH IV FLUSH SCH ×2 (09:03→21:00)
[2017-05-17] MEDS: AMIODARONE 200 MG TAB PO SCH ×2 (09:04→21:15)
[2017-05-17] MEDS: DOCUSATE SODIUM 50 MG/SENNA 8.6 MG TAB PO SCH ×2 (09:04→21:16)
[2017-05-17] MEDS: LOSARTAN 50 MG TAB PO SCH (09:04)
[2017-05-17] MEDS: POTASSIUM CHLORIDE 10 MEQ CONTROLLED RELEASE TAB PO SCH ×2 (09:04→21:15)
[2017-05-17] MEDS: FAMOTIDINE 20 MG TAB PO SCH ×2 (09:04→21:16)
--- NOTE | 2017-05-17 12:11 | HHI.FF ---
Face to Face Verification Diagnosis: (1) Pneumonia (2) CHF exacerbation Physical Therapy Order: Evaluate and Treat, Improve ambulation, Strength and gait training Occupational Therapy Order: Evaluate and Treat Home Health Nursing Order: Medical education CHF education Medication education-adverse effect Nursing assessment with vital signs I have seen patient Ed White on 05/17/17. My clinical findings support the need for the requested home health care services because: Patient has SOB Deconditioned w/ increased weakness Limited ability to care for self Need for psychosocial assistance High risk of falls Infection w/ risk of complications I certify that my clinical findings support that this patient is homebound because: Unsafe to leave home unassisted Need for psychosocial assistance Unable to use public transportation Poor cardiac reserve Malini Bueno DO May 17, 2017 12:11 pm
[2017-05-17] MEDS ORDERED: guaiFENesin E.R. 600 MG TAB PO ONE (12:15)
[2017-05-17] MEDS ORDERED: LEVOFLOXACIN 750 MG TAB PO ONE (12:15)
--- NOTE | 2017-05-17 15:28 | HHI.PR ---
Subjective Remarks Follow-up for acute respiratory failure, congestive heart failure exacerbation. Patient is doing well. No fever, chills. However, he reports cough. Also, he reports some hemoptysis. Objective Vitals Vital Signs Date Time Temp Pulse Resp B/P (MAP) Pulse Ox O2 Delivery O2 Flow Rate FiO2 05/17/17 12:22 Nasal Cannula 1.00 05/17/17 12:00 97.8 58 20 111/60 (77) 93 05/17/17 12:00 58 05/17/17 09:33 Nasal Cannula 2.00 05/17/17 09:00 Nasal Cannula 1.00 05/17/17 08:00 58 05/17/17 08:00 98.3 59 18 118/55 (76) 97 05/17/17 04:00 98.3 57 18 108/61 (77) 96 05/17/17 03:47 61 05/17/17 02:28 Nasal Cannula 1.00 05/17/17 02:21 94 05/17/17 00:02 55 05/17/17 00:00 97.8 55 18 126/70 (88) 94 05/16/17 21:20 Room Air 05/16/17 20:01 57 05/16/17 20:00 98.6 60 17 99/54 (69) 95 05/16/17 16:00 68 05/16/17 16:00 97.7 63 15 116/64 (81) 94 I/O 05/16/17 05/16/17 05/16/17 05/17/17 05/17/17 05/17/17 07:00 15:00 23:00 07:00 15:00 23:00 Intake Total 200 ml 600 ml 240 ml Output Total 900 ml 600 ml 750 ml Balance -700 ml 0 ml -510 ml Intake Oral 200 ml 600 ml 240 ml Output Urine Total 900 ml 600 ml 750 ml # Bowel Movements 0 0 Result Diagram: 05/17/17 0705/17/17 07 Imaging Last Impressions Chest X-Ray 05/15/17 06 Signed Impressions: Service Date/Time: Monday, May 15, 2017 04:59 - CONCLUSION: 1. Stable tubes. 2. Improving right lower lung zone airspace consolidation. Lai Martinez MD Objective Remarks GENERAL: Alert, oriented 3, NAD. SKIN: Warm and dry. HEAD: Normocephalic. EYES: No scleral icterus. No injection or drainage. NECK: Supple, trachea midline. No JVD or lymphadenopathy. CARDIOVASCULAR: Regular rate and rhythm without murmurs, gallops, or rubs. Bibasilar crackles appreciated. RESPIRATORY: Breath sounds equal bilaterally. No accessory muscle use. GASTROINTESTINAL: Abdomen soft, non-tender, nondistended. MUSCULOSKELETAL: No cyanosis, or edema. BACK: Nontender without obvious deformity. No CVA tenderness. Procedures Echocardiogram 05/15/2017 Technically difficult study Severely dilated left ventricle. The left ventricular systolic function is severely reduced with an estimated ejection fraction less than 20%. There is global left ventricular dysfunction. Severe mitral valve regurgitation. Mild aortic valve regurgitation. Left pleural effusion noted A/P Problem List: (1) NICM (nonischemic cardiomyopathy) ICD Code: I42.8 - Other cardiomyopathies (2) Congestive heart failure ICD Code: I50.9 - Heart failure, unspecified Status: Acute (3) HTN (hypertension) ICD Code: I10 - Essential (primary) hypertension Status: Chronic (4) DM (diabetes mellitus) ICD Code: E11.9 - Type 2 diabetes mellitus without complications Status: Chronic Assessment and Plan Mr. White is a pleasant 61-year-old male with a history of CHF, ventricular fibrillation, diabetes mellitus, hypertension who was admitted to the hospital on 05/13/2017 due to acute respiratory failure. This patient had a non-STEMI around the first of the year. He had an ejection fraction previously of 15%. He had a cardiac catheterization done on 03/21/17 which showed diffuse moderate coronary artery disease. Due to severe hypoxemia and respiratory failure he was intubated. He was extubated on 05/15/2017. -Acute hypoxic respiratory failure -Probable Bilateral pneumonia. -Mild hemoptysis. -Patient extubated on 05/15/2017. -Continue DuoNeb as needed, supplemental oxygen to keep O2 saturation above 90%. -Will start patient on Levaquin 750mg Qday. -If he continues to have hemoptysis, we will consider pulmonary consult. -Acute congestive heart failure exacerbation, systolic -Coronary artery disease -Ischemic and nonischemic cardiomyopathy -History of ventricular fibrillation status post AICD placement. -Patient is currently on amiodarone 200 mg p.o. twice daily, losartan 100 mg p.o. daily -Continue pravastatin 80 mg nightly -We switched Lasix 60 mg IV twice daily to torsemide 10 mg twice daily. -Increase Torsemide to 20mg BID. -potassium chloride 10 mEq every 12 hours. Full code. Heparin SQ. Malini Bueno DO May 17, 2017 15:28
[2017-05-17] MEDS: TORSEMIDE 20 MG TAB PO SCH (17:53)
[2017-05-17] MEDS: guaiFENesin E.R. 600 MG TAB PO SCH (21:15)
[2017-05-17] MEDS: PRAVASTATIN SOD 80 MG TAB PO SCH (21:16)
[2017-05-18] VITALS: BP 98/56; PULSE 63; PULSE 66; RESP 18; TEMP 98.6; O2SAT 94
[2017-05-18 04:00] VITALS: BP 111/69; PULSE 65; PULSE 72; RESP 18; TEMP 98.2; O2SAT 96
[2017-05-18] MEDS: HEPARIN SODIUM - SQ 10,000 UNITS/ML VIAL SQ SCH ×2 (05:57→13:47)
[2017-05-18 08:00] VITALS: BP 115/73; PULSE 63; RESP 20; TEMP 98.9; O2SAT 98
[2017-05-18] MEDS: SODIUM CHLORIDE 0.9% FLUSH 10 ML FLUSH IV FLUSH SCH (08:20)
[2017-05-18] MEDS: guaiFENesin E.R. 600 MG TAB PO SCH (08:21)
[2017-05-18] MEDS: LOSARTAN 50 MG TAB PO SCH (08:21)
[2017-05-18] MEDS: POTASSIUM CHLORIDE 10 MEQ CONTROLLED RELEASE TAB PO SCH (08:21)
[2017-05-18] MEDS: DOCUSATE SODIUM 50 MG/SENNA 8.6 MG TAB PO SCH (08:21)
[2017-05-18] MEDS: TORSEMIDE 20 MG TAB PO SCH (08:21)
[2017-05-18] MEDS: FAMOTIDINE 20 MG TAB PO SCH (08:21)
[2017-05-18] MEDS: AMIODARONE 200 MG TAB PO SCH (08:21)
[2017-05-18] MEDS ORDERED: LEVA750T9 PO (11:18)
[2017-05-18] MEDS ORDERED: KLOR10TA PO (11:18)
[2017-05-18] MEDS ORDERED: TORS1TAB12 PO (11:18)
[2017-05-18] MEDS ORDERED: METO1TAB42 PO (11:19)
--- NOTE | 2017-05-18 11:20 | HHI.DS ---
Discharge Summary Admission Date May 13, 2017 at 6:54 pm Discharge Date: May 18, 2017 Admitting Diagnosis resp failure, pulm edema (1) NICM (nonischemic cardiomyopathy) ICD Code: I42.8 - Other cardiomyopathies (2) Congestive heart failure ICD Code: I50.9 - Heart failure, unspecified Diagnosis: Principal Status: Acute (3) HTN (hypertension) ICD Code: I10 - Essential (primary) hypertension Status: Chronic (4) DM (diabetes mellitus) ICD Code: E11.9 - Type 2 diabetes mellitus without complications Status: Chronic (5) Acute respiratory failure with hypoxemia ICD Code: J96.01 - Acute respiratory failure with hypoxia Diagnosis: Principal (6) Bilateral pneumonia ICD Code: J18.9 - Pneumonia, unspecified organism Diagnosis: Principal Procedures Echocardiogram 05/15/2017 Technically difficult study Severely dilated left ventricle. The left ventricular systolic function is severely reduced with an estimated ejection fraction less than 20%. There is global left ventricular dysfunction. Severe mitral valve regurgitation. Mild aortic valve regurgitation. Left pleural effusion noted Brief History - From Admission 61-year-old gentleman with history of CHF, ventricular fibrillation, diabetes mellitus, hypertension now presents with acute respiratory distress. Per chart documentation there was a history of shortness of breath starting a couple days ago. This patient had a non-STEMI around the first of the year. He had an ejection fraction previously of 15%. He had a cardiac catheterization done on which showed diffuse moderate coronary artery disease. Due to severe hypoxemia and respiratory failure he was intubated by emergency department attending and transferred to [facility] ICU for high level of care. CBC/BMP: 05/17/17 0700 05/17/17 0700 Significant Findings Laboratory Tests Test 05/15/17 21:12 05/16/17 06:20 05/17/17 07:00 Potassium Level 3.2 MEQ/L (3.5-5.1) 3.4 MEQ/L (3.5-5.1) Red Blood Count 4.29 MIL/MM3 (4.50-5.90) 4.38 MIL/MM3 (4.50-5.90) Platelet Count 130 TH/MM3 (150-450) 148 TH/MM3 (150-450) Blood Urea Nitrogen 39 MG/DL (7-18) 38 MG/DL (7-18) Creatinine 1.52 MG/DL (0.60-1.30) 1.54 MG/DL (0.60-1.30) Albumin 3.0 GM/DL (3.4-5.0) 3.0 GM/DL (3.4-5.0) Phosphorus Level 2.0 MG/DL (2.5-4.9) Alanine Aminotransferase (ALT/SGPT) 9 U/L (12-78) 9 U/L (12-78) Total Bilirubin 1.5 MG/DL (0.2-1.0) Estimat Glomerular Filtration Rate 47 ML/MIN (>89) 46 ML/MIN (>89) Imaging Last Impressions Chest X-Ray 05/15/17 0600 Signed Impressions: Service Date/Time: Monday, May 15, 2017 04:59 - CONCLUSION: 1. Stable tubes. 2. Improving right lower lung zone airspace consolidation. Lai Martinez MD PE at Discharge GENERAL: Alert, oriented 3, NAD. SKIN: Warm and dry. HEAD: Normocephalic. EYES: No scleral icterus. No injection or drainage. NECK: Supple, trachea midline. No JVD or lymphadenopathy. CARDIOVASCULAR: Regular rate and rhythm without murmurs, gallops, or rubs. Bibasilar crackles appreciated. RESPIRATORY: Breath sounds equal bilaterally. No accessory muscle use. GASTROINTESTINAL: Abdomen soft, non-tender, nondistended. MUSCULOSKELETAL: No cyanosis, or edema. BACK: Nontender without obvious deformity. No CVA tenderness. Pt update on day of discharge Patient is doing well. No further hemoptysis. No fever, chills. Continues to have some dry cough. Hospital Course Mr. White is a pleasant 61-year-old male with a history of CHF, ventricular fibrillation, diabetes mellitus, hypertension who was admitted to the hospital on 05/13/2017 due to acute respiratory failure. This patient had a non-STEMI around the first of the year. He had an ejection fraction previously of 15%. He had a cardiac catheterization done on 03/21/17 which showed diffuse moderate coronary artery disease. Due to severe hypoxemia and respiratory failure he was intubated. He was extubated on 05/15/2017. -Acute hypoxic respiratory failure -Probable Bilateral pneumonia. -Mild hemoptysis. -Patient extubated on 05/15/2017. -Continue DuoNeb as needed, supplemental oxygen to keep O2 saturation above 90%. -Levaquin 750mg for total 7 day course. -No further hemoptysis. Patient is currently room air and ambulating well without any difficulties. -Acute congestive heart failure exacerbation, systolic -Coronary artery disease -Ischemic and nonischemic cardiomyopathy -History of ventricular fibrillation status post AICD placement. -Patient is currently on amiodarone 200 mg p.o. twice daily, losartan 100 mg p.o. daily -Continue pravastatin 80 mg nightly -We switched Lasix 60 mg IV twice daily to torsemide 10 mg twice daily. -Increased Torsemide to 20mg BID. -potassium chloride 10 mEq every 12 hours. Full code. Heparin SQ. Pt Condition on Discharge: Good Discharge Disposition: Discharge Home Discharge Time: > 30 minutes Discharge Instructions DIET: Follow Instructions for: Heart Healthy Diet Activities you can perform: Regular-No Restrictions Follow up Referrals: Cardiology - 2 Weeks @ [facility] PCP Follow-up - 1 Week New Medications: Guaifenesin-Codeine Liq (Guaifenesin AC Liq) 100-10 Mg/5 Ml Syrp 10 ML PO Q6H PRN for COUGH, #1 BOTTLE 0 Refills Metoprolol Succinate ER 24 HR (Metoprolol Succinate ER 24 HR) 25 Mg Tab 12.5 MG PO DAILY for Heart, #30 TAB 0 Refills Hold if systolic BP < 110 or Heart rate < 65 Levofloxacin (Levaquin) 750 Mg Tablet 750 MG PO Q48H for Infection, #3 TAB Potassium Chloride ER (Klor-Con 10) 10 Meq Tab 10 MEQ PO Q12HR for Hypokalemia, #60 TAB 5 Refills Torsemide (Demadex) 20 Mg Tab 20 MG PO BID@0900,1800 for Heart , #60 TAB 5 Refills Continued Medications: Amiodarone (Amiodarone) 200 Mg Tab 200 MG PO BID for Regulate Heart Beat, #60 TAB 0 Refills Losartan (Losartan) 100 Mg Tab 100 MG PO DAILY for Blood Pressure Management, #30 TAB 0 Refills Metformin (Metformin) 500 Mg Tab 500 MG PO BIDPC for Blood Sugar Management, #60 TAB 0 Refills Simvastatin (Simvastatin) 40 Mg Tab 40 MG PO HS for Cholesterol Management, #30 TAB 0 Refills Discontinued Medications: Furosemide (Furosemide) 40 Mg Tab 40 MG PO DAILY, #30 TAB Metoprolol Tartrate (Lopressor) 50 Mg Tab 50 MG PO Q12H, #60 TAB Potassium Chloride ER (Potassium Chloride ER) 10 Meq Cap 30 MEQ PO DAILY for Electrolyte Replacement, #30 CAP 0 Refills Malini Bueno DO May 18, 2017 11:20
[2017-05-18] MEDS ORDERED: GUAISYP4 PO (11:23)
[2017-05-18 12:00] VITALS: PULSE 68
[2017-05-19] MEDS ORDERED: LEVOFLOXACIN 750 MG TAB PO SCH (09:00)
== END 2017-05-18 16:00 | disposition home or self-care (01) | DRG 208 ==
LOC: PHED 17:43 → PHEDA 18:54 → N03A 19:58 → N04B 05-15 22:21
PROVIDERS: ADMIT Hospitalist; ATTEND Hospitalist
PROC: 5A1945Z Respiratory Ventilation, 24-96 Consecutive Hours (ICD-10-PCS; principal; 2017-05-13)
PROC: 0BH17EZ Insertion of Endotracheal Airway into Trachea, Via Natural or Artificial Opening (ICD-10-PCS; 2017-05-13)
PROC: 5A09357 Assistance with Respiratory Ventilation, Less than 24 Consecutive Hours, Continuous Positive Airway Pressure (ICD-10-PCS; 2017-05-13)
DX: J96.01 Acute respiratory failure with hypoxia (principal); I13.0 Hypertensive heart and chronic kidney disease with heart failure and stage 1 through stage 4 chronic kidney disease, or unspecified chronic kidney disease; I50.23 Acute on chronic systolic (congestive) heart failure; N18.9 Chronic kidney disease, unspecified; J18.9 Pneumonia, unspecified organism; E11.22 Type 2 diabetes mellitus with diabetic chronic kidney disease; Z79.84 Long term (current) use of oral hypoglycemic drugs; I42.8 Other cardiomyopathies; I25.5 Ischemic cardiomyopathy; R04.2 Hemoptysis; Z72.0 Tobacco use; E78.5 Hyperlipidemia, unspecified; I25.2 Old myocardial infarction; I25.10 Atherosclerotic heart disease of native coronary artery without angina pectoris; Z95.810 Presence of automatic (implantable) cardiac defibrillator; I08.0 Rheumatic disorders of both mitral and aortic valves; Z91.14 Patient's other noncompliance with medication regimen
CPT/HCPCS: 31500; 36600; 51702; 71045; 80053; 82805; 82948; 83605; 83735; 83880; 84100; 84132; 84484; 85025; 85027; 85379; 85610; 85730; 87641; 93005; 93306; 94002; 94003; 94150; 94640; 94664; 94667; 94668; 96374; 96375; 99292; J0330; J1120; J1644; J1940; J2270; J3475; J3480

== ENCOUNTER 2017-05-23 15:30 | Inpatient (IN) | payer MEDICARE ==
[~2017-05-23] VITALS: Ht 172.7 cm; Wt 83.1 kg
[~2017-05-23 15:30] MED LIST changes: -FURO40TA PO; +GUAISYP4 PO; +KLOR10TA PO; +LEVA750T9 PO; -METO-309 PO; +METO1TAB42 PO; -POTA10CA PO; +TORS1TAB12 PO
[2017-05-23 15:37] VITALS: BP 131/74; PULSE 80; RESP 18; TEMP 98.5; O2SAT 100
--- NOTE | 2017-05-23 15:57 | PD ---
HPI Chief Complaint: Cardiac Complaint Time Seen by Provider: 15:39 Travel History International Travel<30 days: No Contact w/Intl Traveler<30days: No Traveled to known affect area: No History of Present Illness HPI This 61-year-old male presents with complaint that his defibrillator went off. He has had a defibrillator for about 10 years. This is actually his second defibrillator. It had fired 5 times about 2 months ago. At that time he was admitted to the hospital and had cardiac catheterization done. He says that earlier today he was feeling a little nauseated. He noted his heart rate went up to about 107 and then he was defibrillated. He is on amiodarone twice daily and he says he has been taking it. He is also on metoprolol. He has a cardiomyopathy with severely reduced left ventricular systolic function severely dilated left ventricle and severe mitral valve regurgitation. He denies any recent chest pain. He has a history of diabetes PFSH Past Medical History Arthritis: No Asthma: No Autoimmune Disease: No Blood Disorders: No Anxiety: No Depression: No Heart Rhythm Problems: Yes Cancer: No Cardiac Catheterization: Yes Cardiovascular Problems: Yes High Cholesterol: Yes Chemotherapy: No Chest Pain: Yes Congestive Heart Failure: Yes COPD: No Cerebrovascular Accident: No Coronary Artery Disease: Yes Diabetes: Yes Patient Takes Glucophage: Yes Diminished Hearing: No Endocrine: Yes Gastrointestinal Disorders: Yes GERD: Yes Genitourinary: No Hiatal Hernia: No Hypertension: Yes Immune Disorder: No Implanted Vascular Access Dvce: Yes Kidney Stones: No Musculoskeletal: No Neurologic: No Psychiatric: No Reproductive: No Respiratory: No Immunizations Current: Yes Migraines: No Myocardial Infarction: Yes (x1) Radiation Therapy: No Renal Failure: No Seizures: No Sickle Cell Disease: No Sleep Apnea: No Thyroid Disease: No Triglycerides - High: Yes Ulcer: No Influenza Vaccination: No ?: Not Past Surgical History Abdominal Surgery: Yes (pancreas removed a cyst) AICD: Yes Arteriovenous Shunt: No Body Medical Devices: PACEMAKER Cardiac Surgery: Yes Cholecystectomy: Yes Coronary Artery Bypass Graft: Yes Endocrine Surgery: No Eye Surgery: No Genitourinary Surgery: No Gynecologic Surgery: No Insulin Pump: No Joint Replacement: No Oral Surgery: Yes (SINUS) Pacemaker: Yes (PACEMAKER AICD) Thoracic Surgery: Yes (pacemaker; AICD) Other Surgery: Yes (CYST REMOVED FROM PANCREAS; GALLBLADDER) Social History Alcohol Use: No Tobacco Use: No (quit 2 weeks ago) Substance Use: No (PT DENIES ) Allergies-Medications (Allergen,Severity, Reaction): Coded Allergies: diatrizoate meglumine (Unverified Allergy, Severe, Swelling, 05/13/17) gadobenic acid (Unverified Allergy, Severe, Swelling, 05/13/17) gadodiamide (Unverified Allergy, Severe, Swelling, 05/13/17) gadoteridol (Unverified Allergy, Severe, Swelling, 05/13/17) iodixanol (Unverified Allergy, Severe, Swelling, 05/13/17) iohexol (Unverified Allergy, Severe, Swelling, 05/13/17) Iodinated Contrast- Oral and IV Dye (Verified Allergy, Unknown, 05/13/17) MRI PRECAUTION (Verified Adverse Reaction, Severe, NON COMPATIBLE MEDTRONIC PACEMAKER 09/24/15 KMD, 05/13/17) VIVA XT THERAPIST PHYS DEFIB MODEL [id number] IMPLANTED 09/02/13 Reported Meds & Prescriptions Reported Meds & Active Scripts Active Metoprolol Succinate ER 24 HR (Metoprolol Succinate) 25 Mg Tab 12.5 Mg PO DAILY Hold if systolic BP < 110 or Heart rate < 65 Demadex (Torsemide) 20 Mg Tab 20 Mg PO BID@0900,1800 Klor-Con 10 (Potassium Chloride) 10 Meq Tab 10 Meq PO Q12HR Amiodarone (Amiodarone HCl) 200 Mg Tab 200 Mg PO BID Reported Simvastatin 40 Mg Tab 40 Mg PO HS Metformin (Metformin HCl) 500 Mg Tab 500 Mg PO BIDPC Losartan (Losartan Potassium) 100 Mg Tab 100 Mg PO DAILY Review of Systems General / Constitutional: No: Fever, Chills Eyes: No: Diploplia, Blurred Vision HENT: No: Headaches Cardiovascular: Positive: Palpitations, Tachycardia, No: Chest Pain or Discomfort Respiratory: No: Cough, Shortness of Breath Gastrointestinal: Positive: Nausea, No: Vomiting Genitourinary: No: Urgency, Frequency Skin: No Rash Neurologic: Positive: Weakness Psychiatric: No: Anxiety, Depression Endocrine: No: Heat Intolerance Hematologic/Lymphatic: No: Easy Bruising Physical Exam Narrative GENERAL: Well-developed male SKIN: Focused skin assessment warm/dry. HEAD: Atraumatic. Normocephalic. EYES: Pupils equal and round. No scleral icterus. No injection or drainage. ENT: No nasal bleeding or discharge. Mucous membranes pink and moist. NECK: Trachea midline. No JVD. CARDIOVASCULAR: Regular rate and rhythm. No murmur appreciated. RESPIRATORY: No accessory muscle use. Clear to auscultation. Breath sounds equal bilaterally. There are some basilar rales GASTROINTESTINAL: Abdomen soft, non-tender, nondistended. Hepatic and splenic margins not palpable. MUSCULOSKELETAL: No obvious deformities. No clubbing. No cyanosis. No edema. NEUROLOGICAL: Awake and alert. No obvious cranial nerve deficits. Motor grossly within normal limits. Normal speech. PSYCHIATRIC: Appropriate mood and affect; insight and judgment normal. Data Data Last Documented VS Vital Signs Date Time Temp Pulse Resp B/P (MAP) Pulse Ox O2 Delivery O2 Flow Rate FiO2 05/23/17 15:43 78 100 Room Air 05/23/17 15:37 98.5 18 131/74 (93) Orders Orders Electrocardiogram (05/23/17 15:49) Complete Blood Count With Diff (05/23/17 15:49) Comprehensive Metabolic Panel (05/23/17 15:49) Troponin I (05/23/17 15:49) B-Type Natriuretic Peptide (05/23/17 15:49) Prothrombin Time / Inr (Pt) (05/23/17 15:49) Act Partial Throm Time (Ptt) (05/23/17 15:49) Magnesium (Mg) (05/23/17 15:49) Chest, Single Ap (05/23/17 15:49) Labs Laboratory Tests Test 05/23/17 16:00 [facility] Medical Decision Making Medical Screen Exam Complete: Yes Emergency Medical Condition: Yes Medical Record Reviewed: Yes Differential Diagnosis Patient has had discharge of his AICD Narrative Course Case discussed with Dr. Jay. The patient will have his AICD interrogated and he will be admitted at the [facility] Riley Hernandez MD May 23, 2017 15:57
[2017-05-23 16:09] LABS: AUTOMATED NEUTROPHIL # 3.2 TH/MM3 (1.8-7.7); BASOPHIL # 0.1 TH/MM3 (0-0.2); BASOPHIL % 2.4 % (0.0-2.0); EOSINOPHIL # 0.1 TH/MM3 (0-0.4); EOSINOPHIL % 1.5 % (0.0-4.0); HEMATOCRIT 39.3 % (39.0-51.0); HEMOGLOBIN 13.8 GM/DL (13.0-17.0); LYMPH % 18.6 % (9.0-44.0); MEAN CELL VOLUME 91.2 FL (80.0-100.0); MEAN CORPUSCULAR HEMOGLOBIN 31.9 PG (27.0-34.0); MEAN PLATELET VOLUME 7.2 FL (7.0-11.0); MONOCYTE # 0.8 TH/MM3 (0-0.9); NEUT % 61.5 % (16.0-70.0); PLATELET COUNT 233 TH/MM3 (150-450); RED BLOOD COUNT 4.31 MIL/MM3 (4.50-5.90); RED CELL DISTRIBUTION WIDTH 13.7 % (11.6-17.2); WHITE BLOOD COUNT 5.2 TH/MM3 (4.0-11.0)
--- NOTE | 2017-05-23 16:16 | RADRPT ---
EXAM DATE/TIME: 05/23/2017 15:59 [facility] COMPARISON: CHEST SINGLE AP, May 15, 2017, 4:59. INDICATIONS : Chest pain. Patient states his defibrillator went off today. MEDICAL HISTORY : Defibrillator. Hypertension. Diabetes mellitus type II. SURGICAL HISTORY : None. ENCOUNTER: Initial ACUITY: 1 day PAIN SCORE: 10 LOCATION: Bilateral chest FINDINGS: A single view of the chest demonstrates the lungs to be symmetrically aerated without evidence of mas s, infiltrate or effusion. The previously noted infiltrate in the right lung has resolved. The heart size is diffusely enlarged but stable compared to the prior exam. There is a pacemaker overlying the left chest. The bony structures are stable.. CONCLUSION: No acute disease. Reji Marquez MD on May 23, 2017 at 16:14 Board Certified Radiologist. This report was verified electronically.
[2017-05-23 16:18] LABS: CHLORIDE 103 MEQ/L (98-107); SODIUM (NA) 139 MEQ/L (136-145)
[2017-05-23 16:21] LABS: ALBUMIN 2.8 GM/DL (3.4-5.0); BICARBONATE 26.9 MEQ/L (21.0-32.0); CALCIUM 8.4 MG/DL (8.5-10.1); GLUCOSE,RANDOM 126 MG/DL (74-106); MAGNESIUM 1.4 MG/DL (1.5-2.5)
[2017-05-23 16:22] LABS: BLOOD UREA NITROGEN 23 MG/DL (7-18); INTERNATIONAL NORMALIZED RATIO 1.2 RATIO; PROTHROMBIN TIME - PATIENT 11.9 SEC (9.8-11.6)
[2017-05-23 16:24] LABS: ALT (GPT) 14 U/L (12-78)
[2017-05-23 16:25] LABS: AST (GOT) 14 U/L (15-37); GLOMERULAR FILTRATION RATE 47 ML/MIN (>89)
[2017-05-23 16:26] LABS: TOTAL BILIRUBIN ADULT 0.4 MG/DL (0.2-1.0); TOTAL PROTEIN 7.2 GM/DL (6.4-8.2)
[2017-05-23 16:27] LABS: ALKALINE PHOSPHATASE 60 U/L (45-117)
[2017-05-23 16:30] LABS: TROPONIN I 0.19 NG/ML (0.02-0.05)
[2017-05-23 16:38] VITALS: BP 115/61; PULSE 66; RESP 18; O2SAT 96
--- NOTE | 2017-05-23 17:07 | PD ---
Data Data Last Documented VS Vital Signs Date Time Temp Pulse Resp B/P (MAP) Pulse Ox O2 Delivery O2 Flow Rate FiO2 05/23/17 16:38 66 18 115/61 (79) 96 Room Air 05/23/17 15:37 98.5 Orders Orders Electrocardiogram (05/23/17 15:49) Complete Blood Count With Diff (05/23/17 15:49) Comprehensive Metabolic Panel (05/23/17 15:49) Troponin I (05/23/17 15:49) B-Type Natriuretic Peptide (05/23/17 15:49) Prothrombin Time / Inr (Pt) (05/23/17 15:49) Act Partial Throm Time (Ptt) (05/23/17 15:49) Magnesium (Mg) (05/23/17 15:49) Chest, Single Ap (05/23/17 15:49) Labs Laboratory Tests Test 05/23/17 16:00 White Blood Count 5.2 TH/MM3 Red Blood Count 4.31 MIL/MM3 Hemoglobin 13.8 GM/DL Hematocrit 39.3 % Mean Corpuscular Volume 91.2 FL Mean Corpuscular Hemoglobin 31.9 PG Mean Corpuscular Hemoglobin Concent 35.0 % Red Cell Distribution Width 13.7 % Platelet Count 233 TH/MM3 Mean Platelet Volume 7.2 FL Neutrophils (%) (Auto) 61.5 % Lymphocytes (%) (Auto) 18.6 % Monocytes (%) (Auto) 16.0 % Eosinophils (%) (Auto) 1.5 % Basophils (%) (Auto) 2.4 % Neutrophils # (Auto) 3.2 TH/MM3 Lymphocytes # (Auto) 1.0 TH/MM3 Monocytes # (Auto) 0.8 TH/MM3 Eosinophils # (Auto) 0.1 TH/MM3 Basophils # (Auto) 0.1 TH/MM3 CBC Comment DIFF FINAL Differential Comment Prothrombin Time 11.9 SEC Prothromb Time International Ratio 1.2 RATIO Activated Partial Thromboplast Time 26.9 SEC Blood Urea Nitrogen 23 MG/DL Creatinine 1.50 MG/DL Random Glucose 126 MG/DL Total Protein 7.2 GM/DL Albumin 2.8 GM/DL Calcium Level 8.4 MG/DL Magnesium Level 1.4 MG/DL Alkaline Phosphatase 60 U/L Aspartate Amino Transf (AST/SGOT) 14 U/L Alanine Aminotransferase (ALT/SGPT) 14 U/L Total Bilirubin 0.4 MG/DL Sodium Level 139 MEQ/L Potassium Level 3.2 MEQ/L Chloride Level 103 MEQ/L Carbon Dioxide Level 26.9 MEQ/L Anion Gap 9 MEQ/L Estimat Glomerular Filtration Rate 47 ML/MIN Troponin I 0.19 NG/ML B-Type Natriuretic Peptide 223 PG/ML [facility] Medical Record Reviewed: Yes Supervised Visit with HELGA: No Narrative Course Please refer tobacco provider documentation. The patient had a run of ventricular tachycardia lasting about 25 seconds. Ultimately fibrillation with 20 J normalized the heart rate. Potassium and magnesium replenished here. The troponin 0.19 is about the patient's baseline and there is mild elevation of BNP also in keeping with prior values obtained here, actually towards the lower end. Patient has remained essentially asymptomatic here. The case was discussed with Dr. Jay of cardiology who requests admission in the CICU at the main site. Case was discussed with Dr. Bello for the hospitalist service. CBC & BMP Diagram 05/23/17 16:00 Total Protein 7.2, Albumin 2.8 L, Calcium Level 8.4 L, Magnesium Level 1.4 L, Alkaline Phosphatase 60, Aspartate Amino Transf (AST/SGOT) 14 L, Alanine Aminotransferase (ALT/SGPT) 14, Total Bilirubin 0.4 Tn 0.19 BNP 223 EKG: rate 82, electronic ventricular pacemaker Last Impressions Chest X-Ray 05/23/17 1549 Signed Impressions: Service Date/Time: Tuesday, May 23, 2017 15:59 - CONCLUSION: No acute disease. Reji Marquez MD Diagnosis Primary Impression: V-tach Additional Impressions: Hypokalemia CHF (congestive heart failure) Qualified Codes: I50.9 - Heart failure, unspecified Hypomagnesemia Admitting Information Admitting Physician Requests: Admit Giovanni Jay MD May 23, 2017 17:07
[2017-05-23] MEDS ORDERED: POTASSIUM CHLORIDE 20 MEQ CONTROLLED RELEASE TAB PO ONE (17:15)
[2017-05-23] MEDS ORDERED: MAGNESIUM SULFATE 1 GM PREMIX 100 ML IV ONE (17:15)
[2017-05-23] MEDS ORDERED: ONDANSETRON HCL 4 MG/2 ML VIAL IVP PRN (18:00)
[2017-05-23] MEDS ORDERED: SODIUM CHLORIDE 0.9% FLUSH 10 ML FLUSH IV FLUSH PRN (18:00)
[2017-05-23] MEDS ORDERED: ACETAMINOPHEN 325 MG TAB PO PRN (18:00)
[2017-05-23] MEDS ORDERED: BISACODYL 10 MG SUPP RECTAL PRN (18:00)
[2017-05-23] MEDS ORDERED: NALOXONE HCL 0.4 MG/ML AMP IV PUSH PRN (18:00)
[2017-05-23] MEDS ORDERED: LACTULOSE SYRUP 20 GM/30 ML CUP PO PRN (18:00)
[2017-05-23] MEDS ORDERED: SENNOSIDES 8.6 MG TAB PO PRN (18:00)
[2017-05-23] MEDS ORDERED: MAGNESIUM HYDROXIDE SUSP 30 ML CUP PO PRN (18:00)
[2017-05-23 18:40] VITALS: BP 123/65; PULSE 66; RESP 18; O2SAT 99
[2017-05-23] MEDS: DOCUSATE SODIUM 50 MG/SENNA 8.6 MG TAB PO SCH (21:00)
[2017-05-23 21:38] VITALS: BP 123/74
[2017-05-23] MEDS: SODIUM CHLORIDE 0.9% FLUSH 10 ML FLUSH IV FLUSH SCH (22:21)
[2017-05-23 23:00] VITALS: BP 122/61; PULSE 56; PULSE 61; RESP 16; TEMP 98.3; O2SAT 97
[2017-05-24] VITALS (13 sets, daily range): BP systolic 107–137; BP diastolic 57–67; PULSE 51–80; RESP 17–18; TEMP 98–98.2; O2SAT 98
[2017-05-24 04:23] LABS: AUTOMATED NEUTROPHIL # 3.3 TH/MM3 (1.8-7.7); BASOPHIL % 0.4 % (0.0-2.0); EOSINOPHIL # 0.1 TH/MM3 (0-0.4); EOSINOPHIL % 1.7 % (0.0-4.0); HEMATOCRIT 37.2 % (39.0-51.0); HEMOGLOBIN 12.8 GM/DL (13.0-17.0); LYMPHOCYTE # 1.3 TH/MM3 (1.0-4.8); MEAN CELL VOLUME 89.9 FL (80.0-100.0); MEAN CORPUSCULAR HGB CONC 34.5 % (32.0-36.0); MEAN PLATELET VOLUME 7.4 FL (7.0-11.0); MONO % 14.5 % (0.0-8.0); MONOCYTE # 0.8 TH/MM3 (0-0.9); NEUT % 60.4 % (16.0-70.0); PLATELET COUNT 200 TH/MM3 (150-450); RED BLOOD COUNT 4.13 MIL/MM3 (4.50-5.90); RED CELL DISTRIBUTION WIDTH 13.8 % (11.6-17.2); WHITE BLOOD COUNT 5.5 TH/MM3 (4.0-11.0)
[2017-05-24 04:40] LABS: BICARBONATE 28.1 MEQ/L (21.0-32.0); CALCIUM 8.9 MG/DL (8.5-10.1); CREATININE 1.36 MG/DL (0.60-1.30)
[2017-05-24] MEDS ORDERED: POTASSIUM CHLORIDE 10 MEQ CONTROLLED RELEASE TAB PO ONE (07:00)
[2017-05-24] MEDS: SODIUM CHLORIDE 0.9% FLUSH 10 ML FLUSH IV FLUSH SCH (08:30)
[2017-05-24] MEDS: DOCUSATE SODIUM 50 MG/SENNA 8.6 MG TAB PO SCH (08:30)
--- NOTE | 2017-05-24 09:35 | HHI.HP ---
cc: Musa Costello MD [facility] Service [facility] Primary Care Physician Musa Costello MD Admission Diagnosis VTach; Defibrillator Discharge; HypoMg/K Diagnoses: (1) V-tach (2) Hypomagnesemia (3) Hypokalemia (4) Elevated troponin I level (5) CAD (coronary artery disease) (6) HLD (hyperlipidemia) (7) HTN (hypertension) (8) DM (diabetes mellitus) Chief Complaint: AICD fired Travel History International Travel<30 Days: No Contact w/Intl Traveler <30 Da: No Traveled to Known Affected Are: No History of Present Illness Patient is a 61-year-old male who presented to the emergency department after his AICD fired. He states that the defibrillator has been in place for about 10 years. He was admitted to the hospital a couple months ago following the AICD firing. Cardiac catheterization was done at that time. He denies chest pain or dyspnea. He did have some nausea. He states that immediately before the AICD fired, he felt lightheaded like he was going to pass out. He states that he feels much better today. He wants to go home. Review of Systems Constitutional: DENIES: Fever, Chills, Night Sweats Eyes: DENIES: Blurred vision, Vision loss Ears, nose, mouth, throat: DENIES: Hearing loss Respiratory: DENIES: Cough, Wheezing, Sputum production, Shortness of breath Cardiovascular: DENIES: Chest pain, Palpitations, Dyspnea on Exertion, Lower Extremity Edema Gastrointestinal: COMPLAINS OF: Nausea, DENIES: Abdominal pain, Constipation, Diarrhea, Vomiting Genitourinary: DENIES: Urinary frequency, Urinary incontinence, Urgency, Hematuria, Dysuria, Nocturia Musculoskeletal: DENIES: Joint pain, Muscle aches Integumentary: DENIES: Pruritus, Rash Hematologic/lymphatic: DENIES: Bruising Neurologic: DENIES: Headache, Localized weakness, Paresthesias Past Family Social History Past Medical History Coronary artery disease Hyperlipidemia Hypertension History of V. tach Diabetes mellitus Past Surgical History Pancreas surgery Cholecystectomy Sinus surgery AICD implantation Reported Medications Metoprolol Succinate ER 24 HR (Metoprolol Succinate) 25 Mg Tab 12.5 Mg PO DAILY Hold if systolic BP < 110 or Heart rate < 65 Demadex (Torsemide) 20 Mg Tab 20 Mg PO BID@0900,1800 Klor-Con 10 (Potassium Chloride) 10 Meq Tab 10 Meq PO Q12HR Amiodarone (Amiodarone HCl) 200 Mg Tab 200 Mg PO BID Simvastatin 40 Mg Tab 40 Mg PO HS Metformin (Metformin HCl) 500 Mg Tab 500 Mg PO BIDPC Losartan (Losartan Potassium) 100 Mg Tab 100 Mg PO DAILY Allergies: Coded Allergies: diatrizoate meglumine (Unverified Allergy, Severe, Swelling, 05/13/17) gadobenic acid (Unverified Allergy, Severe, Swelling, 05/13/17) gadodiamide (Unverified Allergy, Severe, Swelling, 05/13/17) gadoteridol (Unverified Allergy, Severe, Swelling, 05/13/17) iodixanol (Unverified Allergy, Severe, Swelling, 05/13/17) iohexol (Unverified Allergy, Severe, Swelling, 05/13/17) Iodinated Contrast- Oral and IV Dye (Verified Allergy, Unknown, 05/13/17) MRI PRECAUTION (Verified Adverse Reaction, Severe, NON COMPATIBLE MEDTRONIC PACEMAKER 09/24/15 KMD, 05/13/17) VIVA XT DRAW END HAND DEFIB MODEL [id number] IMPLANTED 09/02/13 Family History Father had lung cancer. Social History States that he quit smoking 1 week ago. Denies alcohol or illicit drug use. Physical Exam Vital Signs Vital Signs Date Time Temp Pulse Resp B/P (MAP) Pulse Ox O2 Delivery O2 Flow Rate FiO2 05/24/17 06:35 57 05/24/17 05:16 53 05/24/17 04:07 52 05/24/17 03:54 98.1 59 17 137/67 (90) 98 05/24/17 03:54 61 05/24/17 02:10 51 05/24/17 01:16 54 05/24/17 00:37 60 05/23/17 23:00 98.3 56 16 122/61 (81) 97 05/23/17 23:00 61 05/23/17 21:38 58 18 123/74 (90) 99 05/23/17 18:40 70 05/23/17 18:40 66 18 123/65 (84) 99 Room Air 05/23/17 16:38 66 18 115/61 (79) 96 Room Air 05/23/17 15:43 78 100 Room Air 05/23/17 15:37 98.5 80 18 131/74 (93) 100 Physical Exam GENERAL: Well-nourished, well-developed male in no acute distress. Sitting up in a chair. HEENT: Normocephalic, atraumatic. Pupils equal, round and reactive. Extraocular movements intact. No scleral icterus. No injection or drainage. Oropharynx is clear. Mucous membranes are moist. CARDIOVASCULAR: Regular rate and rhythm without murmurs, gallops, or rubs. RESPIRATORY: Clear to auscultation. No wheezes, rales, or rhonchi. Breathing is non-labored. GASTROINTESTINAL: Abdomen soft, non-tender, nondistended. EXTREMITIES: No lower extremity edema. No calf tenderness. PSYCH: Alert and oriented x 3. NEURO: Normal speech. No focal deficits. Laboratory Laboratory Tests Test 05/23/17 16:00 05/24/17 03:41 White Blood Count 5.2 5.5 Red Blood Count 4.31 4.13 Hemoglobin 13.8 12.8 Hematocrit 39.3 37.2 Mean Corpuscular Volume 91.2 89.9 Mean Corpuscular Hemoglobin 31.9 31.0 Mean Corpuscular Hemoglobin Concent 35.0 34.5 Red Cell Distribution Width 13.7 13.8 Platelet Count 233 200 Mean Platelet Volume 7.2 7.4 Neutrophils (%) (Auto) 61.5 60.4 Lymphocytes (%) (Auto) 18.6 23.0 Monocytes (%) (Auto) 16.0 14.5 Eosinophils (%) (Auto) 1.5 1.7 Basophils (%) (Auto) 2.4 0.4 Neutrophils # (Auto) 3.2 3.3 Lymphocytes # (Auto) 1.0 1.3 Monocytes # (Auto) 0.8 0.8 Eosinophils # (Auto) 0.1 0.1 Basophils # (Auto) 0.1 0.0 CBC Comment DIFF FINAL DIFF FINAL Differential Comment Prothrombin Time 11.9 Prothromb Time International Ratio 1.2 Activated Partial Thromboplast Time 26.9 Blood Urea Nitrogen 23 23 Creatinine 1.50 1.36 Random Glucose 126 133 Total Protein 7.2 Albumin 2.8 Calcium Level 8.4 8.9 Magnesium Level 1.4 Alkaline Phosphatase 60 Aspartate Amino Transf (AST/SGOT) 14 Alanine Aminotransferase (ALT/SGPT) 14 Total Bilirubin 0.4 Sodium Level 139 140 Potassium Level 3.2 3.4 Chloride Level 103 104 Carbon Dioxide Level 26.9 28.1 Anion Gap 9 8 Estimat Glomerular Filtration Rate 47 53 Troponin I 0.19 B-Type Natriuretic Peptide 223 Result Diagram: 05/24/17 0341 05/24/17 0341 Imaging Last Impressions Chest X-Ray 05/23/17 1549 Signed Impressions: Service Date/Time: Tuesday, May 23, 2017 15:59 - CONCLUSION: No acute disease. MD Zulema Aaron VTE Risk Assessment Zulema VTE Risk Assessment: Mod/High Risk (score >= 2) Zulema Risk Assessment Model Point Value = 1 Point Value = 2 Point Value = 3 Point Value = 5 Age 41-60 Minor surgery BMI > 25 kg/m2 Swollen legs Varicose veins or History of unexplained or recurrent spontaneous Oral contraceptives or hormone replacement Sepsis (< 1 month) Serious lung disease, including pneumonia (< 1 month) Abnormal pulmonary function Acute myocardial infarction Congestive heart failure (< 1 month) History of inflammatory bowel disease Medical patient at bed rest Age 61-74 Arthroscopic surgery Major open surgery (> 45 min) Laparoscopic surgery (> 45 min) Malignancy Confined to bed (> 72 hours) Immobilizing plaster cast Central venous access Age >= 75 History of VTE Family history of VTE Factor V Leiden Prothrombin [id number] Lupus anticoagulant Anticardiolipin antibodies Elevated serum homocysteine Heparin-induced thrombocytopenia Other congenital or acquired thrombophilia Stroke (< 1 month) Elective arthroplasty Hip, pelvis, or leg fracture Acute spinal cord injury (< 1 month) Prophylaxis Regimen Total Risk Factor Score Risk Level Prophylaxis Regimen 0-1 Low Early ambulation 2 Moderate Order ONE of the following: *Sequential Compression Device (SCD) *Heparin 5000 units SQ BID 3-4 Higher Order ONE of the following medications: *Heparin 5000 units SQ TID *Enoxaparin/Lovenox 40 mg SQ daily (WT < 150 kg, CrCl > 30 mL/min) *Enoxaparin/Lovenox 30 mg SQ daily (WT < 150 kg, CrCl > 10-29 mL/min) *Enoxaparin/Lovenox 30 mg SQ BID (WT < 150 kg, CrCl > 30 mL/min) AND/OR *Sequential Compression Device (SCD) 5 or more Highest Order ONE of the following medications: *Heparin 5000 units SQ TID (Preferred with Epidurals) *Enoxaparin/Lovenox 40 mg SQ daily (WT < 150 kg, CrCl > 30 mL/min) *Enoxaparin/Lovenox 30 mg SQ daily (WT < 150 kg, CrCl > 10-29 mL/min) *Enoxaparin/Lovenox 30 mg SQ BID (WT < 150 kg, CrCl > 30 mL/min) AND *Sequential Compression Device (SCD) Assessment and Plan Assessment and Plan 1. S/P firing of AICD: Cardiology consult pending. Patient had lightheadedness prior to the device firing. Asymptomatic this morning. Monitor on telemetry. Interrogate device. 2. CAD, cardiomyopathy: Cardiology consult pending. Continue statin, torsemide, metoprolol, amiodarone. 3. Hypokalemia: Supplement potassium. 4. Hypomagnesemia: Supplement magnesium. 5. Elevated troponin: Actually slightly lower than previous labs from 05/14/17. Cardiology consult is pending. 6. Chronic kidney disease, stage 3: Monitor BUN, creatinine. 7. Diabetes mellitus: Hold metformin. Monitor Accu-checks and cover with sliding scale insulin. 8. Hypertension: Continue Losartan, Metoprolol. 9. Hyperlipidemia: Continue statin. 10. DVT prophylaxis: Heparin. Physician Certification 2 Midnight Certification Type: Admission for Inpatient Services Order for Inpatient Services The services are ordered in accordance with Medicare regulations or non- Medicare payer requirements, as applicable. In the case of services not specified as inpatient-only, they are appropriately provided as inpatient services in accordance with the 2-midnight benchmark. Estimated LOS (days): 2 days is the estimated time the patient will need to remain in the hospital, assuming treatment plan goals are met and no additional complications. Post-Hospital Plan: Home Dave Ding MD May 24, 2017 09:34
[2017-05-24] MEDS ORDERED: DEXTROSE 50% IN WATER 50 ML VIAL(D50) IV PUSH PRN (09:45)
[2017-05-24] MEDS ORDERED: GLUCAGON 1 MG/ML VIAL OTHER PRN (09:45)
[2017-05-24] MEDS ORDERED: AMIODARONE 200 MG TAB PO SCH (09:45)
[2017-05-24] MEDS ORDERED: METOPROLOL SUCCINATE 25 MG EXTENDED RELEASE TAB PO SCH (10:00)
[2017-05-24] MEDS ORDERED: HEPARIN SODIUM - SQ 10,000 UNITS/ML VIAL SQ SCH (10:00)
[2017-05-24] MEDS ORDERED: LOSARTAN 50 MG TAB PO SCH (10:00)
[2017-05-24] MEDS ORDERED: INSULIN ASPART SUPPLEMENTAL SCALE SQ SCH (12:00)
[2017-05-24] MEDS ORDERED: POTASSIUM CHLORIDE 10 MEQ CONTROLLED RELEASE TAB PO SCH ×2 (13:00→21:00)
[2017-05-24] MEDS ORDERED: KLOR10TA PO (13:30)
[2017-05-24] MEDS ORDERED: METO1TAB42 PO (13:30)
[2017-05-24] MEDS ORDERED: COZA50TA PO (13:30)
--- NOTE | 2017-05-24 13:31 | HHI.DCPOC ---
Discharge Care Plan Diagnosis: (1) Elevated troponin I level (2) HLD (hyperlipidemia) (3) DM (diabetes mellitus) (4) HTN (hypertension) (5) CAD (coronary artery disease) (6) V-tach (7) Hypokalemia (8) Hypomagnesemia (9) Automatic implantable cardioverter-defibrillator in situ Goals to Promote Your Health * To prevent worsening of your condition and complications * To maintain your health at the optimal level Directions to Meet Your Goals Take your medications as prescribed Follow your dietary instruction Follow activity as directed Keep your appointments as scheduled Take your immunizations and boosters as scheduled If your symptoms worsen call your PCP, if no PCP go to Urgent Care Center or Emergency Room Smoking is Dangerous to Your Health. Avoid second hand smoke Call the 24-hour hour crisis hotline for domestic abuse at Dave Ding MD May 24, 2017 13:31
--- NOTE | 2017-05-24 14:20 | EKG ---
Date Performed: 05/23/2017 Time Performed: 15:36:10 PTAGE: 61 years EKG: Sinus rhythm WITH VENTRICULAR PACEMAKER ABNORMAL RHYTHM ECG PREVIOUS TRACING : 05/13/2017 22.09 DOCTOR: Te Holder Interpretating Date/Time 05/24/2017 14:19:20
[2017-05-24] MEDS ORDERED: TORSEMIDE 20 MG TAB PO SCH (18:00)
[2017-05-24] MEDS ORDERED: PRAVASTATIN SOD 80 MG TAB PO SCH (21:00)
[2017-05-25] MEDS ORDERED: METOPROLOL SUCCINATE 25 MG EXTENDED RELEASE TAB PO SCH (09:00)
[2017-05-25] MEDS ORDERED: LOSARTAN 50 MG TAB PO SCH (09:00)
== END 2017-05-24 13:50 | disposition home or self-care (01) | DRG 309 ==
LOC: PHED 15:30 → PHEDA 17:09 → HCPC 22:06
PROVIDERS: ADMIT Family Medicine; ATTEND Family Medicine
DX: I47.2 Ventricular tachycardia (principal); I42.9 Cardiomyopathy, unspecified; E11.22 Type 2 diabetes mellitus with diabetic chronic kidney disease; Z79.84 Long term (current) use of oral hypoglycemic drugs; I12.9 Hypertensive chronic kidney disease with stage 1 through stage 4 chronic kidney disease, or unspecified chronic kidney disease; N18.3 Chronic kidney disease, stage 3 (moderate); E83.42 Hypomagnesemia; E87.6 Hypokalemia; Z95.810 Presence of automatic (implantable) cardiac defibrillator; R74.8 Abnormal levels of other serum enzymes; I25.10 Atherosclerotic heart disease of native coronary artery without angina pectoris; E78.5 Hyperlipidemia, unspecified; Z87.891 Personal history of nicotine dependence
CPT/HCPCS: 71045; 80048; 80053; 82948; 83735; 83880; 84484; 85025; 85610; 85730; 93005; J1644; J3475

== ENCOUNTER 2017-07-07 11:59 | Emergency (ER) | payer MEDICARE ==
[~2017-07-07] VITALS: Ht 172.7 cm; Wt 82.3 kg
[~2017-07-07 11:59] MED LIST changes: +COZA50TA PO; -GUAISYP4 PO; -LEVA750T9 PO; -LOSA100T PO
[2017-07-07 12:02] VITALS: BP 147/72; PULSE 73; RESP 16; TEMP 99.4; O2SAT 99
--- NOTE | 2017-07-07 12:23 | PD ---
HPI Chief Complaint: GI Complaint Time Seen by Provider: 12:20 Travel History International Travel<30 days: No Contact w/Intl Traveler<30days: No Traveled to known affect area: No History of Present Illness HPI 61-year-old male patient with history of cardiac disease, hypertension, diabetes , presents to the ER today because he states that he has been having nausea, vomiting, watery diarrhea for last 5-6 days. He states that on the date started , he did have some eggs for breakfast which were over easy. He denies any fevers or other issues. He states that it was not going away and he came in to get evaluated, concerned that he could be getting dehydrated. He is on a diuretic and had stopped using it several days ago. He denies any antibiotic use. He does not know of any sick contacts. Modifying Factors: None Associated Signs & Symptoms: Nausea, vomiting, diarrhea Risk Factors: Possible bad food exposure, raw eggs PFSH Past Medical History Hx Anticoagulant Therapy: Yes (BABY ASA DAILY) Arthritis: No Asthma: No Autoimmune Disease: No Blood Disorders: No Anxiety: No Depression: No Heart Rhythm Problems: Yes Cancer: No Cardiac Catheterization: Yes Cardiovascular Problems: Yes (OR, DEFIB, HTN, CHOL) High Cholesterol: Yes Chemotherapy: No Chest Pain: Yes Congestive Heart Failure: Yes COPD: No Cerebrovascular Accident: No Coronary Artery Disease: Yes Diabetes: Yes Diminished Hearing: No Endocrine: Yes Gastrointestinal Disorders: Yes GERD: Yes Genitourinary: No Hiatal Hernia: No Hypertension: Yes Immune Disorder: No Implanted Vascular Access Dvce: Yes Kidney Stones: No Musculoskeletal: No Neurologic: No Psychiatric: No Reproductive: No Respiratory: No Immunizations Current: Yes Migraines: No Myocardial Infarction: Yes (x1) Radiation Therapy: No Renal Failure: No Seizures: No Sickle Cell Disease: No Sleep Apnea: No Thyroid Disease: No Triglycerides - High: Yes Ulcer: No Past Surgical History Abdominal Surgery: Yes (pancreas removed a cyst) AICD: Yes Arteriovenous Shunt: No Body Medical Devices: PACEMAKER Cardiac Surgery: Yes Cholecystectomy: Yes Coronary Artery Bypass Graft: Yes Endocrine Surgery: No Eye Surgery: No Genitourinary Surgery: No Gynecologic Surgery: No Insulin Pump: No Joint Replacement: No Oral Surgery: Yes (SINUS) Pacemaker: Yes (PACEMAKER AICD) Thoracic Surgery: Yes (pacemaker; AICD) Other Surgery: Yes (CYST REMOVED FROM PANCREAS; GALLBLADDER) Social History Alcohol Use: No Tobacco Use: No (quit 2 weeks ago) Substance Use: No (PT DENIES ) Allergies-Medications (Allergen,Severity, Reaction): Coded Allergies: diatrizoate meglumine (Unverified Allergy, Severe, Swelling, 07/07/17) gadobenic acid (Unverified Allergy, Severe, Swelling, 07/07/17) gadodiamide (Unverified Allergy, Severe, Swelling, 07/07/17) gadoteridol (Unverified Allergy, Severe, Swelling, 07/07/17) iodixanol (Unverified Allergy, Severe, Swelling, 07/07/17) iohexol (Unverified Allergy, Severe, Swelling, 07/07/17) Iodinated Contrast- Oral and IV Dye (Verified Allergy, Unknown, 07/07/17) MRI PRECAUTION (Verified Adverse Reaction, Severe, NON COMPATIBLE MEDTRONIC PACEMAKER 09/24/15 KMD, 07/07/17) VIVA XT GAS LEAK TESTER DEFIB MODEL [id number] IMPLANTED 09/02/13 Reported Meds & Prescriptions Reported Meds & Active Scripts Active Klor-Con 10 (Potassium Chloride) 10 Meq Tab 20 Meq PO TID Cozaar (Losartan Potassium) 50 Mg Tab 50 Mg PO DAILY Metoprolol Succinate ER 24 HR (Metoprolol Succinate) 25 Mg Tab 50 Mg PO DAILY Demadex (Torsemide) 20 Mg Tab 20 Mg PO BID@0900,1800 Amiodarone (Amiodarone HCl) 200 Mg Tab 200 Mg PO BID Reported Simvastatin 40 Mg Tab 40 Mg PO HS Metformin (Metformin HCl) 500 Mg Tab 500 Mg PO BIDPC Review of Systems Except as stated in HPI: all other systems reviewed are Neg Physical Exam Narrative GENERAL: Well-developed elderly male patient currently and mild distress. Awake and oriented 3. SKIN: Focused skin assessment warm/dry. HEAD: Atraumatic. Normocephalic. EYES: Pupils equal and round. No scleral icterus. No injection or drainage. ENT: No nasal bleeding or discharge. Mucous membranes pink and moist. NECK: Trachea midline. No JVD. CARDIOVASCULAR: Regular rate and rhythm. No murmur appreciated. RESPIRATORY: No accessory muscle use. Clear to auscultation. Breath sounds equal bilaterally. GASTROINTESTINAL: Abdomen soft, non-tender, nondistended. Hepatic and splenic margins not palpable. MUSCULOSKELETAL: No obvious deformities. No clubbing. No cyanosis. No edema. NEUROLOGICAL: Awake and alert. No obvious cranial nerve deficits. Motor grossly within normal limits. Normal speech. PSYCHIATRIC: Appropriate mood and affect; insight and judgment normal. Data Data Last Documented VS Vital Signs Date Time Temp Pulse Resp B/P (MAP) Pulse Ox O2 Delivery O2 Flow Rate FiO2 07/07/17 12:33 99 07/07/17 12:27 16 07/07/17 12:02 99.4 73 147/72 (97) Orders Orders Complete Blood Count With Diff (07/07/17 12:20) Comprehensive Metabolic Panel (07/07/17 12:20) Lipase (07/07/17 12:20) Iv Access Insert/Monitor (07/07/17 12:20) Ecg Monitoring (07/07/17 12:20) Oximetry (07/07/17 12:20) Ondansetron Inj (Zofran Inj) (07/07/17 12:30) Sodium Chloride 0.9% Flush (Ns Flush) (07/07/17 12:30) Labs Laboratory Tests Test 07/07/17 13:30 White Blood Count 6.0 TH/MM3 Red Blood Count 4.18 MIL/MM3 Hemoglobin 12.7 GM/DL Hematocrit 38.0 % Mean Corpuscular Volume 90.8 FL Mean Corpuscular Hemoglobin 30.3 PG Mean Corpuscular Hemoglobin Concent 33.3 % Red Cell Distribution Width 13.6 % Platelet Count 193 TH/MM3 Mean Platelet Volume 8.5 FL Neutrophils (%) (Auto) 62.6 % Lymphocytes (%) (Auto) 20.7 % Monocytes (%) (Auto) 8.4 % Eosinophils (%) (Auto) 3.8 % Basophils (%) (Auto) 4.5 % Neutrophils # (Auto) 3.8 TH/MM3 Lymphocytes # (Auto) 1.2 TH/MM3 Monocytes # (Auto) 0.5 TH/MM3 Eosinophils # (Auto) 0.2 TH/MM3 Basophils # (Auto) 0.3 TH/MM3 CBC Comment AUTO DIFF Differential Comment AUTO DIFF CONFIRMED Blood Urea Nitrogen 23 MG/DL Creatinine 1.40 MG/DL Random Glucose 100 MG/DL Total Protein 7.4 GM/DL Albumin 3.2 GM/DL Calcium Level 9.1 MG/DL Alkaline Phosphatase 67 U/L Aspartate Amino Transf (AST/SGOT) 13 U/L Alanine Aminotransferase (ALT/SGPT) 14 U/L Total Bilirubin 0.5 MG/DL Sodium Level 141 MEQ/L Potassium Level 4.1 MEQ/L Chloride Level 108 MEQ/L Carbon Dioxide Level 26.1 MEQ/L Anion Gap 7 MEQ/L Estimat Glomerular Filtration Rate 51 ML/MIN Lipase 182 U/L MDM Medical Decision Making Medical Screen Exam Complete: Yes Emergency Medical Condition: Yes Medical Record Reviewed: Yes Interpretation(s) Laboratory Tests Test 07/07/17 13:30 Red Blood Count 4.18 MIL/MM3 (4.50-5.90) Hemoglobin 12.7 GM/DL (13.0-17.0) Hematocrit 38.0 % (39.0-51.0) Monocytes (%) (Auto) 8.4 % (0.0-8.0) Basophils (%) (Auto) 4.5 % (0.0-2.0) Basophils # (Auto) 0.3 TH/MM3 (0-0.2) Blood Urea Nitrogen 23 MG/DL (7-18) Creatinine 1.40 MG/DL (0.60-1.30) Albumin 3.2 GM/DL (3.4-5.0) Aspartate Amino Transf (AST/SGOT) 13 U/L (15-37) Chloride Level 108 MEQ/L (98-107) Estimat Glomerular Filtration Rate 51 ML/MIN (>89) Differential Diagnosis Nausea, vomiting, diarrhea: Gastroenteritis versus metabolic issues versus dehydration versus pancreatitis versus colitis Narrative Course BUN and creatinine is mildly elevated but it appears to be baseline for this patient. Abdomen is fairly benign I do not suspect an acute intra-abdominal process. Vital signs are stable in the ER. At this point, it appears that the symptoms are settling down and my plan would be to release him with follow-up to primary care doctor. We will give him nausea medication as well and have him keep hydrating with p.o. fluids. We will stop his diuretics for now considering the diarrhea. We will have him follow-up this week with primary care doctor. Return for worsening in symptoms as needed. The plan has been discussed with the patient and he states understanding. Diagnosis Primary Impression: Diarrhea Med/Other Pt SpecificInfo: Prescription(s) given Scripts Ondansetron Odt (Zofran Odt) 4 Mg Tab 4 MG SL Q6HR Y for Nausea/Vomiting, #7 TAB 0 Refills Prov: Destin Pino MD 07/07/17 Disposition: 01 DISCHARGE HOME Condition: Stable Destin Pino MD Jul 07, 2017 12:22
[2017-07-07] MEDS ORDERED: ONDANSETRON HCL 4 MG/2 ML VIAL IVP ONE (12:30)
[2017-07-07] MEDS ORDERED: SODIUM CHLORIDE 0.9% FLUSH 10 ML FLUSH IV FLUSH PRN (12:30)
[2017-07-07 12:33] VITALS: O2SAT 99
[2017-07-07 12:55] LABS: AUTOMATED NEUTROPHIL # 3.8 TH/MM3 (1.8-7.7); BASOPHIL # 0.3 TH/MM3 (0-0.2); BASOPHIL % 4.5 % (0.0-2.0); EOSINOPHIL # 0.2 TH/MM3 (0-0.4); EOSINOPHIL % 3.8 % (0.0-4.0); HEMOGLOBIN 12.7 GM/DL (13.0-17.0); LYMPH % 20.7 % (9.0-44.0); LYMPHOCYTE # 1.2 TH/MM3 (1.0-4.8); MEAN CELL VOLUME 90.8 FL (80.0-100.0); MEAN CORPUSCULAR HEMOGLOBIN 30.3 PG (27.0-34.0); MEAN CORPUSCULAR HGB CONC 33.3 % (32.0-36.0); MEAN PLATELET VOLUME 8.5 FL (7.0-11.0); MONO % 8.4 % (0.0-8.0); MONOCYTE # 0.5 TH/MM3 (0-0.9); NEUT % 62.6 % (16.0-70.0); RED BLOOD COUNT 4.18 MIL/MM3 (4.50-5.90); RED CELL DISTRIBUTION WIDTH 13.6 % (11.6-17.2)
[2017-07-07 13:40] LABS: PLATELET COUNT 193 TH/MM3 (150-450)
[2017-07-07 13:48] LABS: CHLORIDE 108 MEQ/L (98-107); SODIUM (NA) 141 MEQ/L (136-145)
[2017-07-07 13:51] LABS: CALCIUM 9.1 MG/DL (8.5-10.1)
[2017-07-07 13:52] LABS: ALBUMIN 3.2 GM/DL (3.4-5.0); BICARBONATE 26.1 MEQ/L (21.0-32.0); BLOOD UREA NITROGEN 23 MG/DL (7-18); GLUCOSE,RANDOM 100 MG/DL (74-106)
[2017-07-07 13:55] LABS: ALT (GPT) 14 U/L (12-78); AST (GOT) 13 U/L (15-37); GLOMERULAR FILTRATION RATE 51 ML/MIN (>89)
[2017-07-07 13:56] LABS: TOTAL BILIRUBIN ADULT 0.5 MG/DL (0.2-1.0); TOTAL PROTEIN 7.4 GM/DL (6.4-8.2)
[2017-07-07 13:57] LABS: ALKALINE PHOSPHATASE 67 U/L (45-117)
[2017-07-07] MEDS ORDERED: ZOFR4TAB3 SL (14:21)
[2017-07-07 14:44] VITALS: BP 119/76
== END 2017-07-07 14:45 | disposition home or self-care (01) ==
LOC: PHED 11:59
DX: R19.7 Diarrhea, unspecified (principal); R11.2 Nausea with vomiting, unspecified; E11.9 Type 2 diabetes mellitus without complications; I25.2 Old myocardial infarction; I11.0 Hypertensive heart disease with heart failure; I50.9 Heart failure, unspecified; E78.00 Pure hypercholesterolemia, unspecified; I25.10 Atherosclerotic heart disease of native coronary artery without angina pectoris; K21.9 Gastro-esophageal reflux disease without esophagitis
CPT/HCPCS: 80053; 83690; 85025; 96374; 99284; J2405

== ENCOUNTER 2017-08-06 10:08 | Observation (INO) | payer MEDICARE ==
[~2017-08-06] VITALS: Ht 172.7 cm; Wt 85.0 kg
[2017-08-06] VITALS (10 sets, daily range): BP systolic 101–160; BP diastolic 56–91; PULSE 53–72; RESP 16–20; TEMP 97.3–99.3; O2SAT 95–100
[~2017-08-06 10:08] MED LIST changes: +ZOFR4TAB3 SL
[2017-08-06] MEDS ORDERED: ASPIRIN 325 MG TAB PO ONE (11:00)
[2017-08-06] MEDS ORDERED: SODIUM CHLORIDE 0.9% FLUSH 10 ML FLUSH IVF PRN (11:00)
[2017-08-06 11:02] LABS: AUTOMATED NEUTROPHIL # 3.7 TH/MM3 (1.8-7.7); BASOPHIL # 0.2 TH/MM3 (0-0.2); BASOPHIL % 3.2 % (0.0-2.0); EOSINOPHIL # 0.4 TH/MM3 (0-0.4); EOSINOPHIL % 5.7 % (0.0-4.0); HEMATOCRIT 39.7 % (39.0-51.0); HEMOGLOBIN 13.3 GM/DL (13.0-17.0); LYMPH % 27.2 % (9.0-44.0); LYMPHOCYTE # 1.9 TH/MM3 (1.0-4.8); MEAN CELL VOLUME 90.7 FL (80.0-100.0); MEAN CORPUSCULAR HEMOGLOBIN 30.5 PG (27.0-34.0); MEAN CORPUSCULAR HGB CONC 33.6 % (32.0-36.0); MEAN PLATELET VOLUME 8.8 FL (7.0-11.0); MONO % 9.1 % (0.0-8.0); MONOCYTE # 0.6 TH/MM3 (0-0.9); NEUT % 54.8 % (16.0-70.0); PLATELET COUNT 188 TH/MM3 (150-450); RED BLOOD COUNT 4.37 MIL/MM3 (4.50-5.90); RED CELL DISTRIBUTION WIDTH 15.1 % (11.6-17.2); WHITE BLOOD COUNT 6.8 TH/MM3 (4.0-11.0)
--- NOTE | 2017-08-06 11:13 | PD ---
HPI Chief Complaint: Respiratory Symptoms Time Seen by Provider: 10:42 Travel History International Travel<30 days: No Contact w/Intl Traveler<30days: No Traveled to known affect area: No History of Present Illness HPI Patient presents to the emergency department complaining of shortness of breath. He has a history of CHF and states that last night and today he had shortness of breath he denies chest pain, fever, chills, nausea, vomiting, edema , abdominal pain. But reports 2 pillow orthopnea and difficulty breathing when he lays flat. Also reporting 4 pound weight gain in 3 days. ECHO 05/15/17: FINDINGS LEFT VENTRICLE Severely dilated left ventricle. Mild concentric left ventricular hypertrophy. The left ventricular systolic function is severely reduced with an estimated ejection fraction less than 20%. There is global left ventricular dysfunction. RIGHT VENTRICLE The right ventricle was not well visualized. LEFT ATRIUM The left atrial size is moderately dilated. RIGHT ATRIUM The right atrial size is normal. ATRIAL SEPTUM The interatrial septum not well visualized. AORTA The aortic root and proximal ascending aorta are not well visualized. MITRAL VALVE Grossly normal mitral valve. Severe mitral valve regurgitation. AORTIC VALVE Grossly normal aortic valve Mild aortic valve regurgitation. TRICUSPID VALVE Structurally normal tricuspid valve. There is trace tricuspid valve regurgitation. No tricuspid valve stenosis. PULMONARY VALVE No pulmonary valve regurgitation or stenosis. VESSELS The inferior vena cava is normal in size. PERICARDIUM No pericardial effusion. Left pleural effusion noted PFSH Past Medical History Hx Anticoagulant Therapy: Yes (BABY ASA DAILY) Arthritis: No Asthma: No Autoimmune Disease: No Blood Disorders: No Anxiety: No Depression: No Heart Rhythm Problems: Yes Cancer: No Cardiac Catheterization: Yes Cardiovascular Problems: Yes (CHF) High Cholesterol: Yes Chemotherapy: No Chest Pain: Yes Congestive Heart Failure: Yes COPD: No Cerebrovascular Accident: No Coronary Artery Disease: Yes Diabetes: Yes Patient Takes Glucophage: No Diminished Hearing: No Endocrine: Yes Gastrointestinal Disorders: Yes GERD: Yes Genitourinary: No Hiatal Hernia: No Hypertension: Yes Immune Disorder: No Implanted Vascular Access Dvce: Yes Kidney Stones: No Musculoskeletal: No Neurologic: No Psychiatric: No Reproductive: No Respiratory: No Immunizations Current: Yes Migraines: No Myocardial Infarction: Yes (x1) Radiation Therapy: No Renal Failure: No Seizures: No Sickle Cell Disease: No Sleep Apnea: No Thyroid Disease: No Triglycerides - High: Yes Ulcer: No Past Surgical History Abdominal Surgery: Yes (pancreas removed a cyst) AICD: Yes Arteriovenous Shunt: No Body Medical Devices: PACEMAKER Cardiac Surgery: Yes Cholecystectomy: Yes Coronary Artery Bypass Graft: Yes Endocrine Surgery: No Eye Surgery: No Genitourinary Surgery: No Gynecologic Surgery: No Insulin Pump: No Joint Replacement: No Oral Surgery: Yes (SINUS) Pacemaker: Yes (PACEMAKER AICD) Thoracic Surgery: Yes (pacemaker; AICD) Other Surgery: Yes (CYST REMOVED FROM PANCREAS; GALLBLADDER) Social History Alcohol Use: No Tobacco Use: No Substance Use: No (PT DENIES ) Allergies-Medications (Allergen,Severity, Reaction): Coded Allergies: diatrizoate meglumine (Unverified Allergy, Severe, Swelling, 08/06/17) gadobenic acid (Unverified Allergy, Severe, Swelling, 08/06/17) gadodiamide (Unverified Allergy, Severe, Swelling, 08/06/17) gadoteridol (Unverified Allergy, Severe, Swelling, 08/06/17) iodixanol (Unverified Allergy, Severe, Swelling, 08/06/17) iohexol (Unverified Allergy, Severe, Swelling, 08/06/17) Iodinated Contrast- Oral and IV Dye (Verified Allergy, Unknown, 08/06/17) MRI PRECAUTION (Verified Adverse Reaction, Severe, NON COMPATIBLE MEDTRONIC PACEMAKER 09/24/15 KMD, 08/06/17) VIVA XT LAST SCOURER DEFIB MODEL [id number] IMPLANTED 09/02/13 Reported Meds & Prescriptions Reported Meds & Active Scripts Active Zofran Odt (Ondansetron Odt) 4 Mg Tab 4 Mg SL Q6HR PRN Klor-Con 10 (Potassium Chloride) 10 Meq Tab 20 Meq PO TID Cozaar (Losartan Potassium) 50 Mg Tab 50 Mg PO DAILY Metoprolol Succinate ER 24 HR (Metoprolol Succinate) 25 Mg Tab 50 Mg PO DAILY Demadex (Torsemide) 20 Mg Tab 20 Mg PO BID@0900,1800 Amiodarone (Amiodarone HCl) 200 Mg Tab 200 Mg PO BID Reported Simvastatin 40 Mg Tab 40 Mg PO HS Metformin (Metformin HCl) 500 Mg Tab 500 Mg PO BIDPC Review of Systems Except as stated in HPI: all other systems reviewed are Neg Physical Exam Narrative GENERAL: No acute distress. SKIN: Focused skin assessment warm/dry. HEAD: Atraumatic. Normocephalic. EYES: Pupils equal and round. No scleral icterus. No injection or drainage. ENT: No nasal bleeding or discharge. Mucous membranes pink and moist. NECK: Trachea midline. No JVD. CARDIOVASCULAR: Regular rate and rhythm. No murmur appreciated. RESPIRATORY: No accessory muscle use. Clear to auscultation. Breath sounds equal bilaterally. GASTROINTESTINAL: Abdomen soft, non-tender, nondistended. Hepatic and splenic margins not palpable. MUSCULOSKELETAL: No obvious deformities. No clubbing. No cyanosis. No edema. NEUROLOGICAL: Awake and alert. No obvious cranial nerve deficits. Motor grossly within normal limits. Normal speech. PSYCHIATRIC: Appropriate mood and affect; insight and judgment normal. Data Data Last Documented VS Vital Signs Date Time Temp Pulse Resp B/P (MAP) Pulse Ox O2 Delivery O2 Flow Rate FiO2 08/06/17 13:23 72 20 160/57 (91) 100 08/06/17 11:06 Nasal Cannula 08/06/17 10:16 99.3 Orders Orders Electrocardiogram (08/06/17 10:52) B-Type Natriuretic Peptide (08/06/17 10:52) Ckmb (Isoenzyme) Profile (08/06/17 10:52) Complete Blood Count With Diff (08/06/17 10:52) Comprehensive Metabolic Panel (08/06/17 10:52) Magnesium (Mg) (08/06/17 10:52) Prothrombin Time / Inr (Pt) (08/06/17 10:52) Act Partial Throm Time (Ptt) (08/06/17 10:52) Troponin I (08/06/17 10:52) Chest, Single Ap (08/06/17 10:52) Ecg Monitoring (08/06/17 10:52) Bilateral Bp Monitoring (08/06/17 10:52) Iv Access Insert/Monitor (08/06/17 10:52) Oximetry (08/06/17 10:52) Oxygen Administration (08/06/17 10:52) Aspirin (Aspirin) (08/06/17 11:00) Sodium Chloride 0.9% Flush (Ns Flush) (08/06/17 11:00) Furosemide Inj (Lasix Inj) (08/06/17 14:00) Labs Laboratory Tests Test 08/06/17 10:50 08/06/17 11:43 White Blood Count 6.8 TH/MM3 Red Blood Count 4.37 MIL/MM3 Hemoglobin 13.3 GM/DL Hematocrit 39.7 % Mean Corpuscular Volume 90.7 FL Mean Corpuscular Hemoglobin 30.5 PG Mean Corpuscular Hemoglobin Concent 33.6 % Red Cell Distribution Width 15.1 % Platelet Count 188 TH/MM3 Mean Platelet Volume 8.8 FL Neutrophils (%) (Auto) 54.8 % Lymphocytes (%) (Auto) 27.2 % Monocytes (%) (Auto) 9.1 % Eosinophils (%) (Auto) 5.7 % Basophils (%) (Auto) 3.2 % Neutrophils # (Auto) 3.7 TH/MM3 Lymphocytes # (Auto) 1.9 TH/MM3 Monocytes # (Auto) 0.6 TH/MM3 Eosinophils # (Auto) 0.4 TH/MM3 Basophils # (Auto) 0.2 TH/MM3 CBC Comment DIFF FINAL Differential Comment Prothrombin Time 10.8 SEC Prothromb Time International Ratio 1.1 RATIO Activated Partial Thromboplast Time 25.0 SEC B-Type Natriuretic Peptide 230 PG/ML Blood Urea Nitrogen 24 MG/DL Creatinine 1.50 MG/DL Random Glucose 96 MG/DL Total Protein 7.4 GM/DL Albumin 3.4 GM/DL Calcium Level 9.5 MG/DL Magnesium Level 2.0 MG/DL Alkaline Phosphatase 63 U/L Aspartate Amino Transf (AST/SGOT) 18 U/L Alanine Aminotransferase (ALT/SGPT) 21 U/L Total Bilirubin 0.6 MG/DL Sodium Level 142 MEQ/L Potassium Level 4.3 MEQ/L Chloride Level 105 MEQ/L Carbon Dioxide Level 32.9 MEQ/L Anion Gap 4 MEQ/L Estimat Glomerular Filtration Rate 47 ML/MIN Total Creatine Kinase 41 U/L Troponin I 0.13 NG/ML [facility] Medical Decision Making Medical Screen Exam Complete: Yes Emergency Medical Condition: Yes Interpretation(s) EKG rate 60, T-wave inversion in 1, aVL, V4 through V6 (on prior EKG T-wave inversion 1, V4, V5 are present), paced, EFFIE in V2,V3 Labs: Elevated BNP, BUN and creatinine, troponin Last Impressions Chest X-Ray 08/06/17 1052 Signed Impressions: Service Date/Time: Sunday, August 06, 2017 11:18 - CONCLUSION: 1. Cardiomegaly. 2. The lungs are clear. Timothy Haile MD Differential Diagnosis ACS, CHF exacerbation Narrative Course Patient presents to the emergency department complaining of shortness of breath when lying flat on 2 pillows orthopnea. Also reporting 4 pound weight gain in 2 days. Patient has known history of CHF. Will place on the cardiac catheterization technician, IV access obtained. Chest x-ray, EKG, and labs ordered. Patient given 325 mg p.o. aspirin. 1330: Patient elevated troponin and BNP, as well as elevated creatinine. Initially called Dr. Holder, cardiology electric distribution checker, who advised me to call patient' s air director. 1400: Spoke to Dr. Jay, who has seen the patient while he has been an inpatient. States patient is noncompliant and has not followed up with him in the clinic. Advised to give 40 mg IV Lasix, transfer to the [facility] and admit to CIC. Physician Communication Physician Communication Dr. Holder: Advised to send the EKG. Called back, he's paced, EFFIE can't be determined, no STEMI. Called Dr. Holder back as patient's troponin elevated. Advised to call his air director, Dr. Jay. 1351: Dr. Jay advised to admit patient, lasix 40mg IV, transfer to [facility] for [facility] admission. BP 118/65. Diagnosis Primary Impression: CHF exacerbation Qualified Codes: I50.43 - Acute on chronic combined systolic (congestive) and diastolic (congestive) heart failure Admitting Information Admitting Physician Requests: Admit Disposition: 70 TRANSFER TO OTHER FACILITY Condition: Stable Mariah Westfall MD August 06, 2017 11:13
[2017-08-06 11:57] LABS: CHLORIDE 105 MEQ/L (98-107); SODIUM (NA) 142 MEQ/L (136-145)
--- NOTE | 2017-08-06 12:00 | RADRPT ---
EXAM DATE/TIME: 08/06/2017 11:18 [facility] COMPARISON: CHEST SINGLE AP, May 23, 2017, 15:59. INDICATIONS : Short of breath MEDICAL HISTORY : Congestive heart failure. SURGICAL HISTORY : Pacemaker. ENCOUNTER: Initial ACUITY: 1 day PAIN SCORE: 0/10 LOCATION: Bilateral chest FINDINGS: The lungs are symmetrically aerated and clear. Stable cardiomegaly. Cardiac pacer leads stable in p osition. Both hemidiaphragms are well delineated. CONCLUSION: 1. Cardiomegaly. 2. The lungs are clear. Timothy Haile MD on August 06, 2017 at 11:58 Board Certified Radiologist. This report was verified electronically.
[2017-08-06 12:01] LABS: ALBUMIN 3.4 GM/DL (3.4-5.0); BICARBONATE 32.9 MEQ/L (21.0-32.0); BLOOD UREA NITROGEN 24 MG/DL (7-18); CALCIUM 9.5 MG/DL (8.5-10.1); GLUCOSE,RANDOM 96 MG/DL (74-106)
[2017-08-06 12:04] LABS: ALT (GPT) 21 U/L (12-78); AST (GOT) 18 U/L (15-37); GLOMERULAR FILTRATION RATE 47 ML/MIN (>89)
[2017-08-06 12:06] LABS: TOTAL BILIRUBIN ADULT 0.6 MG/DL (0.2-1.0); TOTAL PROTEIN 7.4 GM/DL (6.4-8.2)
[2017-08-06 12:07] LABS: ALKALINE PHOSPHATASE 63 U/L (45-117)
[2017-08-06 12:09] LABS: TROPONIN I 0.13 NG/ML (0.02-0.05)
[2017-08-06 12:48] LABS: INTERNATIONAL NORMALIZED RATIO 1.1 RATIO; PROTHROMBIN TIME - PATIENT 10.8 SEC (9.8-11.6)
[2017-08-06] MEDS ORDERED: FUROSEMIDE 40 MG/4 ML VIAL IV PUSH ONE (14:00)
[2017-08-06] MEDS ORDERED: ONDANSETRON ODT 4 MG TAB SL PRN (14:15)
[2017-08-06] MEDS ORDERED: DEXTROSE 50% IN WATER 50 ML VIAL(D50) IV PUSH PRN (14:15)
[2017-08-06] MEDS ORDERED: GLUCAGON 1 MG/ML VIAL OTHER PRN (14:15)
[2017-08-06] MEDS ORDERED: SODIUM CHLORIDE 0.9% FLUSH 10 ML FLUSH IV FLUSH PRN (14:15)
--- NOTE | 2017-08-06 14:58 | HHI.HP ---
[facility] Service [facility] Primary Care Physician Musa Costello MD Admission Diagnosis CHF exacerbation, renal insufficiency Diagnoses: Chief Complaint: Shortness of breath and weight gain Travel History International Travel<30 Days: No Contact w/Intl Traveler <30 Da: No Traveled to Known Affected Are: No History of Present Illness This patient is a 61-year-old gentleman with a history of congestive heart failure and poor adherence to his diet what should be low sodium. 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 He does have 2 pillow orthopnea, 4 pound weight gain and increased work of breathing with shortness of breath. He denies chest pain. He does have a 70-sghh-yryi history, but denies any COPD diagnosis. His CO2 is somewhat elevated. Chest x-ray was clear. BMP is unremarkable. Patient has been given Lasix here and appears to have some improvement although his urine output has not been quantified. Patient is recommended for observation due to elevated troponin although it is chronically elevated. Care plan discussed with cardiology and patient who agreed with observation and continue with conservative management. Review of Systems Constitutional: COMPLAINS OF: Weight gain (4 pounds in the last 3 day), DENIES : Diaphoretic episodes, Fatigue, Fever, Weight loss, Chills, Dizziness, Change in appetite, Night Sweats Endocrine: DENIES: Heat/cold intolerance, Polydipsia, Polyuria, Polyphagia Eyes: DENIES: Blurred vision, Diplopia, Eye inflammation, Eye pain, Vision loss , Photosensitivity, Double Vision Ears, nose, mouth, throat: DENIES: Tinnitus, Hearing loss, Vertigo, Nasal discharge, Oral lesions, Throat pain, Hoarseness, Ear Pain, Running Nose, Epistaxis, Sinus Pain, Toothache, Odynophagia Respiratory: DENIES: Apneas, Cough, Snoring, Wheezing, Hemoptysis, Sputum production, Shortness of breath Cardiovascular: COMPLAINS OF: Dyspnea on Exertion, Orthopnea, DENIES: Chest pain, Palpitations, Syncope, PND, Lower Extremity Edema, Claudication Gastrointestinal: DENIES: Abdominal pain, Black stools, Bloody stools, Constipation, Diarrhea, Nausea, Vomiting, Difficulty Swallowing, Anorexia Genitourinary: DENIES: Sexual dysfunction, Urinary frequency, Urinary incontinence, Urgency, Hematuria, Dysuria, Nocturia, Penile Discharge, Testicular Pain, Testicular Swelling Musculoskeletal: DENIES: Joint pain, Muscle aches, Stiffness, Joint Swelling, Back pain, Neck pain Integumentary: DENIES: Abnormal pigmentation, Nail changes, Pruritus, Rash Hematologic/lymphatic: DENIES: Bruising, Lymphadenopathy Immunologic/allergic: DENIES: Eczema, Urticaria Neurologic: DENIES: Abnormal gait, Headache, Localized weakness, Paresthesias, Seizures, Speech Problems, Tremor, Poor Balance Psychiatric: DENIES: Anxiety, Confusion, Mood changes, Depression, Hallucinations, Agitation, Suicidal Ideation, Homicidal Ideation, Delusions Except as stated in HPI: all other systems reviewed are Neg Past Family Social History Past Medical History Tobacco dependency Congestive heart failure with EF of 20% Diabetes Coronary artery disease status post atherectomy Past Surgical History Pacemaker/AICD Atherectomy Cholecystectomy Pancreatic surgery Reported Medications Reviewed in the EMR Allergies: Coded Allergies: diatrizoate meglumine (Unverified Allergy, Severe, Swelling, 08/06/17) gadobenic acid (Unverified Allergy, Severe, Swelling, 08/06/17) gadodiamide (Unverified Allergy, Severe, Swelling, 08/06/17) gadoteridol (Unverified Allergy, Severe, Swelling, 08/06/17) iodixanol (Unverified Allergy, Severe, Swelling, 08/06/17) iohexol (Unverified Allergy, Severe, Swelling, 08/06/17) Iodinated Contrast- Oral and IV Dye (Verified Allergy, Unknown, 08/06/17) MRI PRECAUTION (Verified Adverse Reaction, Severe, NON COMPATIBLE MEDTRONIC PACEMAKER 09/24/15 KMD, 08/06/17) VIVA XT OVERSEAMER DEFIB MODEL [id number] IMPLANTED 09/02/13 Family History Mother in her 80s of old age Father in his 80s but had lung cancer and was a smoker Social History Patient quit tobacco this month No alcohol dependency Lives alone Physical Exam Vital Signs Vital Signs Date Time Temp Pulse Resp B/P (MAP) Pulse Ox O2 Delivery O2 Flow Rate FiO2 08/06/17 14:37 61 20 101/58 (72) 08/06/17 13:23 72 20 160/57 (91) 100 5/20/18 12:30 53 20 107/70 (82) 96 08/06/17 11:22 55 20 104/64 (77) 96 114/67 (83) 08/06/17 11:06 95 08/06/17 11:06 Nasal Cannula 08/06/17 10:16 99.3 67 16 123/91 (102) 99 Physical Exam GENERAL: This is a well-nourished, well-developed patient, in no apparent distress after Lasix SKIN: No rashes, ecchymoses or lesions. Cool and dry. HEAD: Atraumatic. Normocephalic. No temporal or scalp tenderness. EYES: Pupils equal round and reactive. Extraocular motions intact. No scleral icterus. No injection or drainage. ENT: Nose without bleeding, purulent drainage or septal hematoma. Throat without erythema, tonsillar hypertrophy or exudate. Uvula midline. Airway patent. NECK: Trachea midline. No JVD or lymphadenopathy. Supple, nontender, no meningeal signs. CARDIOVASCULAR: Regular rate and rhythm without murmurs, gallops, or rubs. RESPIRATORY: Clear to auscultation. Breath sounds equal bilaterally. No wheezes , rales, or rhonchi. GASTROINTESTINAL: Abdomen soft, non-tender, nondistended. No hepato-splenomegaly , or palpable masses. No guarding. MUSCULOSKELETAL: Extremities without clubbing, cyanosis, or edema. No joint tenderness, effusion, or edema noted. No calf tenderness. Negative Homans sign bilaterally. NEUROLOGICAL: Awake and alert. Cranial nerves II through XII intact. Motor and sensory grossly within normal limits. Five out of 5 muscle strength in all muscle groups. Normal speech. Laboratory Laboratory Tests Test 08/06/17 10:50 08/06/17 11:43 White Blood Count 6.8 Red Blood Count 4.37 Hemoglobin 13.3 Hematocrit 39.7 Mean Corpuscular Volume 90.7 Mean Corpuscular Hemoglobin 30.5 Mean Corpuscular Hemoglobin Concent 33.6 Red Cell Distribution Width 15.1 Platelet Count 188 Mean Platelet Volume 8.8 Neutrophils (%) (Auto) 54.8 Lymphocytes (%) (Auto) 27.2 Monocytes (%) (Auto) 9.1 Eosinophils (%) (Auto) 5.7 Basophils (%) (Auto) 3.2 Neutrophils # (Auto) 3.7 Lymphocytes # (Auto) 1.9 Monocytes # (Auto) 0.6 Eosinophils # (Auto) 0.4 Basophils # (Auto) 0.2 CBC Comment DIFF FINAL Differential Comment Prothrombin Time 10.8 Prothromb Time International Ratio 1.1 Activated Partial Thromboplast Time 25.0 B-Type Natriuretic Peptide 230 Blood Urea Nitrogen 24 Creatinine 1.50 Random Glucose 96 Total Protein 7.4 Albumin 3.4 Calcium Level 9.5 Magnesium Level 2.0 Alkaline Phosphatase 63 Aspartate Amino Transf (AST/SGOT) 18 Alanine Aminotransferase (ALT/SGPT) 21 Total Bilirubin 0.6 Sodium Level 142 Potassium Level 4.3 Chloride Level 105 Carbon Dioxide Level 32.9 Anion Gap 4 Estimat Glomerular Filtration Rate 47 Total Creatine Kinase 41 Troponin I 0.13 Result Diagram: 08/06/17 1050 08/06/17 1143 Imaging Last Impressions Chest X-Ray 08/06/17 1052 Signed Impressions: Service Date/Time: Sunday, August 06, 2017 11:18 - CONCLUSION: 1. Cardiomegaly. 2. The lungs are clear. Timothy Haile MD Capmilani VTE Risk Assessment Caprini VTE Risk Assessment: Mod/High Risk (score >= 2) Caprini Risk Assessment Model Point Value = 1 Point Value = 2 Point Value = 3 Point Value = 5 Age 41-60 Minor surgery BMI > 25 kg/m2 Swollen legs Varicose veins or History of unexplained or recurrent spontaneous Oral contraceptives or hormone replacement Sepsis (< 1 month) Serious lung disease, including pneumonia (< 1 month) Abnormal pulmonary function Acute myocardial infarction Congestive heart failure (< 1 month) History of inflammatory bowel disease Medical patient at bed rest Age 61-74 Arthroscopic surgery Major open surgery (> 45 min) Laparoscopic surgery (> 45 min) Malignancy Confined to bed (> 72 hours) Immobilizing plaster cast Central venous access Age >= 75 History of VTE Family history of VTE Factor V Leiden Prothrombin [id number] Lupus anticoagulant Anticardiolipin antibodies Elevated serum homocysteine Heparin-induced thrombocytopenia Other congenital or acquired thrombophilia Stroke (< 1 month) Elective arthroplasty Hip, pelvis, or leg fracture Acute spinal cord injury (< 1 month) Prophylaxis Regimen Total Risk Factor Score Risk Level Prophylaxis Regimen 0-1 Low Early ambulation 2 Moderate Order ONE of the following: *Sequential Compression Device (SCD) *Heparin 5000 units SQ BID 3-4 Higher Order ONE of the following medications: *Heparin 5000 units SQ TID *Enoxaparin/Lovenox 40 mg SQ daily (WT < 150 kg, CrCl > 30 mL/min) *Enoxaparin/Lovenox 30 mg SQ daily (WT < 150 kg, CrCl > 10-29 mL/min) *Enoxaparin/Lovenox 30 mg SQ BID (WT < 150 kg, CrCl > 30 mL/min) AND/OR *Sequential Compression Device (SCD) 5 or more Highest Order ONE of the following medications: *Heparin 5000 units SQ TID (Preferred with Epidurals) *Enoxaparin/Lovenox 40 mg SQ daily (WT < 150 kg, CrCl > 30 mL/min) *Enoxaparin/Lovenox 30 mg SQ daily (WT < 150 kg, CrCl > 10-29 mL/min) *Enoxaparin/Lovenox 30 mg SQ BID (WT < 150 kg, CrCl > 30 mL/min) AND *Sequential Compression Device (SCD) Assessment and Plan Problem List: (1) CHF exacerbation ICD Code: I50.9 - Heart failure, unspecified Status: Acute Plan: The left ventricular systolic function is severely reduced with an estimated ejection fraction less than 20% as of April 2017 Continue with medical management for now patient already has a defibrillator Patient education Diuresis (2) Elevated troponin I level ICD Code: R74.8 - Abnormal levels of other serum enzymes Status: Acute Plan: no further work up needed at this time Patient's cardiac enzymes are chronically elevated. No signs and symptoms of angina at this time, I believe his shortness of breath may be multifactorial. Will evaluate for COPD and for CHF (3) DM (diabetes mellitus) ICD Code: E11.9 - Type 2 diabetes mellitus without complications Status: Chronic Plan: Hold metformin for now ADA diet Accucheck and ptn education Code Status full code Discussed Condition With Likely discharge in a.m. if stable Problem Qualifiers (1) CHF exacerbation: Qualified Codes: I50.43 - Acute on chronic combined systolic (congestive) and diastolic (congestive) heart failure Annabelle Bello MD August 06, 2017 14:58
[2017-08-06] MEDS: INSULIN ASPART SUPPLEMENTAL SCALE SQ SCH ×2 (16:49→21:00)
[2017-08-06] MEDS: TORSEMIDE 20 MG TAB PO SCH (17:05)
--- NOTE | 2017-08-06 20:39 | EKG ---
Date Performed: 08/06/2017 Time Performed: 10:33:08 PTAGE: 61 years EKG: ELECTRONIC VENTRICULAR PACEMAKER ABNORMAL RHYTHM ECG PREVIOUS TRACING : 05/23/2017 15.36 Since the previous tracing, no significant change noted DOCTOR: Jose Armando Duron Interpretating Date/Time 08/06/2017 20:39:15
[2017-08-06] MEDS ORDERED: PRAVASTATIN SOD 80 MG TAB PO SCH (21:00)
[2017-08-06] MEDS: SODIUM CHLORIDE 0.9% FLUSH 10 ML FLUSH IV FLUSH SCH (21:00)
[2017-08-06] MEDS: AMIODARONE 200 MG TAB PO SCH (21:26)
[2017-08-07] VITALS: BP 125/65; PULSE 51; RESP 18; TEMP 96.5; O2SAT 99
[2017-08-07 04:00] VITALS: BP 109/63; PULSE 52; RESP 18; TEMP 96.5; O2SAT 96
[2017-08-07 08:00] VITALS: BP 124/75; PULSE 56; RESP 19; TEMP 97.4; O2SAT 97
[2017-08-07] MEDS: INSULIN ASPART SUPPLEMENTAL SCALE SQ SCH ×2 (08:00→11:56)
[2017-08-07] MEDS: AMIODARONE 200 MG TAB PO SCH (08:55)
[2017-08-07] MEDS: TORSEMIDE 20 MG TAB PO SCH (08:58)
[2017-08-07] MEDS: SODIUM CHLORIDE 0.9% FLUSH 10 ML FLUSH IV FLUSH SCH (09:00)
[2017-08-07] MEDS ORDERED: LOSARTAN 50 MG TAB PO SCH (09:00)
[2017-08-07] MEDS ORDERED: METOPROLOL SUCCINATE 50 MG EXTENDED RELEASE TAB PO SCH (09:00)
[2017-08-07] MEDS ORDERED: TORS1TAB12 PO (11:07)
--- NOTE | 2017-08-07 11:07 | HHI.DCPOC ---
Discharge Care Plan Diagnosis: (1) DM (diabetes mellitus) (2) CHF exacerbation Goals to Promote Your Health * To prevent worsening of your condition and complications * To maintain your health at the optimal level Directions to Meet Your Goals Take your medications as prescribed Follow your dietary instruction Follow activity as directed Keep your appointments as scheduled Take your immunizations and boosters as scheduled If your symptoms worsen call your PCP, if no PCP go to Urgent Care Center or Emergency Room Smoking is Dangerous to Your Health. Avoid second hand smoke Call the 24-hour hour crisis hotline for domestic abuse at Annabelle Bello MD August 07, 2017 11:07
--- NOTE | 2017-08-07 11:09 | HHI.DS ---
Discharge Summary Admission Date August 06, 2017 at 14:09 Discharge Date: August 07, 2017 Admitting Diagnosis CHF exacerbation, renal insufficiency (1) CHF exacerbation ICD Code: I50.9 - Heart failure, unspecified Status: Acute (2) Elevated troponin I level ICD Code: R74.8 - Abnormal levels of other serum enzymes Status: Acute (3) DM (diabetes mellitus) ICD Code: E11.9 - Type 2 diabetes mellitus without complications Status: Chronic Procedures None Brief History - From Admission This patient is a 61-year-old gentleman with a history of congestive heart failure and poor adherence to his diet what should be low sodium. 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 He does have 2 pillow orthopnea, 4 pound weight gain and increased work of breathing with shortness of breath. He denies chest pain. He does have a 56-ogos-qwpt history, but denies any COPD diagnosis. His CO2 is somewhat elevated. Chest x-ray was clear. BMP is unremarkable. Patient has been given Lasix here and appears to have some improvement although his urine output has not been quantified. Patient is recommended for observation due to elevated troponin although it is chronically elevated. Care plan discussed with cardiology and patient who agreed with observation and continue with conservative management. CBC/BMP: 08/06/17 1050 08/06/17 1143 Significant Findings Laboratory Tests Test 08/06/17 10:50 08/06/17 11:43 08/06/17 15:43 Red Blood Count 4.37 MIL/MM3 (4.50-5.90) Monocytes (%) (Auto) 9.1 % (0.0-8.0) Eosinophils (%) (Auto) 5.7 % (0.0-4.0) Basophils (%) (Auto) 3.2 % (0.0-2.0) B-Type Natriuretic Peptide 230 PG/ML (0-100) Blood Urea Nitrogen 24 MG/DL (7-18) Creatinine 1.50 MG/DL (0.60-1.30) Carbon Dioxide Level 32.9 MEQ/L (21.0-32.0) Anion Gap 4 MEQ/L (5-15) Estimat Glomerular Filtration Rate 47 ML/MIN (>89) Troponin I 0.13 NG/ML (0.02-0.05) Blood Gas HCO3 29 mmol/L (22-26) Blood Gas Base Excess 4.9 mmol/L (-2-2) Arterial Blood pH 7.45 (7.380-7.420) Imaging Last Impressions Chest X-Ray 08/06/17 1052 Signed Impressions: Service Date/Time: Sunday, August 06, 2017 11:18 - CONCLUSION: 1. Cardiomegaly. 2. The lungs are clear. Timothy Haile MD Pt update on day of discharge Patient doing much better. Laying flat. Has diuresed quite a bit although it is not quantified. Patient follow-up reinforced. Plan of treatment and judicious use of diuretics reinforced as well. Hospital Course This patient is a 61-year-old gentleman with a history of CHF and nonadherence to medical treatment. Patient was seen and evaluated for a mild CHF exacerbation which required overnight diuresis. He is remarkably improved. He did have some elevated troponins which are chronically elevated. No further workup was given as the patient does have signs and symptoms of congestive heart failure without vicky complaint of chest pain. Pt Condition on Discharge: Good Discharge Disposition: Discharge Home Discharge Time: <= 30 minutes Discharge Instructions DIET: Follow Instructions for: Heart Healthy Diet, Diabetic Diet Activities you can perform: Regular-No Restrictions Follow up Referrals: Cardiology - 1 Week @ [facility] Continued Medications: Amiodarone (Amiodarone) 200 Mg Tab 200 MG PO BID for Regulate Heart Beat, #60 TAB 0 Refills Losartan (Cozaar) 50 Mg Tab 50 MG PO DAILY for Blood Pressure Management, #30 TAB 0 Refills Metformin (Metformin) 500 Mg Tab 500 MG PO BIDPC for Blood Sugar Management, #60 TAB 0 Refills Metoprolol Succinate ER 24 HR (Metoprolol Succinate ER 24 HR) 25 Mg Tab 50 MG PO DAILY for Blood Pressure Management, #30 TAB 0 Refills Ondansetron Odt (Zofran Odt) 4 Mg Tab 4 MG SL Q6HR PRN for Nausea/Vomiting, #7 TAB 0 Refills Potassium Chloride ER (Klor-Con 10) 10 Meq Tab 20 MEQ PO TID for Nutritional Supplement, #90 TAB 0 Refills Simvastatin (Simvastatin) 40 Mg Tab 40 MG PO HS for Cholesterol Management, #30 TAB 0 Refills Torsemide (Demadex) 20 Mg Tab 20 MG PO BID@0900,1800 for Heart , #60 TAB 5 Refills (This prescription has been renewed) Annabelle Bello MD August 07, 2017 11:09
== END 2017-08-07 11:58 | disposition home or self-care (01) ==
LOC: PHED 10:08 → PHEDA 14:09 → INTOOBSV 14:09 → PH3A 15:55
PROVIDERS: ADMIT Hospitalist; ATTEND Hospitalist
DX: I11.0 Hypertensive heart disease with heart failure (principal); I50.43 Acute on chronic combined systolic (congestive) and diastolic (congestive) heart failure; N28.9 Disorder of kidney and ureter, unspecified; R74.8 Abnormal levels of other serum enzymes; E11.9 Type 2 diabetes mellitus without complications; E78.00 Pure hypercholesterolemia, unspecified; R06.02 Shortness of breath; I25.10 Atherosclerotic heart disease of native coronary artery without angina pectoris; R94.31 Abnormal electrocardiogram [ECG] [EKG]; I51.7 Cardiomegaly; I25.2 Old myocardial infarction; I08.0 Rheumatic disorders of both mitral and aortic valves; Z87.891 Personal history of nicotine dependence; Z79.899 Other long term (current) drug therapy
CPT/HCPCS: 36600; 71045; 80053; 82550; 82805; 82948; 83735; 83880; 84484; 85025; 85610; 85730; 93005; 96374; 99285; G0378; J1940